=== PATIENT | female | born 1980 | race Two or more races ===

== ENCOUNTER 2021-03-29 00:53 | Inpatient (IN) | payer OTHER, SELFPAY ==
[2021-03-29 01:07] VITALS: BP 130/80; PULSE 80; RESP 18; TEMP 36.8; O2SAT 96
--- NOTE | 2021-03-29 01:08 | ED.PSYCH ---
HPI - Psych General Stated Complaint: crisis Time Seen by Provider: 03/29/21 01:06 Source: patient, EMS and police Mode of arrival: EMS Limitations: no limitations History of Present Illness HPI Narrative: 40-year-old female came in by police in [place] [address] for evaluation of depression and suicidal ideation. Patient was talking to her BPH and therapy and expressed suicidal gesturing, patient had a plan to jump in front of her running truck on the highway, but patient at this point declined any overdosing or using any drugs. When patient was asked to reason of her depression patient answered everything is not working will my life. Related Data Allergies Allergy/AdvReac Type Severity Reaction Status Date / Time bupropion [From WELLBUTRIN] Allergy Unknown PAINFUL Unverified 07/17/20 18:04 ERECTION risperidone [Risperdal] AdvReac Unknown diarrhea, Verified 10/21/16 00:00 feels ramped up sertraline [From ZOLOFT] AdvReac Unknown NAUSEA/DIZZ Unverified 07/17/20 18:04 INESS BANANAS Allergy Unknown ITCHING Uncoded 07/17/20 18:04 INSIDE MOUTH BLUEBERRIES Allergy Unknown ITCHING Uncoded 07/17/20 18:04 INSIDE MOUTH STRAWBERRIES Allergy Unknown ITCHING Uncoded 07/17/20 18:04 INSIDE MOUTH Review of Systems Review of Systems: All other systems are reviewed and are negative Constitutional: Reports as per HPI and Reports no additional constitutional complaints Eyes: Reports as per HPI and Reports no additional eye complaints Reports system reviewed and no additional complaints, except as documented Cardiovascular: Reports as per HPI and Reports no additional cardiovascular complaints Respiratory: Reports as per HPI and Reports no additional respiratory complaints Gastrointestinal: Reports as per HPI and Reports no additional gastrointestinal complaints Genitourinary: Reports no additional female genitourinary complaints Musculoskeletal: Reports no additional musculoskeletal complaints Skin/Breast: Reports system reviewed and no additional complaints, except as docu Psychiatric: Reports no additional psychiatric complaints Endocrine: Reports no additional endocrine complaints Hematologic/Lymphatic: Reports no additional hematologic/lymphatic complaints Allergic/Immunologic: Reports no additional allergic/immunologic complaints Reports system reviewed and no additional complaints, except as documented and Reports Abnormal speech present Physical Exam Vital Signs: Vital Signs: Vital signs have been reviewed as appeared to be correct. Blood pressure normal. Heart rate normal. Respiration rate normal. Temperature normal. Oxygen saturation normal. Appearance: Alert. Oriented X3. No acute distress. Head: Normal external exam. Normocephalic. Atraumatic. No Leahy signs noted. No raccoon eyes noted Eyes: PERRLA. EOMI. Conjunctiva and sclera normal. Eyelids normal. ENT: TM's Normal. Pharynx normal. Uvula midline. Moist mucous membranes. No trismus noted. No drooling noted. No muffled voice noted. Neck: Normal inspection. Neck supple. FROM. No adenopathy. Thyroid Normal. No meningeal signs. No neck mass noted. CVS: Normal heart rate and rhythm. Heart sound normal. No murmurs noted. Pulses normal throughout. Respiratory: No respiratory distress. Painless inspiration. Breath sounds normal. No wheezes/rales/rhonchi noted. Chest nontender. No accessory muscle usage noted or decreased air movement noted. Abdomen: Soft and nontender. Bowel sounds normal in all 4 quadrants. No distention noted. No organomegaly noted. No visible injury noted. Back: No CVA tenderness. Full range of motion noted. Skin: Skin warm and dry. Normal skin color. Normal skin turgor. No rashes/lesions/lacerations noted. Extremities: No lower extremity edema. Extremities exhibit normal range of motion. Extremities nontender. Neuro: Oriented X 3. No motor deficit. No sensory deficit. Reflexes normal. Patient Appearance: Appropriate Patient Orientation: Person, Place, Time and Situation Level of Consciousness: Awake, Appropriate and Alert Patient Behavior: Talkative, Cooperative. Mood Description: Depressed. Affect Description: Flat. Patient Cognition Impaired: No Ability to Follow Directions: Good Speech Pattern: Spontaneous Speech Memory Description: Intact Hallucinations: Not present. Delusions: Not Present Thought Process: Logical. Thought Content: Unremarkable Depressive Symptoms: Increased anxiety, suicidal Judgement: Poor Course Course Course Narrative: 40-year-old female came in with depression and suicidal ideation, patient is [place] police, patient is awaiting for BPH and evaluation. Reevaluation(s) Reevaluation #1: Physician observation started at 1:15 . Patient placed in physician observation because the patient needed more time for medication to work and to see PT/case management for evaluation and the need for placement patient's vital sign were stable, patient is alert and oriented , neuro exam unchanged, unremarkable rest of physical exam. Time: 01:13 Discharge Plan Discharge Clinical Impression: Depression
[2021-03-29 01:11] VITALS: BP 130/80; BP 150/110; PULSE 80; PULSE 90; RESP 18; TEMP 36.8; O2SAT 97; O2SAT 99; BMI 31.0
[2021-03-29] MEDS: LORazepam 0.5 MG TABLET PO (02:04)
[2021-03-29 03:40] LABS: COVID-19 Test Negative (Negative); IDNOW Serial# 9DD0AD1C
--- NOTE | 2021-03-29 04:14 | PC.NURSE ---
[address] SI with plan to jump in front of moving traffic. Sent her friend a goodFixyae message prior to coming to ED. Pt called [facility] from the community, who then called [place] Police to bring the patient to the ED. Pt is calm/cooperative. Denies drug/alcohol use. Plan to be evaluated by [facility] in the morning.
--- NOTE | 2021-03-29 05:08 | PC.NURSE ---
Faxed/called to [facility]. Josh (at [facility]) confirmed receipt of fax. Plan for evaluation in the morning.
--- NOTE | 2021-03-29 07:34 | PC.NURSE ---
patient appears to be resting currently appears to sleep with even unlabored breaths. received report from prior RN
[2021-03-29] MEDS: estradioL 0.5 MG TABLET 4 MG PO (10:00)
--- NOTE | 2021-03-29 10:41 | MHC.CARE ---
CARE Team assessed patient in BH 4, determined to need inpatient psychiatric hospitalization and will remain in the ED until a placement is secured, she is voluntary for this treatment. Evaluation to follow. Providers notified and in agreement with plan.
[2021-03-29 10:55] VITALS: BP 97/60; PULSE 57; RESP 16; O2SAT 97
[2021-03-29 11:04] LABS: Glucose Urine UA NEG (NEG); Leukocyte Esterase Urine NEG (NEG); Nitrite Urine NEG (NEG); Specific Gravity - Urine >= 1.030 (1.005-1.025); Urine Blood NEG (NEG); Urine Ketones NEG (NEG); Urine Protein NEG (NEG-TRACE)
[2021-03-29 11:05] LABS: Appearance Urine CLEAR; Color Urine AMBER
[2021-03-29 11:06] LABS: UPreg QC Valid YES; Urine Pregnancy NEGATIVE (NEGATIVE)
[2021-03-29 11:54] LABS: Amphetamine Screen Urine Not Detected (Not Detect); Barbiturates, Urine Not Detected (Not Detect); Benzodiazepines Screen Urine POSITIVE (Not Detect); Cannabinoid Screen Urine Not Detected (Not Detect); Cocaine Screen Urine Not Detected (Not Detect); Opiate Screen Urine Not Detected (Not Detect); Phencyclidine Screen Urine Not Detected (Not Detect)
[2021-03-29 13:50] VITALS: BP 112/68
[2021-03-29] MEDS: clonazePAM 1 MG TABLET 2 MG PO (13:53)
--- NOTE | 2021-03-29 14:35 | ECG_ITS ---
Test Reason : MEDICAL CLEARANCE Blood Pressure : / mmHG Vent. Rate : 049 BPM Atrial Rate : 049 BPM P-R Int : 150 ms QRS Dur : 094 ms QT Int : 448 ms P-R-T Axes : 022 076 054 degrees QTc Int : 404 ms Sinus bradycardia Otherwise normal ECG No significant changes when compared with the previous EKG of 26 oct 2016 Referred By: Justin Prasad Electronically Signed By:FARHEEN SOLO
[2021-03-29] MEDS: hydrOXYzine HCL 25 MG TABLET PO (16:15)
--- NOTE | 2021-03-29 19:08 | MHC.CARE ---
Bedsearch Note: Reviewed [facility] for statewide bed availability. Pt will require a single room, due to being transgendered, and there are no facilities able to accommodate pt at this time. Pt will remain in ED pending either change in mental status or admission to a psychiatric treatment facility.
--- NOTE | 2021-03-29 19:28 | PC.NURSE ---
Patient in bed appears sleeping, no distress reported at this time, ate her dinner per report, will continue to monitor.
[2021-03-29 23:45] VITALS: BP 105/63; PULSE 50; RESP 16; TEMP 36.5; O2SAT 96
[2021-03-30 00:38] VITALS: BP 136/78; PULSE 117; RESP 20; O2SAT 97
--- NOTE | 2021-03-30 10:44 | MHC.CARE ---
CARE Team conducted a state wide bed search - no current beds available. [facility] accepted referral. CARE Team to completed [facility].
[2021-03-30] MEDS: estradioL 0.5 MG TABLET 4 MG PO (11:28)
[2021-03-30] MEDS: Escitalopram Oxalate 20 MG TABLET PO (11:29)
[2021-03-30 13:47] VITALS: BP 116/65; PULSE 47; RESP 16; O2SAT 98
[2021-03-30 15:00] VITALS: RESP 16
--- NOTE | 2021-03-30 15:05 | MHC.CARE ---
CARE Team completed chart review. Pt has [facility] not medicare/[employer]. CARE Team spoke with [facility] Supervisor [employer] who follow up with [facility]. CARE Team to contact [facility] for authorization.
--- NOTE | 2021-03-30 15:10 | PC.NURSE ---
Report taken from Joe Rn, per Joe: pt is male to female transgender, with preferred pronouns she/her. Pt has flat affect answers questions with despondent/flat affect. Per care team: pt is to be on [place]. confirmed with rob. Matthew RETAIL PHARMACIST to sign.
--- NOTE | 2021-03-30 20:05 | PC.NURSE ---
Patient in bed appears sleeping, no distress observed/reported, respiration +/=/non-labored bilaterally, per report patient had quiet and uneventful day, no update on bed search, will continue to monitor.
[2021-03-30 21:50] VITALS: RESP 16
[2021-03-30] MEDS: traZODone HCL 50 MG TABLET PO (22:07)
[2021-03-30] MEDS: clonazePAM 1 MG TABLET 2 MG PO (22:07)
--- NOTE | 2021-03-30 22:22 | PC.NURSE ---
Patient requested medication for anxiety and sleep, prn Trazodone and Klonopin administered as ordered, denied distress, will continue to monitor
[2021-03-30 23:10] VITALS: BP 103/54; PULSE 94; RESP 16; TEMP 36.5; O2SAT 95
--- NOTE | 2021-03-31 06:58 | PC.NURSE ---
patients appears asleep at present, breathing evenly and easily with regular respirations. patient appears in no distress.
[2021-03-31] MEDS: Escitalopram Oxalate 20 MG TABLET PO (09:54)
[2021-03-31] MEDS: estradioL 0.5 MG TABLET 4 MG PO (09:54)
[2021-03-31] MEDS: traZODone HCL 50 MG TABLET PO (22:14)
[2021-03-31] MEDS: clonazePAM 1 MG TABLET 2 MG PO (22:14)
[2021-03-31 22:19] VITALS: BP 121/68; PULSE 53; RESP 16; TEMP 36.7; O2SAT 97
--- NOTE | 2021-03-31 22:53 | PC.NURSE ---
pt. is a 40 year old transgender Arabic speaking woman who came to at approx. 19:15 from the [facility] ED on a cv status. pt. is covid neg, utox neg. pt. was assessed by crisis after she reported suicidal ideation with a plan to step into the path of an oncoming traffic. She is dx with PTSD which was triggered by a conflict with her room mate that lead to her becoming homeless. pt. was soft spoken, poor eye contact, flat affect. she reported she will seek staff if si arise. pt. signed consent forms, safety tool, orders for PRN medications received by Chelsie Grossman DOC.. pt. was oriented to the unit, she was cooperative and appropriate.
[2021-04-01] MEDS: Escitalopram Oxalate 20 MG TABLET PO (08:44)
[2021-04-01] MEDS: estradioL 0.5 MG TABLET 4 MG PO (08:44)
[2021-04-01 08:50] LABS: MANUAL DIFF FLAG NO
[2021-04-01 09:02] LABS: Estimated Average Glucose 94 mg/dL; Hemoglobin A1c % 4.9 %
[2021-04-01 09:05] LABS: Basophils Percent Auto 0.4 % (0-2); Eosinophils Absolute Auto 0.2 X10*3/uL (0.0-0.4); Eosinophils Percent Auto 2.5 % (0-4); Hematocrit 45.4 % (37-47); Hemoglobin 15.5 g/dl (12.0-16.0); Imm Gran Abs Auto 0.05 X10*3/uL (0.00-0.03); Imm Gran Pct Auto 0.5 % (0.0-0.4); Lymphocytes Absolute Auto 2.7 X10*3/uL (1.2-4.9); Lymphocytes Percent Auto 28.3 % (20-40); Mean Corpuscular HGB Conc 34.1 g/dl (31.0-35.0); Mean Corpuscular Hemoglobin 30.4 pg (27.0-33.0); Mean Platelet Volume 9.5 fL (9.4-12.3); Monocytes Absolute Auto 0.8 X10*3/uL (0.1-1.2); Monocytes Percent Auto 7.9 % (2-11); Neutrophils Absolute Auto 5.8 X10*3/uL (2.0-8.3); Neutrophils Percent Auto 60.4 % (45-73); Platelet Count 250 X10*3/uL (160-400); Red Cell Distribution Width 12.1 % (11.0-16.0); White Blood Count 9.5 X10*3/uL (4.8-10.8)
[2021-04-01 09:35] LABS: Alanine Aminotransferase 21 U/L (0-31); Albumin Level 4.2 g/dL (3.5-5.0); Alkaline Phosphatase 59 U/L (39-117); Anion Gap 14 (12-20); Aspartate Amino Transferase 16 U/L (5-31); Bilirubin Direct 0.2 mg/dL (0.0-0.5); Bilirubin Total 0.7 mg/dL (0.0-1.0); Blood Urea Nitrogen 16 mg/dL (9-16); Carbon Dioxide 29 mmol/L (22-29); Chloride 104 mmol/L (96-108); Cholesterol 211 mg/dL; Estimated Glomerular Filt Rate 47; Glucose Fasting 89 mg/dL (60-99); HDL Cholesterol 31 mg/dL; LDL Cholesterol Calculated 121 mg/dl; Magnesium 2.3 mg/dL (1.6-2.6); Potassium 3.7 mmol/L (3.3-5.1); Sodium 143 mmol/L (135-145); Total Protein 6.7 g/dL (6.5-8.0); Triglycerides 299 mg/dL
[2021-04-01 09:56] LABS: Free T4 (Free Thyroxine) 0.99 ng/dL (0.71-1.85); Thyroid Stimulating Hormone 1.28 uIU/mL (0.32-4.0)
[2021-04-01 10:08] LABS: Vitamin B12 257 pg/mL (200-900)
--- NOTE | 2021-04-01 15:02 | HO.PSYADMNOT ---
HPI Chief Complaint: crisis Sources of Information: patient interviewed, chart reviewed and crisis/core team assessment reviewed HPI Subjective Notes: Jordan Warning (Jordan warning given including mention that patients participation is voluntary and the possibility of court ordered involuntary commitment and treatment with antipsychotics. ) and 3 Day Narrative: Patient is a 40-year-old trans gender patient from male to female who presents for worsening depression in the face of newly becoming homeless and change in medications. Patient reports that that she has been depressed for the past year however was living in a house where she got to take care of an [id number] baby which was encouraging. Patient has remained on her medications. In this house, there were multiple friction filled relationships with other housemates however she focused on caring for the child. About a month ago, the the child's grandmother called [employer] on her daughter (the mother of the [id number]). However the mother thought it was the patient who called [employer] and patient was kicked out of the house. She has been homeless since he left there. Last month she was found walking in traffic wanting to , and admitted to [facility] out. She stayed there 1 week and her medication of citalopram, clonazepam and trazodone were all discontinued and she was put on perphenazine. She felt that this was not helpful at all and when she left she stop taking perphenazine. She has been trying to find a place to live but it has been very difficult and so patient got suicidal again, was again walking in traffic and reports she wanted to . She denies substance abuse. She endorses intermittent muffled voices or high-pitched sounds, which are only present when she is very stressed or anxious. Patient endorses long history of trauma starting in childhood and foster care; she has ongoing PTSD symptoms of nightmares hypervigilance, flashbacks and dissociative moments. She can also become panicked and feel like there is a ?hot plate on her chest ?, nauseous. Patient says that she is not currently suicidal and she is trying to summon up some renewed hope and trying to see if there is a way. She is open to medication changes though she reports she has had many trials. Med trials: ECT: Last year, said no help [place]: Said it caused nausea and dizziness and was discontinued Wellbutrin Zoloft Paxil Prazosin: Became overly dizzy Past Psychiatric History: Outpatient psychiatrist Dr. mauricio from [facility] Medical Evaluation Reviewed: Yes [facility] Medical History (Updated 04/02/21 @ 14:21 by Jefferson Lai) Agoraphobia Anxiety Chronic post-traumatic stress disorder (PTSD) Depression [id number] transgender person MDD (major depressive disorder), recurrent severe, without psychosis PTSD (post-traumatic stress disorder) Suicidal ideation Social History: DSS/foster care Substance History: Denies Trauma History: Patient reports trauma, does not go into detail Diagnostics Vital Signs (24Hr): Vital Signs - 24 hr 03/31/21 22:19 Temperature 98.1 F Pulse Rate 53 Respiratory Rate 16 Blood Pressure 121/68 Pulse Oximetry 97 Body Mass Index 31.0 Labs Results: 04/01/21 08:26 04/01/21 08:26 Labs: Laboratory Results - last 48 hr 04/01/21 04/01/21 04/01/21 08:26 08:26 08:26 WBC 9.5 RBC 5.10 Hgb 15.5 Hct 45.4 MCV 89.0 MCH 30.4 MCHC 34.1 RDW 12.1 Plt Count 250 MPV 9.5 Immature Gran % (Auto) 0.5 H Neut % (Auto) 60.4 Lymph % (Auto) 28.3 [place] % (Auto) 7.9 Eos % (Auto) 2.5 Baso % (Auto) 0.4 Lymph # (Auto) 2.7 [place] # (Auto) 0.8 Eos # (Auto) 0.2 Baso # (Auto) 0.0 Abs Immat Gran (auto) 0.05 H Absolute Neuts (auto) 5.8 Absolute Nucleated RBC 0.000 Nucleated RBC % (auto) 0.0 Sodium 143 Potassium 3.7 Chloride 104 Carbon Dioxide 29 Anion Gap 14 BUN 16 Creatinine 1.27 Estim Creat Clear Calc 73.0 Estimated GFR 47 Fasting Glucose 89 Estimat Average Glucose 94 Hemoglobin A1c % 4.9 Calcium 9.0 Magnesium 2.3 Total Bilirubin 0.7 Direct Bilirubin 0.2 AST 16 ALT 21 Alkaline Phosphatase 59 Total Protein 6.7 Albumin 4.2 Triglycerides 299 Cholesterol 211 LDL Cholesterol, Calc 121 HDL Cholesterol 31 Vitamin B12 Folate TSH 1.28 Free T4 0.99 04/01/21 08:26 WBC RBC Hgb Hct MCV MCH MCHC RDW Plt Count MPV Immature Gran % (Auto) Neut % (Auto) Lymph % (Auto) Florence % (Auto) Eos % (Auto) Baso % (Auto) Lymph # (Auto) [place] # (Auto) Eos # (Auto) Baso # (Auto) Abs Immat Gran (auto) Absolute Neuts (auto) Absolute Nucleated RBC Nucleated RBC % (auto) Sodium Potassium Chloride Carbon Dioxide Anion Gap BUN Creatinine Estim Creat Clear Calc Estimated GFR Fasting Glucose Estimat Average Glucose Hemoglobin A1c % Calcium Magnesium Total Bilirubin Direct Bilirubin AST ALT Alkaline Phosphatase Total Protein Albumin Triglycerides Cholesterol LDL Cholesterol, Calc HDL Cholesterol Vitamin B12 257 Folate 15.0 TSH Free T4 Meds/Allergies Meds Home Medications Acetaminophen (Acetaminophen 325 Mg Tablet) 650 mg PO Q6H PRN PRN Reason: Headache/Pain Mild Scale (1-3) Al Hydroxide/Mg Hydroxide (Magnesium Hydrox/Alum Hydrox 30 Ml Oral.Susp) 30 ml PO Q6H PRN PRN Reason: Heartburn/Nausea Last Admin: 04/01/21 20:38 Dose: 30 ml Documented by: Clonazepam (Clonazepam 1 Mg Tablet) 2 mg PO TID PRN PRN Reason: anxiety Last Admin: 04/02/21 13:05 Dose: 2 mg Documented by: Escitalopram Oxalate (Escitalopram Oxalate 20 Mg Tablet) 20 mg PO DAILY [facility] Last Admin: 04/02/21 09:54 Dose: 20 mg Documented by: Estradiol (Estradiol 0.5 Mg Tablet) 4 mg PO DAILY [facility] Last Admin: 04/02/21 09:54 Dose: 4 mg Documented by: Hydroxyzine HCl (Hydroxyzine Hcl 25 Mg Tablet) 25 mg PO DAILY PRN PRN Reason: anxiety attack Last Admin: 03/29/21 16:15 Dose: 25 mg Documented by: Hydroxyzine HCl (Hydroxyzine Hcl 25 Mg Tablet) 50 mg PO BEDTIME [facility] Last Admin: 04/01/21 20:32 Dose: 50 mg Documented by: Magnesium Hydroxide (Milk Of Magnesia 30 Ml Oral.Susp) 30 ml PO DAILY PRN PRN Reason: Constipation Trazodone HCl (Trazodone Hcl 100 Mg Tablet) 100 mg PO BEDTIME [facility] Last Admin: 04/01/21 20:33 Dose: 100 mg Documented by: Trazodone HCl (Trazodone Hcl 50 Mg Tablet) 50 mg PO BEDTIME PRN PRN Reason: continued Insomnia Allergies Allergies Allergy/AdvReac Type Severity Reaction Status Date / Time [facility]ion [[facility] Allergy Unknown PAINFUL Verified 03/29/21 01:18 ERECTION perphenazine Allergy Unknown Shakiness Verified 03/29/21 01:23 risperidone [Risperdal] AdvReac Unknown diarrhea, Verified 03/29/21 01:18 feels ramped up sertraline [From ZOLOFT] AdvReac Unknown NAUSEA/DIZZ Verified 03/29/21 01:18 INESS BANANAS Allergy Unknown ITCHING Uncoded 03/29/21 01:18 INSIDE MOUTH BLUEBERRIES Allergy Unknown ITCHING Uncoded 03/29/21 01:18 INSIDE MOUTH STRAWBERRIES Allergy Unknown ITCHING Uncoded 03/29/21 01:18 INSIDE MOUTH Mental Status Exam Mental Status Exam Narrative: Pt is alert and oriented; behavior is cooperative; patient is not in distress; dressed in casual attire with hat on head and adequate hygiene; mood is described as depressed and affect congruent; eyes downcast; Speech is a little soft and a little slowed; some psychomotor retardation present; thought process is organized, linear, logical and goal directed. Thought content is on getting treatment and is pertinent to relevant topics and without any delusional content, paranoid ideations or grandiosity; denies any current SI/HI but endorses chronic intermittent passive SI. There is no evidence of perceptual disturbance. Patients insight and judgment appear intact. Assessment & Plan Assessment & Plan (1) MDD (major depressive disorder), recurrent severe, without psychosis: Status: Acute Code(s): F33.2 - Major depressive disorder, recurrent severe without psychotic features (2) Chronic post-traumatic stress disorder (PTSD): Status: Acute Code(s): F43.12 - Post-traumatic stress disorder, chronic Assessment and Plan: Impression: Patient is a 40-year-old trans gender patient from male to female who presents for worsening depression in the face of newly becoming homeless and change in medications. Patient reports she has been on citalopram 40 mg for years; also on clonazepam 2 mg t.i.d., trazodone 50 mg hydroxyzine 50 mg at bedtime Patient reports that despite staying on medications and having a history of several medication trials she has continued depression and PTSD symptoms. She presents for treatment. Patient reports that suicidal ideations have now resolved and she is mustering up hope to find a way. Wildlife Conservation Professor discussed the risks and side effects of stain on benzodiazepines including its relative contraindications in patient is struggling with PTSD. However agree to leave as is for now since she has been on it for some time Plan Patient on CV Q 15 minutes checks for safety Continue all medications Patient on escitalopram since pharmacy does not carry citalopram Will reach out to Dr. mauricio (patient consents) to discuss medication management history TMS is an option (though ECT did not work) Discuss options with team Recommend DbT therapy Patient educated on: diagnosis, medication risk/benefits and therapeutic strategies Informed Consent: understands Reason for continued inpatient stay Substantial Risk for: harm to self and med/psych decompensation
[2021-04-01] MEDS: clonazePAM 1 MG TABLET 2 MG PO (16:06)
[2021-04-01 17:20] VITALS: BP 105/55; PULSE 57; TEMP 36.7
[2021-04-01] MEDS: hydrOXYzine HCL 25 MG TABLET 50 MG PO (20:32)
[2021-04-01] MEDS: traZODone HCL 100 MG TABLET PO (20:33)
[2021-04-01] MEDS: Magnesium Hydrox/Alum Hydrox 30 ML ORAL.SUSP PO (20:38)
[2021-04-02 06:25] VITALS: BP 95/50; PULSE 52; RESP 16; TEMP 36.5; O2SAT 97
[2021-04-02] MEDS: Escitalopram Oxalate 20 MG TABLET PO (09:54)
[2021-04-02] MEDS: estradioL 0.5 MG TABLET 4 MG PO (09:54)
--- NOTE | 2021-04-02 10:07 | P.PNPSI_ITS ---
Subjective Subjective Date of Service: 04/02/21 Reason For Visit: crisis Interim History: Patient remains depressed, said did not sleep that well. Die Press Operator discussed conversation with patient's outpatient provider, Dr. jacobs who reviewed patient's history and noticed that she seemed to do best on Celexa 60 mg and that was only lowered when FDA came out with new recommendations. Die Press Operator discussed risks vs benefits and patient agrees that the potential benefit of increased Celexa likely outweighs the potential risk, given that her current depression has been prompting her to walk in traffic with suicidal ideations. She will consider it further and decide whether not to increase dose. Medication Compliance: Yes Side effects from medications: No Attending Groups: No Mental Status Exam Mental Status Exam Narrative: Pt is alert and oriented; behavior is cooperative; patient is not in distress; dressed in casual attire with hat on head and adequate hygiene; mood is described as depressed and affect congruent; eyes downcast; Speech is a little soft and a little slowed; some psychomotor retardation present; thought process is organized, linear, logical and goal directed. Thought content is on getting treatment and is pertinent to relevant topics and without any delusional content, paranoid ideations or grandiosity; denies any current SI/HI but endorses chronic intermittent passive SI. There is no evidence of perceptual disturbance. Patients insight and judgment appear intact. Diagnostics Vital Signs (24Hr): Vital Signs - 24 hr 04/01/21 17:20 04/02/21 06:25 Temperature 98.1 F 97.7 F Pulse Rate 57 52 Respiratory Rate 16 Blood Pressure 105/55 L 95/50 L Pulse Oximetry 97 Body Mass Index 31.0 Labs Results: 04/01/21 08:26 04/01/21 08:26 Labs: Laboratory Results - last 48 hr 04/01/21 04/01/21 04/01/21 08:26 08:26 08:26 WBC 9.5 RBC 5.10 Hgb 15.5 Hct 45.4 MCV 89.0 MCH 30.4 MCHC 34.1 RDW 12.1 Plt Count 250 MPV 9.5 Immature Gran % (Auto) 0.5 H Neut % (Auto) 60.4 Lymph % (Auto) 28.3 [place] % (Auto) 7.9 Eos % (Auto) 2.5 Baso % (Auto) 0.4 Lymph # (Auto) 2.7 [place] # (Auto) 0.8 Eos # (Auto) 0.2 Baso # (Auto) 0.0 Abs Immat Gran (auto) 0.05 H Absolute Neuts (auto) 5.8 Absolute Nucleated RBC 0.000 Nucleated RBC % (auto) 0.0 Sodium 143 Potassium 3.7 Chloride 104 Carbon Dioxide 29 Anion Gap 14 BUN 16 Creatinine 1.27 Estim Creat Clear Calc 73.0 Estimated GFR 47 Fasting Glucose 89 Estimat Average Glucose 94 Hemoglobin A1c % 4.9 Calcium 9.0 Magnesium 2.3 Total Bilirubin 0.7 Direct Bilirubin 0.2 AST 16 ALT 21 Alkaline Phosphatase 59 Total Protein 6.7 Albumin 4.2 Triglycerides 299 Cholesterol 211 LDL Cholesterol, Calc 121 HDL Cholesterol 31 Vitamin B12 Folate TSH 1.28 Free T4 0.99 04/01/21 08:26 WBC RBC Hgb Hct MCV MCH MCHC RDW Plt Count MPV Immature Gran % (Auto) Neut % (Auto) Lymph % (Auto) [place] % (Auto) Eos % (Auto) Baso % (Auto) Lymph # (Auto) [place] # (Auto) Eos # (Auto) Baso # (Auto) Abs Immat Gran (auto) Absolute Neuts (auto) Absolute Nucleated RBC Nucleated RBC % (auto) Sodium Potassium Chloride Carbon Dioxide Anion Gap BUN Creatinine Estim Creat Clear Calc Estimated GFR Fasting Glucose Estimat Average Glucose Hemoglobin A1c % Calcium Magnesium Total Bilirubin Direct Bilirubin AST ALT Alkaline Phosphatase Total Protein Albumin Triglycerides Cholesterol LDL Cholesterol, Calc HDL Cholesterol Vitamin B12 257 Folate 15.0 TSH Free T4 Medications Medications Current Medications Generic Name Dose Route Start Last Admin Trade Name Freq PRN Reason Stop Dose Admin Acetaminophen 650 mg 03/31/21 18:50 Acetaminophen 325 Mg Tablet PO Q6H PRN Headache/Pain Mild Scale (1-3) Al Hydroxide/Mg Hydroxide 30 ml 03/31/21 18:50 04/01/21 20:38 Magnesium Hydrox/Alum Hydrox 30 Ml Oral.Susp PO 30 ml Q6H PRN Administration Heartburn/Nausea Clonazepam 2 mg 03/29/21 09:34 04/01/21 16:06 Clonazepam 1 Mg Tablet PO 2 mg TID PRN Administration anxiety Escitalopram Oxalate 20 mg 03/30/21 09:00 04/01/21 08:44 Escitalopram Oxalate 20 Mg Tablet PO 20 mg DAILY JAMES Administration Estradiol 4 mg 03/29/21 09:30 04/01/21 08:44 Estradiol 0.5 Mg Tablet PO 4 mg DAILY JAMES Administration Hydroxyzine HCl 25 mg 03/29/21 09:35 03/29/21 16:15 Hydroxyzine Hcl 25 Mg Tablet PO 25 mg DAILY PRN Administration anxiety attack Hydroxyzine HCl 50 mg 04/01/21 21:00 04/01/21 20:32 Hydroxyzine Hcl 25 Mg Tablet PO 50 mg BEDTIME JAMES Administration Magnesium Hydroxide 30 ml 03/31/21 18:50 Milk Of Magnesia 30 Ml Oral.Susp PO DAILY PRN Constipation Trazodone HCl 100 mg 04/01/21 21:00 04/01/21 20:33 Trazodone Hcl 100 Mg Tablet PO 100 mg BEDTIME JAMES Administration Trazodone HCl 50 mg 04/01/21 15:01 Trazodone Hcl 50 Mg Tablet PO BEDTIME PRN continued Insomnia Allergies Allergies Allergy/AdvReac Type Severity Reaction Status Date / Time bupropion [From WELLBUTRIN] Allergy Unknown PAINFUL Verified 03/29/21 01:18 ERECTION perphenazine Allergy Unknown Shakiness Verified 03/29/21 01:23 risperidone [Risperdal] AdvReac Unknown diarrhea, Verified 03/29/21 01:18 feels ramped up sertraline [From ZOLOFT] AdvReac Unknown NAUSEA/DIZZ Verified 03/29/21 01:18 INESS BANANAS Allergy Unknown ITCHING Uncoded 03/29/21 01:18 INSIDE MOUTH BLUEBERRIES Allergy Unknown ITCHING Uncoded 03/29/21 01:18 INSIDE MOUTH STRAWBERRIES Allergy Unknown ITCHING Uncoded 03/29/21 01:18 INSIDE MOUTH Assessment & Plan Assessment & Plan (1) MDD (major depressive disorder), recurrent severe, without psychosis: Status: Acute Code(s): F33.2 - Major depressive disorder, recurrent severe without psychotic features (2) Chronic post-traumatic stress disorder (PTSD): Status: Acute Code(s): F43.12 - Post-traumatic stress disorder, chronic Patient is a 40-year-old trans gender patient from male to female who presents for worsening depression in the face of newly becoming homeless and change in medications. Patient has long history of depression and anxiety with characterological traits and high expressed emotion; her depression has remained despite multiple medication trials and ECT. She has done relatively well for the past year living in this household, being able to help care for a young child and becoming recently homelessness and kicked out of this household has significantly exacerbated her depression. Patient reports she has been on citalopram 40 mg for years; also on clonazepam 2 mg t.i.d., trazodone 50 mg hydroxyzine 50 mg at bedtime. She presents for treatment. Patient reports that active suicidal ideations have now resolved and she is mustering up hope to find a way. Die Press Operator discussed the risks and side effects of staying on benzodiazepines including its relative contraindications in patient is struggling with PTSD. However agree to leave as is for now since she has been on it for some time. Patient is considering going back to citalopram 60 mg on which she reportedly has done her best; she is weighing the risk versus benefit given that increased dose increases risk of prolonged QTC balanced by current lower dose is leaving patient vulnerable to suicidal ideation Plan Patient on CV Q 15 minutes checks for safety Continue all medications Patient on escitalopram since pharmacy does not carry citalopram Dr. mauricio (patient consents) discuss medication management history TMS is an option (though ECT did not work) Discuss options with team Recommend DbT therapy Greater than 50% of the session was spent on counseling and/or coordination of care Reason for contiued inpatient stay Substantial Risk for: rapid decompensation and med/psych decompensation
[2021-04-02] MEDS: clonazePAM 1 MG TABLET 2 MG PO (13:05)
[2021-04-02 16:35] VITALS: BP 105/62; PULSE 56; TEMP 36.7
[2021-04-02] MEDS: Acetaminophen 325 MG TABLET 650 MG PO (21:43)
[2021-04-02] MEDS: traZODone HCL 100 MG TABLET PO (22:58)
[2021-04-02] MEDS: hydrOXYzine HCL 25 MG TABLET 50 MG PO (22:59)
--- NOTE | 2021-04-03 | ECG_ITS ---
Test Reason : MED MONITORING Blood Pressure : / mmHG Vent. Rate : 057 BPM Atrial Rate : 057 BPM P-R Int : 148 ms QRS Dur : 108 ms QT Int : 452 ms P-R-T Axes : 016 059 049 degrees QTc Int : 439 ms Sinus bradycardia Otherwise normal ECG When compared with ECG of 29-MAR-2021 15:05, No significant change was found Referred By: Jefferson Lai Electronically Signed By:Dusty Chen
[2021-04-03 06:35] VITALS: BP 93/46; PULSE 48; RESP 16; TEMP 36.3; O2SAT 96
[2021-04-03] MEDS: Escitalopram Oxalate 20 MG TABLET PO (09:12)
[2021-04-03] MEDS: estradioL 0.5 MG TABLET 4 MG PO (09:12)
[2021-04-03] MEDS: Acetaminophen 325 MG TABLET 650 MG PO ×2 (09:23→16:04)
[2021-04-03] MEDS: clonazePAM 1 MG TABLET 2 MG PO ×2 (09:23→16:37)
--- NOTE | 2021-04-03 15:00 | HO.PSYCHPN ---
Subjective Subjective Date of Service: 04/03/21 Reason For Visit: crisis Interim History: pt reports she continues to be depressed; she endorses passive SI. Porcelain Enamel Installer further discussed medication options and pt decided she would like to see if increasing Lexapro, rather than going back to Citalopram, could be effective; telegraphic typewriter installer agrees to increase. Pt shared some things she's been writing about her current experience and showed telegraphic typewriter installer a piece of paper with lists of symptoms; also was a diagram of a person with a penis to which telegraphic typewriter installer inquired and pt explained that she's had a chronic experience of testicular pain and painful urination. She denies any sexual interactions and explains that she's been to a Urologist for this with little change. Porcelain Enamel Installer discussed flomax but pt does not want any other med changes. Medication Compliance: Yes Side effects from medications: No Attending Groups: No Mental Status Exam Mental Status Exam Narrative: Pt is alert and oriented; behavior is cooperative, friendly and calm; patient is not in distress; dressed in casual attire with adequate hygiene; mood is described as depressed and affect congruent; eye contact appropriate; Speech is normal rate, volume and prosody and not pressured; no psychomotor agitation/retardation present; thought process is organized, linear, logical and goal directed. Thought content is primarily on aspects of her depression on getting tx and is pertinent to relevant topics and without any delusional content, paranoid ideations or grandiosity; denies any SI/HI. There is no evidence of perceptual disturbance. Patients insight and judgment appear intact. Diagnostics Vital Signs (24Hr): Vital Signs - 24 hr 04/02/21 16:35 04/03/21 06:35 Temperature 98.0 F 97.4 F Pulse Rate 56 48 L Respiratory Rate 16 Blood Pressure 105/62 93/46 L Pulse Oximetry 96 Body Mass Index 31.0 Labs Results: 04/01/21 08:26 04/01/21 08:26 Medications Medications Current Medications Generic Name Dose Route Start Last Admin Trade Name Freq PRN Reason Stop Dose Admin Acetaminophen 650 mg 03/31/21 18:50 04/03/21 09:23 Acetaminophen 325 Mg Tablet PO 650 mg Q6H PRN Administration Headache/Pain Mild Scale (1-3) Al Hydroxide/Mg Hydroxide 30 ml 03/31/21 18:50 04/01/21 20:38 Magnesium Hydrox/Alum Hydrox 30 Ml Oral.Susp PO 30 ml Q6H PRN Administration Heartburn/Nausea Escitalopram Oxalate 20 mg 03/30/21 09:00 04/03/21 09:12 Escitalopram Oxalate 20 Mg Tablet PO 20 mg DAILY JAMES Administration Estradiol 4 mg 03/29/21 09:30 04/03/21 09:12 Estradiol 0.5 Mg Tablet PO 4 mg DAILY JAMES Administration Hydroxyzine HCl 25 mg 03/29/21 09:35 03/29/21 16:15 Hydroxyzine Hcl 25 Mg Tablet PO 25 mg DAILY PRN Administration anxiety attack Hydroxyzine HCl 50 mg 04/01/21 21:00 04/02/21 22:59 Hydroxyzine Hcl 25 Mg Tablet PO 50 mg BEDTIME JAMES Administration Magnesium Hydroxide 30 ml 03/31/21 18:50 Milk Of Magnesia 30 Ml Oral.Susp PO DAILY PRN Constipation Trazodone HCl 100 mg 04/01/21 21:00 04/02/21 22:58 Trazodone Hcl 100 Mg Tablet PO 100 mg BEDTIME JAMES Administration Trazodone HCl 50 mg 04/01/21 15:01 Trazodone Hcl 50 Mg Tablet PO BEDTIME PRN continued Insomnia Allergies Allergies Allergy/AdvReac Type Severity Reaction Status Date / Time bupropion [From WELLBUTRIN] Allergy Unknown PAINFUL Verified 03/29/21 01:18 ERECTION perphenazine Allergy Unknown Shakiness Verified 03/29/21 01:23 risperidone [Risperdal] AdvReac Unknown diarrhea, Verified 03/29/21 01:18 feels ramped up sertraline [From ZOLOFT] AdvReac Unknown NAUSEA/DIZZ Verified 03/29/21 01:18 INESS BANANAS Allergy Unknown ITCHING Uncoded 03/29/21 01:18 INSIDE MOUTH BLUEBERRIES Allergy Unknown ITCHING Uncoded 03/29/21 01:18 INSIDE MOUTH STRAWBERRIES Allergy Unknown ITCHING Uncoded 03/29/21 01:18 INSIDE MOUTH Assessment & Plan Assessment & Plan (1) MDD (major depressive disorder), recurrent severe, without psychosis: Status: Acute Code(s): F33.2 - Major depressive disorder, recurrent severe without psychotic features (2) Chronic post-traumatic stress disorder (PTSD): Status: Acute Code(s): F43.12 - Post-traumatic stress disorder, chronic Assessment and Plan: Patient is a 40-year-old trans gender patient from male to female who presents for worsening depression in the face of newly becoming homeless and change in medications. Patient has long history of depression and anxiety with characterological traits and high expressed emotion; her depression has remained despite multiple medication trials and ECT. She has done relatively well for the past year living in this household, being able to help care for a young child and becoming recently homelessness and kicked out of this household has significantly exacerbated her depression. Patient reports she has been on citalopram 40 mg for years; also on clonazepam 2 mg t.i.d., trazodone 50 mg hydroxyzine 50 mg at bedtime. She presents for treatment. Patient reports that active suicidal ideations have now resolved and she is mustering up hope to find a way. Porcelain Enamel Installer discussed the risks and side effects of staying on benzodiazepines including its relative contraindications in patient is struggling with PTSD. However agree to leave as is for now since she has been on it for some time. Patient is considering going back to citalopram 60 mg on which she reportedly has done her best; she is weighing the risk versus benefit given that increased dose increases risk of prolonged QTC balanced by current lower dose is leaving patient vulnerable to suicidal ideation Pt elected to stay onlexapro for now and increase this further Plan Patient on CV Q 15 minutes checks for safety Continue all medications Incease escitalopram to 20mg (was started on this on admission since pharmacy does not carry citalopram) Dr. mauricio (patient consents) consulted TMS is an option (though ECT did not work) Discuss options with team Recommend DbT therapy Greater than 50% of the session was spent on counseling and/or coordination of care Reason for contiued inpatient stay Substantial Risk for: rapid decompensation
[2021-04-03 18:00] VITALS: BP 114/64; PULSE 57; TEMP 36.2
[2021-04-03] MEDS: Magnesium Hydrox/Alum Hydrox 30 ML ORAL.SUSP PO (20:23)
[2021-04-03] MEDS: hydrOXYzine HCL 25 MG TABLET 50 MG PO (22:11)
[2021-04-03] MEDS: traZODone HCL 100 MG TABLET PO (22:11)
[2021-04-04 06:00] VITALS: BP 98/56; PULSE 58; RESP 16; TEMP 36.6; O2SAT 96
[2021-04-04] MEDS: estradioL 0.5 MG TABLET 4 MG PO (08:57)
[2021-04-04] MEDS: Escitalopram Oxalate 10 MG TABLET 30 MG PO (08:57)
[2021-04-04] MEDS: Acetaminophen 325 MG TABLET 650 MG PO (16:25)
[2021-04-04] MEDS: clonazePAM 1 MG TABLET 2 MG PO (16:26)
[2021-04-04 18:00] VITALS: BP 109/62; PULSE 55; TEMP 36.6
--- NOTE | 2021-04-04 21:04 | P.PNPSI_ITS ---
Subjective Subjective Date of Service: 04/04/21 Reason For Visit: crisis Interim History: Jazlyn is withdrawn and isolative. She did not engage with this scientific technical writer. She had no immediate concerns Medication Compliance: Yes Side effects from medications: No Review of Systems Acute medical concerns: No Medical Review of Systems: unchanged Mental Status Exam Mental Status Exam Narrative: Pt is alert and oriented; behavior is cooperative; patient is not in distress; dressed in casual attire with hat on head and adequate hygiene; mood is described as depressed and affect congruent; eyes downcast; Speech is a little soft and a little slowed; some psychomotor retardation present; thought process is organized, linear, logical and goal directed. Thought content is on getting treatment and is pertinent to relevant topics and without any delusional content, paranoid ideations or grandiosity; denies any current SI/HI but endorses chronic intermittent passive SI. There is no evidence of perceptual disturbance. Patients insight and judgment appear intact. Diagnostics Vital Signs (24Hr): Vital Signs - 24 hr 04/04/21 06:00 Temperature 97.8 F Pulse Rate 58 Respiratory Rate 16 Blood Pressure 98/56 L Pulse Oximetry 96 Body Mass Index 31.0 Labs Results: 04/01/21 08:26 04/01/21 08:26 Medications Medications Current Medications Generic Name Dose Route Start Last Admin Trade Name Freq PRN Reason Stop Dose Admin Acetaminophen 650 mg 03/31/21 18:50 04/04/21 16:25 Acetaminophen 325 Mg Tablet PO 650 mg Q6H PRN Administration Headache/Pain Mild Scale (1-3) Al Hydroxide/Mg Hydroxide 30 ml 03/31/21 18:50 04/03/21 20:23 Magnesium Hydrox/Alum Hydrox 30 Ml Oral.Susp PO 30 ml Q6H PRN Administration Heartburn/Nausea Clonazepam 2 mg 04/03/21 16:26 04/04/21 16:26 Clonazepam 1 Mg Tablet PO 2 mg TID PRN Administration Anxiety Escitalopram Oxalate 30 mg 04/03/21 16:25 04/04/21 08:57 Escitalopram Oxalate 10 Mg Tablet PO 30 mg DAILY JAMES Administration Estradiol 4 mg 03/29/21 09:30 04/04/21 08:57 Estradiol 0.5 Mg Tablet PO 4 mg DAILY JAMES Administration Hydroxyzine HCl 25 mg 03/29/21 09:35 03/29/21 16:15 Hydroxyzine Hcl 25 Mg Tablet PO 25 mg DAILY PRN Administration anxiety attack Hydroxyzine HCl 50 mg 04/01/21 21:00 04/03/21 22:11 Hydroxyzine Hcl 25 Mg Tablet PO 50 mg BEDTIME JAMES Administration Magnesium Hydroxide 30 ml 03/31/21 18:50 Milk Of Magnesia 30 Ml Oral.Susp PO DAILY PRN Constipation Trazodone HCl 100 mg 04/01/21 21:00 04/03/21 22:11 Trazodone Hcl 100 Mg Tablet PO 100 mg BEDTIME JAMES Administration Trazodone HCl 50 mg 04/01/21 15:01 Trazodone Hcl 50 Mg Tablet PO BEDTIME PRN continued Insomnia Allergies Allergies Allergy/AdvReac Type Severity Reaction Status Date / Time bupropion [From WELLBUTRIN] Allergy Unknown PAINFUL Verified 03/29/21 01:18 ERECTION perphenazine Allergy Unknown Shakiness Verified 03/29/21 01:23 risperidone [Risperdal] AdvReac Unknown diarrhea, Verified 03/29/21 01:18 feels ramped up sertraline [From ZOLOFT] AdvReac Unknown NAUSEA/DIZZ Verified 03/29/21 01:18 INESS BANANAS Allergy Unknown ITCHING Uncoded 03/29/21 01:18 INSIDE MOUTH BLUEBERRIES Allergy Unknown ITCHING Uncoded 03/29/21 01:18 INSIDE MOUTH STRAWBERRIES Allergy Unknown ITCHING Uncoded 03/29/21 01:18 INSIDE MOUTH Assessment & Plan Assessment & Plan (1) MDD (major depressive disorder), recurrent severe, without psychosis: Status: Acute Code(s): F33.2 - Major depressive disorder, recurrent severe without psychotic features (2) Chronic post-traumatic stress disorder (PTSD): Status: Acute Code(s): F43.12 - Post-traumatic stress disorder, chronic Assessment and Plan: Impression: Patient is a 40-year-old trans gender patient from male to female who presents for worsening depression in the face of newly becoming homeless and change in medications. Patient reports she has been on citalopram 40 mg for years; also on clonazepam 2 mg t.i.d., trazodone 50 mg hydroxyzine 50 mg at bedtime Patient reports that despite staying on medications and having a history of several medication trials she has continued depression and PTSD symptoms. She presents for treatment. Patient reports that suicidal ideations have now resolved and she is mustering up hope to find a way. Retirement Officer discussed the risks and side effects of stain on benzodiazepines including its relative contraindications in patient is struggling with PTSD. However agree to leave as is for now since she has been on it for some time Plan Patient on CV Q 15 minutes checks for safety Continue all medications Patient on escitalopram since pharmacy does not carry citalopram Will reach out to Dr. mauricio (patient consents) to discuss medication management history TMS is an option (though ECT did not work) Discuss options with team Recommend DBT therapy No changes to the above plan Greater than 50% of the session was spent on counseling and/or coordination of care Patient educated on: diagnosis and medication risk/benefits Informed Consent: understands Reason for contiued inpatient stay Substantial Risk for: inability to function
[2021-04-04] MEDS: traZODone HCL 100 MG TABLET PO (22:03)
[2021-04-04] MEDS: hydrOXYzine HCL 25 MG TABLET 50 MG PO (22:03)
[2021-04-05 06:00] VITALS: BP 92/60; PULSE 58; RESP 18; TEMP 36.6; O2SAT 98
[2021-04-05] MEDS: Escitalopram Oxalate 10 MG TABLET 30 MG PO (08:35)
[2021-04-05] MEDS: estradioL 0.5 MG TABLET 4 MG PO (08:35)
[2021-04-05] MEDS: clonazePAM 1 MG TABLET 2 MG PO ×2 (12:08→21:39)
[2021-04-05] MEDS: Acetaminophen 325 MG TABLET 650 MG PO (12:08)
[2021-04-05 18:00] VITALS: BP 116/63; PULSE 58; TEMP 36.6
--- NOTE | 2021-04-05 18:53 | P.PNPSI_ITS ---
Subjective Subjective Date of Service: 04/05/21 Reason For Visit: crisis Interim History: Jazlyn appeared quite depressed and hopeless about her future. She had no immediate concerns and has been spending most of her time journaling. Medication Compliance: Yes Side effects from medications: No Review of Systems Acute medical concerns: No Medical Review of Systems: unchanged Mental Status Exam Mental Status Exam Narrative: Pt is alert and oriented; behavior is cooperative; patient is not in distress; dressed in casual attire with hat on head and adequate hygiene; mood is described as depressed and affect congruent; eyes downcast; Speech is a little soft and a little slowed; some psychomotor retardation present; thought process is organized, linear, logical and goal directed. Thought content is on getting treatment and is pertinent to relevant topics and without any delusional content, paranoid ideations or grandiosity; denies any current SI/HI but endorses chronic intermittent passive SI. There is no evidence of perceptual disturbance. Patients insight and judgment appear intact. Diagnostics Vital Signs (24Hr): Vital Signs - 24 hr 04/05/21 06:00 Temperature 97.9 F Pulse Rate 58 Respiratory Rate 18 Blood Pressure 92/60 Pulse Oximetry 98 Body Mass Index 31.0 Labs Results: 04/01/21 08:26 04/01/21 08:26 Medications Medications Current Medications Generic Name Dose Route Start Last Admin Trade Name Beulah PRN Reason Stop Dose Admin Acetaminophen 650 mg 03/31/21 18:50 04/05/21 12:08 Acetaminophen 325 Mg Tablet PO 650 mg Q6H PRN Administration Headache/Pain Mild Scale (1-3) Al Hydroxide/Mg Hydroxide 30 ml 03/31/21 18:50 04/03/21 20:23 Magnesium Hydrox/Alum Hydrox 30 Ml Oral.Susp PO 30 ml Q6H PRN Administration Heartburn/Nausea Clonazepam 2 mg 04/03/21 16:26 04/05/21 12:08 Clonazepam 1 Mg Tablet PO 2 mg TID PRN Administration Anxiety Escitalopram Oxalate 30 mg 04/03/21 16:25 04/05/21 08:35 Escitalopram Oxalate 10 Mg Tablet PO 30 mg DAILY JAMES Administration Estradiol 4 mg 03/29/21 09:30 04/05/21 08:35 Estradiol 0.5 Mg Tablet PO 4 mg DAILY JAMES Administration Hydroxyzine HCl 25 mg 03/29/21 09:35 03/29/21 16:15 Hydroxyzine Hcl 25 Mg Tablet PO 25 mg DAILY PRN Administration anxiety attack Hydroxyzine HCl 50 mg 04/01/21 21:00 04/04/21 22:03 Hydroxyzine Hcl 25 Mg Tablet PO 50 mg BEDTIME JAMES Administration Magnesium Hydroxide 30 ml 03/31/21 18:50 Milk Of Magnesia 30 Ml Oral.Susp PO DAILY PRN Constipation Trazodone HCl 100 mg 04/01/21 21:00 04/04/21 22:03 Trazodone Hcl 100 Mg Tablet PO 100 mg BEDTIME JAMES Administration Trazodone HCl 50 mg 04/01/21 15:01 Trazodone Hcl 50 Mg Tablet PO BEDTIME PRN continued Insomnia Allergies Allergies Allergy/AdvReac Type Severity Reaction Status Date / Time bupropion [From WELLBUTRIN] Allergy Unknown PAINFUL Verified 03/29/21 01:18 ERECTION perphenazine Allergy Unknown Shakiness Verified 03/29/21 01:23 risperidone [Risperdal] AdvReac Unknown diarrhea, Verified 03/29/21 01:18 feels ramped up sertraline [From ZOLOFT] AdvReac Unknown NAUSEA/DIZZ Verified 03/29/21 01:18 INESS BANANAS Allergy Unknown ITCHING Uncoded 03/29/21 01:18 INSIDE MOUTH BLUEBERRIES Allergy Unknown ITCHING Uncoded 03/29/21 01:18 INSIDE MOUTH STRAWBERRIES Allergy Unknown ITCHING Uncoded 03/29/21 01:18 INSIDE MOUTH Assessment & Plan Assessment & Plan (1) MDD (major depressive disorder), recurrent severe, without psychosis: Status: Acute Code(s): F33.2 - Major depressive disorder, recurrent severe without psychotic features (2) Chronic post-traumatic stress disorder (PTSD): Status: Acute Code(s): F43.12 - Post-traumatic stress disorder, chronic Assessment and Plan: Patient is a 40-year-old trans gender patient from male to female who presents for worsening depression in the face of newly becoming homeless and change in medications. Patient has long history of depression and anxiety with characterological traits and high expressed emotion; her depression has remained despite multiple medication trials and ECT. She has done relatively well for the past year living in this household, being able to help care for a young child and becoming recently homelessness and kicked out of this household has significantly exacerbated her depression. Patient reports she has been on citalopram 40 mg for years; also on clonazepam 2 mg t.i.d., trazodone 50 mg hydroxyzine 50 mg at bedtime. She presents for treatment. Patient reports that active suicidal ideations have now resolved and she is mustering up hope to find a way. Green Building Energy Engineer discussed the risks and side effects of staying on benzodiazepines including its relative contraindications in patient is struggling with PTSD. However agree to leave as is for now since she has been on it for some time. Patient is considering going back to citalopram 60 mg on which she reportedly has done her best; she is weighing the risk versus benefit given that increased dose increases risk of prolonged QTC balanced by current lower dose is leaving patient vulnerable to suicidal ideation Pt elected to stay onlexapro for now and increase this further Plan Patient on CV Q 15 minutes checks for safety Continue all medications Incease escitalopram to 20mg (was started on this on admission since pharmacy does not carry citalopram) Dr. mauricio (patient consents) consulted TMS is an option (though ECT did not work) - likely a good candidate Discuss options with team Recommend DBT therapy No change to the above plan Greater than 50% of the session was spent on counseling and/or coordination of care Patient educated on: diagnosis and medication risk/benefits Informed Consent: further education needed Reason for contiued inpatient stay Substantial Risk for: inability to function and rapid decompensation
[2021-04-05] MEDS: hydrOXYzine HCL 25 MG TABLET 50 MG PO (21:39)
[2021-04-05] MEDS: traZODone HCL 100 MG TABLET PO (21:39)
[2021-04-06 06:00] VITALS: BP 90/53; PULSE 62; RESP 16; TEMP 36.4; O2SAT 98
[2021-04-06] MEDS: estradioL 0.5 MG TABLET 4 MG PO (08:40)
[2021-04-06] MEDS: Escitalopram Oxalate 10 MG TABLET 30 MG PO (08:41)
--- NOTE | 2021-04-06 10:49 | HO.PSYCHPN ---
Subjective Subjective Date of Service: 04/06/21 Reason For Visit: crisis Interim History: pt report she continues to feel depressed; she denies SI but says she's feeling hopeless. Pt says says that the coping skills she learns will be of little service if she's homeless. Pt shares that the unit has been especially triggering for her lately and she's been spending time in her room. Pt says she's mostly been journaling to cope. sleeping 3-4 hour per night Medication Compliance: Yes Side effects from medications: No Mental Status Exam Mental Status Exam Narrative: Pt is alert and oriented; behavior is cooperative; patient is not in distress; dressed in casual attire with hat on head and adequate hygiene; mood is described as depressed and affect congruent; eyes downcast; Speech is normal rate, volume and prosody. No psychomotor retardation; thought process is organized, linear, logical and goal directed. Thought content is on getting treatment and is pertinent to relevant topics and without any delusional content, paranoid ideations or grandiosity; denies any current SI/HI but endorses chronic intermittent passive SI. There is no evidence of perceptual disturbance. Patients insight and judgment appear intact. Diagnostics Vital Signs (24Hr): Vital Signs - 24 hr 04/05/21 18:00 04/06/21 06:00 Temperature 97.9 F 97.6 F Pulse Rate 58 62 Respiratory Rate 16 Blood Pressure 116/63 90/53 L Pulse Oximetry 98 Body Mass Index 31.0 Labs Results: 04/01/21 08:26 04/01/21 08:26 Medications Medications Current Medications Generic Name Dose Route Start Last Admin Trade Name Beulah PRN Reason Stop Dose Admin Acetaminophen 650 mg 03/31/21 18:50 04/05/21 12:08 Acetaminophen 325 Mg Tablet PO 650 mg Q6H PRN Administration Headache/Pain Mild Scale (1-3) Al Hydroxide/Mg Hydroxide 30 ml 03/31/21 18:50 04/03/21 20:23 Magnesium Hydrox/Alum Hydrox 30 Ml Oral.Susp PO 30 ml Q6H PRN Administration Heartburn/Nausea Clonazepam 2 mg 04/03/21 16:26 04/05/21 21:39 Clonazepam 1 Mg Tablet PO 2 mg TID PRN Administration Anxiety Escitalopram Oxalate 30 mg 04/03/21 16:25 04/06/21 08:41 Escitalopram Oxalate 10 Mg Tablet PO 30 mg DAILY JAMES Administration Estradiol 4 mg 03/29/21 09:30 04/06/21 08:40 Estradiol 0.5 Mg Tablet PO 4 mg DAILY JAMES Administration Hydroxyzine HCl 25 mg 03/29/21 09:35 03/29/21 16:15 Hydroxyzine Hcl 25 Mg Tablet PO 25 mg DAILY PRN Administration anxiety attack Hydroxyzine HCl 50 mg 04/01/21 21:00 04/05/21 21:39 Hydroxyzine Hcl 25 Mg Tablet PO 50 mg BEDTIME JAMES Administration Magnesium Hydroxide 30 ml 03/31/21 18:50 Milk Of Magnesia 30 Ml Oral.Susp PO DAILY PRN Constipation Trazodone HCl 100 mg 04/01/21 21:00 04/05/21 21:39 Trazodone Hcl 100 Mg Tablet PO 100 mg BEDTIME JAMES Administration Trazodone HCl 50 mg 04/01/21 15:01 Trazodone Hcl 50 Mg Tablet PO BEDTIME PRN continued Insomnia Allergies Allergies Allergy/AdvReac Type Severity Reaction Status Date / Time bupropion [From WELLBUTRIN] Allergy Unknown PAINFUL Verified 03/29/21 01:18 ERECTION perphenazine Allergy Unknown Shakiness Verified 03/29/21 01:23 risperidone [Risperdal] AdvReac Unknown diarrhea, Verified 03/29/21 01:18 feels ramped up sertraline [From ZOLOFT] AdvReac Unknown NAUSEA/DIZZ Verified 03/29/21 01:18 INESS BANANAS Allergy Unknown ITCHING Uncoded 03/29/21 01:18 INSIDE MOUTH BLUEBERRIES Allergy Unknown ITCHING Uncoded 03/29/21 01:18 INSIDE MOUTH STRAWBERRIES Allergy Unknown ITCHING Uncoded 03/29/21 01:18 INSIDE MOUTH Assessment & Plan Assessment & Plan (1) MDD (major depressive disorder), recurrent severe, without psychosis: Status: Acute Code(s): F33.2 - Major depressive disorder, recurrent severe without psychotic features (2) Chronic post-traumatic stress disorder (PTSD): Status: Acute Code(s): F43.12 - Post-traumatic stress disorder, chronic Assessment and Plan: Patient is a 40-year-old trans gender patient from male to female who presents for worsening depression in the face of newly becoming homeless and change in medications. Patient has long history of depression and anxiety with characterological traits and high expressed emotion; her depression has remained despite multiple medication trials and ECT. She has done relatively well for the past year living in this household, being able to help care for a young child and becoming recently homelessness and kicked out of this household has significantly exacerbated her depression. Patient reports she has been on citalopram 40 mg for years; also on clonazepam 2 mg t.i.d., trazodone 50 mg hydroxyzine 50 mg at bedtime. She presents for treatment. Patient reports that active suicidal ideations have now resolved and she is mustering up hope to find a way. Infrastructure Technician discussed the risks and side effects of staying on benzodiazepines including its relative contraindications in patient is struggling with PTSD. However agree to leave as is for now since she has been on it for some time. -Patient was considering going back to citalopram 60 mg on which she reportedly has done her best; she weighed risk versus benefit; increased dose increases risk of prolonged QTC balanced by current lower dose is leaving patient vulnerable to suicidal ideation -Pt elected to stay on lexapro for now and increase this further Plan Patient on CV Q 15 minutes checks for safety Continue all medications Titrated to escitalopram to 30mg (was started on this on admission since pharmacy does not carry citalopram) Dr. mauricio (patient consents) consulted TMS is an option (though ECT did not work) Discuss options with team Recommend DBT therapy No change to the above plan Greater than 50% of the session was spent on counseling and/or coordination of care Reason for contiued inpatient stay Substantial Risk for: rapid decompensation
[2021-04-06] MEDS: hydrOXYzine HCL 25 MG TABLET 50 MG PO (23:09)
[2021-04-06] MEDS: traZODone HCL 50 MG TABLET 150 MG PO (23:09)
[2021-04-07 06:25] VITALS: BP 106/59; PULSE 60; RESP 16; TEMP 36.4; O2SAT 97
[2021-04-07] MEDS: Escitalopram Oxalate 10 MG TABLET 30 MG PO (08:50)
[2021-04-07] MEDS: estradioL 0.5 MG TABLET 4 MG PO (08:51)
[2021-04-07] MEDS: Acetaminophen 325 MG TABLET 650 MG PO (12:55)
[2021-04-07] MEDS: clonazePAM 1 MG TABLET 2 MG PO (12:55)
--- NOTE | 2021-04-07 16:02 | PC.NURSE ---
Pt requested to see T/W and when T/W went in the room pt was in the bathroom urinating blood. Pt reports that he has had this problem over the past year. pt stopped bleeding when he stopped urinating. notified and new orders for hospitalist consult and urine. Urine obtained, bright red urine with what appeared to be clots. notified and and sent to lab.
[2021-04-07 16:49] LABS: Glucose Urine UA NEG (NEG); Leukocyte Esterase Urine NEG (NEG); Nitrite Urine NEG (NEG); Specific Gravity - Urine 1.025 (1.005-1.025); Urine Blood 3+ (NEG); Urine Ketones NEG (NEG); Urine Protein 2+ MG/DL (NEG-TRACE)
[2021-04-07 16:52] LABS: Appearance Urine CLEAR
[2021-04-07 16:53] LABS: Color Urine RED
[2021-04-07 17:00] LABS: RBC Urine TNTC /HPF (0); Squamous Epithelial Cell Urine TRACE /LPF; WBC Urine 0-2 /HPF (0-4)
--- NOTE | 2021-04-07 17:16 | PM.EVENT ---
Event Note Date of Service: 04/07/21 Event Note: Patient seen examined full note dictated Will obtain old records from [facility], await Urology consultation Will place patient on Ultram for pain control
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
[2021-04-07 18:00] VITALS: BP 126/74; PULSE 72; TEMP 36.3
[2021-04-07] MEDS: traMADoL HCL 50 MG TABLET 25 MG PO (18:05)
[2021-04-07] MEDS: hydrOXYzine HCL 25 MG TABLET 50 MG PO (21:30)
[2021-04-08] VITALS: BP 109/57; PULSE 70; TEMP 36.3
[2021-04-08] MEDS: diphenhydrAMINE HCL 25 MG TABLET 50 MG PO ×2 (01:20→21:14)
[2021-04-08] MEDS: hydrOXYzine HCL 25 MG TABLET PO (02:45)
[2021-04-08] MEDS: clonazePAM 1 MG TABLET 2 MG PO (02:45)
[2021-04-08] MEDS: Escitalopram Oxalate 10 MG TABLET 30 MG PO (09:06)
[2021-04-08] MEDS: estradioL 0.5 MG TABLET 4 MG PO (09:07)
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
[2021-04-08] MEDS: levoFLOXacin 500 MG TABLET PO (11:14)
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
[2021-04-08 15:18] LABS: Appearance Urine CLOUDY; Color Urine PINK; Glucose Urine UA NEG (NEG); Leukocyte Esterase Urine NEG (NEG); Nitrite Urine NEG (NEG); Urine Blood 3+ (NEG); Urine Ketones NEG (NEG); Urine Protein 1+ MG/DL (NEG-TRACE)
[2021-04-08 15:26] LABS: RBC Urine TNTC /HPF (0); WBC Urine 0-2 /HPF (0-4)
[2021-04-08 18:00] VITALS: BP 121/69; PULSE 78; TEMP 36.6
[2021-04-08] MEDS: traZODone HCL 50 MG TABLET 150 MG PO (22:15)
[2021-04-08] MEDS: hydrOXYzine HCL 25 MG TABLET 50 MG PO (22:15)
[2021-04-09] MEDS: Escitalopram Oxalate 10 MG TABLET 30 MG PO (08:42)
[2021-04-09] MEDS: levoFLOXacin 500 MG TABLET PO (08:42)
[2021-04-09] MEDS: estradioL 0.5 MG TABLET 4 MG PO (08:42)
--- NOTE | 2021-04-09 09:52 | P.PNPSI_ITS ---
Subjective Subjective Date of Service: 04/09/21 Reason For Visit: crisis Interim History: pt sitting at desk, wearing glasses, no hat, writing in journal on approach pt reports still depressed but continues to agree mood has been improved since admission; still struggles with hopelessness but fights it; intermittent passive SI which is chronic, but no plan or intention and able to ignore. Says testicular pain has lessened; still some blood in urine, but less so and no pain. Pt discussed housing advocate and efforts to find housing. Medication Compliance: Yes Side effects from medications: No Mental Status Exam Mental Status Exam Narrative: No changes from yesterday Pt is alert and oriented; behavior is cooperative; patient is not in distress; dressed in casual attire, not wearing hat and with adequate hygiene; mood is described as depressed and affect congruent but brighter; good eyes contact; Speech is normal rate, volume and prosody. No psychomotor retardation; thought process is organized, linear, logical and goal directed. Thought content is on getting treatment and is pertinent to relevant topics and without any delusional content, paranoid ideations or grandiosity; denies any current active SI/HI but endorses chronic intermittent passive SI. There is no evidence of perceptual disturbance. Patients insight and judgment appear intact. Diagnostics Vital Signs (24Hr): Vital Signs - 24 hr 04/08/21 18:00 Temperature 98 F Pulse Rate 78 Blood Pressure 121/69 Body Mass Index 31.0 Labs Results: 04/01/21 08:26 04/01/21 08:26 Labs: Laboratory Results - last 48 hr 04/07/21 04/08/21 15:48 15:07 Urine Color RED PINK Urine Appearance CLEAR CLOUDY Urine pH 6.0 6.0 Ur Specific [place] 1.025 1.020 Urine Protein 2+ H 1+ H Urine Glucose (UA) NEG NEG Urine Ketones NEG NEG Urine Blood 3+ H 3+ H Urine Nitrite NEG NEG Ur Leukocyte Esterase NEG NEG Urine RBC TNTC H TNTC H Urine WBC 0-2 0-2 Ur Squamous Epith Cells TRACE NONE Urine Bacteria NONE NONE Medications Medications Current Medications Generic Name Dose Route Start Last Admin Trade Name Freq PRN Reason Stop Dose Admin Acetaminophen 650 mg 03/31/21 18:50 04/07/21 12:55 Acetaminophen 325 Mg Tablet PO 650 mg Q6H PRN Administration Headache/Pain Mild Scale (1-3) Al Hydroxide/Mg Hydroxide 30 ml 03/31/21 18:50 04/03/21 20:23 Magnesium Hydrox/Alum Hydrox 30 Ml Oral.Susp PO 30 ml Q6H PRN Administration Heartburn/Nausea Clonazepam 2 mg 04/08/21 16:36 Clonazepam 1 Mg Tablet PO TID PRN severe anxiety Diphenhydramine HCl 50 mg 04/07/21 23:58 04/08/21 21:14 Diphenhydramine Hcl 25 Mg Tablet PO 50 mg Q6H PRN Administration hives/itching Escitalopram Oxalate 30 mg 04/03/21 16:25 04/09/21 08:42 Escitalopram Oxalate 10 Mg Tablet PO 30 mg DAILY JAMES Administration Estradiol 4 mg 03/29/21 09:30 04/09/21 08:42 Estradiol 0.5 Mg Tablet PO 4 mg DAILY JAMES Administration Hydroxyzine HCl 50 mg 04/01/21 21:00 04/08/21 22:15 Hydroxyzine Hcl 25 Mg Tablet PO 50 mg BEDTIME JAMES Administration Hydroxyzine HCl 25 mg 04/08/21 16:35 Hydroxyzine Hcl 25 Mg Tablet PO DAILY PRN anxiety Levofloxacin 500 mg 04/08/21 09:45 04/09/21 08:42 Levofloxacin 500 Mg Tablet PO 04/10/21 09:46 500 mg Q24H JAMES Administration Magnesium Hydroxide 30 ml 03/31/21 18:50 Milk Of Magnesia 30 Ml Oral.Susp PO DAILY PRN Constipation Naproxen 250 mg 04/08/21 16:33 Naproxen 250 Mg Tablet PO BID PRN Pain, Moderate (Pain Scale 4-6 Trazodone HCl 50 mg 04/01/21 15:01 Trazodone Hcl 50 Mg Tablet PO BEDTIME PRN continued Insomnia Trazodone HCl 150 mg 04/06/21 21:00 04/08/21 22:15 Trazodone Hcl 50 Mg Tablet PO 150 mg BEDTIME JAMES Administration Allergies Allergies Allergy/AdvReac Type Severity Reaction Status Date / Time tramadol Allergy Intermediate hives Verified 04/08/21 09:22 bupropion [From WELLBUTRIN] Allergy Unknown PAINFUL Verified 03/29/21 01:18 ERECTION perphenazine Allergy Unknown Shakiness Verified 03/29/21 01:23 risperidone [Risperdal] AdvReac Unknown diarrhea, Verified 03/29/21 01:18 feels ramped up sertraline [From ZOLOFT] AdvReac Unknown NAUSEA/DIZZ Verified 03/29/21 01:18 INESS BANANAS Allergy Unknown ITCHING Uncoded 03/29/21 01:18 INSIDE MOUTH BLUEBERRIES Allergy Unknown ITCHING Uncoded 03/29/21 01:18 INSIDE MOUTH STRAWBERRIES Allergy Unknown ITCHING Uncoded 03/29/21 01:18 INSIDE MOUTH Assessment & Plan Assessment & Plan (1) MDD (major depressive disorder), recurrent severe, without psychosis: Status: Acute Code(s): F33.2 - Major depressive disorder, recurrent severe without psychotic features (2) Chronic post-traumatic stress disorder (PTSD): Status: Acute Code(s): F43.12 - Post-traumatic stress disorder, chronic Assessment and Plan: Patient is a 40-year-old trans gender patient from male to female who presents for worsening depression in the face of newly becoming homeless and change in medications. Patient has long history of depression and anxiety with characterological traits and high expressed emotion; her depression has remained despite multiple medication trials and ECT. She has done relatively well for the past year living in this household, being able to help care for a young child and becoming recently homelessness and kicked out of this household has significantly exacerbated her depression. Patient reports she has been on citalopram 40 mg for years; also on clonazepam 2 mg t.i.d., trazodone 50 mg hydroxyzine 50 mg at bedtime. She presents for treatment. Patient reports that active suicidal ideations have now resolved and she is mustering up hope to find a way. Motor Bus Driver discussed the risks and side effects of staying on benzodiazepines including its relative contraindications in patient is struggling with PTSD. However agree to leave as is for now since she has been on it for some time. Hospital course: -Patient was considering going back to citalopram 60 mg on which she reportedly has done her best; she weighed risk versus benefit; increased dose increases risk of prolonged QTC balanced by current lower dose is leaving patient vulnerable to suicidal ideation, however, pt was started on Lexapro on admission (since no citalopram on formulary) -Pt elected to stay on lexapro for now and increase this further; it's been well tolerated and seems effective 04/07/21 Patient reported blood coming from her penis which she says is chronic but got worse today. She has showed the nurse and there is indeed blood in the toilet. Urology consult placed who came to see patient. Urology ordered Abx; UA and culture obtained; 04/08/21 tramadol caused hives and now listed as allergy try naproxen; benadryl working for hives 04/09 testicular pain resolved; affect brighter Although patients depression is improving, she remains depressed and it is still early on in her treatment; also she has 2 recent suicide attempts in the past month. It's writers opinion that patient should remain on unit to demonstrate stability; will also consider further titrating lexapro and see if can taper down on Clonazepam. Housing remains issue Plan Patient on CV Q 15 minutes checks for safety Continue all medications Titrated to escitalopram to 30mg (was started on this on admission since pharmacy does not carry citalopram) Dr. mauricio (patient consents) consulted and med hx discussed (pt did best with stable housing; was already on Clonazepam when dr. Wiley took over pt's care an d kept her on this med); pt does not have substance abuse hx. TMS is an option (though ECT did not work) Discuss housing options with team Recommend DBT therapy No change to the above plan Greater than 50% of the session was spent on counseling and/or coordination of care Reason for contiued inpatient stay Substantial Risk for: rapid decompensation
[2021-04-09] MEDS: clonazePAM 1 MG TABLET 2 MG PO (11:15)
[2021-04-09 13:25] VITALS: BP 108/57; PULSE 65; RESP 14; O2SAT 98
[2021-04-09 13:46] VITALS: BMI 36.3
[2021-04-09 18:00] VITALS: BP 103/63; PULSE 66; TEMP 36.2
[2021-04-09] MEDS: hydrOXYzine HCL 25 MG TABLET 50 MG PO (21:48)
[2021-04-09] MEDS: traZODone HCL 50 MG TABLET 150 MG PO (21:48)
[2021-04-10 06:00] VITALS: BP 90/50; PULSE 50; RESP 14; TEMP 36.2; O2SAT 95
[2021-04-10] MEDS: estradioL 0.5 MG TABLET 4 MG PO (08:58)
[2021-04-10] MEDS: levoFLOXacin 500 MG TABLET PO (08:59)
[2021-04-10] MEDS: Escitalopram Oxalate 10 MG TABLET 30 MG PO (08:59)
--- NOTE | 2021-04-10 09:10 | P.PNPSI_ITS ---
Subjective Subjective Date of Service: 04/10/21 Reason For Visit: crisis Interim History: Met with patient and dialysis social worker, Lisa Dwyer Patient reported feeling more depressed today; she explained she asked a nurse for a heated blanket who directed her to an [facility] which left the patient feeling overwhelmed and isolated since she felt no one understands how hard it is for her to ask for help in the 1st place. Senior Pensions Administrator and dialysis social worker talked about helping patient figure out aftercare/housing options, however patient reacted saying she felt ?gang up on and bullied' since both of us approached read the same time. This was talked through and discussed and patient was able to except that events will trigger her PTSD, and that there is no avoiding that but she will need to continue utilizing coping skills the best she can handle her feelings. Patient has shared she was struggling with memories of unfair things that have happened to her. Jazlyn explained that her adoptive parents got her siblings therapy but not her. Patient has a sister and several brothers all of whom want nothing to do with her since she is transgender. Patient struggled with catastrophizing and generalizing but was able to challenge those thoughts during the conversation. Patient also shared about anxiety symptoms. She feels a strong need to complete certain rituals otherwise she will feel anxious. One example is that the cord on the lamp needs to be in a certain way, and once patient leaves the room she will be plagued with thoughts about whether or not she had fixed to the cord; she'll then go back and check, and although she finds the cord is in the correct direction, once she leaves again, the worries immiediately arise that she might have been mistaken and she'll need to go back and check. Another example is that once patient washes her hands, if she walks by the toilet bowl and her hands pass in front of it in a certain way, though not touching it, she will have to again wash her hands. Patient knows that there is no reason for this but she feels compelled to do so otherwise the anxiety romel. Senior Pensions Administrator discussed OCD symptoms and often the need to be on higher doses of an SSRI that typically used for anxiety and depression. Patient agrees with this and agrees to i ncrease Lexapro dose. Also discussed was patient has history of ADHD symptoms; she is interested in trying a stimulant but agrees to hold off wall Lexapro is being titrated. Medication Compliance: Yes Side effects from medications: No Mental Status Exam Mental Status Exam Narrative: No changes from yesterday Pt is alert and oriented; behavior is cooperative; patient is not in distress; dressed in casual attire, not wearing hat and with adequate hygiene; mood is described as depressed and affect congruent but brighter; good eye contact; Speech is normal rate, volume and prosody. No psychomotor retardation; thought process is organized, linear, logical and goal directed. Thought content various unfair things that have happened to her, but otherwise on getting treatment and pertinent to relevant topics and without any delusional content, paranoid ideations or grandiosity; denies any current active SI/HI but endorses chronic intermittent passive SI. There is no evidence of perceptual disturbance. Patients insight and judgment appear intact. Diagnostics Vital Signs (24Hr): Vital Signs - 24 hr 04/09/21 13:25 04/09/21 18:00 04/10/21 06:00 Temperature 97.1 F 97.2 F Pulse Rate 65 66 50 Respiratory Rate 14 14 Blood Pressure 108/57 L 103/63 90/50 L Pulse Oximetry 98 95 Body Mass Index 36.3 Labs Results: 04/01/21 08:26 04/01/21 08:26 Labs: Laboratory Results - last 48 hr 04/08/21 15:07 Urine Color PINK Urine Appearance CLOUDY Urine pH 6.0 Ur Specific Watson 1.020 Urine Protein 1+ H Urine Glucose (UA) NEG Urine Ketones NEG Urine Blood 3+ H Urine Nitrite NEG Ur Leukocyte Esterase NEG Urine RBC TNTC H Urine WBC 0-2 Ur Squamous Epith Cells NONE Urine Bacteria NONE Medications Medications Current Medications Generic Name Dose Route Start Last Admin Trade Name Freq PRN Reason Stop Dose Admin Acetaminophen 650 mg 03/31/21 18:50 04/07/21 12:55 Acetaminophen 325 Mg Tablet PO 650 mg Q6H PRN Administration Headache/Pain Mild Scale (1-3) Al Hydroxide/Mg Hydroxide 30 ml 03/31/21 18:50 04/03/21 20:23 Magnesium Hydrox/Alum Hydrox 30 Ml Oral.Susp PO 30 ml Q6H PRN Administration Heartburn/Nausea Clonazepam 2 mg 04/08/21 16:36 04/09/21 11:15 Clonazepam 1 Mg Tablet PO 2 mg TID PRN Administration severe anxiety Diphenhydramine HCl 50 mg 04/07/21 23:58 04/08/21 21:14 Diphenhydramine Hcl 25 Mg Tablet PO 50 mg Q6H PRN Administration hives/itching Escitalopram Oxalate 30 mg 04/03/21 16:25 04/10/21 08:59 Escitalopram Oxalate 10 Mg Tablet PO 30 mg DAILY JAMES Administration Estradiol 4 mg 03/29/21 09:30 04/10/21 08:58 Estradiol 0.5 Mg Tablet PO 4 mg DAILY JAMES Administration Hydroxyzine HCl 50 mg 04/01/21 21:00 04/09/21 21:48 Hydroxyzine Hcl 25 Mg Tablet PO 50 mg BEDTIME JAMES Administration Hydroxyzine HCl 25 mg 04/08/21 16:35 Hydroxyzine Hcl 25 Mg Tablet PO DAILY PRN anxiety Levofloxacin 500 mg 04/08/21 09:45 04/10/21 08:59 Levofloxacin 500 Mg Tablet PO 04/10/21 09:46 500 mg Q24H JAMES Administration Magnesium Hydroxide 30 ml 03/31/21 18:50 Milk Of Magnesia 30 Ml Oral.Susp PO DAILY PRN Constipation Naproxen 250 mg 04/08/21 16:33 Naproxen 250 Mg Tablet PO BID PRN Pain, Moderate (Pain Scale 4-6 Trazodone HCl 50 mg 04/01/21 15:01 Trazodone Hcl 50 Mg Tablet PO BEDTIME PRN continued Insomnia Trazodone HCl 150 mg 04/06/21 21:00 04/09/21 21:48 Trazodone Hcl 50 Mg Tablet PO 150 mg BEDTIME JAMES Administration Allergies Allergies Allergy/AdvReac Type Severity Reaction Status Date / Time tramadol Allergy Intermediate hives Verified 04/08/21 09:22 bupropion [From WELLBUTRIN] Allergy Unknown PAINFUL Verified 03/29/21 01:18 ERECTION perphenazine Allergy Unknown Shakiness Verified 03/29/21 01:23 risperidone [Risperdal] AdvReac Unknown diarrhea, Verified 03/29/21 01:18 feels ramped up sertraline [From ZOLOFT] AdvReac Unknown NAUSEA/DIZZ Verified 03/29/21 01:18 INESS BANANAS Allergy Unknown ITCHING Uncoded 03/29/21 01:18 INSIDE MOUTH BLUEBERRIES Allergy Unknown ITCHING Uncoded 03/29/21 01:18 INSIDE MOUTH STRAWBERRIES Allergy Unknown ITCHING Uncoded 03/29/21 01:18 INSIDE MOUTH Assessment & Plan Assessment & Plan (1) MDD (major depressive disorder), recurrent severe, without psychosis: Status: Acute Code(s): F33.2 - Major depressive disorder, recurrent severe without psychotic features (2) Chronic post-traumatic stress disorder (PTSD): Status: Acute Code(s): F43.12 - Post-traumatic stress disorder, chronic (3) OCD (obsessive compulsive disorder): Status: Chronic Code(s): F42.9 - Obsessive-compulsive disorder, unspecified Assessment and Plan: Patient is a 40-year-old trans gender patient from male to female who presents for worsening depression in the face of newly becoming homeless and change in medications. Patient has long history of depression and anxiety with characterological traits and high expressed emotion; her depression has remained despite multiple medication trials and ECT. She has done relatively well for the past year living in this household, being able to help care for a young child and becoming recently homelessness and kicked out of this household has significantly exacerbated her depression. Patient reports she has been on citalopram 40 mg for years; also on clonazepam 2 mg t.i.d., trazodone 50 mg hydroxyzine 50 mg at bedtime. She presents for treatment. Patient reports that active suicidal ideations have now resolved and she is mustering up hope to find a way. Senior Pensions Administrator discussed the risks and side effects of staying on benzodiazepines including its relative contraindications in patient is struggling with PTSD. However agree to leave as is for now since she has been on it for some time. Hospital course: -Patient was considering going back to citalopram 60 mg on which she reportedly has done her best; she weighed risk versus benefit; increased dose increases risk of prolonged QTC balanced by current lower dose is leaving patient vul nerable to suicidal ideation, however, pt was started on Lexapro on admission (since no citalopram on formulary) -Pt elected to stay on lexapro for now and increase this further; it's been well tolerated and seems effective -patient meets criteria for OCD symptoms as she has recurring and persistent urges, unsuccessful attempts to ignore them and subsequent repetitive behaviors such as washing hands, checking on things. These both are time consuming and distressing to patient. Patient does have good insight however. 04/07/21 Patient reported blood coming from her penis which she says is chronic but got worse today. She has showed the nurse and there is indeed blood in the toilet. Urology consult placed who came to see patient. Urology ordered Abx; UA and culture obtained; 04/08/21 tramadol caused hives and now listed as allergy; try naproxen; benadryl working for hives 04/09 testicular pain resolved; affect brighter 04/10 pt shard about OCD symtpoms and meets criteria; will increase Lexapo to which pat agrees. Although patients depression is improving, she remains depressed and it is still early on in her treatment; also she has 2 recent suicide attempts in the past month. It's writers opinion that patient should remain on unit to demonstrate stability; will also consider further titrating lexapro -discussed tapering down Clonazepam however pt says she's been on this dose for nearly 6 years and that it's been helpful and does not want to change it. Given longevity of being on this med, song writer decided that this will be best addressed by outpatient provider -Housing remains issue Plan Patient on CV Q 15 minutes checks for safety Continue all medications Increase escitalopram to 49mg (was started on this on admission since pharmacy does not carry citalopram); patient has OCD symptoms which typically requires higher doses, often over max dose, of SSRI/SNRI Dr. mauricio (patient consents) consulted and med hx discussed (pt did best with stable housing; was already on Clonazepam when dr. Wiley took over pt's care and kept her on this med); pt does not have substance abuse hx. TMS is an option (though ECT did not work); asked Dr. Chin to assess if TMS is recommended Discuss housing options with team Recommend DBT therapy No change to the above plan Greater than 50% of the session was spent on counseling and/or coordination of care Reason for contiued inpatient stay Substantial Risk for: rapid decompensation
[2021-04-10] MEDS: Escitalopram Oxalate 10 MG TABLET PO (13:42)
[2021-04-10] MEDS: Magnesium Hydrox/Alum Hydrox 30 ML ORAL.SUSP PO (14:29)
[2021-04-10 18:00] VITALS: BP 104/61; PULSE 72; TEMP 36.4; O2SAT 98
[2021-04-10] MEDS: Acetaminophen 325 MG TABLET 650 MG PO (18:43)
[2021-04-10] MEDS: clonazePAM 1 MG TABLET 2 MG PO (19:58)
[2021-04-10] MEDS: hydrOXYzine HCL 25 MG TABLET 50 MG PO (23:09)
[2021-04-10] MEDS: traZODone HCL 50 MG TABLET 150 MG PO (23:09)
[2021-04-11 06:00] VITALS: BP 100/56; PULSE 58; RESP 16; TEMP 36.3; O2SAT 94
[2021-04-11] MEDS: estradioL 0.5 MG TABLET 4 MG PO (09:20)
[2021-04-11] MEDS: Escitalopram Oxalate 10 MG TABLET 40 MG PO (09:20)
[2021-04-11 16:50] VITALS: BP 106/67; PULSE 56; TEMP 36.3
[2021-04-11] MEDS: clonazePAM 1 MG TABLET 2 MG PO (16:54)
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
[2021-04-11] MEDS: hydrOXYzine HCL 25 MG TABLET 50 MG PO (22:18)
[2021-04-11] MEDS: traZODone HCL 50 MG TABLET 150 MG PO (22:18)
[2021-04-12 06:25] VITALS: BP 82/46; PULSE 57; RESP 16; TEMP 36.9; O2SAT 95
[2021-04-12] MEDS: Escitalopram Oxalate 10 MG TABLET 40 MG PO (08:17)
[2021-04-12] MEDS: estradioL 0.5 MG TABLET 4 MG PO (08:17)
[2021-04-12] MEDS: clonazePAM 1 MG TABLET 2 MG PO (14:17)
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
[2021-04-12 18:00] VITALS: BP 111/64; PULSE 72; TEMP 36.2
[2021-04-12] MEDS: diphenhydrAMINE HCL 25 MG TABLET 50 MG PO (18:11)
[2021-04-12] MEDS: traZODone HCL 50 MG TABLET 150 MG PO (22:32)
[2021-04-12] MEDS: hydrOXYzine HCL 25 MG TABLET 50 MG PO (22:32)
[2021-04-13 06:00] VITALS: BP 97/55; PULSE 97; RESP 18; TEMP 36.4; O2SAT 94
[2021-04-13] MEDS: estradioL 0.5 MG TABLET 4 MG PO (08:46)
[2021-04-13] MEDS: Escitalopram Oxalate 10 MG TABLET 40 MG PO (08:46)
[2021-04-13] MEDS: clonazePAM 1 MG TABLET 2 MG PO (11:57)
[2021-04-13 18:00] VITALS: BP 124/65; PULSE 56; TEMP 36.6
[2021-04-13] MEDS: Acetaminophen 325 MG TABLET 650 MG PO (18:06)
[2021-04-13] MEDS: traZODone HCL 50 MG TABLET 150 MG PO (22:15)
[2021-04-13] MEDS: hydrOXYzine HCL 25 MG TABLET 50 MG PO (22:15)
[2021-04-14 06:00] VITALS: BP 98/55; PULSE 52; RESP 18; TEMP 36.3; O2SAT 93
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
[2021-04-14] MEDS: estradioL 0.5 MG TABLET 4 MG PO (08:49)
[2021-04-14] MEDS: Escitalopram Oxalate 10 MG TABLET 40 MG PO (08:50)
--- NOTE | 2021-04-14 15:31 | P.PNPSI_ITS ---
Subjective Subjective Date of Service: 04/14/21 Reason For Visit: crisis Subjective Notes: Conditional Voluntary Interim History: patient depressed anxious ruminating catastrophic thinking regarding life situation has insomnia Medication Compliance: Yes Review of Systems Review of Systems All other systems are reviewed and are negative Constitutional: Reports as per HPI and Reports no additional constitutional complaints Eyes: Reports as per HPI and Reports no additional eye complaints Reports system reviewed and no additional complaints, except as documented Cardiovascular: Reports as per HPI and Reports no additional cardiovascular complaints Respiratory: Reports as per HPI and Reports no additional respiratory complaints Gastrointestinal: Reports as per HPI and Reports no additional gastrointestinal complaints Genitourinary: Reports no additional female genitourinary complaints Musculoskeletal: Reports no additional musculoskeletal complaints Skin/Breast: Reports system reviewed and no additional complaints, except as docu Psychiatric: Reports no additional psychiatric complaints Endocrine: Reports no additional endocrine complaints Hematologic/Lymphatic: Reports no additional hematologic/lymphatic complaints Allergic/Immunologic: Reports no additional allergic/immunologic complaints Reports system reviewed and no additional complaints, except as documented and Reports Abnormal speech present Mental Status Exam Mental Status Exam Narrative: Patient Appearance: Well Grooomed Patient Orientation: Person, Place, Time and Situation Level of Consciousness: Awake Patient Behavior: Appropriate Mood Description: Constricted, Sad and Apprehensive Affect Description: Depressed and Anxious Ability to Follow Directions: Good Speech Pattern: Clear Thought Content: positive for Obsessional Thoughts, positive for Preoccupation, positive for Suicidal Ideation (passive si ) and negative for Homicidal Ideation Depressive Symptoms: Increased Anxiety, Insomnia, Loss of Int. in Activity and Thoughts of /Suicide Diagnostics Vital Signs (24Hr): Vital Signs - 24 hr 04/13/21 18:00 04/14/21 06:00 Temperature 97.8 F 97.4 F Pulse Rate 56 52 Respiratory Rate 18 Blood Pressure 124/65 98/55 L Pulse Oximetry 93 Body Mass Index 36.3 Labs Results: 04/01/21 08:26 04/01/21 08:26 Medications Medications Current Medications Generic Name Dose Route Start Last Admin Trade Name Freq PRN Reason Stop Dose Admin Acetaminophen 650 mg 03/31/21 18:50 04/13/21 18:06 Acetaminophen 325 Mg Tablet PO 650 mg Q6H PRN Administration Headache/Pain Mild Scale (1-3) Al Hydroxide/Mg Hydroxide 30 ml 03/31/21 18:50 04/10/21 14:29 Magnesium Hydrox/Alum Hydrox 30 Ml Oral.Susp PO 30 ml Q6H PRN Administration Heartburn/Nausea Diphenhydramine HCl 50 mg 04/07/21 23:58 04/12/21 18:11 Diphenhydramine Hcl 25 Mg Tablet PO 50 mg Q6H PRN Administration hives/itching Escitalopram Oxalate 40 mg 04/11/21 09:00 04/14/21 08:50 Escitalopram Oxalate 10 Mg Tablet PO 40 mg DAILY JAMES Administration Estradiol 4 mg 03/29/21 09:30 04/14/21 08:49 Estradiol 0.5 Mg Tablet PO 4 mg DAILY JAMES Administration Hydroxyzine HCl 50 mg 04/01/21 21:00 04/13/21 22:15 Hydroxyzine Hcl 25 Mg Tablet PO 50 mg BEDTIME JAMES Administration Hydroxyzine HCl 25 mg 04/08/21 16:35 Hydroxyzine Hcl 25 Mg Tablet PO DAILY PRN anxiety Magnesium Hydroxide 30 ml 03/31/21 18:50 Milk Of Magnesia 30 Ml Oral.Susp PO DAILY PRN Constipation Naproxen 250 mg 04/08/21 16:33 Naproxen 250 Mg Tablet PO BID PRN Pain, Moderate (Pain Scale 4-6 Trazodone HCl 50 mg 04/01/21 15:01 Trazodone Hcl 50 Mg Tablet PO BEDTIME PRN continued Insomnia Trazodone HCl 200 mg 04/14/21 21:00 Trazodone Hcl 100 Mg Tablet PO BEDTIME JAMES Allergies Allergies Allergy/AdvReac Type Severity Reaction Status Date / Time tramadol Allergy Intermediate hives Verified 04/08/21 09:22 bupropion [From WELLBUTRIN] Allergy Unknown PAINFUL Verified 03/29/21 01:18 ERECTION perphenazine Allergy Unknown Shakiness Verified 03/29/21 01:23 risperidone [Risperdal] AdvReac Unknown diarrhea, Verified 03/29/21 01:18 feels ramped up sertraline [From ZOLOFT] AdvReac Unknown NAUSEA/DIZZ Verified 03/29/21 01:18 INESS BANANAS Allergy Unknown ITCHING Uncoded 03/29/21 01:18 INSIDE MOUTH BLUEBERRIES Allergy Unknown ITCHING Uncoded 03/29/21 01:18 INSIDE MOUTH STRAWBERRIES Allergy Unknown ITCHING Uncoded 03/29/21 01:18 INSIDE MOUTH Assessment & Plan Assessment & Plan (1) MDD (major depressive disorder), recurrent severe, without psychosis: Status: Acute Code(s): F33.2 - Major depressive disorder, recurrent severe without psychotic features (2) Chronic post-traumatic stress disorder (PTSD): Status: Acute Code(s): F43.12 - Post-traumatic stress disorder, chronic (3) OCD (obsessive compulsive disorder): Status: Chronic Code(s): F42.9 - Obsessive-compulsive disorder, unspecified Assessment and Plan: Patient is a 40-year-old trans gender patient from male to female who presents for worsening depression in the face of newly becoming homeless and change in medications. Patient has long history of depression and anxiety with characterological traits and high expressed emotion; her depression has remained despite multiple medicat ion trials and ECT. She has done relatively well for the past year living in this household, being able to help care for a young child and becoming recently homelessness and kicked out of this household has significantly exacerbated her depression. Patient reports she has been on citalopram 40 mg for years; also on clonazepam 2 mg t.i.d., trazodone 50 mg hydroxyzine 50 mg at bedtime. She presents for treatment. Patient reports that active suicidal ideations have now resolved and she is mustering up hope to find a way. Furniture Assembler And Installer discussed the risks and side effects of staying on benzodiazepines including its relative contraindications in patient is struggling with PTSD. However agree to leave as is for now since she has been on it for some time. Plan Patient on CV Q 15 minutes checks for safety Continue all medications Increase was escitalopram to 40mg (was started on this on admission since pharmacy does not carry citalopram); patient has OCD symptoms which typically requires higher doses, often over max dose, of SSRI/SNRI Dr. mauricio (patient consents) consulted and med hx discussed (pt did best with stable housing; was already on Clonazepam when dr. Wiley took over pt's care and kept her on this med); pt does not have substance abuse hx. TMS is an option (though ECT did not work); asked Dr. Chin to assess if TMS is recommended Discuss housing options with team Recommend DBT therapy continue as above trazodone increased to 200 mg consider mirtazapine as augmentation strategy. I do not believe TMS would be effective in current circumstance would re-evaluate when patient in more stable setting is more chronic treatment also if true OCD may do better with achieve technology which has OCD protocol\ question augmentation with Abilify No change to the above plan Greater than 50% of the session was spent on counseling and/or coordination of care Reason for contiued inpatient stay Substantial Risk for: harm to self, inability to function and rapid decompensation
[2021-04-14] MEDS: clonazePAM 1 MG TABLET 2 MG PO (19:52)
[2021-04-14 20:40] VITALS: BP 118/74; PULSE 82; TEMP 36.7
[2021-04-14] MEDS: traZODone HCL 100 MG TABLET 200 MG PO (22:32)
[2021-04-14] MEDS: hydrOXYzine HCL 25 MG TABLET 50 MG PO (22:33)
[2021-04-14] MEDS: Acetaminophen 325 MG TABLET 650 MG PO (23:40)
[2021-04-15 06:00] VITALS: BP 83/57; PULSE 58; RESP 16; TEMP 36.6; O2SAT 95
--- NOTE | 2021-04-15 08:00 | ECG_ITS ---
Test Reason : R/O INCR QTC Blood Pressure : / mmHG Vent. Rate : 061 BPM Atrial Rate : 061 BPM P-R Int : 168 ms QRS Dur : 108 ms QT Int : 418 ms P-R-T Axes : 038 070 044 degrees QTc Int : 420 ms Normal sinus rhythm Normal ECG When compared with ECG of 03-APR-2021 15:14, No significant change was found Referred By: Quinton Chin Electronically Signed By:FARHEEN SOLO
[2021-04-15] MEDS: Escitalopram Oxalate 10 MG TABLET 40 MG PO (08:30)
[2021-04-15] MEDS: estradioL 0.5 MG TABLET 4 MG PO (08:30)
[2021-04-15] MEDS: Acetaminophen 325 MG TABLET 650 MG PO ×2 (08:46→23:19)
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
[2021-04-15 18:00] VITALS: BP 114/68; PULSE 71; TEMP 36.4
[2021-04-15] MEDS: traZODone HCL 100 MG TABLET 200 MG PO (22:03)
[2021-04-15] MEDS: hydrOXYzine HCL 25 MG TABLET 50 MG PO (22:04)
[2021-04-16 06:30] VITALS: BP 86/47; PULSE 52; RESP 16; TEMP 36.2; O2SAT 95
[2021-04-16 07:00] VITALS: BMI 36.8
[2021-04-16] MEDS: estradioL 0.5 MG TABLET 4 MG PO (09:08)
[2021-04-16] MEDS: Escitalopram Oxalate 10 MG TABLET 40 MG PO (09:09)
[2021-04-16 09:16] VITALS: BP 112/59; PULSE 71; TEMP 36.9
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
[2021-04-16] MEDS: Acetaminophen 325 MG TABLET 650 MG PO (13:34)
[2021-04-16 18:00] VITALS: BP 119/60; PULSE 65; TEMP 36.2
[2021-04-16] MEDS: Gabapentin 100 MG CAPSULE PO ×2 (18:23→22:06)
[2021-04-16] MEDS: hydrOXYzine HCL 25 MG TABLET 50 MG PO (22:06)
[2021-04-16] MEDS: traZODone HCL 100 MG TABLET 200 MG PO (22:06)
[2021-04-17 06:00] VITALS: BP 91/52; PULSE 61; RESP 16; TEMP 36.3; O2SAT 96
[2021-04-17] MEDS: estradioL 0.5 MG TABLET 4 MG PO (08:19)
[2021-04-17] MEDS: Gabapentin 100 MG CAPSULE PO ×3 (08:19→22:15)
[2021-04-17] MEDS: Escitalopram Oxalate 10 MG TABLET 40 MG PO (08:19)
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
[2021-04-17] MEDS: clonazePAM 1 MG TABLET 2 MG PO ×2 (14:59→22:18)
[2021-04-17] MEDS: Acetaminophen 325 MG TABLET 650 MG PO (14:59)
[2021-04-17 18:00] VITALS: BP 119/76; PULSE 66; TEMP 36.9
[2021-04-17] MEDS: hydrOXYzine HCL 25 MG TABLET 50 MG PO (22:15)
[2021-04-17] MEDS: traZODone HCL 100 MG TABLET 200 MG PO (22:15)
[2021-04-18 06:00] VITALS: BP 108/54; PULSE 57; RESP 16; TEMP 36.4; O2SAT 95
[2021-04-18] MEDS: Gabapentin 100 MG CAPSULE PO ×3 (08:01→22:09)
[2021-04-18] MEDS: Escitalopram Oxalate 10 MG TABLET 40 MG PO (08:01)
[2021-04-18] MEDS: estradioL 0.5 MG TABLET 4 MG PO (08:02)
[2021-04-18] MEDS: Acetaminophen 325 MG TABLET 650 MG PO (09:29)
--- NOTE | 2021-04-18 10:07 | HO.PSYCHPN ---
Subjective Subjective Date of Service: 04/18/21 Reason For Visit: crisis Subjective Notes: Conditional Voluntary Healthcare Proxy: No Guardianship: No Medical Problems Affecting Mental Status: Yes (groin pain and leg edema) Interim History: 40 yo Female identified patient reports ongoing concerns about self care given homelessness and current leg edema Medication Compliance: Yes Side effects from medications: Yes (foggy from gabapentin started a few days ago for groin pain) Attending Groups: Yes Review of Systems notices little change with groin pain, kajal stockings have not improved edema in legs Mental Status Exam Mental Status Exam Narrative: dressed in green sweats Patient Appearance: Unkempt Patient Orientation: Person Level of Consciousness: Awake Patient Behavior: Appropriate Mood Description: Depressed Affect Description: Calm Patient Cognition Impaired: No Ability to Follow Directions: Good Speech Pattern: Clear Memory Description: Normal for Patient Hallucinations: None Delusions: Not Present Thought Process: Intact and Goal Oriented Thought Content: positive for Intact and positive for Obsessional Thoughts Depressive Symptoms: Unhappiness (gender dysphoria) Judgement: Fair Diagnostics Vital Signs (24Hr): Vital Signs - 24 hr 04/17/21 18:00 04/18/21 06:00 Temperature 98.5 F 97.6 F Pulse Rate 66 57 Respiratory Rate 16 Blood Pressure 119/76 108/54 L Pulse Oximetry 95 Body Mass Index 36.8 Labs Results: 04/01/21 08:26 04/01/21 08:26 Medications Medications Current Medications Generic Name Dose Route Start Last Admin Trade Name Freq PRN Reason Stop Dose Admin Acetaminophen 650 mg 03/31/21 18:50 04/18/21 09:29 Acetaminophen 325 Mg Tablet PO 650 mg Q6H PRN Administration Headache/Pain Mild Scale (1-3) Al Hydroxide/Mg Hydroxide 30 ml 03/31/21 18:50 04/10/21 14:29 Magnesium Hydrox/Alum Hydrox 30 Ml Oral.Susp PO 30 ml Q6H PRN Administration Heartburn/Nausea Clonazepam 2 mg 04/14/21 19:31 04/17/21 22:18 Clonazepam 1 Mg Tablet PO 2 mg TID PRN Administration Anxiety Diphenhydramine HCl 50 mg 04/07/21 23:58 04/12/21 18:11 Diphenhydramine Hcl 25 Mg Tablet PO 50 mg Q6H PRN Administration hives/itching Escitalopram Oxalate 40 mg 04/11/21 09:00 04/18/21 08:01 Escitalopram Oxalate 10 Mg Tablet PO 40 mg DAILY JAMES Administration Estradiol 4 mg 03/29/21 09:30 04/18/21 08:02 Estradiol 0.5 Mg Tablet PO 4 mg DAILY JAMES Administration Gabapentin 100 mg 04/16/21 17:15 04/18/21 08:01 Gabapentin 100 Mg Capsule PO 100 mg TID JAMES Administration Hydroxyzine HCl 50 mg 04/01/21 21:00 04/17/21 22:15 Hydroxyzine Hcl 25 Mg Tablet PO 50 mg BEDTIME JAMES Administration Hydroxyzine HCl 25 mg 04/08/21 16:35 Hydroxyzine Hcl 25 Mg Tablet PO DAILY PRN anxiety Magnesium Hydroxide 30 ml 03/31/21 18:50 Milk Of Magnesia 30 Ml Oral.Susp PO DAILY PRN Constipation Naproxen 250 mg 04/08/21 16:33 Naproxen 250 Mg Tablet PO BID PRN Pain, Moderate (Pain Scale 4-6 Trazodone HCl 50 mg 04/01/21 15:01 Trazodone Hcl 50 Mg Tablet PO BEDTIME PRN continued Insomnia Trazodone HCl 200 mg 04/14/21 21:00 04/17/21 22:15 Trazodone Hcl 100 Mg Tablet PO 200 mg BEDTIME JAMES Administration Allergies Allergies Allergy/AdvReac Type Severity Reaction Status Date / Time tramadol Allergy Intermediate hives Verified 04/08/21 09:22 bupropion [From WELLBUTRIN] Allergy Unknown PAINFUL Verified 03/29/21 01:18 ERECTION perphenazine Allergy Unknown Shakiness Verified 03/29/21 01:23 risperidone [Risperdal] AdvReac Unknown diarrhea, Verified 03/29/21 01:18 feels ramped up sertraline [From ZOLOFT] AdvReac Unknown NAUSEA/DIZZ Verified 03/29/21 01:18 INESS BANANAS Allergy Unknown ITCHING Uncoded 03/29/21 01:18 INSIDE MOUTH BLUEBERRIES Allergy Unknown ITCHING Uncoded 03/29/21 01:18 INSIDE MOUTH STRAWBERRIES Allergy Unknown ITCHING Uncoded 03/29/21 01:18 INSIDE MOUTH Assessment & Plan Assessment & Plan (1) MDD (major depressive disorder), recurrent severe, without psychosis: Status: Acute Code(s): F33.2 - Major depressive disorder, recurrent severe without psychotic features (2) Chronic post-traumatic stress disorder (PTSD): Status: Acute Code(s): F43.12 - Post-traumatic stress disorder, chronic (3) OCD (obsessive compulsive disorder): Status: Chronic Code(s): F42.9 - Obsessive-compulsive disorder, unspecified Assessment and Plan: mostly somatic focus currently still depressed ? work up of leg edema and groin pain bilateral edema can occur in some cases of gabapentin though also know to happen with escitalopram- -Recommend DBT therapy No change to the above plan Greater than 50% of the session was spent on counseling and/or coordination of care Reason for contiued inpatient stay Substantial Risk for: inability to function and rapid decompensation
[2021-04-18 18:00] VITALS: BP 105/58; PULSE 66; TEMP 36.4
[2021-04-18] MEDS: hydrOXYzine HCL 25 MG TABLET 50 MG PO (22:09)
[2021-04-18] MEDS: traZODone HCL 100 MG TABLET 200 MG PO (22:09)
[2021-04-19 06:00] VITALS: BP 86/48; PULSE 57; RESP 16; TEMP 36.6; O2SAT 95
[2021-04-19] MEDS: Escitalopram Oxalate 10 MG TABLET 40 MG PO (08:11)
[2021-04-19] MEDS: estradioL 0.5 MG TABLET 4 MG PO (08:12)
[2021-04-19] MEDS: Gabapentin 100 MG CAPSULE PO ×3 (08:12→22:25)
[2021-04-19] MEDS: clonazePAM 1 MG TABLET 2 MG PO (11:31)
[2021-04-19] MEDS: Acetaminophen 325 MG TABLET 650 MG PO (11:31)
--- NOTE | 2021-04-19 12:27 | HO.PSYCHPN ---
Subjective Subjective Date of Service: 04/19/21 Reason For Visit: crisis Subjective Notes: Conditional Voluntary Healthcare Proxy: No Guardianship: No Medical Problems Affecting Mental Status: No Interim History: ongoing leg pain and groin pain unclear that gabapentin has done anything but she and nurse are clear that swelling in legs started before gabapentin and has been on lexapro 40mg long before leg edema.... wonder if ? association with groin pain - will reconsult hospitalist Medication Compliance: Yes Side effects from medications: No Attending Groups: Intermittent Review of Systems ongoing leg edema/pain wearing kajal stockings no change as yet unclear if gabapentin has helped groin pain - Review of Systems Review of Systems see above Diagnostics Vital Signs (24Hr): Vital Signs - 24 hr 04/18/21 18:00 04/19/21 06:00 Temperature 97.5 F 97.8 F Pulse Rate 66 57 Respiratory Rate 16 Blood Pressure 105/58 L 86/48 L Pulse Oximetry 95 Body Mass Index 36.8 Labs Results: 04/01/21 08:26 04/01/21 08:26 Medications Medications Current Medications Generic Name Dose Route Start Last Admin Trade Name Freq PRN Reason Stop Dose Admin Acetaminophen 650 mg 03/31/21 18:50 04/19/21 11:31 Acetaminophen 325 Mg Tablet PO 650 mg Q6H PRN Administration Headache/Pain Mild Scale (1-3) Al Hydroxide/Mg Hydroxide 30 ml 03/31/21 18:50 04/10/21 14:29 Magnesium Hydrox/Alum Hydrox 30 Ml Oral.Susp PO 30 ml Q6H PRN Administration Heartburn/Nausea Clonazepam 2 mg 04/14/21 19:31 04/19/21 11:31 Clonazepam 1 Mg Tablet PO 2 mg TID PRN Administration Anxiety Diphenhydramine HCl 50 mg 04/07/21 23:58 04/12/21 18:11 Diphenhydramine Hcl 25 Mg Tablet PO 50 mg Q6H PRN Administration hives/itching Escitalopram Oxalate 40 mg 04/11/21 09:00 04/19/21 08:11 Escitalopram Oxalate 10 Mg Tablet PO 40 mg DAILY JAMES Administration Estradiol 4 mg 03/29/21 09:30 04/19/21 08:12 Estradiol 0.5 Mg Tablet PO 4 mg DAILY JAMES Administration Gabapentin 100 mg 04/16/21 17:15 04/19/21 08:12 Gabapentin 100 Mg Capsule PO 100 mg TID JAMES Administration Hydroxyzine HCl 50 mg 04/01/21 21:00 04/18/21 22:09 Hydroxyzine Hcl 25 Mg Tablet PO 50 mg BEDTIME JAMES Administration Hydroxyzine HCl 25 mg 04/08/21 16:35 Hydroxyzine Hcl 25 Mg Tablet PO DAILY PRN anxiety Magnesium Hydroxide 30 ml 03/31/21 18:50 Milk Of Magnesia 30 Ml Oral.Susp PO DAILY PRN Constipation Naproxen 250 mg 04/08/21 16:33 Naproxen 250 Mg Tablet PO BID PRN Pain, Moderate (Pain Scale 4-6 Trazodone HCl 50 mg 04/01/21 15:01 Trazodone Hcl 50 Mg Tablet PO BEDTIME PRN continued Insomnia Trazodone HCl 200 mg 04/14/21 21:00 04/18/21 22:09 Trazodone Hcl 100 Mg Tablet PO 200 mg BEDTIME JAMES Administration Allergies Allergies Allergy/AdvReac Type Severity Reaction Status Date / Time tramadol Allergy Intermediate hives Verified 04/08/21 09:22 bupropion [From WELLBUTRIN] Allergy Unknown PAINFUL Verified 03/29/21 01:18 ERECTION perphenazine Allergy Unknown Shakiness Verified 03/29/21 01:23 risperidone [Risperdal] AdvReac Unknown diarrhea, Verified 03/29/21 01:18 feels ramped up sertraline [From ZOLOFT] AdvReac Unknown NAUSEA/DIZZ Verified 03/29/21 01:18 INESS BANANAS Allergy Unknown ITCHING Uncoded 03/29/21 01:18 INSIDE MOUTH BLUEBERRIES Allergy Unknown ITCHING Uncoded 03/29/21 01:18 INSIDE MOUTH STRAWBERRIES Allergy Unknown ITCHING Uncoded 03/29/21 01:18 INSIDE MOUTH Assessment & Plan Assessment & Plan (1) MDD (major depressive disorder), recurrent severe, without psychosis: Status: Acute Code(s): F33.2 - Major depressive disorder, recurrent severe without psychotic features (2) Chronic post-traumatic stress disorder (PTSD): Status: Acute Code(s): F43.12 - Post-traumatic stress disorder, chronic (3) OCD (obsessive compulsive disorder): Status: Chronic Code(s): F42.9 - Obsessive-compulsive disorder, unspecified Assessment and Plan: mostly somatic focus currently still depressed ? work up of leg edema and groin pain association re consult hospitalist -Recommend DBT therapy Greater than 50% of the session was spent on counseling and/or coordination of care Reason for contiued inpatient stay Substantial Risk for: med/psych decompensation
[2021-04-19 14:19] VITALS: BP 107/60; PULSE 72
[2021-04-19 18:00] VITALS: BP 115/60; PULSE 68; TEMP 36.6
[2021-04-19] MEDS: traZODone HCL 100 MG TABLET 200 MG PO (22:25)
[2021-04-19] MEDS: hydrOXYzine HCL 25 MG TABLET 50 MG PO (22:25)
[2021-04-20 06:00] VITALS: BP 116/68; PULSE 87; TEMP 36.5; O2SAT 96
[2021-04-20] MEDS: estradioL 0.5 MG TABLET 4 MG PO (08:48)
[2021-04-20] MEDS: Gabapentin 100 MG CAPSULE PO (08:48)
[2021-04-20] MEDS: Escitalopram Oxalate 10 MG TABLET 40 MG PO (08:48)
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
[2021-04-20] MEDS: Acetaminophen 325 MG TABLET 650 MG PO (16:23)
[2021-04-20] MEDS: clonazePAM 1 MG TABLET 2 MG PO (16:24)
[2021-04-20 18:00] VITALS: BP 112/62; PULSE 78; TEMP 36.1; O2SAT 97
[2021-04-20] MEDS: traZODone HCL 100 MG TABLET 200 MG PO (22:15)
[2021-04-20] MEDS: hydrOXYzine HCL 25 MG TABLET 50 MG PO (22:15)
[2021-04-21 06:00] VITALS: BP 114/58; PULSE 52; TEMP 36.6; O2SAT 95
[2021-04-21] MEDS: estradioL 0.5 MG TABLET 4 MG PO (08:44)
[2021-04-21] MEDS: Escitalopram Oxalate 10 MG TABLET 40 MG PO (08:44)
[2021-04-21] MEDS: Acetaminophen 325 MG TABLET 650 MG PO ×2 (10:42→17:44)
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
[2021-04-21 16:35] VITALS: BP 119/67; PULSE 63; TEMP 36.2
[2021-04-21] MEDS: clonazePAM 1 MG TABLET 2 MG PO (17:45)
[2021-04-21] MEDS: hydrOXYzine HCL 25 MG TABLET 50 MG PO (22:42)
[2021-04-21] MEDS: traZODone HCL 100 MG TABLET 200 MG PO (22:42)
[2021-04-22 06:00] VITALS: BP 80/46; PULSE 74; RESP 16; TEMP 35.9; O2SAT 94
[2021-04-22] MEDS: estradioL 0.5 MG TABLET 4 MG PO (08:25)
[2021-04-22] MEDS: Escitalopram Oxalate 10 MG TABLET 40 MG PO (08:25)
[2021-04-22 10:14] VITALS: BP 115/65; PULSE 73
[2021-04-22] MEDS: Acetaminophen 325 MG TABLET 650 MG PO (12:12)
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
--- NOTE | 2021-04-22 12:24 | HO.PM.IMPN ---
Subjective Subjective Date of Service: 04/22/21 Interval History: seen in follow up for leg. Patient was previously seen on April [address] Ang. Patient now complaint of swelling in the feet without any stigmata of heart failure. Patient has compression stockings on. Review of Systems no son, no chest pain, leg swelling Physical Exam Vital Signs: Vital Signs: Last Vital Signs Temp 96.7 F L 04/22/21 06:00 Pulse 73 04/22/21 10:14 Resp 16 04/22/21 06:00 BP 115/65 04/22/21 10:14 Pulse Ox 94 04/22/21 06:00 Body Mass Index 36.8 Alert,oriented,no distress HEEN normal Resp lungs clear CV RRR,1+ BILleg edema GI S,ND,NT,BS present Neuro Non focal psych Objective Data Current Medications Generic Name Dose Route Start Last Admin Trade Name Freq PRN Reason Stop Dose Admin Acetaminophen 650 mg 03/31/21 18:50 04/22/21 12:12 Acetaminophen 325 Mg Tablet PO 650 mg Q6H PRN Administration Headache/Pain Mild Scale (1-3) Al Hydroxide/Mg Hydroxide 30 ml 03/31/21 18:50 04/10/21 14:29 Magnesium Hydrox/Alum Hydrox 30 Ml Oral.Susp PO 30 ml Q6H PRN Administration Heartburn/Nausea Clonazepam 2 mg 04/14/21 19:31 04/21/21 17:45 Clonazepam 1 Mg Tablet PO 2 mg TID PRN Administration Anxiety Diphenhydramine HCl 50 mg 04/07/21 23:58 04/12/21 18:11 Diphenhydramine Hcl 25 Mg Tablet PO 50 mg Q6H PRN Administration hives/itching Escitalopram Oxalate 40 mg 04/11/21 09:00 04/22/21 08:25 Escitalopram Oxalate 10 Mg Tablet PO 40 mg DAILY JAMES Administration Estradiol 4 mg 03/29/21 09:30 04/22/21 08:25 Estradiol 0.5 Mg Tablet PO 4 mg DAILY JAMES Administration Hydroxyzine HCl 50 mg 04/01/21 21:00 04/21/21 22:42 Hydroxyzine Hcl 25 Mg Tablet PO 50 mg BEDTIME JAMES Administration Hydroxyzine HCl 25 mg 04/08/21 16:35 Hydroxyzine Hcl 25 Mg Tablet PO DAILY PRN anxiety Magnesium Hydroxide 30 ml 03/31/21 18:50 Milk Of Magnesia 30 Ml Oral.Susp PO DAILY PRN Constipation Naproxen 250 mg 04/08/21 16:33 Naproxen 250 Mg Tablet PO BID PRN Pain, Moderate (Pain Scale 4-6 Trazodone HCl 50 mg 04/01/21 15:01 Trazodone Hcl 50 Mg Tablet PO BEDTIME PRN continued Insomnia Trazodone HCl 200 mg 04/14/21 21:00 04/21/21 22:42 Trazodone Hcl 100 Mg Tablet PO 200 mg BEDTIME JAMES Administration Labs CBC & Chem 7: 04/01/21 08:26 04/01/21 08:26 Quality Stroke Does the patient have a stroke diagnosis?: No VTE Prior VTE?: No VTE Risk Level:: Medical - moderate - high VTE Device Contraindication: N/A - Device Ordered VTE Drug Contraindication: Treatment Not Indicated Assessment and Plan (1) Leg edema: Status: Acute Assessment and Plan: Leg edema-I think this is a bening process could be Psych med related, posible hormonal therapy related, i doubt heart failure. Recommend checking Albumin, consider US of legs, ec if BNP level is abnormal, check BMP again last checked on 04/01. Continue Psych care
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
[2021-04-22 14:23] LABS: Alanine Aminotransferase 38 U/L (0-31); Albumin Level 4.2 g/dL (3.5-5.0); Alkaline Phosphatase 55 U/L (39-117); Anion Gap 13 (12-20); Aspartate Amino Transferase 27 U/L (5-31); Bilirubin Total 0.7 mg/dL (0.0-1.0); Blood Urea Nitrogen 19 mg/dL (9-16); Calcium 9.2 mg/dL (8.4-10.2); Carbon Dioxide 30 mmol/L (22-29); Chloride 101 mmol/L (96-108); Creatinine Clr Calc Pharmacy 80.4; Estimated Glomerular Filt Rate 51; Glucose Random 100 mg/dL (60-115); Sodium 140 mmol/L (135-145)
[2021-04-22 14:26] LABS: B Type Natriuretic Peptide 97 pg/mL (<100)
[2021-04-22 18:00] VITALS: BP 105/67; PULSE 57; TEMP 36.9
[2021-04-22] MEDS: traZODone HCL 100 MG TABLET 200 MG PO (22:15)
[2021-04-22] MEDS: hydrOXYzine HCL 25 MG TABLET 50 MG PO (22:16)
[2021-04-23 06:00] VITALS: BP 96/52; PULSE 53; RESP 16; TEMP 36.6; O2SAT 96
[2021-04-23 07:00] VITALS: BMI 37.0
[2021-04-23] MEDS: Escitalopram Oxalate 10 MG TABLET 40 MG PO (08:30)
[2021-04-23] MEDS: estradioL 0.5 MG TABLET 4 MG PO (08:30)
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
[2021-04-23] MEDS: Acetaminophen 325 MG TABLET 650 MG PO (11:17)
[2021-04-23 18:00] VITALS: BP 105/58; PULSE 60; TEMP 37
[2021-04-23] MEDS: clonazePAM 1 MG TABLET 2 MG PO (18:24)
[2021-04-23] MEDS: traZODone HCL 100 MG TABLET 200 MG PO (21:56)
[2021-04-23] MEDS: hydrOXYzine HCL 25 MG TABLET 50 MG PO (21:56)
[2021-04-24 06:00] VITALS: BP 92/58; PULSE 58; RESP 16; TEMP 36.1; O2SAT 92
[2021-04-24] MEDS: Escitalopram Oxalate 10 MG TABLET 40 MG PO (08:16)
[2021-04-24] MEDS: estradioL 0.5 MG TABLET 4 MG PO (08:16)
[2021-04-24] MEDS: Acetaminophen 325 MG TABLET 650 MG PO ×2 (09:44→20:21)
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
[2021-04-24 18:00] VITALS: BP 115/69; PULSE 71; TEMP 36.6
[2021-04-24] MEDS: clonazePAM 1 MG TABLET 2 MG PO (21:14)
[2021-04-24] MEDS: hydrOXYzine HCL 25 MG TABLET 50 MG PO (22:09)
[2021-04-24] MEDS: traZODone HCL 100 MG TABLET 200 MG PO (22:10)
[2021-04-25 06:00] VITALS: BP 107/55; PULSE 56; RESP 12; TEMP 36.2; O2SAT 94
[2021-04-25] MEDS: Escitalopram Oxalate 10 MG TABLET 40 MG PO (08:26)
[2021-04-25] MEDS: estradioL 0.5 MG TABLET 4 MG PO (08:26)
[2021-04-25] MEDS: Acetaminophen 325 MG TABLET 650 MG PO ×2 (09:27→16:06)
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
[2021-04-25] MEDS: clonazePAM 1 MG TABLET 2 MG PO (14:21)
[2021-04-25 18:55] VITALS: BP 120/69; PULSE 67; TEMP 36.6
[2021-04-25] MEDS: hydrOXYzine HCL 25 MG TABLET 50 MG PO (22:13)
[2021-04-25] MEDS: traZODone HCL 100 MG TABLET 200 MG PO (22:13)
[2021-04-26] MEDS: Escitalopram Oxalate 10 MG TABLET 40 MG PO (08:08)
[2021-04-26] MEDS: estradioL 0.5 MG TABLET 4 MG PO (08:08)
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
[2021-04-26 10:06] VITALS: BP 115/66; PULSE 61; RESP 16; TEMP 36.3; O2SAT 98
[2021-04-26] MEDS: Acetaminophen 325 MG TABLET 650 MG PO (11:39)
[2021-04-26 18:14] VITALS: BP 130/74; PULSE 66; RESP 16; O2SAT 99
[2021-04-26] MEDS: clonazePAM 1 MG TABLET 2 MG PO (22:05)
[2021-04-26] MEDS: traZODone HCL 100 MG TABLET 200 MG PO (22:06)
[2021-04-26] MEDS: hydrOXYzine HCL 25 MG TABLET 50 MG PO (22:06)
[2021-04-27 06:30] VITALS: BP 91/49; PULSE 68; RESP 18; TEMP 36.9; O2SAT 95
[2021-04-27] MEDS: estradioL 0.5 MG TABLET 4 MG PO (08:14)
[2021-04-27] MEDS: Escitalopram Oxalate 10 MG TABLET 40 MG PO (08:14)
[2021-04-27] MEDS: Acetaminophen 325 MG TABLET 650 MG PO (08:51)
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
[2021-04-27 18:00] VITALS: BP 110/66; PULSE 60
[2021-04-27] MEDS: hydrOXYzine HCL 25 MG TABLET 50 MG PO (22:24)
[2021-04-27] MEDS: traZODone HCL 100 MG TABLET 200 MG PO (22:24)
[2021-04-28 06:00] VITALS: BP 94/54; PULSE 59; RESP 18; TEMP 36.3; O2SAT 93
[2021-04-28] MEDS: Escitalopram Oxalate 10 MG TABLET 40 MG PO (08:33)
[2021-04-28] MEDS: estradioL 0.5 MG TABLET 4 MG PO (08:33)
--- NOTE | 2021-04-28 11:10 | PM.PSYDC ---
DS: Providers Provider Date of Service: 04/28/21 Date of admission: 03/31/21 18:49 Date of discharge: 04/28/21 Primary care physician: Unknown Physician Attending physician on admission: Jefferson Lai Consults: 04/07/21 12:54 Consult to Hospitalist Routine Consulting Provider: Hospitalist Reason For Exam: blood in urine 04/07/21 14:08 Consult to Urology Routine Consulting Provider: Milo Goldstein Reason for consultation: bloody urine 04/19/21 19:58 Consult to Hospitalist Routine Consulting Provider: Hospitalist Reason For Exam: fu to groin pain now with bipedal edema 04/21/21 09:54 Consult to Hospitalist Routine Consulting Provider: Hospitalist Reason For Exam: b/l lower limb edema Attending physician on discharge: Jefferson Lai DS: Diagnosis Discharge Diagnosis (1) Leg edema: Status: Acute Problem details: improving (2) MDD (major depressive disorder), recurrent severe, without psychosis: Status: Chronic (3) Chronic post-traumatic stress disorder (PTSD): Status: Chronic (4) OCD (obsessive compulsive disorder): Status: Chronic Problem details: with good insight DS: Medications Discharge Medications Home Medications: Previous Rx's Medication Instructions Recorded cane #1 ea 04/28/21 clonazepam 2 mg PO TID PRN 15 Days #45 tab 04/28/21 escitalopram oxalate 40 mg PO DAILY 30 Days #120 tab 04/28/21 estradiol 4 mg PO DAILY 30 Days #60 tab 04/28/21 trazodone 200 mg PO BEDTIME PRN 30 Days #60 04/28/21 tab Discharge Plan Discharge Patient Disposition: Xfer to Respite Facility Discharge Diagnosis: MDD, recurrent, severe in full remission Referrals: Dr. Mendy Wiley (psychiatry) [Other] - 04/30/21 3:30 pm (This appointment is via Telehealth) Cadence Solomon ([facility] Marketing Account Executive) [Other] - 1 Week (Please follow up with Cadence upon discharge regarding your [facility] eligibility case) ROSALIE RODARTE [Other] - 05/06/21 10:40 am (IN OFFICE) Discharge Medications: New trazodone 100 mg Tablet 200 mg PO BEDTIME PRN (Reason: insomnia) 30 Days Qty: 60 RF: 0 escitalopram oxalate 10 mg Tablet 40 mg PO DAILY 30 Days Qty: 120 RF: 0 (DME) cane Device See Rx Instructions .ROUTE .MEDSUPPLY Qty: 1 RF: 0 Changed clonazepam 2 mg tablet 2 mg PO TID PRN (Reason: anxiety) 15 Days Qty: 45 RF: 1 estradiol 2 mg tablet 4 mg PO DAILY 30 Days Qty: 60 RF: 0 Discontinued citalopram 40 mg tablet 1 tab PO DAILY RF: 0 Discharge Orders: Discharge Order (Routine); Ordered 04/28/21 Ordered By: Jefferson Lai Diet: regular diet Activity on Discharge: As tolerated Stand Alone Forms: Patient Portal Discharge page Care Plan Goals: Maintain mood and safe behaviors Take medications as prescribed Practice coping skills Continue with outpatient providers and reach out to them as needed Pursue therapy (DBT/CBT) once housing stabilized Health Concerns: Mood instability and behaviors chronic genitourinary discomfort bilateral foot swelling Plan of Treatment: Follow up with your PCP and psychiatric provider regarding above concerns Take medications as prescribed Assessment: Risk assessment at time of discharge: Patient has been observed closely by nursing and unit staff throughout admission; patient has not engaged in any behaviors that suggest dangerousness to self or others and has demonstrated appropriate behaviors and impulse control. Patient was interviewed prior to discharge and found to be fully oriented and without any SI or HI. Patient has insight and demonstrates good judgment in terms of wanting to pursue treatment. Patient is not in imminent risk of harm to self or others and has a safety plan that includes presenting to the closest ER or calling 911 if feeling unsafe. Discharge Date/Time: 04/28/21 12:10 Mental Status Exam Mental Status Exam Narrative: Pt is alert and oriented; behavior is cooperative, friendly and calm; patient is not in distress; dressed in casual attire hospital gown with adequate hygiene; mood is described as good and affect congruent; eye contact appropriate; Speech is normal rate, volume and prosody and not pressured; no psychomotor agitation/retardation present; thought process is organized, linear, logical and goal directed. Thought content is on ____ ; otherwise pertinent to relevant topics and without any delusional content, paranoid ideations or grandiosity; denies any SI/HI. There is no evidence of perceptual disturbance. Patients insight and judgment appear intact. Data Data Completed and Pending Completed studies during hospitalization [Text1]: 04/22/21 04/22/21 13:47 13:47 Sodium 140 Potassium 4.0 Chloride 101 Carbon Dioxide 30 H Anion Gap 13 BUN 19 H Creatinine 1.18 Estim Creat Clear Calc 80.4 Estimated GFR 51 Random Glucose 100 Calcium 9.2 Total Bilirubin 0.7 AST 27 D ALT 38 H Alkaline Phosphatase 55 B-Natriuretic Peptide 97 Total Protein 7.0 Albumin 4.2 DS: Summary Hospital Course Hospital Course: Patient is a 40-year-old trans gender patient from male to female who presents for worsening depression in the face of newly becoming homeless and change in medications (uses she/her pronouns) Patient has long history of depression and anxiety with characterological traits and high expressed emotion; her depression has remained despite multiple medication trials and ECT. She has done relatively well for the past year living in a household until becoming recently homelessness. on admission, patient was depressed. She had intermittent SI but reported it remained passive and was without any intent or plan. On admission pharmacy converted citalopram to Lexapro since that was what was on formulary however it became known that patient had done much better on a higher dose of citalopram until it was lowered due to FDA warnings. Cell Attendant discussed this in detail with patient, reviewing the risks and side effects of increasing Lexapro to which patient agreed to formally switched to Lexapro and titrate. And in addition to patient's depression and PTSD she also had OCD symptoms and make criteria for OCD, which typically requires a higher than normal dose of an SSRI and thus Lexapro was titrated to 40 mg ( EKG within normal limits). patient had continued intermittent bouts of hopeless feelings and anxiety with trouble sleeping however she was able to cope through these and little by little her mood improved, depression abated and SI fully resolved. Initially patient mostly kept to her room but towards the end of admission she was out about in the milieu, playing games with other people in the kitchen and making jokes. She worked very hard to help secure housing which was a difficult process and in the end only resulted in an admission to respite however depression remained resolved and she was hopeful that she would get through this time and end up with permanent housing. Cell Attendant discussed the risks and side effects of staying on benzodiazepines including its relative contraindications in patient is struggling with PTSD. Discussed tapering down Clonazepam however pt says she's been on this dose for nearly 6 years and that it's been helpful and does not want to change it. Given longevity of being on this med, fiction and nonfiction prose writer decided that this will be best addressed by outpatient provider( fiction and nonfiction prose writer discussed with Dr. mauricio her outpatient psychiatrist who agreed with this plan). That said, patient made efforts to take her allotted p.r.n. doses less often and there were times when she only took it once a day. By the end of patient's admission, she was in a good mood denying any depression or SI. She remained anxious about moving onto the next step but felt stable and able to handle the transition. Patient has strong were poor with outpatient psychiatrist and PCP and felt confident she would be able to follow-up with them as needed. patient was excepted into a respite from where she will continue to look for more permanent housing. She was not in imminent risk of harm to self or others and her request for discharge was honored. Throughout admission patient had Several somatic complaints, including testicular pain and urethral pain which she says is chronic, it is being followed by her PCP for and has had a urology consult and is pending surgery for orchidectomy. At 1 point patient complained of blood coming from her urethra which was witnessed by staff and Urology consulted. She was started on an antibiotic but Urology concluded patient was stable enough and this could be followed with cystoscopy as an outpatient. Patient said that this however has been chronic for the past year As was her intermittent testicular pain. For the pain patient was started on tramadol however this resulted in hives and bilateral pedal edema which began to resolve with Gilmer stockings and foot elevation; hospitalist consulted. Patient has a strong rapport with outpatient provider and felt comfortable following up with her for these medical issues. Cell Attendant discussed risks/side effects of medication regimen, including higher than usual dose of Escitalopram; patient communicated understanding of benefits, risks and side-effects of medications and wants to continue with regimen. Patient agrees that current doses seem appropriate and denies medication side-effects. Patient agrees to reach out to outpatient provider with any medications concerns. Time Spent with Patient Time attestation: Total time spent providing and/or coordinating discharge services:
--- NOTE | 2021-04-28 11:40 | PC.NURSE ---
PT HAS BEEN VISIBLE ON THE UNIT AND SOCIAL WITH PEERS. SHE IS EATING AND SLEEPING ADEQUATELY. PT IS MEDICATION COMPLIANT. SHE IS OPEN TO EDUCATION REGARDING MEDICATIONS AND COPING SKILLS. PT REPORTS NO DEPRESSION. SHE REPORTS MID ANXIETY REGARDING HER LIVING SITUATION BUT IS FUTURE ORIENTED AROUND HER DISCHARGE. PT DENIES AUDITORY OR VISUAL HALLUCINATIONS. SHE DENIES ANY URGES TO HARM HERSELF OR OTHERS. PT HAS BEEN ATTNDING GROUPS. SHE IS TAKING CARE OF ADLS INDEPENDENTLY.
== END 2021-04-28 12:10 | DRG 885 ==
LOC: HO.ED 03-30 14:43 → HO.PM5 03-31 18:56
PROVIDERS: Internal Medicine; Admitting Provider Clinical Nurse Specialist Psychiatric/Mental Health, Adult; Emergency Provider Emergency Medicine; Visit Provider Psychiatry & Neurology Psychiatry
DX: F33.2 Major depressive disorder, recurrent severe without psychotic features (principal); R45.851 Suicidal ideations; F64.0 Transsexualism; R60.0 Localized edema; R31.9 Hematuria, unspecified; F42.9 Obsessive-compulsive disorder, unspecified; F43.10 Post-traumatic stress disorder, unspecified; N50.812 Left testicular pain; N50.811 Right testicular pain; Z20.822 Contact with and (suspected) exposure to COVID-19; Z88.5 Allergy status to narcotic agent; Z79.899 Other long term (current) drug therapy
CPT/HCPCS: 36415; 80053; 80061; 80076; 80307; 81001; 81003; 81025; 82607; 82746; 83036; 83735; 83880; 84439; 84443; 85025; 87635; 93005; 99285; Q0163

== ENCOUNTER 2021-12-10 12:26 | Emergency (ER) | payer OTHER, SELFPAY ==
[2021-12-10 12:35] VITALS: BP 132/87; PULSE 87; RESP 18; TEMP 36.7; O2SAT 99; BMI 34.9
--- NOTE | 2021-12-10 13:03 | ED_ITS ---
HPI - Skin/Abscess/Foreign Bdy General Chief complaint: Skin/Abscess/Foreign Body Stated complaint: chemical reaction on hands Time Seen by Provider: 12/10/21 12:50 Source: patient Mode of arrival: ambulatory Limitations: no limitations History of Present Illness HPI narrative: Patient is a 41-year-old female who reports that at 10:00 this morning she was cleaning out a dresser to be be re-purposed, when she noted one of the doors to have aluminum foil stuck to the bottom of the drawer. She tried applying an a ntibacterial spray to see whether this would help lift the foil, states that this caused a foaming reaction. She used her bare hands to try and remove the aluminum foil in then states that hands began to burn, turned red, and have cracking of her skin. She contacted poison Control and reports that she provided photos of her hands and the drawer at which point she was advised that this was likely a burn due to meth, they advised her to cleanse her hands with saline or water. States that she cleansed her hands with water followed by salt water which cause worsening burning pain and cracking of her skin. For the past 2 hours she has had no additional changes but they are very uncomfortable. There are areas of redness with dry cracked skin to the palms MD complaint: other (Burn) Onset (ago): hour(s) Location: L hand and R hand Severity: moderate Severity scale (1-10): 5 Quality: burning Relieving factors: none Exacerbating factors: none Treatments prior to arrival: none Related Data Previous Rx's Medication Instructions Recorded cane #1 ea 04/28/21 clonazepam 2 mg tablet 2 mg PO TID PRN 15 Days #45 tab 04/28/21 escitalopram oxalate 10 mg tablet 40 mg PO DAILY 30 Days #120 tab 04/28/21 estradiol 2 mg tablet 4 mg PO DAILY 30 Days #60 tab 04/28/21 trazodone 100 mg tablet 200 mg PO BEDTIME PRN 30 Days #60 04/28/21 tab Allergies Allergy/AdvReac Type Severity Reaction Status Date / Time tramadol Allergy Intermediate hives Verified 04/08/21 09:22 bupropion [From WELLBUTRIN] Allergy Unknown PAINFUL Verified 03/29/21 01:18 ERECTION perphenazine Allergy Unknown Shakiness Verified 03/29/21 01:23 risperidone [Risperdal] AdvReac Unknown diarrhea, Verified 03/29/21 01:18 feels ramped up sertraline [From ZOLOFT] AdvReac Unknown NAUSEA/DIZZ Verified 03/29/21 01:18 INESS BANANAS Allergy Unknown ITCHING Uncoded 03/29/21 01:18 INSIDE MOUTH BLUEBERRIES Allergy Unknown ITCHING Uncoded 03/29/21 01:18 INSIDE MOUTH STRAWBERRIES Allergy Unknown ITCHING Uncoded 03/29/21 01:18 INSIDE MOUTH Review of Systems Review of Systems: Constitutional : No Fever, No Chills ENT/Mouth : no oral swelling, No Hoarseness, No Swallowing Difficulty Eyes: No Eye Pain, No Swelling, No Redness Cardiovascular : No Chest Pain, No SOB Respiratory : No Cough, No Sputum, No Wheezing, No Smoke Exposure, No Dyspnea Gastrointestinal : No Nausea, No Vomiting, No Diarrhea, No abdominal Pain Genitourinary : No Dysuria, No Urinary Frequency, No Hematuria Musculoskeletal : No joint pain, No Myalgias, No Joint Swelling Skin : No Skin Lesions, positive rash bilateral hands Neuro : No Weakness, No Numbness, No Headache Psych : No Anxiety/Panic, No Depression Heme/Lymph: No Bruising, No Lymphadenopathy Endocrine : No Polyuria, No Polydipsia All other systems reviewed and are negative PMFSH Past Medical History Attestation statement: The following information was validated with the patient. Source: old records reviewed Medical History (Updated 12/10/21 @ 13:20 by Eva Bolanos CNP) Agoraphobia Anxiety Chronic post-traumatic stress disorder (PTSD) Depression Hip pain, chronic Tztj-yv-dbeccx transgender person MDD (major depressive disorder), recurrent severe, without psychosis PTSD (post-traumatic stress disorder) Somatic complaints, multiple Suicidal ideation Social History Social History Household Members: None Housing: Homeless Do you presently have visiting nurse or other home services: No Patient Tobacco Use Status: Never used Tobacco Patient : No service: No Sexual orientation: Did not discuss Physical Exam Vital Signs: Vital Signs: Last Vital Signs Temp 98.0 F 12/10/21 12:35 Pulse 87 12/10/21 12:35 Resp 18 12/10/21 12:35 BP 132/87 12/10/21 12:35 Pulse Ox 99 12/10/21 12:35 BMI result Body Mass Index 34.9 Vital signs have been reviewed as normal and appeared to be correct. Blood pressure normal.? Heart rate normal.? Respiration rate normal. Temperature normal.? Oxygen saturation normal. Appearance: Alert.?Oriented to person, place and time. No acute distress.?Normal affect. Eyes: Pupils equal, round and reactive to light.? ENT: Pharynx normal.?? Neck: Normal inspection.? Neck supple.?? CVS: Heart sounds normal. Normal heart rate and rhythm.? Pulses normal.?? Respiratory: No respiratory distress.? Lung sounds clear to auscultation bilaterally?? Abdomen: Soft and non-tender. ?? Skin: Bilateral palms with areas of erythema, dried scabbed linear lacerations with surrounding area dry excoriated skin. No active bleeding Skin warm and dry.? Normal skin color.? ?? Extremities: No lower extremity edema.? Neuro: Moves all extremities spontaneously. Sensation intact bilaterally. No focal neuro deficits. Ambulates with normal steady gait. Course Course Course Narrative: Patient presents emergency department for evaluation of a chemical burn. She is well appearing, afebrile non tachycardic and nontoxic appearing. She sustained quezada to the Palms of bilateral hands after coming in contact with chemical substances. Treatment here included hands cleansed with normal saline and patted dry, apply double amount of bacitracin and covered with nonstick dressing and wrapped hands bilaterally. Advised patient that at this time there is no concern for superimposed infection. Discussed signs of infection to look for and reasons to return to the emergency department. Patient is stable to be discharged home and she is agreeable with plan, advised follow-up with PCP next week. Reevaluation(s) Reevaluation #1: Patient left without her discharge instruction papers prior to being registered, instructions reviewed with patient prior to her leaving Time: 13:41 Discharge Plan Discharge Clinical Impression: Chemical burn Patient Disposition: Home, Self-Care Instructions: Chemical Skin Burn (ED) Additional Instructions: Please cleanse the hands antibacterial soap and water twice daily, pat dry, apply bacitracin throughout to the hands to areas of the burn apply a non stick pad and wrap twice daily. He should follow-up with a primary care provider in 3 days. If you develop any new or worsening symptoms or concerns please return to the emergency department, look for signs of infection including increasing redness, swelling, drainage, pain, fevers, chills. Prescriptions: No Action trazodone 100 mg Tablet 200 mg PO BEDTIME PRN (Reason: insomnia) 30 Days Qty: 60 0RF escitalopram oxalate 10 mg Tablet 40 mg PO DAILY 30 Days Qty: 120 0RF (DME) cane Device See Rx Instructions .ROUTE .MEDSUPPLY Qty: 1 0RF Rx Instructions: As directed clonazepam 2 mg tablet 2 mg PO TID PRN (Reason: anxiety) 15 Days Qty: 45 1RF estradiol 2 mg tablet 4 mg PO DAILY 30 Days Qty: 60 0RF
== END 2021-12-10 15:17 | disposition home or self-care (01) ==
LOC: HO.ED 13:45
PROVIDERS: Emergency Provider Emergency Medicine Emergency Medical Services
DX: R21 Rash and other nonspecific skin eruption (principal)
CPT/HCPCS: 99283

== ENCOUNTER 2022-03-01 18:31 | Emergency (ER) | payer OTHER, SELFPAY ==
--- NOTE | ~2022-03-01 | US_ITS ---
EXAMINATION: US SCROTUM CLINICAL INFORMATION: Testicular pain.. COMPARISON: CT scan abdomen pelvis 2015 TECHNIQUE: A sonogram of the scrotum was performed assessing porras-scale appearance and color Doppler flow. Spectral Doppler analysis of the arterial and venous flow were performed in the testes bilaterally. FINDINGS: RIGHT: Right testicle measures 3.5 x 1.8 x 2.1 cm, volume 6.9 mL. No focal testicular parenchymal lesions are visualized. Spectral Doppler analysis of the arterial and venous flow is normal in the right testis. Right epididymal head is normal in size. No right hydrocele or varicocele is seen. Right epididymal Doppler flow is normal. LEFT: Left testicle measures 3.6 x 1.9 x 2.6 cm, volume 9.2 mL. No focal testicular parenchymal lesions are visualized. Spectral Doppler analysis of the arterial and venous flow is normal in the left testis. Left epididymal head is normal in size. 2 mm cyst at the head of left epididymis. No left hydrocele or varicocele is seen. Left epididymal Doppler flow is normal. US/US scrotum IMPRESSION: Normal scrotal ultrasound.
[2022-03-01 18:39] VITALS: BP 116/74; BP 148/78; PULSE 64; PULSE 70; RESP 16; TEMP 36.7; O2SAT 95; O2SAT 96; BMI 39.7
--- NOTE | 2022-03-01 19:08 | ED_ITS ---
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 Patient has had prior testicular pain and problems for a few years. He states he was seen at [facility] in [facility] for this problem previously and they supposedly wanted to do surgery and gave him ?2 bags of morphine?. The patient said he had associated bleeding at that time, and when asked to elaborate he said he had blood in his urine at that time. The patient has had intermittent blood in his urine. He denies any testicular swelling. He was on estrogen therapy. He denies any fever, nausea vomiting. He denies any trauma to his testicles or scrotum. He has noted that the testicles actually seem to be smaller than they used to be. Patient also notes he has chronic pain from prior tailbone fracture and disc herniation, has been using a cane Related Data Previous Rx's Medication Instructions Recorded cane #1 ea 04/28/21 clonazepam 2 mg tablet 2 mg PO TID PRN 15 Days #45 tab 04/28/21 escitalopram oxalate 10 mg tablet 40 mg PO DAILY 30 Days #120 tab 04/28/21 estradiol 2 mg tablet 4 mg PO DAILY 30 Days #60 tab 04/28/21 trazodone 100 mg tablet 200 mg PO BEDTIME PRN 30 Days #60 04/28/21 tab Allergies Allergy/AdvReac Type Severity Reaction Status Date / Time tramadol Allergy Intermediate hives Verified 04/08/21 09:22 bupropion [From WELLBUTRIN] Allergy Unknown PAINFUL Verified 03/29/21 01:18 ERECTION perphenazine Allergy Unknown Shakiness Verified 03/29/21 01:23 risperidone [Risperdal] AdvReac Unknown diarrhea, Verified 03/29/21 01:18 feels ramped up sertraline [From ZOLOFT] AdvReac Unknown NAUSEA/DIZZ Verified 03/29/21 01:18 INESS BANANAS Allergy Unknown ITCHING Uncoded 03/29/21 01:18 INSIDE MOUTH BLUEBERRIES Allergy Unknown ITCHING Uncoded 03/29/21 01:18 INSIDE MOUTH STRAWBERRIES Allergy Unknown ITCHING Uncoded 03/29/21 01:18 INSIDE MOUTH Review of Systems Review of Systems: Yes all other systems are reviewed and are negative Constitutional: Constitutional: Reports as per HPI and Denies fever(s) Eyes: Eyes: Reports as per HPI and Reports no additional eye complaints ENT: Reports system reviewed and no additional complaints, except as documented, Reports as per HPI, Denies nasal congestion, Denies nasal discharge and Denies sore throat Cardiovascular: Cardiovascular: Reports as per HPI, Denies chest pain and Denies dyspnea Respiratory: Respiratory: Reports as per HPI, Denies cough and Denies dyspnea Gastrointestinal: Gastrointestinal: Reports as per HPI, Denies abdominal pain, Denies diarrhea and Denies vomiting Genitourinary: Genitourinary: Reports as per HPI, Reports hematuria, Reports urinary frequency and Denies dysuria Comments: Dysuria present. Patient is also noted that he sometimes has a ?putrid? odor coming from his genital area but he has not noted any discharge or skin breakdown. He states this odor is present despite cleaning thoroughly in the shower. Musculoskeletal: Musculoskeletal: Reports no additional musculoskeletal complaints and Denies numbness Integumentary/Breasts: Skin/Breast: Reports as per HPI and Denies rash Neurologic: Reports as per HPI, Denies focal weakness and Denies numbness Psychiatric: Psychiatric: Reports no additional psychiatric complaints and Reports as per HPI Endocrine: Endocrine: Reports no additional endocrine complaints and Reports as per HPI Hematologic/Lymphatic: Hematologic/Lymphatic: Reports no additional hemat ologic/lymphatic complaints, Reports as per HPI and Reports other (No peripheral edema) [facility] Past Medical History Medical History (Updated 03/02/22 @ 01:06 by Laureano Foster MD) Agoraphobia Anxiety Chronic post-traumatic stress disorder (PTSD) Depression Hip pain, chronic Onlu-gx-yhikqk transgender person MDD (major depressive disorder), recurrent severe, without psychosis PTSD (post-traumatic stress disorder) Somatic complaints, multiple Suicidal ideation Social History Social History Household Members: None Housing: Homeless Do you presently have visiting nurse or other home services: No Patient Tobacco Use Status: Never used Tobacco Advance Directives: No service: No Sexual orientation: Did not discuss Physical Exam ED Vital Signs: Vital Signs - 24 hr 03/01/22 18:39 03/01/22 22:58 Temperature 98.1 F Pulse Rate 64 55 Respiratory Rate 16 16 Blood Pressure 116/74 129/80 Pulse Oximetry 95 95 BMI result Body Mass Index 39.7 Const General: no acute distress Orientation/consciousness: patient oriented x3 HENMT Head: Yes normal to inspection General nose exam: Normal external nose present Mouth: moist mucous membranes Throat: Yes posterior oropharynx normal, Yes tonsils normal and Yes uvula midline Eyes Eyelids: Yes eyelids normal Conjunctivae: conjunctivae normal Pupils: Equal, round and reactive pupils present Neck Neck: Yes supple Resp Effort & Inspection: normal respiratory effort Auscultation: clear to auscultation bilaterally Cardio Rate: regular rate Rhythm: regular rhythm Heart sounds: S1 normal heart sound present, S2 normal heart sound present, no gallops, no murmurs and no rubs GI Inspection: No distended Palpation (GI): Soft to palpation and nontender Auscultation: normal bowel sounds Other: Penis is involuted into surrounding tissue. No inguinal hernia. No hernia palpable in the scrotum. Testicles mildly tender, slightly worse on the right. Testes seem somewhat small, no mass palpable. No scrotal erythema or skin changes. Skin General skin exam: other (Warm and dry) Neuro General: patient oriented x3 and CN's II-XI intact bilaterally Cranial nerves: Yes Equal, round and reactive pupils present Extrem General: Yes no pedal edema Psych Affect: normal affect Attitude: cooperative Medical Decision Making [facility] Narrative Medical decision making narrative: Patient with somewhat vague complaints, complained of testicular pain and ?bleeding? which he said he had had worked up previously, had a recent recurrence of testicular pain. Patient had no concerning findings on physical exam. Patient also complained of a bad odor coming from his genital area but no odor was noted on exam and the patient had no skin lesions or open sores. His testes did appear to be somewhat atrophic likely due to his estrogen use. His penis was a involuted due to his body habitus. Ultrasound was negative for any concerning pathology of the testicle. Urinalysis showed some rbc's, which has been there on to prior urinalysis. Do not clinically suspect ureteral or renal stone. Patient involved with Urology. Patient has a history of multiple somatic complaints, I suspect there is a psychiatric etiology to his presentation today Lab Data Lab results reviewed: Yes I reviewed the patient's lab results. Labs: Lab Results 03/02/22 Range/Units 00:22 Urine Color YELLOW Urine Appearance CLEAR Urine pH 5.5 (5.0-8.0) Ur Specific [place] >= 1.030 H (1.005-1.025) Urine Protein NEG (NEG-TRACE) MG/DL Urine Glucose (UA) NEG (NEG) MG/DL Urine Ketones 5 (NEG) MG/DL Urine Blood 2+ H (NEG) Urine Nitrite NEG (NEG) Ur Leukocyte Esterase NEG (NEG) Urine RBC 30-49 H (0) /HPF Urine WBC 0-2 (0-4) /HPF Ur Squamous Epith Cells 1+ /LPF Urine Bacteria NONE /LPF Urine Mucus TRACE /LPF Imaging Data Scrotal ultrasound: Radiologist's impression: MPRESSION: Normal scrotal ultrasound. Discharge Plan Discharge Clinical Impression: Hematuria, microscopic Patient Disposition: Home, Self-Care Additional Instructions: Use ibuprofen for pain. Follow-up with urology. Return for any new or worsened symptoms Prescriptions: No Action trazodone 100 mg Tablet 200 mg PO BEDTIME PRN (Reason: insomnia) 30 Days Qty: 60 0RF escitalopram oxalate 10 mg Tablet 40 mg PO DAILY 30 Days Qty: 120 0RF (DME) cane Device See Rx Instructions .ROUTE .MEDSUPPLY Qty: 1 0RF Rx Instructions: As directed clonazepam 2 mg tablet 2 mg PO TID PRN (Reason: anxiety) 15 Days Qty: 45 1RF estradiol 2 mg tablet 4 mg PO DAILY 30 Days Qty: 60 0RF Referrals: Milo Goldstein MD [Physician] - Interventions: ED Discharge Assessment Last Done: 03/02/22 01:18 Discharge Date/Time: 03/02/22 01:18
[2022-03-01] MEDS: Ketorolac Tromethamine 30 MG/ML VIAL IM (19:16)
[2022-03-01 22:58] VITALS: BP 129/80; PULSE 55; RESP 16; O2SAT 95
[2022-03-02 00:33] LABS: Appearance Urine CLEAR; Color Urine YELLOW; Glucose Urine UA NEG (NEG); Leukocyte Esterase Urine NEG (NEG); Nitrite Urine NEG (NEG); PH 5.5 (5.0-8.0); Specific Gravity - Urine >= 1.030 (1.005-1.025); UACC Culture Trigger NO; Urine Blood 2+ (NEG); Urine Ketones 5 MG/DL (NEG); Urine Protein NEG (NEG-TRACE)
[2022-03-02 00:43] LABS: RBC Urine 30-49 /HPF (0); Squamous Epithelial Cell Urine 1+ /LPF; WBC Urine 0-2 /HPF (0-4)
[2022-03-02 00:44] LABS: Mucus Urine TRACE /LPF
== END 2022-03-02 01:18 | disposition home or self-care (01) ==
PROVIDERS: Emergency Provider Emergency Medicine; PCP Nurse Practitioner Family
DX: R31.29 Other microscopic hematuria (principal); N50.812 Left testicular pain; N50.811 Right testicular pain; F64.0 Transsexualism; Z79.899 Other long term (current) drug therapy
CPT/HCPCS: 76870; 81001; 96372; 99284; J1885

== ENCOUNTER 2022-10-05 16:48 | Emergency (ER) | payer OTHER, SELFPAY ==
--- NOTE | ~2022-10-05 | US_ITS ---
EXAMINATION: US SCROTUM CLINICAL INFORMATION: Status post orchiectomy. COMPARISON: None TECHNIQUE: A sonogram of the scrotum was performed assessing porras-scale appearance and color Doppler flow. Spectral Doppler analysis of the arterial and venous flow were performed in the testes bilaterally. FINDINGS: Neither testicle is seen. The orchiectomy site was scanned and no abscess or fluid collection is seen. US/US scrotum IMPRESSION: No abnormality is seen status post orchiectomy.
[2022-10-05 17:26] VITALS: BP 121/65; BP 136/82; PULSE 66; PULSE 80; RESP 18; TEMP 37.1; O2SAT 96; BMI 39.2
--- NOTE | 2022-10-05 17:44 | ED_ITS ---
HPI - General Adult General Chief complaint: Wound/Laceration Stated complaint: infected surgical site Time Seen by Provider: 10/05/22 17:29 Source: patient and EMS Mode of arrival: EMS Limitations: no limitations History of Present Illness HPI narrative: This is a 41-year-old female presenting to the emergency department with complaints of discharge from surgical site x4 days worsening. Patient had a scrotumectomy and an orchiectomy me at [facility] 09/03/[address] Sanchez (urology) and Dr Blanc. Patient tells me that there is a thick smelly yellow/green discharge coming from incision sites she also notes that the area is red, swollen. Reports subjective fevers and chills over the past few days. Tells me just not feeling right. Denies chest pain, shortness of breath, headache, vision changes, dizziness, abdominal pain, difficulties urinating. Related Data Previous Rx's Medication Instructions Recorded cane #1 ea 04/28/21 clonazepam 2 mg tablet 2 mg PO TID PRN anxiety 15 days 04/28/21 #45 tabs escitalopram oxalate 10 mg tablet 40 mg PO DAILY 30 days #120 tabs 04/28/21 estradiol 2 mg tablet 4 mg PO DAILY 30 days #60 tabs 04/28/21 trazodone 100 mg tablet 200 mg PO BEDTIME PRN insomnia 30 04/28/21 days #60 tabs Allergies Allergy/AdvReac Type Severity Reaction Status Date / Time tramadol Allergy Intermediate hives Verified 10/05/22 17:26 bupropion [From WELLBUTRIN] Allergy Unknown PAINFUL Verified 10/05/22 17:26 ERECTION perphenazine Allergy Unknown Shakiness Verified 10/05/22 17:26 risperidone [Risperdal] AdvReac Unknown diarrhea, Verified 10/05/22 17:26 feels ramped up sertraline [From ZOLOFT] AdvReac Unknown NAUSEA/DIZZ Verified 10/05/22 17:26 INESS BANANAS Allergy Unknown ITCHING Uncoded 03/29/21 01:18 INSIDE MOUTH BLUEBERRIES Allergy Unknown ITCHING Uncoded 03/29/21 01:18 INSIDE MOUTH STRAWBERRIES Allergy Unknown ITCHING Uncoded 03/29/21 01:18 INSIDE MOUTH Review of Systems Review of Systems: Constitutional : No Weight loss, + Fever, + Chills, No Fatigue, No Malaise ENT/Mouth : No sore throat, No Rhinorrhea Eyes: No Eye Pain, No Swelling, No Redness Cardiovascular : No Chest Pain, No SOB, No Dyspnea on Exertion, No Orthopnea, No Edema, No Palpitations Respiratory : No Cough, No Sputum, No Wheezing Gastrointestinal : No Nausea, No Vomiting, No Diarrhea, No Constipation, No abdominal Pain, No Hematochezia, No Melena Genitourinary : No Dysuria, No Urinary Frequency, No Hematuria, Musculoskeletal : No joint pain, No Myalgias, No Joint Swelling Skin : No Skin Lesions, No rash, + wound Neuro : No Weakness, No Numbness, No Dizziness, No Headache Psych : No Anxiety/Panic, No Depression All other systems reviewed and are negative Yes all other systems are reviewed and are negative [facility] Past Medical History Attestation statement: The following information was validated with the patient. Source: old records reviewed and nursing notes reviewed Medical History Agoraphobia Anxiety Chronic post-traumatic stress disorder (PTSD) Depression Hip pain, chronic Utmh-ji-hynash transgender person MDD (major depressive disorder), recurrent severe, without psychosis PTSD (post-traumatic stress disorder) Somatic complaints, multiple Suicidal ideation Social History Social History Household Members: None Housing: Homeless Do you presently have visiting nurse or other home services: No Patient Tobacco Use Status: Never used Tobacco Advance Directives: No Advance Directives Information Provided: No service: No Sexual orientation: Did not discuss Physical Exam ED Vital Signs: Vital Signs - 24 hr 10/05/22 17:26 10/05/22 19:13 Temperature 98.7 F 98.2 F Pulse Rate 66 55 Respiratory Rate 18 18 Blood Pressure 121/65 131/86 Pulse Oximetry 96 95 Oxygen Delivery Method Room Air Room Air BMI result Body Mass Index 39.2 Vital signs stable Appearance: Alert.? Oriented X3.? No acute distress.? Head: Normocephalic, atraumatic, no step-offs or deformities Eyes: Pupils equal, round and reactive to light.? CVS: Normal heart rate and rhythm.? Pulses normal.? Respiratory: No respiratory distress.? Breath sounds normal.? Abdomen: Soft and nontender.? Skin: Skin warm and dry.? Normal skin color.? Normal skin turgor.? Extremities: No lower extremity edema.? No calf ttp. 5/5 strength to bilateral upper and lower extremities Sensitive: Tenderness just below the penis, where the scrotum would be, incision site with slight erythema and slight purulence. Tender to palpation. Imaging below Neuro: Oriented X 3.? No motor deficit.? No sensory deficit. CN 2-12 intact Course Reevaluation(s) Reevaluation #1: CBC appears to be within normal limits. Chemistry with no acute electrolyte abnormalities requiring intervention, patient's creatinine is slightly higher than her baseline today 1.50, previous 1.18. Patient noted to have lactic acidosis. Patient receiving hydration as well as antibiotics at this time. Time: 19:05 Reevaluation #2: Call out to [facility]. Time: 19:15 Reevaluation #3: [facility] will accept transfer, patient to be transferred ED to ED to Dr. Ragsdale, patient had a complex surgical procedure which requires follow- up by same surgeon, concerns for possible seroma or abscess versus cellulitis. Time: 20:04 Medications Administered Generic Name Dose Route Start Last Admin Trade Name Freq PRN Reason Stop Dose Admin Sodium Chloride 1,000 mls @ 999 mls/hr 10/05/22 19:15 10/05/22 19:30 Ns IV 10/05/22 20:15 999 mls/hr .Q1H1M JAMES Administration Discontinued Medications Generic Name Dose Route Start Last Admin Trade Name Freq PRN Reason Stop Dose Admin Piperacillin Sod/Tazobactam 50 mls @ 100 mls/hr 10/05/22 17:44 10/05/22 19:28 Sod 3.375 gm/ Sodium Chloride IV 10/05/22 18:13 Infused ONCE ONE Infusion Medical Decision Making Medical Decision Making [facility] Narrative: [id number] 41-year-old female presents status post surgical procedures on 09/03/2022 reporting postsurgical complications to wound. Reports oozing at site of surgical incision. On exam tenderness to palpation where scrotum eyes, with warmth and erythema. Concerns for cellulitis versus seroma versus abscess formation or wound dehiscence Plan at this time is to obtain basic labs, blood culture, lactic acid. Will give Zosyn for coverage. Critical Care Time Critical Care Time Critical Care Time: No Discharge Plan Discharge Clinical Impression: Post-operative complication Patient Disposition: Xfer [facility] Transfer Details: Dr. Ragsdale [facility] ED --> ED Prescriptions: No Action trazodone 100 mg Tablet 200 mg PO BEDTIME PRN (Reason: insomnia) 30 Days Qty: 60 0RF escitalopram oxalate 10 mg Tablet 40 mg PO DAILY 30 Days Qty: 120 0RF (DME) cane Device See Rx Instructions .ROUTE .MEDSUPPLY Qty: 1 0RF Rx Instructions: As directed clonazepam 2 mg tablet 2 mg PO TID PRN (Reason: anxiety) 15 Days Qty: 45 1RF estradiol 2 mg tablet 4 mg PO DAILY 30 Days Qty: 60 0RF
[2022-10-05 18:20] LABS: MANUAL DIFF FLAG NO
[2022-10-05] MEDS: Piperacillin Sodium/Tazobactam 3.375 GM in 0.9 % Sodium Chloride 50 ML IV (18:22)
[2022-10-05 18:31] LABS: Basophils Percent Auto 0.5 % (0-2); Eosinophils Absolute Auto 0.2 X10*3/uL (0.0-0.4); Eosinophils Percent Auto 2.1 % (0-4); Hematocrit 41.3 % (37.0-47.0); Hemoglobin 14.4 g/dl (12.0-16.0); Imm Gran Pct Auto 1.3 % (0.0-0.4); Lymphocytes Absolute Auto 2.1 X10*3/uL (1.2-4.9); Lymphocytes Percent Auto 26.7 % (20-40); Mean Corpuscular HGB Conc 34.9 g/dl (31.0-35.0); Mean Corpuscular Hemoglobin 30.4 pg (27.0-33.0); Mean Corpuscular Volume 87.1 fL (80.0-98.0); Mean Platelet Volume 9.6 fL (9.4-12.3); Monocytes Absolute Auto 0.6 X10*3/uL (0.1-1.2); Monocytes Percent Auto 6.9 % (2-11); Neutrophils Percent Auto 62.5 % (45-73); Platelet Count 249 X10*3/uL (160-400); Red Blood Count 4.74 X10*6/uL (4.20-5.50); Red Cell Distribution Width 12.3 % (11.0-16.0); White Blood Count 7.9 X10*3/uL (4.8-10.8)
[2022-10-05 18:44] LABS: Alanine Aminotransferase 62 U/L (0-31); Albumin Level 4.5 g/dL (3.5-5.0); Alkaline Phosphatase 59 U/L (39-117); Anion Gap 12 (12-20); Aspartate Amino Transferase 33 U/L (5-31); Bilirubin Total 0.9 mg/dL (0.0-1.0); Blood Urea Nitrogen 15 mg/dL (9-16); Calcium 9.6 mg/dL (8.4-10.2); Carbon Dioxide 28 mmol/L (22-29); Chloride 106 mmol/L (96-108); Estimated Glomerular Filt Rate 38; Glucose Random 110 mg/dL (60-115); Potassium 4.2 mmol/L (3.3-5.1); Sodium 142 mmol/L (135-145); Total Protein 7.2 g/dL (6.5-8.0)
[2022-10-05 19:03] LABS: Lactic Acid 2.4 mmol/L (0.5-2.0)
[2022-10-05 19:13] VITALS: BP 131/86; PULSE 55; RESP 18; TEMP 36.8; O2SAT 95
[2022-10-05] MEDS: 0.9 % Sodium Chloride 1,000 ML 999 ML IV (19:30)
--- NOTE | 2022-10-05 19:36 | PC.NURSE ---
Call out to [facility] @[phone] regarding transfer of patient.
[2022-10-05 20:18] LABS: Reflex Lactate? Lactic Acid Added
--- NOTE | 2022-10-05 20:27 | PC.NURSE ---
Patient accepted to [facility] Accepting is
[2022-10-05 21:03] LABS: ~Lactic Acid-LAB USE ONLY 1.4 mmol/L (0.5-2.0)
[2022-10-05 21:29] VITALS: BP 130/80; PULSE 57; RESP 16; TEMP 36.7; O2SAT 98
== END 2022-10-05 22:45 | disposition short-term general hospital (02) ==
PROVIDERS: Physician Assistant; Emergency Provider Internal Medicine
DX: L08.9 Local infection of the skin and subcutaneous tissue, unspecified (principal); N99.842 Postprocedural seroma of a genitourinary system organ or structure following a genitourinary system procedure; Z79.899 Other long term (current) drug therapy
CPT/HCPCS: 36415; 76870; 80053; 83605; 85025; 87040; 87205; 96361; 96365; 99285; J2543

== ENCOUNTER 2022-12-24 15:12 | Emergency (ER) | payer OTHER, SELFPAY ==
--- NOTE | ~2022-12-24 | CT_ITS ---
EXAMINATION: CT ABDOMEN AND PELVIS WITH CONTRAST CLINICAL INFORMATION: scrotal swelling COMPARISON: None TECHNIQUE: Multidetector volumetric images were obtained from the superior aspect of the liver through the pubic symphysis following administration 85 mL of Omnipaque 350 intravenous contrast. Sagittal and coronal reformatted images were obtained on the technologist's workstation. Oral contrast: No This CT examination was performed using dose optimization techniques as appropriate, variously including the following: *Automated exposure control *Adjustment of mA and/or kV according to patient size (this includes techniques or standardized protocols for targeted exams where dose is matched to indication/reason for exam; i.e. extremities or head) *Use of iterative reconstruction technique DLP: 568 mGy-cm FINDINGS: LUNG BASES: The visualized lung bases are unremarkable. LIVER, GALLBLADDER, AND BILIARY TREE: Diffuse low attenuation of liver parenchyma due to fatty change. No focal liver lesion or intrahepatic bile duct dilatation. The gallbladder is unremarkable with no evidence of radiopaque gallstones, gallbladder wall thickening, or obvious pericholecystic inflammatory changes. PANCREAS: Unremarkable. SPLEEN: Unremarkable. ADRENAL GLANDS: Unremarkable. KIDNEYS AND URETERS: The kidneys are normal in size, shape, and attenuation. No hydronephrosis, hydroureter, or calculi seen. No perinephric stranding. BLADDER: Unremarkable. GASTROINTESTINAL TRACT: The small and large bowel are unremarkable. The appendix is unremarkable. ABDOMINAL WALL: No significant hernia is appreciated. LYMPH NODES: Normal. VASCULAR: Unremarkable. PELVIC VISCERA: Unremarkable. OSSEOUS STRUCTURES: Unremarkable. CT/CT abdomen pelvis w IV con IMPRESSION: 1. No acute abnormality CT scan abdomen pelvis. 2. Diffuse fatty change of liver. Fleischner guidelines were followed.
--- NOTE | 2022-12-24 15:18 | ED_ITS ---
HPI - General Adult General Chief complaint: Urogenital-Female <ZULMA Banegas - Last Filed: 12/24/22 15:25> Stated complaint: possible infection, personal <ZULMA Banegas - Last Filed: 12/24/22 15:25> Time Seen by Provider: 12/24/22 18:53 <ZULMA Banegas - Last Filed: 12/24/22 15:25> Source: patient <ZULMA Cordero - Last Filed: 12/24/22 21:36> Mode of arrival: ambulatory <ZULMA Cordero - Last Filed: 12/24/22 21:36> Limitations: no limitations <ZULMA Cordero - Last Filed: 12/24/22 21:36> History of Present Illness HPI narrative: 42 year old female ( transition male --> female) presenting to the ED with concerns of possible infection to left groin X a few months worsening over the past few days and blood from penis X few days. Patient had a scrotumectomy and an orchiectomy at [facility] 09/03/[address] Sanchez (urology) and Dr Blanc. Patient tells me that there is a smelly white/yellow /green discharge coming from L groin area and overlying the area where the scrotum would be and there is white discharge around the penis and to L groin. Tells me just not feeling right.?Denies chest pain, shortness of breath, headache, vision changes, dizziness, abdominal pain, difficulties urinating, fever, chills. <ZULMA Cordero - Last Filed: 12/24/22 21:36> Related Data Home medications: Previous Rx's Medication Instructions Recorded cane #1 ea 04/28/21 clonazepam 2 mg tablet 2 mg PO TID PRN anxiety 15 days 04/28/21 #45 tabs escitalopram oxalate 10 mg tablet 40 mg PO DAILY 30 days #120 tabs 04/28/21 estradiol 2 mg tablet 4 mg PO DAILY 30 days #60 tabs 04/28/21 trazodone 100 mg tablet 200 mg PO BEDTIME PRN insomnia 30 04/28/21 days #60 tabs cephalexin 500 mg tablet 500 mg PO Q6H 10 days #40 tabs 12/24/22 nystatin 100,000 unit/gram topical 1 appl topical BID #15 grams 12/24/22 powder <ZULMA Banegas - Last Filed: 12/24/22 15:25> Allergies/adverse reactions: Allergies Allergy/AdvReac Type Severity Reaction Status Date / Time tramadol Allergy Intermediate hives Verified 12/24/22 15:19 bupropion [From WELLBUTRIN] Allergy Unknown PAINFUL Verified 12/24/22 15:19 ERECTION perphenazine Allergy Unknown Shakiness Verified 12/24/22 15:19 risperidone [Risperdal] AdvReac Unknown diarrhea, Verified 12/24/22 15:19 feels ramped up sertraline [From ZOLOFT] AdvReac Unknown NAUSEA/DIZZ Verified 12/24/22 15:19 INESS BANANAS Allergy Unknown ITCHING Uncoded 03/29/21 01:18 INSIDE MOUTH BLUEBERRIES Allergy Unknown ITCHING Uncoded 03/29/21 01:18 INSIDE MOUTH STRAWBERRIES Allergy Unknown ITCHING Uncoded 03/29/21 01:18 INSIDE MOUTH <ZULMA Banegas - Last Filed: 12/24/22 15:25> Review of Systems Review of Systems: Yes all other systems are reviewed and are negative <ZULMA Cordero - Last Filed: 12/24/22 21:36> PMFSH Past Medical History Medical History: Medical History Agoraphobia Anxiety Chronic post-traumatic stress disorder (PTSD) Depression Hip pain, chronic [id number] transgender person MDD (major depressive disorder), recurrent severe, without psychosis PTSD (post-traumatic stress disorder) Somatic complaints, multiple Suicidal ideation <ZULMA Banegas - Last Filed: 12/24/22 15:25> Social History Social History: Social History Household Members: None Housing: Homeless Do you presently have visiting nurse or other home services: No Patient Tobacco Use Status: Never used Tobacco Substance Use Type: Marijuana Advance Directives: No Advance Directives Information Provided: No service: No Sexual orientation: Did not discuss <ZULMA Banegas - Last Filed: 12/24/22 15:25> Physical Exam ED Vital Signs: Vital Signs - 24 hr 12/24/22 15:20 12/24/22 21:20 Temperature 97.8 F 98.3 F Pulse Rate 75 52 Respiratory Rate 16 20 Blood Pressure 146/71 H 122/71 Pulse Oximetry 98 96 Oxygen Delivery Method Room Air Room Air BMI result Body Mass Index 24.3 <ZULMA Banegas Last Filed: 12/24/22 15:25> Vital Signs - 24 hr 12/24/22 15:20 12/24/22 21:20 Temperature 97.8 F 98.3 F Pulse Rate 75 52 Respiratory Rate 16 20 Blood Pressure 146/71 H 122/71 Pulse Oximetry 98 96 Oxygen Delivery Method Room Air Room Air BMI result Body Mass Index 24.3 vss <ZULMA Cordero Last Filed: 12/24/22 21:36> Appearance: Alert.? Oriented X3.? No acute distress.? Head:? Normocephalic, atraumatic, no step-offs or deformities Eyes: Pupils equal, round and reactive to light.? CVS: Normal heart rate and rhythm.? Pulses normal.? Respiratory: No respiratory distress.? Breath sounds normal.? Abdomen: Soft and nontender.? Skin: Skin warm and dry.? Normal skin color.? Normal skin turgor.? Extremities: No lower extremity edema.? No calf ttp.? 5/5 strength to bilateral upper and lower extremities Sensitive:? Tenderness just below the penis, where the scrotum would be, incision site with slight erythema and slight purulence. Smegma in the penis and there is white discharge in L groin area. Tender to palpation.? Imaging below Neuro: Oriented X 3.? No motor deficit.? No sensory deficit. CN 2-12 intact <ZULMA Cordero Last Filed: 12/24/22 21:36> Course Course Course Narrative: RME performed by Tammy Perla PA-C. Patient is a 42 year old female presenting to the emergency department with a possible groin infection. Patient had a transitional surgery 3 months ago and has been having issues on and off ever since. Yesterday, she noticed a new odor from the area and believes there is still a stitch in place that should have dissolved. Patient states that she had surgery in [place]. Labs and urine ordered. Patient placed back in the waiting room pending room availability and results. <ZULMA Banegas - Last Filed: 12/24/22 15:25> RME performed by Tammy Perla PA-C. Patient is a 42 year old female presenting to the emergency department with a possible groin infection. Patient had a transitional surgery 3 months ago and has been having issues on and off ever since. Yesterday, she noticed a new odor from the area and believes there is still a stitch in place that should have dissolved. Patient states that she had surgery in [place]. Labs and urine ordered. Patient placed back in the lizy ting room pending room availability and results. <ZULMA Cordero Last Filed: 12/24/22 21:36> Reevaluation(s) Reevaluation #1: Spoke to Dr. Esteban urology at [facility]. Recommends abd and pelvis CT, if something grossly abnormal call back for guidance. If not patient can be DC home with PO atbx and follow up on tuesday. <ZULMA Cordero Last Filed: 12/24/22 21:36> Time: 19:50 <ZULMA Cordero Last Filed: 12/24/22 21:36> Reevaluation #2: CBC appears to be around patient's baseline. No leukocytosis to suggest infection. Chemistry with no acute electrolyte abnormalities requiring inter vention. Normal lactic acid. CT of the abdomen and pelvis with no acute abnormality on CT scan. No seroma or abscess identified. Diffuse fatty change of liver. Will discharge patient home on antibiotics and nystatin. Educated patient on diagnosis and treatment plan, answered all question, patient verbalizes understanding. At this time patient will be discharged home, advised to return with new or worsening symptoms. Educated on worrisome signs and symptoms and when to return. At this time I feel comfortable discharge home. <ZULMA Cordero - Last Filed: 12/24/22 21:36> Time: 21:31 <ZULMA Cordero Last Filed: 12/24/22 21:36> Medications Administered Discontinued Medications Generic Name Dose Route Start Last Admin Trade Name Freq PRN Reason Stop Dose Admin Iohexol 100 ml 12/24/22 20:49 12/24/22 20:50 Iohexol 350 Mg/Ml 100 Ml Infus..Btl IV 12/24/22 20:50 85 ml ONCE ONE Administration <ZULMA Banegas - Last Filed: 12/24/22 15:25> Medications Administered Discontinued Medications Generic Name Dose Route Start Last Admin Trade Name Beulah PRN Reason Stop Dose Admin Iohexol 100 ml 12/24/22 20:49 12/24/22 20:50 Iohexol 350 Mg/Ml 100 Ml Infus..Btl IV 12/24/22 20:50 85 ml ONCE ONE Administration <ZULMA Cordero Last Filed: 12/24/22 21:36> Medical Decision Making Medical Decision Making [facility] Narrative: 1913 42-year-old female presents status post surgical procedures on 09/03/2022 reporting postsurgical complications to wound and pain around L groin region, and blood coming from penis X few days. Reports oozing at site of surgical incision. On exam tenderness to palpation where scrotum would be, with warmth and erythema. Smegma in the penis and there is white discharge in L groin area. Concerns for cellulitis versus seroma versus abscess formation or wound dehiscence Plan at this time is to obtain basic labs, blood culture, lactic acid. <ZULMA Cordero Last Filed: 12/24/22 21:36> Differential Diagnosis Differential Diagnoses: The differential diagnosis associated with the presentation includes <ZULMA Cordero Last Filed: 12/24/22 21:36> Concerns for cellulitis versus seroma versus abscess formation or wound dehiscence <ZULMA Cordero Last Filed: 12/24/22 21:36> Admission/Observation Consideration of admission/observation: Escalation of care including admission/observation considered <ZULMA Cordero Last Filed: 12/24/22 21:36> Consult Healthcare Provider Management of the patient was discussed with: Paper Box Maker <ZULMA Cordero Last Filed: 12/24/22 21:36> Lab Data [facility] Lab Attestation statement: I reviewed the patient's lab results. <ZULMA Cordero Last Filed: 12/24/22 21:36> Result Diagrams: 12/24/22 16:27 12/24/22 16:27 <ZULMA Banegas - Last Filed: 12/24/22 15:25> Labs: Lab Results 12/24/22 12/24/22 12/24/22 Range/Units 16:27 16:27 20:25 WBC 8.0 (4.8-10.8) X10*3/uL RBC 4.79 (4.20-5.50) X10*6/uL Hgb 14.6 (12.0-16.0) g/dl Hct 41.3 (37.0-47.0) % MCV 86.2 (80.0-98.0) fL MCH 30.5 (27.0-33.0) pg MCHC 35.4 H (31.0-35.0) g/dl RDW 12.3 (11.0-16.0) % Plt Count 258 (160-400) X10*3/uL MPV 9.2 L (9.4-12.3) fL Immature Gran % (Auto) 0.4 (0.0-0.4) % Neut % (Auto) 64.6 (45-73) % Lymph % (Auto) 24.7 (20-40) % [place] % (Auto) 7.5 (2-11) % Eos % (Auto) 2.4 (0-4) % Baso % (Auto) 0.4 (0-2) % Lymph # (Auto) 2.0 (1.2-4.9) X10*3/uL [place] # (Auto) 0.6 (0.1-1.2) X10*3/uL Eos # (Auto) 0.2 (0.0-0.4) X10*3/uL Baso # (Auto) 0.0 (0.0-0.2) X10*3/uL Abs Immat Gran (auto) 0.03 (0.00-0.03) X10*3/uL Absolute Neuts (auto) 5.2 (2.0-8.3) x10*3/uL Absolute Nucleated RBC 0.000 (0.0-0.012) X10*3/uL Nucleated RBC % (auto) 0.0 (0.0-0.2) /100WBC Sodium 145 (135-145) mmol/L Potassium 4.8 (3.3-5.1) mmol/L Chloride 110 H (96-108) mmol/L Carbon Dioxide 29 (22-29) mmol/L Anion Gap 11 L (12-20) BUN 16 (9-16) mg/dL Creatinine 1.38 (0.5-1.4) mg/dL Estim Creat Clear Calc 54.1 Estimated GFR 42 Random Glucose 101 (60-115) mg/dL Lactic Acid 1.5 (0.5-2.0) mmol/L Calcium 9.3 (8.4-10.2) mg/dL Magnesium 2.3 (1.6-2.6) mg/dL Total Bilirubin 0.7 (0.0-1.0) mg/dL AST 30 (5-31) U/L ALT 46 H (0-31) U/L Alkaline Phosphatase 62 (39-117) U/L Total Protein 6.9 (6.5-8.0) g/dL Albumin 4.3 (3.5-5.0) g/dL <ZULMA Banegas - Last Filed: 12/24/22 15:25> Lab Results 12/24/22 12/24/22 12/24/22 Range/Units 16:27 16:27 20:25 WBC 8.0 (4.8-10.8) X10*3/uL RBC 4.79 (4.20-5.50) X10*6/uL Hgb 14.6 (12.0-16.0) g/dl Hct 41.3 (37.0-47.0) % MCV 86.2 (80.0-98.0) fL MCH 30.5 (27.0-33.0) pg MCHC 35.4 H (31.0-35.0) g/dl RDW 12.3 (11.0-16.0) % Plt Count 258 (160-400) X10*3/uL MPV 9.2 L (9.4-12.3) fL Immature Gran % (Auto) 0.4 (0.0-0.4) % Neut % (Auto) 64.6 (45-73) % Lymph % (Auto) 24.7 (20-40) % [place] % (Auto) 7.5 (2-11) % Eos % (Auto) 2.4 (0-4) % Baso % (Auto) 0.4 (0-2) % Lymph # (Auto) 2.0 (1.2-4.9) X10*3/uL [place] # (Auto) 0.6 (0.1-1.2) X10*3/uL Eos # (Auto) 0.2 (0.0-0.4) X10*3/uL Baso # (Auto) 0.0 (0.0-0.2) X10*3/uL Abs Immat Gran (auto) 0.03 (0.00-0.03) X10*3/uL Absolute Neuts (auto) 5.2 (2.0-8.3) x10*3/uL Absolute Nucleated RBC 0.000 (0.0-0.012) X10*3/uL Nucleated RBC % (auto) 0.0 (0.0-0.2) /100WBC Sodium 145 (135-145) mmol/L Potassium 4.8 (3.3-5.1) mmol/L Chloride 110 H (96-108) mmol/L Carbon Dioxide 29 (22-29) mmol/L Anion Gap 11 L (12-20) BUN 16 (9-16) mg/dL Creatinine 1.38 (0.5-1.4) mg/dL Estim Creat Clear Calc 54.1 Estimated GFR 42 Random Glucose 101 (60-115) mg/dL Lactic Acid 1.5 (0.5-2.0) mmol/L Calcium 9.3 (8.4-10.2) mg/dL Magnesium 2.3 (1.6-2.6) mg/dL Total Bilirubin 0.7 (0.0-1.0) mg/dL AST 30 (5-31) U/L ALT 46 H (0-31) U/L Alkaline Phosphatase 62 (39-117) U/L Total Protein 6.9 (6.5-8.0) g/dL Albumin 4.3 (3.5-5.0) g/dL <ZULMA Cordero - Last Filed: 12/24/22 21:36> Radiology Impression Discussion of test interpretation with radiology: I have reviewed the radiologist's reading. <ZULMA Cordero - Last Filed: 12/24/22 21:36> Core Measures AMI core measures followed: Yes <ZULMA Cordero - Last Filed: 12/24/22 21:36> Measure exclusions: not indicated <ZULMA Cordero - Last Filed: 12/24/22 21:36> Critical Care Time Critical Care Time Critical Care Time: No <ZULMA Cordero - Last Filed: 12/24/22 21:36> Discharge Plan Discharge Clinical Impression: Hematuria, Post-operative complication <ZULMA Banegas Last Filed: 12/24/22 15:25> Patient Disposition: Home, Self-Care <ZULMA Banegas - Last Filed: 12/24/22 15:25> Instructions: Wound Infection (ED), Surgical Site Infections (ED), Hematuria (ED) <ZULMA Banegas - Last Filed: 12/24/22 15:25> Additional Instructions: Take your medications as prescribed. If you were prescribed antibiotics today, it is important that you take your medication to their entirety, do not skip any doses, do not finish them early. Follow-up with your primary care provider this week. Return to the emergency department with new or worsening symptoms. Such as fevers, chills, chest pain, shortness of breath, nausea, vomiting, dizziness, headache, vision changes, lethargy In case of emergency call 911 Please call [facility] on Tuesday to make an appointment. If you have worsening bleeding from penis please return immediatly. <ZULMA Banegas - Last Filed: 12/24/22 15:25> Prescriptions: New cephalexin 500 mg tablet 500 mg PO Q6H 10 Days Qty: 40 0RF nystatin 100,000 unit/gram powder 1 appl topical BID Qty: 15 0RF No Action trazodone 100 mg Tablet 200 mg PO BEDTIME PRN (Reason: insomnia) 30 Days Qty: 60 0RF escitalopram oxalate 10 mg Tablet 40 mg PO DAILY 30 Days Qty: 120 0RF (DME) cane Device See Rx Instructions .ROUTE .MEDSUPPLY Qty: 1 0RF Rx Instructions: As directed clonazepam 2 mg tablet 2 mg PO TID PRN (Reason: anxiety) 15 Days Qty: 45 1RF estradiol 2 mg tablet 4 mg PO DAILY 30 Days Qty: 60 0RF <ZULMA Banegas - Last Filed: 12/24/22 15:25> Referrals: Physician,Unknown J [Primary Care Provider] - 2 days <ZULMA Banegas - Last Filed: 12/24/22 15:25> Stand Alone Forms: Work/School Release <ZULMA Banegas - Last Filed: 12/24/22 15:25>
[2022-12-24 15:20] VITALS: BP 146/71; PULSE 75; RESP 16; TEMP 36.6; O2SAT 98; BMI 24.3
[2022-12-24 16:31] LABS: MANUAL DIFF FLAG NO
[2022-12-24 16:35] LABS: Basophils Percent Auto 0.4 % (0-2); Eosinophils Absolute Auto 0.2 X10*3/uL (0.0-0.4); Eosinophils Percent Auto 2.4 % (0-4); Hematocrit 41.3 % (37.0-47.0); Hemoglobin 14.6 g/dl (12.0-16.0); Imm Gran Abs Auto 0.03 X10*3/uL (0.00-0.03); Imm Gran Pct Auto 0.4 % (0.0-0.4); Lymphocytes Percent Auto 24.7 % (20-40); Mean Corpuscular HGB Conc 35.4 g/dl (31.0-35.0); Mean Corpuscular Hemoglobin 30.5 pg (27.0-33.0); Mean Corpuscular Volume 86.2 fL (80.0-98.0); Mean Platelet Volume 9.2 fL (9.4-12.3); Monocytes Absolute Auto 0.6 X10*3/uL (0.1-1.2); Monocytes Percent Auto 7.5 % (2-11); Neutrophils Absolute Auto 5.2 x10*3/uL (2.0-8.3); Neutrophils Percent Auto 64.6 % (45-73); Platelet Count 258 X10*3/uL (160-400); Red Blood Count 4.79 X10*6/uL (4.20-5.50); Red Cell Distribution Width 12.3 % (11.0-16.0)
[2022-12-24 16:51] LABS: Alanine Aminotransferase 46 U/L (0-31); Albumin Level 4.3 g/dL (3.5-5.0); Alkaline Phosphatase 62 U/L (39-117); Anion Gap 11 (12-20); Aspartate Amino Transferase 30 U/L (5-31); Bilirubin Total 0.7 mg/dL (0.0-1.0); Blood Urea Nitrogen 16 mg/dL (9-16); Calcium 9.3 mg/dL (8.4-10.2); Carbon Dioxide 29 mmol/L (22-29); Chloride 110 mmol/L (96-108); Creatinine Clr Calc Pharmacy 54.1; Estimated Glomerular Filt Rate 42; Glucose Random 101 mg/dL (60-115); Magnesium 2.3 mg/dL (1.6-2.6); Potassium 4.8 mmol/L (3.3-5.1); Sodium 145 mmol/L (135-145); Total Protein 6.9 g/dL (6.5-8.0)
--- NOTE | 2022-12-24 19:33 | MHC.EDTECH ---
Call out to [facility] personal lines account manager service @[phone] Call out to [facility] @[phone]
--- NOTE | 2022-12-24 20:36 | PC.NURSE ---
this rn placed iv in R AC. blood work obtained and sent down to lab. pt a+o x4 calm and cooperative
[2022-12-24 20:43] LABS: Lactic Acid 1.5 mmol/L (0.5-2.0)
[2022-12-24] MEDS: iohexoL 350 MG/ML 100 ML INFUS..BTL IV (20:50)
[2022-12-24 21:20] VITALS: BP 122/71; PULSE 52; RESP 20; TEMP 36.8; O2SAT 96
== END 2022-12-24 22:09 | disposition home or self-care (01) ==
PROVIDERS: Physician Assistant; Physician Assistant Medical; Emergency Provider Emergency Medicine Emergency Medical Services
DX: R31.9 Hematuria, unspecified (principal); R35.89 Other polyuria; R10.30 Lower abdominal pain, unspecified; Z79.899 Other long term (current) drug therapy
CPT/HCPCS: 36415; 74177; 80053; 83605; 83735; 85025; 87040; 99284; Q9967

== ENCOUNTER 2023-05-31 16:04 | Emergency (ER) | payer OTHER, SELFPAY ==
--- NOTE | ~2023-05-31 | XR_ITS ---
EXAMINATION: XR CHEST CLINICAL INFORMATION: Shortness of breath COMPARISON: None available. TECHNIQUE: 2 views of the chest were obtained. FINDINGS: No significant abnormality is noted involving the heart, lungs, mediastinum, bony thorax or soft tissues. XR/XR chest 2V IMPRESSION: Unremarkable examination.
--- NOTE | 2023-05-31 16:40 | ED.GENADULT ---
HPI - General Adult General Chief complaint: General Medical Stated complaint: Stops breathing while sleeping Time Seen by Provider: 05/31/23 19:43 Source: patient Mode of arrival: ambulatory Limitations: no limitations History of Present Illness HPI narrative: 42 y/o transgender male to female with history of OCD, PTSD, depression who presents to the ER for evaluation of episodes of gasping for breath/air for the last 5 nights. Due for a sleep study. No associated chest pain. Had some LE edema recently, improved with compression stockings. Patient reports SOB with laying flat. None with exertion. no chest pain. No cough or URI symptoms. MD complaint: PND Onset (ago): day(s) (5) Pain Consistency: intermittent Relieving factors: none Exacerbating factors: other (sleeping) Associated symptoms: other (anxiety) Treatments prior to arrival: none Related Data Previous Rx's Medication Instructions Recorded cane #1 ea 04/28/21 clonazepam 2 mg tablet 2 mg PO TID PRN anxiety 15 days 04/28/21 #45 tabs escitalopram oxalate 10 mg tablet 40 mg PO DAILY 30 days #120 tabs 04/28/21 estradiol 2 mg tablet 4 mg PO DAILY 30 days #60 tabs 04/28/21 trazodone 100 mg tablet 200 mg PO BEDTIME PRN insomnia 30 04/28/21 days #60 tabs cephalexin 500 mg tablet 500 mg PO Q6H 10 days #40 tabs 12/24/22 nystatin 100,000 unit/gram topical 1 appl topical BID #15 grams 12/24/22 powder Allergies Allergy/AdvReac Type Severity Reaction Status Date / Time tramadol Allergy Intermediate hives Verified 12/24/22 15:19 bupropion [From WELLBUTRIN] Allergy Unknown PAINFUL Verified 12/24/22 15:19 ERECTION perphenazine Allergy Unknown Shakiness Verified 12/24/22 15:19 risperidone [Risperdal] AdvReac Unknown diarrhea, Verified 12/24/22 15:19 feels ramped up sertraline [From ZOLOFT] AdvReac Unknown NAUSEA/DIZZ Verified 12/24/22 15:19 INESS BANANAS Allergy Unknown ITCHING Uncoded 03/29/21 01:18 INSIDE MOUTH BLUEBERRIES Allergy Unknown ITCHING Uncoded 03/29/21 01:18 INSIDE MOUTH STRAWBERRIES Allergy Unknown ITCHING Uncoded 03/29/21 01:18 INSIDE MOUTH Review of Systems Review of Systems: Yes all other systems are reviewed and are negative [facility] Past Medical History Medical History Agoraphobia Anxiety Chronic post-traumatic stress disorder (PTSD) Depression Hip pain, chronic Taaa-bv-okbobl transgender person MDD (major depressive disorder), recurrent severe, without psychosis PTSD (post-traumatic stress disorder) Somatic complaints, multiple Suicidal ideation Social History Social History Household Members: None Housing: Homeless Do you presently have visiting nurse or other home services: No Patient Tobacco Use Status: Never used Tobacco Substance Use Type: Marijuana Advance Directives: No Advance Directives Information Provided: No service: No Sexual orientation: Did not discuss Physical Exam ED Vital Signs: Vital Signs - 24 hr 05/31/23 16:41 Temperature 97.0 F Pulse Rate 66 Respiratory Rate 18 Blood Pressure 126/71 Pulse Oximetry 99 BMI result Body Mass Index 37.5 Appearance: Alert. Oriented X3. No acute distress. Head: normocephalic, atraumatic. Eyes: Pupils equal, round and reactive to light. ENT: Pharynx normal. No tonsillar swelling or exudate. Neck: Normal inspection. Neck supple. CVS: Normal heart rate and rhythm. Pulses normal. Respiratory: No respiratory distress. Breath sounds normal. Abdomen: Soft and nontender. +BS x4 Skin: Skin warm and dry. Normal skin color. Normal skin turgor. No rashes. Extremities: No lower extremity edema. No joint swelling. No calf tenderness Neuro/psych: Oriented X 3. grossly normal, nonfocal. Normal speech and cognition. Medical Decision Making Medical Decision Making MDM Narrative: 42 yo male to female transgender patient presents to the ER for episodes of transient PND x5 nights. Symptoms quickly resolve when waking but patient remains anxious afterward. No chest pain. VSS. Lungs are clear. CXR is normal. BNP is normal. No peripheral edema or CHF history. Patient most likely experiencing episodes of apnea and/or hypopnea and has undiagnosed EDWIGE. Recommend follow up with PCP or Pulm to arrange sleep study. Stable for d/c home. Differential Diagnosis Differential Diagnoses: The differential diagnosis associated with the presentation includes EDWIGE, OHS, CHF, anxiety, night terrors, PNA Lab Data MDM Lab Attestation statement: I reviewed the patient's lab results. no anemia 05/31/23 16:59 05/31/23 16:59 Labs: Lab Results 05/31/23 05/31/23 05/31/23 Range/Units 16:59 16:59 16:59 WBC 9.8 (4.8-10.8) X10*3/uL RBC 4.71 (4.20-5.50) X10*6/uL Hgb 14.3 (12.0-16.0) g/dl Hct 40.8 (37.0-47.0) % MCV 86.6 (80.0-98.0) fL MCH 30.4 (27.0-33.0) pg MCHC 35.0 (31.0-35.0) g/dl RDW 12.1 (11.0-16.0) % Plt Count 249 (160-400) X10*3/uL MPV 8.9 L (9.4-12.3) fL Immature Gran % (Auto) 0.5 H (0.0-0.4) % Neut % (Auto) 66.7 (45-73) % Lymph % (Auto) 24.2 (20-40) % Mingo % (Auto) 6.6 (2-11) % Eos % (Auto) 1.5 (0-4) % Baso % (Auto) 0.5 (0-2) % Lymph # (Auto) 2.4 (1.2-4.9) X10*3/uL Mingo # (Auto) 0.6 (0.1-1.2) X10*3/uL Eos # (Auto) 0.2 (0.0-0.4) X10*3/uL Baso # (Auto) 0.1 (0.0-0.2) X10*3/uL Abs Immat Gran (auto) 0.05 H (0.00-0.03) X10*3/uL Absolute Neuts (auto) 6.5 (2.0-8.3) x10*3/uL Absolute Nucleated RBC 0.000 (0.0-0.012) X10*3/uL Nucleated RBC % (auto) 0.0 (0.0-0.2) /100WBC Sodium 141 (135-145) mmol/L Potassium 4.2 (3.3-5.1) mmol/L Chloride 106 (96-108) mmol/L Carbon Dioxide 21 L (22-29) mmol/L Anion Gap 18 (12-20) BUN 24 H (9-16) mg/dL Creatinine 1.21 (0.5-1.4) mg/dL Estim Creat Clear Calc 82.9 Estimated GFR 49 Random Glucose 97 (60-115) mg/dL Calcium 9.2 (8.4-10.2) mg/dL Magnesium 2.3 (1.6-2.6) mg/dL Total Bilirubin 0.4 (0.0-1.0) mg/dL Direct Bilirubin 0.1 (0.0-0.5) mg/dL AST 21 (5-31) U/L ALT 29 (0-31) U/L Alkaline Phosphatase 52 (39-117) U/L B-Natriuretic Peptide 15 (<100) pg/mL Total Protein 7.4 (6.5-8.0) g/dL Albumin 4.2 (3.5-5.0) g/dL Independent Interpretation I performed an independent interpretation of an: Plain X-Ray Interpretation: clear lungs, agree w/ radiology read Radiology Impression Discussion of test interpretation with radiology: I have reviewed the radiologist's reading. Radiologist Impression: XR/XR chest 2V IMPRESSION: Unremarkable examination. External Record Review External record reviewed: Outpatient record, Prior outpatient labs and Prior outpatient radiology Tests considered The following testing was considered but not selected: EKG considered but not c/w cardiac etiology Chronic Conditions Patient?s care impacted by: Other (obesity) Critical Care Time Critical Care Time Critical Care Time: No Discharge Plan Discharge Clinical Impression: Paroxysmal nocturnal dyspnea Patient Disposition: Home, Self-Care Instructions: Sleep Apnea (DC), Shortness of Breath (ED) Additional Instructions: your lab workup and chest x-ray were normal your symptoms are most likely due to obstructive sleep apnea recommend following up with your doctor as soon as possible to arrange a sleep study you can also follow up with Pulmonary here for further evaluation and referral if you develop new or worsening symptoms call 911 or come back to the ER for further evaluation. Prescriptions: No Action trazodone 100 mg Tablet 200 mg PO BEDTIME PRN (Reason: insomnia) 30 Days Qty: 60 0RF escitalopram oxalate 10 mg Tablet 40 mg PO DAILY 30 Days Qty: 120 0RF (DME) cane Device See Rx Instructions .ROUTE .MEDSUPPLY Qty: 1 0RF Rx Instructions: As directed clonazepam 2 mg tablet 2 mg PO TID PRN (Reason: anxiety) 15 Days Qty: 45 1RF estradiol 2 mg tablet 4 mg PO DAILY 30 Days Qty: 60 0RF cephalexin 500 mg tablet 500 mg PO Q6H 10 Days Qty: 40 0RF nystatin 100,000 unit/gram powder 1 appl topical BID Qty: 15 0RF Referrals: [facility] [Provider Group] (likely ED[facility]IGE)
[2023-05-31 16:41] VITALS: BP 126/71; PULSE 66; RESP 18; TEMP 36.1; O2SAT 99; BMI 37.5
[2023-05-31 17:06] LABS: MANUAL DIFF FLAG NO
[2023-05-31 17:09] LABS: Basophils Absolute Auto 0.1 X10*3/uL (0.0-0.2); Basophils Percent Auto 0.5 % (0-2); Eosinophils Absolute Auto 0.2 X10*3/uL (0.0-0.4); Eosinophils Percent Auto 1.5 % (0-4); Hematocrit 40.8 % (37.0-47.0); Hemoglobin 14.3 g/dl (12.0-16.0); Imm Gran Abs Auto 0.05 X10*3/uL (0.00-0.03); Imm Gran Pct Auto 0.5 % (0.0-0.4); Lymphocytes Absolute Auto 2.4 X10*3/uL (1.2-4.9); Lymphocytes Percent Auto 24.2 % (20-40); Mean Corpuscular Hemoglobin 30.4 pg (27.0-33.0); Mean Corpuscular Volume 86.6 fL (80.0-98.0); Mean Platelet Volume 8.9 fL (9.4-12.3); Monocytes Absolute Auto 0.6 X10*3/uL (0.1-1.2); Monocytes Percent Auto 6.6 % (2-11); Neutrophils Absolute Auto 6.5 x10*3/uL (2.0-8.3); Neutrophils Percent Auto 66.7 % (45-73); Platelet Count 249 X10*3/uL (160-400); Red Blood Count 4.71 X10*6/uL (4.20-5.50); Red Cell Distribution Width 12.1 % (11.0-16.0); White Blood Count 9.8 X10*3/uL (4.8-10.8)
[2023-05-31 17:29] LABS: Alanine Aminotransferase 29 U/L (0-31); Albumin Level 4.2 g/dL (3.5-5.0); Alkaline Phosphatase 52 U/L (39-117); Anion Gap 18 (12-20); Aspartate Amino Transferase 21 U/L (5-31); Bilirubin Direct 0.1 mg/dL (0.0-0.5); Blood Urea Nitrogen 24 mg/dL (9-16); Calcium 9.2 mg/dL (8.4-10.2); Carbon Dioxide 21 mmol/L (22-29); Chloride 106 mmol/L (96-108); Creatinine Clr Calc Pharmacy 82.9; Estimated Glomerular Filt Rate 49; Glucose Random 97 mg/dL (60-115); Magnesium 2.3 mg/dL (1.6-2.6); Potassium 4.2 mmol/L (3.3-5.1); Sodium 141 mmol/L (135-145); Total Protein 7.4 g/dL (6.5-8.0)
[2023-05-31 17:38] LABS: B Type Natriuretic Peptide 15 pg/mL (<100)
[2023-05-31 17:41] LABS: Bilirubin Total 0.4 mg/dL (0.0-1.0)
--- OUTSIDE RECORDS SUMMARY | 2023-05-31 19:38 | XMS_ITS | Continuity of Care Document ---
Author Name Unknown Organization [facility] Address [address] [place] [address]- Care Team Providers Care Centrifugal Machine Tender Name Role Phone Blanka Porter MD Primary Care Physician Encounter [facility] Date(s): 12/14/22 - 04/13/23 [facility] [address] [place] [address]- Attending Physician: Blanka Porter MD Allergies, Adverse Reactions, Alerts Substance Reaction Severity Status RisperDAL Active Immunizations Given and Recorded Vaccine Date Status Refusal Reason influenza virus vaccine, inactivated 07/02/21 Ashkan rded influenza virus vaccine, inactivated 07/15/20 Ashkan rded influenza virus vaccine, inactivated 09/09/18 Ashkan rded influenza virus vaccine, inactivated 1 07/22/17 Re corded influenza virus vaccine, inactivated 08/10/16 Give n SARS-CoV-2 (COVID-19) mRNA-1273 vaccine 06/13/21 R ecorded SARS-CoV-2 (COVID-19) mRNA-1273 vaccine 05/13/21 R ecorded Influenza Virus Vaccine (oldterm) 07/23/20 Recorde d tetanus/diphtheria/pertussis, acel(Tdap) 2 07/31/14 Recorded 1Result Comment: [09/01/2017] timoteo 2Result Comment: [08/10/2016] urgent care Medications betamethasone topical valerate 0.1% cream 1 application, Topically, 2 times a day, # 45 Gm, 0 Refills, Maintenance, 06/03/22 10:50:00 EDT, Cream, [facility], Partial fill upon patient request if the prescription is for a schedule II opioid drug., 1 application Topically 2 times a da... Start Date: 06/03/22 Stop Date: 06/17/22 Status: Ordered clonazePAM 2 mg oral tablet See Instructions, TAKE 1 TABLET BY MOUTH THREE TIMES DAILY NEEDED FOR ANXIETY, # 90 tablet, 1 Refills, Maintenance, 03/04/22 8:44:00 EDT, [facility], 172, cm, 12/15/21 14:14:00 EST, Height, 95, kg, 03/03/21 23:10:00 EDT, Dry Weight Start Date: 03/04/22 Status: Ordered escitalopram 20 mg oral tablet 2 tablet = 40 mg, By Mouth, Daily, # 180 tablet, 1 Refills, Maintenance, 12/31/22 20:03:00 EST, [facility], Partial fill upon patient request if the prescription is for a schedule II opioiddrug., 172, cm, 09/13/22 10:14:00 EST, Height, 123.... Start Date: 12/31/22 Status: Ordered estradiol 2 mg oral tablet 2 tablet, By Mouth, Daily, # 60 tablet, 1 Refills, Maintenance, 03/07/23 16:36:00 EDT, [facility], 172, cm, 09/13/22 10:14:00 EST, Height, 123.3, kg, 06/03/22 10:06:00 EDT, Dry Weight Start Date: 03/07/23 Status: Ordered estradiol 2 mg oral tablet 2 tablet, By Mouth, Daily, # 60 tablet, 3 Refills, 07/22/22 8:26:00 EDT, [facility], 172,cm, 06/03/22 10:06:00 EDT, Height, 123.3, kg, 06/03/22 10:06:00 EDT, Dry Weight Start Date: 07/22/22 Status: Ordered gabapentin 300 mg oral capsule 300 mg, 1, capsule, By Mouth, 3 times a day, # 90 capsule, Refills 1, Tot. Refills 1, Maintenance, 07/27/22 13:12:00 EDT, Route to Pharmacy Electronically, [facility], Partial fill upon patient request if the prescription is for a schedule I... Start Date: 07/27/22 Status: Ordered gabapentin 300 mg oral capsule 1, capsule, By Mouth, 3 times a day, # 90 capsule, Refills 0, Maintenance, 07/27/22 13:13:00 EDT, Route to Pharmacy Electronically, [facility], 172, cm, 06/03/22 10:06:00 EDT, Height, 123.3, kg, 06/03/22 10:06:00 EDT, Dry Weight Start Date: 07/27/22 Status: Ordered hydrOXYzine hydrochloride 50 mg oral tablet 1 tablet, By Mouth, Daily at bedtime, # 30 tablet, 2 Refills, Maintenance, 05/27/22 9:46:00 EDT, [facility], 172, cm, 03/09/22 9:54:00 EDT, Height, 95, kg, 03/03/21 23:10:00 EDT, Dry Weight Start Date: 05/27/22 Status: Ordered lithium 450 mg oral tablet, extended release 1 tablet, By Mouth, Daily at bedtime, # 30 tablet, 0 Refills, [facility] , 172, cm, 08/05/21 15:13:00 EDT, Height, 95, kg, 03/03/21 23:10:00 EDT, Dry Weight Start Date: 11/10/21 Status: Ordered Melatonin 10MG TABS Melatonin 10MG TABS, 1, tablet, By Mouth, Daily at bedtime, PRN, # 30 tablet, 0 Refills, 172, cm, 08/05/21 15:13:00 EDT, Height, 95, kg, 03/03/21 23:10:00 EDT, Dry Weight Start Date: 11/09/21 Status: Ordered Melatonin 5 mg oral tablet 2 tablet, By Mouth, Daily at bedtime, PRN NEEDED FOR SLEEP, # 60 tablet, 0 Refills, [facility], 172, cm, 12/15/21 14:14:00 EST, Height, 95, kg, 03/03/21 23:10:00 EDT, Dry Weight Start Date: 01/28/22 Status: Ordered prazosin 5 mg oral capsule 5 mg, 1, capsule, By Mouth, Daily at bedtime, # 30 capsule, Refills 2, Tot. Refills 2, Maintenance,05/27/22 9:46:00 EDT, Route to Pharmacy Electronically, [facility], Partial fill upon patient request if the prescription is for a schedule I... Start Date: 05/27/22 Stop Date: 08/25/22 Status: Ordered Problem List Condition Confirmation Course Effective Dates Status Health St atus Informant Stage 3a chronic kidney disease (CKD) Confirmed Active Gender dysphoria Confirmed 08/17/22 Active Tffg-wq-cdkpic transgender person Confirmed Active Gender Dysphoria Confirmed Active H/O left inguinal hernia repair Confirmed Active Homelessness Confirmed Active Depression Confirmed Active Mood disorder Confirmed 08/17/22 Active Severe obesity Confirmed Active Social History Social History Type Response Smoking Status Former smoker; Other : quit many years ago; entered on: 08/10/16 Sex Patient Care team information Care Team Personnel Name: Blanka Porter MD Position: [facility] Physician - Primary Care Member Role: PCP Address: Address: [address] [place] [id number]- Care Team Related Persons Name: XAVIER BERKOWITZ Address: home [address] [place] [address] Name: EDMOND SHIPMAN Address: home [address] [place] [address]
--- OUTSIDE RECORDS SUMMARY | 2023-05-31 19:38 | XMS_ITS | Continuity of Care Document ---
Author Name Unknown Organization [facility] Address [address] [place] [id number]- Care Team Providers Care Lay Midwife Name Role Phone Charlotte MARIA, Blanka Angeles Primary Care Physician Encounter [facility] Date(s): 07/14/22 - 09/16/[address] [address] Attending Physician: Brendon LUJAN, Juan Fuentes Admitting Physician: Brendon LUJAN, Juan Fuentes Referring Physician: Brendon LUJAN, Juan Fuentes Allergies, Adverse Reactions, Alerts Substance Reaction Severity [...] 0 Refills, Maintenance, 06/03/22 10:50:00 EDT, Cream, [facility], Partial fill upon patient request if the prescription is for a schedule II opioid drug., 1 application Topically 2 times a da... Start Date: 06/03/22 Stop Date: 06/17/22 Status: Ordered clonazePAM 2 mg oral tablet See Instructions, TAKE 1 TABLET BY MOUTH THREE TIMES DAILY NEEDED FOR ANXIETY, # 90 tablet, 1 Refills, Maintenance, 03/04/22 8:44:00 EDT, [facility], 172, cm, 12/15/21 14:14:00 EST, Height, 95, kg, 03/03/21 23:10:00 EDT, Dry Weight Start Date: 03/04/22 Status: Ordered escitalopram 20 mg oral tablet 2 tablet = 40 mg, By Mouth, Daily, # 180 tablet, 1 Refills, Maintenance, 03/04/22 8:44:00 EDT, [facility], Partial fill upon patient request if the prescription is for a schedule II opioid drug., 172, cm, 12/15/21 14:14:00 EST, Height, 95, k... Start Date: 03/04/22 Status: Ordered estradiol 2 mg oral tablet 2 tablet, By Mouth, Daily, # 60 tablet, 3 Refills, 07/22/22 8:26:00 EDT, [facility], 172,cm, 06/03/22 10:06:00 EDT, Height, 123.3, kg, 06/03/22 10:06:00 EDT, Dry Weight Start Date: 07/22/22 Status: Ordered estradiol 2 mg oral tablet 2 tablet, By Mouth, Daily, # 60 tablet, 0 Refills, Maintenance, 07/22/22 8:26:00 EDT, [facility], 172, cm, 06/03/22 10:06:00 EDT, Height, 123.3, kg, 06/03/22 10:06:00 EDT, Dry Weight Start Date: 07/22/22 Status: Ordered gabapentin 300 mg oral capsule 300 mg, 1, capsule, By Mouth, 3 times a day, # 90 capsule, Refills 1, Tot. Refills 1, Maintenance, 07/27/22 13:12:00 EDT, Route to Pharmacy Electronically, [facility], Partial fill upon patient request if the prescription is for a schedule I... Start Date: 07/27/22 Status: Ordered gabapentin 300 mg oral capsule 1, capsule, By Mouth, 3 times a day, # 90 capsule, Refills 0, Maintenance, 07/27/22 13:13:00 EDT, Route to Pharmacy Electronically, [facility], 172, cm, 06/03/22 10:06:00 EDT, Height, 123.3, kg, 06/03/22 10:06:00 EDT, Dry Weight Start Date: 07/27/22 Status: Ordered hydrOXYzine hydrochloride 50 mg oral tablet 1 tablet, By Mouth, Daily at bedtime, # 30 tablet, 2 Refills, Maintenance, 05/27/22 9:46:00 EDT, [facility], 172, cm, 03/09/22 9:54:00 EDT, Height, 95, kg, 03/03/21 23:10:00 EDT, Dry Weight Start Date: 05/27/22 Status: Ordered lithium 450 mg oral tablet, extended release 1 tablet, By Mouth, Daily at bedtime, # 30 tablet, 0 Refills, [facility] , 172, cm, 08/05/21 15:13:00 EDT, Height, [...] FOR SLEEP, # 60 tablet, 0 Refills, [facility], 172, cm, 12/15/21 14:14:00 EST, Height, 95, kg, 03/03/21 23:10:00 EDT, Dry Weight Start Date: 01/28/22 Status: Ordered prazosin 5 mg oral capsule 5 mg, 1, capsule, By Mouth, Daily at bedtime, # 30 capsule, Refills 2, Tot. Refills 2, Maintenance,05/27/22 9:46:00 EDT, Route to Pharmacy Electronically, [facility], Partial fill upon patient request if the prescription is for a schedule I... Start Date: 05/27/22 Stop Date: 08/25/22 Status: Ordered Problem List Condition Confirmation Course Effective Dates Status Health St atus Informant Stage 3a chronic kidney disease (CKD) Confirmed Active Gender dysphoria Confirmed 08/17/22 Active Ctwg-lh-gretqb transgender person Confirmed Active Gender Dysphoria Confirmed Active H/O left inguinal hernia repair Confirmed Active Homelessness Confirmed Active Depression Confirmed Active Mood disorder Confirmed 08/17/22 Active Severe obesity Confirmed Active Social History Social History Type Response Smoking Status Former smoker; Other : quit many years ago; entered on: 08/10/16 Sex Patient Care team information Care Team Personnel Name: Charlotte MARIA, Blanka Angeles Position: [facility] Primary Care Physician Member Role: PCP Address: Address: [address] [place] [address]- Care Team Related Persons Name: XAVIER BERKOWITZ Address: home [address] [place] [address] Name: EDMOND SHIPMAN Address: [address] [place] [address]
--- OUTSIDE RECORDS SUMMARY | 2023-05-31 19:38 | XMS_ITS | Continuity of Care Document ---
Author Name Unknown Organization [facility] Address [address] [place] [address]- Care Team Providers Care Mill House Supervisor Name Role Phone Talha LUJAN, Jessa Birch Primary Care Physician [phone] Encounter [facility] Date(s): 03/09/22 - 03/16/22 [facility] [address] [place] [address]- Attending Physician: Brendon LUJAN, Juan Fuentes Allergies, Adverse [...] timoteo 2Result Comment: [08/10/2016] urgent care Medications clonazePAM 2 mg oral tablet See Instructions, TAKE 1 TABLET BY MOUTH THREE TIMES DAILY NEEDED FOR ANXIETY, # 90 tablet, 1 Refills, Maintenance, 03/04/22 8:44:00 EDT, [facility], 172, cm, 12/15/21 14:14:00 EST, Height, 95, kg, 05/04/21 23:10:00 EDT, Dry Weight Start Date: 03/04/22 Status: Ordered escitalopram 20 mg oral tablet 2 tablet = 40 mg, By Mouth, Daily, # 180 tablet, 1 Refills, Maintenance, 03/04/22 8:44:00 EDT, [facility], Partial fill upon patient request if the prescription is for a schedule II opioid drug., 172, cm, 12/15/21 14:14:00 EST, Height, 95, k... Start Date: 03/04/22 Status: Ordered estradiol 2 mg oral tablet 2 tablet, By Mouth, Daily, # 60 tablet, 0 Refills, Maintenance, 02/11/22 9:20:00 EDT, [facility], 172, cm, 12/15/21 14:14:00 EST, Height, 95, kg, 03/03/21 23:10:00 EDT, Dry Weight Start Date: 02/11/22 Status: Ordered estradiol 2 mg oral tablet 2 tablet, By Mouth, Daily, # 60 tablet, 3 Refills, [facility], 172, cm, 12/15/21 14:14:00EST, Height, 95, kg, 03/03/21 23:10:00 EDT, Dry Weight Start Date: 02/11/22 Status: Ordered gabapentin 300 mg oral capsule 300 mg, 1, capsule, By Mouth, 3 times a day, # 90 capsule, Refills 0, Tot. Refills 0, Maintenance, 02/26/22 11:51:00 EDT, Route to Pharmacy Electronically, [facility], Partial fill upon patient request if the prescription is for a schedule I... Start Date: 02/26/22 Status: Ordered hydrOXYzine hydrochloride 50 mg oral tablet 1 tablet, By Mouth, Daily at bedtime, # 30 tablet, 0 Refills, Maintenance, 03/04/22 8:44:00 EDT, [facility], 172, cm, 12/15/21 14:14:00 EST, Height, 95, kg, 03/03/21 23:10:00 EDT, Dry Weight Start Date: 03/04/22 Status: Ordered lithium 450 mg oral tablet, extended release 1 tablet, By Mouth, Daily at bedtime, # 30 tablet, 0 Refills, [facility] , 172, cm, 08/05/21 15:13:00 EDT, Height, [...] FOR SLEEP, # 60 tablet, 0 Refills, [facility], 172, cm, 12/15/21 14:14:00 EST, Height, 95, kg, 03/03/21 23:10:00 EDT, Dry Weight Start Date: 01/28/22 Status: Ordered prazosin 5 mg oral capsule 5 mg, 1, capsule, By Mouth, Daily at bedtime, # 30 capsule, Refills 1, Tot. Refills 1, Maintenance,03/04/22 8:44:00 EDT, Route to Pharmacy Electronically, [facility], Partial fill upon patient request if the prescription is for a schedule I... Start Date: 03/04/22 Stop Date: 05/03/22 Status: Ordered Problem List Condition Effective Dates Status Health Status Inform ant Lkpp-hb-ntdbfi transgender person(Confirmed) Active Gender Dysphoria(Confirmed) Active H/O left inguinal hernia repair(Confirmed) Active Homelessness(Confirmed) Active Depression(Confirmed) Active Severe obesity(Confirmed) Active Vital Signs Most recent to oldest [Reference Range]: 1 Height 172 cm (03/09/22 9:54 AM) Weight 119.5 kg (03/09/22 9:54 AM) Oxygen Saturation [94-100 %] 96 % (03/09/22 9:54 AM) Pulse Rate [55-90 bpm] 76 bpm (03/09/22 9:54 AM) Body Mass Index [18.5-24.99] 40.39 *>HHI* (03/09/22 9:54 AM) Blood Pressure [90-138/55-84 mm Hg] 118/ 60mm Hg (03/09/22 9:54 AM) Blood pressure sites Arm, right (03/09/22 9:54 AM) Weight Obtained Via Standing scale (03/09/22 9:54 AM) Social History Social History Type Response Smoking Status Former smoker; Other : quit many years ago; entered on: 08/10/16 Sex
--- OUTSIDE RECORDS SUMMARY | 2023-05-31 19:38 | XMS_ITS | Continuity of Care Document ---
Author Name Unknown Organization [facility] Address [address] [place] [address]- Care Team Providers Care Rail Director Name Role Phone Brendon LUJAN, Juan Fuentes Primary Care Physician Encounter [facility] Date(s): 06/30/21 - 07/07/21 [facility] [address] [place], [place] [address] Encounter Diagnosis Depression(Discharge Diagnosis) - 07/05/21 Gender Dysphoria(Discharge Diagnosis) - 07/05/21 Attending Physician: Juan Olivas NP Allergies, Adverse Reactions, Alerts Substance Reaction Severity Status RisperDAL Active Immunizations Given and Recorded Vaccine Date Status Refusal Reason Influenza Virus Vaccine (oldterm) 07/23/20 Recorde d influenza virus vaccine, inactivated 1 07/22/17 Re corded influenza virus vaccine, inactivated 08/10/16 Give n tetanus/diphtheria/pertussis, acel(Tdap) 2 07/31/14 Recorded 1Result Comment: [09/01/2017] timoteo 2Result Comment: [08/10/2016] urgent care Medications clonazePAM 2 mg oral tablet See Instructions, TAKE 1 TABLET BY MOUTH THREE TIMES DAILY NEEDED FOR ANXIETY, # 90 tablet, 2 Refills, Maintenance, 04/30/21 16:13:00 EDT, [facility]/pharmacy #[id number], 177, cm, 10/15/20 13:53:00 EST, Height, 95, kg, 03/03/21 23:10:00 EDT, Dry Weight Start Date: 04/30/21 Status: Ordered escitalopram 20 mg oral tablet 2 tablet = 40 mg, By Mouth, Daily, # 180 tablet, 1 Refills, Maintenance, 06/30/21 17:00:00 EDT, [facility], Partial fill upon patient request if the prescription is for a schedule II opioid drug., 172, niki, 06/30/21 15:09:00 ED... Start Date: 06/30/21 Status: Ordered estradiol 2 mg oral tablet 2 tablet, By Mouth, Daily, # 60 tablet, 0 Refills, Maintenance, 06/30/21 17:02:00 EDT, [facility], 172, cm, 06/30/21 15:09:00 EDT, Height, 95, kg, 03/03/21 23:10:00 EDT, Dry Weight Start Date: 06/30/21 Status: Ordered gabapentin 300 mg oral capsule 300 mg, 1, capsule, By Mouth, 3 times a day, # 90 capsule, Refills 1, Tot. Refills 1, Maintenance, 06/30/21 17:03:00 EDT, Route to Pharmacy Electronically, [facility], Partial fill upon patient request if the prescription is f... Start Date: 06/30/21 Status: Ordered hydrOXYzine hydrochloride 50 mg oral tablet 1 tablet = 50 mg, By Mouth, Daily at bedtime, # 30 tablet, 2 Refills, Soft Stop, 06/30/21 17:06:00 EDT, [facility], Partial fill upon patient request if the prescription is for a schedule II opioid drug., 172niki, 06/30/21 15:... Start Date: 06/30/21 Stop Date: 09/28/21 Status: Ordered lithium 150 mg oral capsule 3 capsule = 450 mg, By Mouth, 2 times a day, # 180 capsule, 1 Refills, Maintenance, 06/30/21 17:04:00 EDT, Capsule, [facility], Partial fill upon patient request if the prescription is for a schedule II opioid drug., 172, cm,... Start Date: 06/30/21 Status: Ordered melatonin 10 mg oral tablet 1 tablet = 10 mg, By Mouth, Daily at bedtime, PRN as needed for insomnia, for 30 days, # 30 tablet,0 Refills, Acute 07/30/21 17:05:00 EDT, 06/30/21 17:05:00 EDT, Tablet, [facility]-, Partial fill upon patient request if the pr... Start Date: 06/30/21 Stop Date: 07/30/21 Status: Ordered prazosin 5 mg oral capsule 5 mg, 1, capsule, By Mouth, Daily at bedtime, # 30 capsule, Refills 1, Tot. Refills 1, Maintenance,06/30/21 17:07:00 EDT, Route to Pharmacy Electronically, [facility]-, Partial fill upon patient request if the prescription is... Start Date: 06/30/21 Stop Date: 08/29/21 Status: Ordered spironolactone 50 mg oral tablet 1 tablet, By Mouth, 2 times a day, # 60 tablet, 0 Refills, Maintenance, 01/09/21 16:06:00 EST, [facility] #[id number], 177, cm, 10/15/20 13:53:00 EST, Height, 95, kg, 07/16/20 0:55:00 EDT, Dry Weight Start Date: 01/09/21 Status: Ordered Problem List Condition Effective Dates Status Health Status Inform ant Amyj-se-ggwhev transgender person(Confirmed) Active Gender Dysphoria(Confirmed) Active H/O left inguinal hernia repair(Confirmed) Active Homelessness(Confirmed) Active Depression(Confirmed) Active Diagnosis Diagnosis Type Effective Dates Health Status Clinical Service Informant Depression Discharge Diagnosis 07/05/21 Gender Dysphoria Discharge Diagnosis 07/05/21 Vital Signs Most recent to oldest [Reference Range]: 1 Height 172 cm (06/30/21 3:09 PM) Weight 111.8 kg (06/30/21 3:09 PM) Pulse Rate [55-90 bpm] 64 bpm (06/30/21 3:09 PM) Body Mass Index [18.5-24.99] 37.79 *>HHI* (06/30/21 3:09 PM) Blood Pressure [90-138/55-84 mm Hg] 117/ 75mm Hg (06/30/21 3:09 PM) Blood pressure sites Arm, left (06/30/21 3:09 PM) Weight Obtained Via Standing scale (06/30/21 3:09 PM) Social History Social History Type Response Smoking Status Former smoker; Other : quit many years ago; entered on: 08/10/16 Sex
--- OUTSIDE RECORDS SUMMARY | 2023-05-31 19:38 | XMS_ITS | Continuity of Care Document ---
Author Name Unknown Organization [facility] Address [address] [place] [address]- Care Team Providers Care Manufacturing Weaver Name Role Phone Brendon LUJAN, Juan Fuentes Primary Care Physician [phone] Encounter [facility] Date(s): 06/17/21 - 07/17/21 [facility] [address] [place] [address]- Allergies, Adverse Reactions, Alerts Substance Reaction Severity [...] tablet, 2 Refills, Maintenance, 04/30/21 16:13:00 EDT, [facility]/pharmacy #[id number], 177, cm, 10/15/20 13:53:00 EST, Height, 95, kg, 03/03/21 23:10:00 EDT, Dry Weight Start Date: 04/30/21 Status: Ordered escitalopram 20 mg oral tablet 2 tablet = 40 mg, By Mouth, Daily, # 180 tablet, 1 Refills, Maintenance, 06/30/21 17:00:00 EDT, [facility], Partial fill upon patient request if the prescription is for a schedule II opioid drug., 172, cm, 06/30/21 15:09:00 ED... Start Date: 06/30/21 Status: Ordered estradiol 2 mg oral tablet 2 tablet, By Mouth, Daily, # 60 tablet, 0 Refills, Maintenance, 06/30/21 17:02:00 EDT, [facility] [place], 172, cm, 06/30/21 15:09:00 EDT, Height, 95, kg, 03/03/21 23:10:00 EDT, Dry Weight Start Date: 06/30/21 Status: Ordered gabapentin 300 mg oral capsule 300 mg, 1, capsule, By Mouth, 3 times a day, # 90 capsule, Refills 1, Tot. Refills 1, Maintenance, 06/30/21 17:03:00 EDT, Route to Pharmacy Electronically, [facility] [place], Partial fill upon patient request if the prescription is f... Start Date: 06/30/21 Status: Ordered hydrOXYzine hydrochloride 50 mg oral tablet 1 tablet = 50 mg, By Mouth, Daily at bedtime, # 30 tablet, 2 Refills, Soft Stop, 06/30/21 17:06:00 EDT, [facility] [place], Partial fill upon patient request if the prescription is for a schedule II opioid drug., 172, cm, 06/30/21 15:... Start Date: 06/30/21 Stop Date: 09/28/21 Status: Ordered lithium 150 mg oral capsule 3 capsule = 450 mg, By Mouth, 2 times a day, # 180 capsule, 1 Refills, Maintenance, 06/30/21 17:04:00 EDT, Capsule, [facility] [place], Partial fill upon patient request if the prescription is for a schedule II opioid drug., 172, cm,... Start Date: 06/30/21 Status: Ordered melatonin 10 mg oral tablet 1 tablet = 10 mg, By Mouth, Daily at bedtime, PRN as needed for insomnia, for 30 days, # 30 tablet,0 Refills, Acute 07/30/21 17:05:00 EDT, 06/30/21 17:05:00 EDT, Tablet, [facility] [place], Partial fill upon patient request if the pr... Start Date: 06/30/21 Stop Date: 07/30/21 Status: Ordered prazosin 5 mg oral capsule 5 mg, 1, capsule, By Mouth, Daily at bedtime, # 30 capsule, Refills 1, Tot. Refills 1, Maintenance,06/30/21 17:07:00 EDT, Route to Pharmacy Electronically, [facility], Partial fill upon patient request if the prescription is... Start Date: 06/30/21 Stop Date: 08/29/21 Status: Ordered Problem List Condition Effective Dates Status Health Status Inform ant Adld-sa-tsogaf transgender person(Confirmed) Active Gender Dysphoria(Confirmed) Active H/O left inguinal hernia repair(Confirmed) Active Homelessness(Confirmed) Active Depression(Confirmed) Active Social History Social History Type Response Smoking Status Former smoker; Other : quit many years ago; entered on: 08/10/16 Sex
--- OUTSIDE RECORDS SUMMARY | 2023-05-31 19:38 | XMS_ITS | Continuity of Care Document ---
Author Name Unknown Organization [facility] Address [address] [place] [address]- Care Team Providers Care College Coach Name Role Phone Brendon LUJAN, Juan Fuentes Primary Care Physician En[place] [facility] [place] Date(s): 07/17/20 - 08/16/20 [facility] [address] [place] [address]- [facility] Allergies, Adverse Reactions, Alerts Substance Reaction Severity Status RisperDAL Active Immunizations Given and Recorded Vaccine Date Status Refusal Reason influenza virus vaccine, inactivated 1 07/22/17 Re corded influenza virus vaccine, inactivated 08/10/16 Give n tetanus/diphtheria/pertussis, acel(Tdap) 2 07/31/14 Recorded 1Result Comment: [09/01/2017] timoteo 2Result Comment: [08/10/2016] urgent care Medications citalopram 40 mg oral tablet 1 tablet, By Mouth, Daily, # 90 tablet, 1 Refills, Maintenance, 01/15/20 17:11:00 EDT, [facility] #[id number], 178, cm, 12/11/19 14:34:00 EST, Height Start Date: 01/15/20 Status: Ordered clonazePAM 2 mg oral tablet 1 tablet = 2 mg, By Mouth, 3 times a day, PRN Anxiety, # 90 tablet, 0 Refills, Maintenance, 08/15/20 17:38:00 EDT, Tablet, [facility] #[id number], 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, 177, cm, 08/05/20 10:50:00 EDT, Height, 95, kg, 07/16/20 0:55:00 EDT, Dry Weight Start Date: 08/15/20 Stop Date: 09/14/20 Status: Ordered estradiol 2 mg oral tablet See Instructions, 2 tablets By Mouth Daily, # 60 tablet, 2 Refills, Maintenance, 07/22/20 17:07:00 EDT, [facility] #[id number], Patient has office visit scheduled, 177, cm, 07/16/20 0:55:00 EDT,Height, 95, kg, 07/16/20 0:55:00 EDT, Dry Weight Start Date: 07/22/20 Status: Ordered hydrOXYzine hydrochloride 25 mg oral tablet See Instructions, take 1-2 tabs qd prn for severe anxiety or insomnia, # 180 tablet, 1 Refills, Maintenance, 05/14/20 18:08:00 EDT, [facility] #[id number], 178, cm, 12/11/19 14:34:00 EST, Height Start Date: 05/14/20 Status: Ordered naproxen 500 mg oral tablet 1 tablet = 500 mg, By Mouth, 2 times a day, for 14 days, with food, # 28 tablet, 0 Refills, Acute 08/26/20 15:24:00 EDT, 08/12/20 15:24:00 EDT, Tablet, [facility] #[id number], 177, cm, 08/05/20 10:50:00 EDT, Height, 95, kg, 07/16/20 0:55:00 EDT,... Start Date: 08/12/20 Stop Date: 08/26/20 Status: Ordered perphenazine 2 mg oral tablet 2 mg, 1, tablet, By Mouth, 2 times a day, # 90 tablet, Refills 5, Tot. Refills 5, Maintenance, 01/15/20 17:16:00 EDT, Route to Pharmacy Electronically, [facility] #[id number], dec'd to bid on 06/19, 178, cm, 12/11/19 14:34:00 EST, Height Start Date: 01/15/20 Status: Ordered spironolactone 50 mg oral tablet 1 tablet = 50 mg, By Mouth, 2 times a day, # 60 tablet, 4 Refills, Maintenance, 08/05/20 12:21:00 EDT, Tablet, [facility] #[id number], 177, cm, 08/05/20 10:50:00 EDT, Height, 95, kg, 07/16/20 0:55:00 EDT, Dry Weight Start Date: 08/05/20 Status: Ordered traZODone 50 mg oral tablet See Instructions, TAKE 1 TABLET BY MOUTH AT BEDTIME NEEDED FOR INSOMNIA, # 90 tablet, Refills 1,Tot. Refills 1, 05/14/20 18:08:00 EDT, Instructions Replace Required Details, [id number], 178, cm, 0... Start Date: 05/14/20 Status: Ordered Problem List Condition Effective Dates Status Health Status Inform ant Gpwb-xq-kaehun transgender person(Confirmed) Active Gender Dysphoria(Confirmed) Active H/O left inguinal hernia repair(Confirmed) Active Homelessness(Confirmed) Active Depression(Confirmed) Active Social History Social History Type Response Smoking Status Former smoker; Other : quit many years ago; entered on: 08/10/16 Sex
--- OUTSIDE RECORDS SUMMARY | 2023-05-31 19:38 | XMS_ITS | Continuity of Care Document ---
Author Name Unknown Organization [facility] Address [address] [place] [address]- Care Team Providers Care International Logistics Analyst Name Role Phone Christine LUJAN, Joaquina Schmitt Primary Care Physician ( [phone] Encounter [facility] Date(s): 12/11/19 - 04/09/20 [facility] [address] [place] [address]- [facility] Attending Physician: Joaquina King NP Allergies, Adverse Reactions, Alerts Substance Reaction [...] tablet, 1 Refills, Maintenance, 01/15/20 17:11:00 EDT, [facility] #[id number], 178, cm, 12/11/19 14:34:00 EST, Height Start Date: 01/15/20 Status: Ordered clonazePAM 2 mg oral tablet 1 tablet = 2 mg, By Mouth, 3 times a day, PRN Anxiety, # 90 tablet, 2 Refills, Maintenance, 01/15/20 17:15:00 EDT, Tablet, [facility] #[id number], 178, cm, 12/11/19 14:34:00 EST, Height Start Date: 01/15/20 Stop Date: 04/14/20 Status: Ordered estradiol 2 mg oral tablet See Instructions, 3 tablets By Mouth Daily, # 90 tablet, 2 Refills, Maintenance, 11/22/19 16:41:00 EST, [facility] #[id number], Patient has office visit scheduled, 178, cm, 01/10/19 14:52:00 EDT, Height Start Date: 11/22/19 Status: Ordered hydrOXYzine hydrochloride 25 mg oral tablet See Instructions, take 1-2 tabs qd prn for severe anxiety or insomnia, # 60 tablet, 2 Refills, Maintenance, 01/15/20 17:16:00 EDT, [facility] #[id number], 178, cm, 12/11/19 14:34:00 EST, Height Start Date: 01/15/20 Status: Ordered perphenazine 2 mg oral tablet 2 mg, 1, tablet, By Mouth, 3 times a day, # 90 tablet, Refills 5, Tot. Refills 5, Maintenance, 01/15/20 17:16:00 EDT, Route to Pharmacy Electronically, [facility] #[id number], 178, cm, 12/11/19 14:34:00 EST, Height Start Date: 01/15/20 Status: Ordered traZODone 50 mg oral tablet See Instructions, TAKE 1 TABLET BY MOUTH AT BEDTIME NEEDED FOR INSOMNIA, # 90 tablet, Refills 0,Tot. Refills 0, 01/15/20 17:16:00 EDT, Instructions Replace Required Details, Route to Pharmacy Electronically, [facility] #[id number], 178, cm, 0... Start Date: 01/15/20 Status: Ordered Problem List Condition Effective Dates Status Health Status Inform ant Jjdx-la-iddium transgender person(Confirmed) Active Gender Dysphoria(Confirmed) Active H/O left inguinal hernia repair(Confirmed) Active Homelessness(Confirmed) Active Depression(Confirmed) Active Social History Social History Type Response Smoking Status Former smoker; Other : quit many years ago; entered on: 08/10/16 Sex
--- OUTSIDE RECORDS SUMMARY | 2023-05-31 19:38 | XMS_ITS | Continuity of Care Document ---
Author Name Unknown Organization [facility] Address [address] [place] [address]- Care Team Providers Care Film Spooler Name Role Phone Not on Staff, PCP Primary Care Physician Unavail able Encounter [facility] Date(s): 03/25/20 - 07/23/20 [facility] [address] [place] [address]- [facility] Attending Physician: Christine UNINDENTURED APPRENTICE, Joaquina Schmitt Allergies, Adverse Reactions, Alerts Substance Reaction Severity [...] tablet, 1 Refills, Maintenance, 01/15/20 17:11:00 EDT, [facility] #[id number], 178, cm, 12/11/19 14:34:00 EST, Height Start Date: 01/15/20 Status: Ordered clonazePAM 2 mg oral tablet 1 tablet = 2 mg, By Mouth, 3 times a day, PRN Anxiety, # 90 tablet, 2 Refills, Maintenance, 05/14/20 18:03:00 EDT, Tablet, [facility] #[id number], 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, 178, cm, 12/11/19 14:34:00 EST, Height Start Date: 05/14/20 Stop Date: 08/12/20 Status: Ordered estradiol 2 mg oral tablet See Instructions, 2 tablets By Mouth Daily, # 60 tablet, 2 Refills, Maintenance, 07/22/20 17:07:00 EDT, [facility] #[id number], Patient has office visit scheduled, 177, cm, 07/16/20 0:55:00 EDT,Height, 95, kg, 07/16/20 0:55:00 EDT, Dry Weight Start Date: 07/22/20 Status: Ordered hydrOXYzine hydrochloride 25 mg oral tablet See Instructions, take 1-2 tabs qd prn for severe anxiety or insomnia, # 180 tablet, 1 Refills, Maintenance, 05/14/20 18:08:00 EDT, [facility] #[id number], 178, cm, 12/11/19 14:34:00 EST, Height Start Date: 05/14/20 Status: Ordered perphenazine 2 mg oral tablet 2 mg, 1, tablet, By Mouth, 2 times a day, # 90 tablet, Refills 5, Tot. Refills 5, Maintenance, 01/15/20 17:16:00 EDT, Route to Pharmacy Electronically, [facility] #[id number], dec'd to bid on 06/19, 178, cm, 12/11/19 14:34:00 EST, Height Start Date: 01/15/20 Status: Ordered traZODone 50 mg oral tablet See Instructions, TAKE 1 TABLET BY MOUTH AT BEDTIME NEEDED FOR INSOMNIA, # 90 tablet, Refills 1,Tot. Refills 1, 05/14/20 18:08:00 EDT, Instructions Replace Required Details, Route to Pharmacy Electronically, [facility] #[id number], 178, cm, 0... Start Date: 05/14/20 Status: Ordered Problem List Condition Effective Dates Status Health Status Inform ant Rzwh-lr-qacxvv transgender person(Confirmed) Active Gender Dysphoria(Confirmed) Active H/O left inguinal hernia repair(Confirmed) Active Homelessness(Confirmed) Active Depression(Confirmed) Active Social History Social History Type Response Smoking Status Former smoker; Other : quit many years ago; entered on: 08/10/16 Sex
--- OUTSIDE RECORDS SUMMARY | 2023-05-31 19:38 | XMS_ITS | Continuity of Care Document ---
Author Name Unknown Organization [facility] Address [address] [place] [address]- Care Team Providers Care Operator Weapon Locating Radar Name Role Phone Brendon LUJAN, Juan Fuentes Primary Care Physician Encounter [facility] Date(s): 12/15/20 - 01/14/21 [facility] [address] [place] [address]- Allergies, Adverse Reactions, Alerts Substance Reaction Severity [...] Daily, # 90 tablet, 1 Refills, Maintenance, 08/28/20 14:18:00 EDT, [email or web address] #[id number], 177, cm, 08/05/20 10:50:00 EDT, Height, 95, kg, 07/16/20 0:55:00 EDT, Dry Weight Start Date: 08/28/20 Status: Ordered clonazePAM 2 mg oral tablet See Instructions, TAKE 1 TABLET BY MOUTH THREE TIMES DAILY NEEDED FOR ANXIETY, # 90 tablet, 2 Refills, Maintenance, 10/13/20 17:14:00 EST, [email or web address] #[id number], 177, cm, 09/05/20 8:05:00 EST, Height, 95, kg, 07/16/20 0:55:00 EDT, Dry Weight Start Date: 10/13/20 Status: Ordered clonazePAM 2 mg oral tablet 1 tablet = 2 mg, By Mouth, 3 times a day, PRN Anxiety, # 90 tablet, 0 Refills, Maintenance, 08/15/20 17:38:00 EDT, Tablet, [email or web address] #[id number], 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, 177, cm, 08/05/20 10:50:00 EDT, Height, 95, kg, 07/16/20 0:55:00 EDT, Dry Weight Start Date: 08/15/20 Stop Date: 09/14/20 Status: Ordered estradiol 2 mg oral tablet 2 tablet, By Mouth, Daily, # 60 tablet, 0 Refills, Maintenance, 01/09/21 16:05:00 EST, [email or web address] #[id number], 177, cm, 10/15/20 13:53:00 EST, Height, 95, kg, 07/16/20 0:55:00 EDT, Dry Weight Start Date: 01/09/21 Status: Ordered Gabapentin By Mouth, 0 Refills, Maintenance, 09/02/20 11:12:00 EST Start Date: 09/02/20 Status: Ordered hydrOXYzine hydrochloride 25 mg oral tablet See Instructions, take 1-2 tabs qd prn for severe anxiety or insomnia, # 180 tablet, 1 Refills, Maintenance, 05/14/20 18:08:00 EDT, [email or web address] #[id number], 178, cm, 12/11/19 14:34:00 EST, Height Start Date: 05/14/20 Status: Ordered spironolactone 50 mg oral tablet 1 tablet, By Mouth, 2 times a day, # 60 tablet, 0 Refills, Maintenance, 01/09/21 16:06:00 EST, [email or web address] #[id number], 177, cm, 10/15/20 13:53:00 EST, Height, 95, kg, 07/16/20 0:55:00 EDT, Dry Weight Start Date: 01/09/21 Status: Ordered traZODone 50 mg oral tablet See Instructions, TAKE 1 TABLET BY MOUTH AT BEDTIME NEEDED FOR INSOMNIA, # 90 tablet, Refills 1,Tot. Refills 1, 05/14/20 18:08:00 EDT, Instructions Replace Required Details, Route to Pharmacy Electronically, [facility] #[id number], 959, cm, 0... Start Date: 05/14/20 Status: Ordered Problem List Condition Effective Dates Status Health Status Inform ant Vyoi-pg-wqbrmd transgender person(Confirmed) Active Gender Dysphoria(Confirmed) Active H/O left inguinal hernia repair(Confirmed) Active Homelessness(Confirmed) Active Depression(Confirmed) Active Social History Social History Type Response Smoking Status Former smoker; Other : quit many years ago; entered on: 08/10/16 Sex
--- OUTSIDE RECORDS SUMMARY | 2023-05-31 19:38 | XMS_ITS | Continuity of Care Document ---
Author Name Unknown Organization [facility] Address [address] [place] [address]- Care Team Providers Care Ross Furnace Operator Name Role Phone Brendon LUJAN, Juan Fuentes Primary Care Physician [place] [facility] [place] 02/06[place]21 - 03/08/21 [facility] [address] [place] [address]- Allergies, Adverse Reactions, Alerts Substance Reaction Severity [...] Daily, # 90 tablet, 1 Refills, Maintenance, 02/12/21 15:10:00 EDT, [facility] #[id number], 177, cm, 10/15/20 13:53:00 EST, Height, 95, kg, 07/16/20 0:55:00 EDT, Dry Weight Start Date: 02/12/21 Status: Ordered clonazePAM 2 mg oral tablet See Instructions, TAKE 1 TABLET BY MOUTH THREE TIMES DAILY NEEDED FOR ANXIETY, # 90 tablet, 2 Refills, Maintenance, 02/12/21 15:10:00 EDT, [facility] #[id number], 177, cm, 10/15/20 13:53:00 EST, Height, 95, kg, 07/16/20 0:55:00 EDT, Dry Weight Start Date: 02/12/21 Status: Ordered clonazePAM 2 mg oral tablet 1 tablet = 2 mg, By Mouth, 3 times a day, PRN Anxiety, # 90 tablet, 0 Refills, Maintenance, 08/15/20 17:38:00 EDT, Tablet, [facility] #[id number], 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, 177, cm, 08/05/20 10:50:00 EDT, Height, 95, kg, 07/16/20 0:55:00 EDT, Dry Weight Start Date: 08/15/20 Stop Date: 09/14/20 Status: Ordered estradiol 2 mg oral tablet 2 tablet, By Mouth, Daily, # 60 tablet, 0 Refills, Maintenance, 01/09/21 16:05:00 EST, [facility] #[id number], 177, cm, 10/15/20 13:53:00 EST, Height, 95, kg, 07/16/20 0:55:00 EDT, Dry Weight Start Date: 01/09/21 Status: Ordered Gabapentin By Mouth, 0 Refills, Maintenance, 09/02/20 11:12:00 EST Start Date: 09/02/20 Status: Ordered hydrOXYzine hydrochloride 25 mg oral tablet See Instructions, take 1-2 tabs qd prn for severe anxiety or insomnia, # 180 tablet, 1 Refills, Maintenance, 05/14/20 18:08:00 EDT, [facility] #[id number], 178, cm, 12/11/19 14:34:00 EST, Height Start Date: 05/14/20 Status: Ordered spironolactone 50 mg oral tablet 1 tablet, By Mouth, 2 times a day, # 60 tablet, 0 Refills, Maintenance, 01/09/21 16:06:00 EST, [facility] #[id number], 177, cm, 10/15/20 13:53:00 EST, Height, 95, kg, 07/16/20 0:55:00 EDT, Dry Weight Start Date: 01/09/21 Status: Ordered traZODone 50 mg oral tablet See Instructions, TAKE 1 TABLET BY MOUTH AT BEDTIME NEEDED FOR INSOMNIA, # 90 tablet, Refills 1,Tot. Refills 1, 05/14/20 18:08:00 EDT, Instructions Replace Required Details, Route to Pharmacy Electronically, [facility] #[id number], 058, cm, 0... Start Date: 05/14/20 Status: Ordered Problem List Condition Effective Dates Status Health Status Inform ant Okoz-gc-oiozsx transgender person(Confirmed) Active Gender Dysphoria(Confirmed) Active H/O left inguinal hernia repair(Confirmed) Active Homelessness(Confirmed) Active Depression(Confirmed) Active Social History Social History Type Response Smoking Status Former smoker; Other : quit many years ago; entered on: 08/10/16 Sex
--- OUTSIDE RECORDS SUMMARY | 2023-05-31 19:38 | XMS_ITS | Continuity of Care Document ---
Author Name Unknown Organization [facility] Address [address] [place] [address]- Care Team Providers Care Special Procedure Technologist Name Role Phone Christine LUJAN, Joaquina Schmitt Primary Care Physician [place] [facility] [place] 12/11/19 - 12/18/19 [facility] Adult [address] [place] [address]- [facility] Encounter Diagnosis Depression(Discharge Diagnosis) - 12/11/19 Attending Physician: Joaquina King NP Allergies, Adverse Reactions, Alerts Substance Reaction Severity Status RisperDAL Active Immunizations Given and Recorded Vaccine Date Status Refusal Reason influenza virus vaccine, inactivated 1 07/22/17 Re corded influenza virus vaccine, inactivated 08/10/16 Give n tetanus/diphtheria/pertussis, acel(Tdap) 2 07/31/14 Recorded 1Result Comment: [09/01/2017] jacobiXpertshobha 2Result Comment: [08/10/2016] urgent care Medications citalopram 40 mg oral tablet 1 tablet, By Mouth, Daily, # 90 tablet, 0 Refills, Maintenance, 11/20/19 11:07:00 [facility], [facility] #[id number], 178, cm, 01/10/19 14:52:00 EDT, Height Start Date: 11/20/19 Status: Ordered clonazePAM 2 mg oral tablet 1 tablet = 2 mg, By Mouth, 3 times a day, PRN Anxiety, 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 please call Dr. Wiley to schedule f/u for further refills. [phone], # 90 tablet, 0 Refills, Maintenance, 11/20/19 13:35:00 EST, Tablet, [facility] #[id number], 178, cm, 03... Start Date: 11/20/19 Stop Date: 12/20/19 Status: Ordered estradiol 2 mg oral tablet See Instructions, 3 tablets By Mouth Daily, # 90 tablet, 2 Refills, Maintenance, 11/22/19 16:41:00 EST, [facility] #[id number], Patient has office visit scheduled, 178, cm, 01/10/19 14:52:00 EDT, Height Start Date: 11/22/19 Status: Ordered hydrOXYzine hydrochloride 25 mg oral tablet See Instructions, take 1-2 tabs qd prn for severe anxiety or insomnia, # 60 tablet, 2 Refills, Maintenance, 06/19/19 19:19:59 EDT Start Date: 06/19/19 Status: Ordered perphenazine 2 mg oral tablet 2 mg, 1, tablet, By Mouth, 3 times a day, # 90 tablet, Refills 5, Tot. Refills 5, Maintenance, 05/10/19 13:52:10 EDT, Route to Pharmacy Electronically, [id number], [id number] Start Date: 05/10/19 Status: Ordered traZODone 50 mg oral tablet 50 mg, 1, tablet, By Mouth, Daily at bedtime, PRN, # 30 tablet, Refills 5, Tot. Refills 5, Maintenance, Insomnia, 05/10/19 13:52:11 EDT, Route to Pharmacy Electronically, [id number], [id number] Start Date: 05/10/19 Status: Ordered Problem List Condition Effective Dates Status Health Status Inform ant Iqpk-[id number]-[id number] transgender person(Confirmed) Active Gender Dysphoria(Confirmed) Active H/O left inguinal hernia repair(Confirmed) Active Homelessness(Confirmed) Active Depression(Confirmed) Active Diagnosis Diagnosis Type Effective Dates Health Status [facility] Service Informant Depression Discharge Diagnosis 12/11/19 Vital Signs Most recent to oldest [Reference Range]: 1 Height 178 cm (12/11/19 2:34 PM) Weight 78.0 kg (12/11/19 2:34 PM) Oxygen Saturation [94-100 %] 99 % (12/11/19 2:34 PM) Pulse Rate [55-90 bpm] 60 bpm (12/11/19 2:34 PM) Body Mass Index [18.5-24.99] 24.62 (12/11/19 2:34 PM) Blood Pressure [90-138/55-84 mm Hg] 120/ 80mm Hg (12/11/19 2:34 PM) Respiratory Rate [16-30 br/min] 14 br/mi n *L* (12/11/19 2:34 PM) Temperature [96.8-100.4 DegF] 99.6 DegF (12/11/19 2:34 PM) Mode of Delivery (Oxygen) Room air (12/11/19 2:34 PM) Blood pressure sites Arm, right (12/11/19 2:34 PM) Temperature Route Oral (12/11/19 2:34 PM) Weight Obtained Via Standing scale (12/11/19 2:34 PM) Social History Social History Type Response Smoking Status Former smoker; Other : quit many years ago; entered on: 08/10/16 Sex
--- OUTSIDE RECORDS SUMMARY | 2023-05-31 19:38 | XMS_ITS | Continuity of Care Document ---
Author Name Unknown Organization [facility] Address [address] [place] [address]- Care Team Providers Care Support Engineer Name Role Phone Talha LUJAN, Jessa Birch Primary Care Physician [phone] [place] [facility] [place]22 [facility] [address] [place] [address]- Allergies, Adverse Reactions, Alerts Substance Reaction Severity [...] tablet, 1 Refills, Maintenance, 03/04/22 8:44:00 EDT, [facility], 172, cm, 12/15/21 14:14:00 EST, Height, 95, kg, 03/03/21 23:10:00 EDT, Dry Weight Start Date: 03/04/22 Status: Ordered escitalopram 20 mg oral tablet 2 tablet = 40 mg, By Mouth, Daily, # 180 tablet, 1 Refills, Maintenance, 03/04/22 8:44:00 EDT, [facility], Partial fill upon patient request if the prescription is for a schedule II opioid drug., 172, cm, 12/15/21 14:14:00 EST, Height, 95, k... Start Date: 03/04/22 Status: Ordered estradiol 2 mg oral tablet 2 tablet, By Mouth, Daily, # 60 tablet, 0 Refills, Maintenance, 02/11/22 9:20:00 EDT, [facility], 172, cm, 12/15/21 14:14:00 EST, Height, 95, kg, 03/03/21 23:10:00 EDT, Dry Weight Start Date: 02/11/22 Status: Ordered estradiol 2 mg oral tablet 2 tablet, By Mouth, Daily, # 60 tablet, 3 Refills, [facility], 172, cm, 12/15/21 14:14:00EST, Height, 95, kg, 03/03/21 23:10:00 EDT, Dry Weight Start Date: 02/11/22 Status: Ordered gabapentin 300 mg oral capsule 300 mg, 1, capsule, By Mouth, 3 times a day, # 90 capsule, Refills 1, Tot. Refills 1, Maintenance, 03/30/22 9:52:00 EDT, Route to Pharmacy Electronically, [facility], Partial fill upon patient request if the prescription is for a schedule II... Start Date: 03/30/22 Status: Ordered hydrOXYzine hydrochloride 50 mg oral tablet 1 tablet, By Mouth, Daily at bedtime, # 30 tablet, 0 Refills, Maintenance, 03/04/22 8:44:00 EDT, [facility], 172, cm, 12/15/21 14:14:00 EST, Height, 95, kg, 03/03/21 23:10:00 EDT, Dry Weight Start Date: 03/04/22 Status: Ordered lithium 450 mg oral tablet, extended release 1 tablet, By Mouth, Daily at bedtime, # 30 tablet, 0 Refills, [facility] , 172, cm, 08/05/21 [...] FOR SLEEP, # 60 tablet, 0 Refills, [facility], 172, cm, 12/15/21 14:14:00 EST, Height, 95, kg, 03/03/21 23:10:00 EDT, Dry Weight Start Date: 01/28/22 Status: Ordered prazosin 5 mg oral capsule 5 mg, 1, capsule, By Mouth, Daily at bedtime, # 30 capsule, Refills 1, Tot. Refills 1, Maintenance,03/04/22 8:44:00 EDT, Route to Pharmacy Electronically, [facility], Partial fill upon patient request if the prescription is for a schedule I... Start Date: 03/04/22 Stop Date: 05/03/22 Status: Ordered Problem List Condition Effective Dates Status Health Status Inform ant Nyzb-kh-nlnhjl transgender person(Confirmed) Active Gender Dysphoria(Confirmed) Active H/O left inguinal hernia repair(Confirmed) Active Homelessness(Confirmed) Active Depression(Confirmed) Active Severe obesity(Confirmed) Active Social History Social History Type Response Smoking Status Former smoker; Other : quit many years ago; entered on: 08/10/16 Sex
--- OUTSIDE RECORDS SUMMARY | 2023-05-31 19:38 | XMS_ITS | Continuity of Care Document ---
Author Name Unknown Organization [facility] Address [address] [place] [address]- Care Team Providers Care Naval Marine Engineer Name Role Phone Brendon LUJAN, Juan Fuentes Primary Care Physician [phone] [place] [facility] [place]20 [facility] Adult [address] [place] [address]- [facility] Allergies, Adverse Reactions, Alerts Substance Reaction Severity [...] tablet, 1 Refills, Maintenance, 01/15/20 17:11:00 EDT, [facility] #[id number], 178, cm, 12/11/19 14:34:00 EST, Height Start Date: 01/15/20 Status: Ordered clonazePAM 2 mg oral tablet 1 tablet = 2 mg, By Mouth, 3 times a day, PRN Anxiety, # 90 tablet, 0 Refills, Maintenance, 08/15/20 17:38:00 EDT, Tablet, [facility] #[id number], 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, 177, cm, 08/05/20 10:50:00 EDT, Height, 95, kg, 07/16/20 0:55:00 EDT, Dry Weight Start Date: 08/15/20 Stop Date: 09/14/20 Status: Ordered estradiol 2 mg oral tablet See Instructions, 2 tablets By Mouth Daily, # 60 tablet, 2 Refills, Maintenance, 07/22/20 17:07:00 EDT, [facility] #[id number], Patient has office visit scheduled, 177, cm, 07/16/20 0:55:00 EDT,Height, 95, kg, 07/16/20 0:55:00 EDT, Dry Weight Start Date: 07/22/20 Status: Ordered hydrOXYzine hydrochloride 25 mg oral tablet See Instructions, take 1-2 tabs qd prn for severe anxiety or insomnia, # 180 tablet, 1 Refills, Maintenance, 05/14/20 18:08:00 EDT, [facility] #[id number], 178, cm, 12/11/19 14:34:00 EST, Height Start Date: 05/14/20 Status: Ordered naproxen 500 mg oral tablet 1 tablet = 500 mg, By Mouth, 2 times a day, for 14 days, with food, # 28 tablet, 0 Refills, Acute 08/26/20 15:24:00 EDT, 08/12/20 15:24:00 EDT, Tablet, [facility] #[id number], 177, cm, 08/05/20 10:50:00 EDT, Height, 95, kg, 07/16/20 0:55:00 EDT,... Start Date: 08/12/20 Stop Date: 08/26/20 Status: Ordered perphenazine 2 mg oral tablet 2 mg, 1, tablet, By Mouth, 2 times a day, # 90 tablet, Refills 5, Tot. Refills 5, Maintenance, 01/15/20 17:16:00 EDT, Route to Pharmacy Electronically, [facility] #[id number], dec'd to bid on 06/19, 178, cm, 12/11/19 14:34:00 EST, Height Start Date: 01/15/20 Status: Ordered spironolactone 50 mg oral tablet 1 tablet = 50 mg, By Mouth, 2 times a day, # 60 tablet, 4 Refills, Maintenance, 08/05/20 12:21:00 EDT, Tablet, [facility] #[id number], 177, cm, 08/05/20 10:50:00 EDT, Height, 95, kg, 07/16/20 0:55:00 EDT, Dry Weight Start Date: 08/05/20 Status: Ordered traZODone 50 mg oral tablet See Instructions, TAKE 1 TABLET BY MOUTH AT BEDTIME NEEDED FOR INSOMNIA, # 90 tablet, Refills 1,Tot. Refills 1, 05/14/20 18:08:00 EDT, Instructions Replace Required Details, Route to Pharmacy Electronically, [facility][id number], 178, cm, 0... Start Date: 05/14/20 Status: Ordered Problem List Condition Effective Dates Status Health Status Inform ant Bvyo-gl-rzhzym transgender person(Confirmed) Active Gender Dysphoria(Confirmed) Active H/O left inguinal hernia repair(Confirmed) Active Homelessness(Confirmed) Active Depression(Confirmed) Active Social History Social History Type Response Smoking Status Former smoker; Other : quit many years ago; entered on: 08/10/16 Sex
--- OUTSIDE RECORDS SUMMARY | 2023-05-31 19:38 | XMS_ITS | Continuity of Care Document ---
Author Name Unknown Organization [facility] Address [address] [place] [address]- Care Team Providers Care C.O.D. Audit Clerk Name Role Phone Brendon LUJAN, Juan Fuentes Primary Care Physician Encounter [facility] Date(s): 07/17/20 - 08/16/20 [facility] [address] [place] [address]- Allergies, Adverse Reactions, Alerts Substance Reaction Severity [...] tablet, 1 Refills, Maintenance, 01/15/20 17:11:00 EDT, [facility] #[id number], 178, cm, 12/11/19 14:34:00 EST, Height Start Date: 01/15/20 Status: Ordered clonazePAM 2 mg oral tablet 1 tablet = 2 mg, By Mouth, 3 times a day, PRN Anxiety, # 90 tablet, 0 Refills, Maintenance, 08/15/20 17:38:00 EDT, Tablet, [facility] #[id number], 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, 177, cm, 08/05/20 10:50:00 EDT, Height, 95, kg, 07/16/20 0:55:00 EDT, Dry Weight Start Date: 08/15/20 Stop Date: 09/14/20 Status: Ordered estradiol 2 mg oral tablet See Instructions, 2 tablets By Mouth Daily, # 60 tablet, 2 Refills, Maintenance, 07/22/20 17:07:00 EDT, [facility] #[id number], Patient has office visit scheduled, 177, cm, 07/16/20 0:55:00 EDT,Height, 95, kg, 07/16/20 0:55:00 EDT, Dry Weight Start Date: 07/22/20 Status: Ordered hydrOXYzine hydrochloride 25 mg oral tablet See Instructions, take 1-2 tabs qd prn for severe anxiety or insomnia, # 180 tablet, 1 Refills, Maintenance, 05/14/20 18:08:00 EDT, [facility] #[id number], 178, cm, 12/11/19 14:34:00 EST, Height Start Date: 05/14/20 Status: Ordered naproxen 500 mg oral tablet 1 tablet = 500 mg, By Mouth, 2 times a day, for 14 days, with food, # 28 tablet, 0 Refills, Acute 08/26/20 15:24:00 EDT, 08/12/20 15:24:00 EDT, Tablet, [facility] #[id number], 177, cm, 08/05/20 10:50:00 EDT, Height, 95, kg, 07/16/20 0:55:00 EDT,... Start Date: 08/12/20 Stop Date: 08/26/20 Status: Ordered perphenazine 2 mg oral tablet 2 mg, 1, tablet, By Mouth, 2 times a day, # 90 tablet, Refills 5, Tot. Refills 5, Maintenance, 01/15/20 17:16:00 EDT, Route to Pharmacy Electronically, [facility] #[id number], dec'd to bid on 06/19, 178, cm, 12/11/19 14:34:00 EST, Height Start Date: 01/15/20 Status: Ordered spironolactone 50 mg oral tablet 1 tablet = 50 mg, By Mouth, 2 times a day, # 60 tablet, 4 Refills, Maintenance, 08/05/20 12:21:00 EDT, Tablet, [facility] #[id number], 177, cm, 08/05/20 10:50:00 EDT, Height, 95, kg, 07/16/20 0:55:00 EDT, Dry Weight Start Date: 08/05/20 Status: Ordered traZODone 50 mg oral tablet See Instructions, TAKE 1 TABLET BY MOUTH AT BEDTIME NEEDED FOR INSOMNIA, # 90 tablet, Refills 1,Tot. Refills 1, 05/14/20 18:08:00 EDT, Instructions Replace Required Details, Route to Pharmacy Electronically, [facility] #[id number], 178, cm, 0... Start Date: 05/14/20 Status: Ordered Problem List Condition Effective Dates Status Health Status Inform ant Qeei-ri-gdkekb transgender person(Confirmed) Active Gender Dysphoria(Confirmed) Active H/O left inguinal hernia repair(Confirmed) Active Homelessness(Confirmed) Active Depression(Confirmed) Active Social History Social History Type Response Smoking Status Former smoker; Other : quit many years ago; entered on: 08/10/16 Sex
--- OUTSIDE RECORDS SUMMARY | 2023-05-31 19:38 | XMS_ITS | Continuity of Care Document ---
Author Name Unknown Organization [facility] [place] Address [address] [place] [address]- Care Team Providers Care Field Sales Specialist Name Role Phone Brendon LUJAN, Juan Fuentes Primary Care Physician [phone] [place] [facility] [place]20 [facility] [place] [address] [place] [address]- [facility] Allergies, Adverse Reactions, Alerts Substance Reaction [...] tablet, 1 Refills, Maintenance, 01/15/20 17:11:00 EDT, [facility] #[id number], 178, cm, 12/11/19 14:34:00 EST, Height Start Date: 01/15/20 Status: Ordered clonazePAM 2 mg oral tablet 1 tablet = 2 mg, By Mouth, 3 times a day, PRN Anxiety, # 90 tablet, 0 Refills, Maintenance, 08/15/20 17:38:00 EDT, Tablet, [facility] #[id number], 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, 177, cm, 08/05/20 10:50:00 EDT, Height, 95, kg, 07/16/20 0:55:00 EDT, Dry Weight Start Date: 08/15/20 Stop Date: 09/14/20 Status: Ordered estradiol 2 mg oral tablet See Instructions, 2 tablets By Mouth Daily, # 60 tablet, 2 Refills, Maintenance, 07/22/20 17:07:00 EDT, [facility] #[id number], Patient has office visit scheduled, 177, cm, 07/16/20 0:55:00 EDT,Height, 95, kg, 07/16/20 0:55:00 EDT, Dry Weight Start Date: 07/22/20 Status: Ordered hydrOXYzine hydrochloride 25 mg oral tablet See Instructions, take 1-2 tabs qd prn for severe anxiety or insomnia, # 180 tablet, 1 Refills, Maintenance, 05/14/20 18:08:00 EDT, [facility] #[id number], 178, cm, 12/11/19 14:34:00 EST, Height Start Date: 05/14/20 Status: Ordered naproxen 500 mg oral tablet 1 tablet = 500 mg, By Mouth, 2 times a day, for 14 days, with food, # 28 tablet, 0 Refills, Acute 08/26/20 15:24:00 EDT, 08/12/20 15:24:00 EDT, Tablet, [facility] #[id number], 177, cm, 08/05/20 10:50:00 EDT, Height, 95, kg, 07/16/20 0:55:00 EDT,... Start Date: 08/12/20 Stop Date: 08/26/20 Status: Ordered perphenazine 2 mg oral tablet 2 mg, 1, tablet, By Mouth, 2 times a day, # 90 tablet, Refills 5, Tot. Refills 5, Maintenance, 01/15/20 17:16:00 EDT, Route to Pharmacy Electronically, [facility] #[id number], dec'd to bid on 06/19, 178, cm, 12/11/19 14:34:00 EST, Height Start Date: 01/15/20 Status: Ordered spironolactone 50 mg oral tablet 1 tablet = 50 mg, By Mouth, 2 times a day, # 60 tablet, 4 Refills, Maintenance, 08/05/20 12:21:00 EDT, Tablet, [facility] [place] #[id number], 177, cm, 08/05/20 10:50:00 EDT, Height, 95, kg, 07/16/20 0:55:00 EDT, Dry Weight Start Date: 08/05/20 Status: Ordered traZODone 50 mg oral tablet See Instructions, TAKE 1 TABLET BY MOUTH AT BEDTIME NEEDED FOR INSOMNIA, # 90 tablet, Refills 1,Tot. Refills 1, 05/14/20 18:08:00 EDT, Instructions Replace Required Details, Route to Pharmacy Electronically, [facility] #[id number], 178, cm, 0... Start Date: 05/14/20 Status: Ordered Problem List Condition Effective Dates Status Health Status Inform ant Fgcr-zd-zwnjit transgender person(Confirmed) Active Gender Dysphoria(Confirmed) Active H/O left inguinal hernia repair(Confirmed) Active Homelessness(Confirmed) Active Depression(Confirmed) Active Social History Social History Type Response Smoking Status Former smoker; Other : quit many years ago; entered on: 08/10/16 Sex
--- OUTSIDE RECORDS SUMMARY | 2023-05-31 19:38 | XMS_ITS | Continuity of Care Document ---
Author Name Unknown Organization [facility] Address [address] [place] [address]- Care Team Providers Care Site Technician Name Role Phone Charlotte MARIA, Blanka Angeles Primary Care Physician [place] [facility] [place]): 09/13/22 - 09/20/22 [facility] [address] [place] [address]- Encounter Diagnosis Hospital discharge follow-up(Discharge Diagnosis) - 09/13/22 Gender Dysphoria(Discharge Diagnosis) - 09/13/22 Housing instability(Discharge Diagnosis) - 09/13/22 Mood disorder(Discharge Diagnosis) - 09/13/22 Attending Physician: Blanka Porter MD Allergies, Adverse [...] 0 Refills, Maintenance, 06/03/22 10:50:00 EDT, Cream, [facility], Partial fill upon patient request if the prescription is for a schedule II opioid drug., 1 application Topically 2 times a da... Start Date: 06/03/22 Stop Date: 06/17/22 Status: Ordered clonazePAM 2 mg oral tablet See Instructions, TAKE 1 TABLET BY MOUTH THREE TIMES DAILY NEEDED FOR ANXIETY, # 90 tablet, 1 Refills, Maintenance, 03/04/22 8:44:00 EDT, [facility], 172, cm, 12/15/21 14:14:00 EST, Height, 95, kg, 03/03/21 23:10:00 EDT, Dry Weight Start Date: 03/04/22 Status: Ordered escitalopram 20 mg oral tablet 2 tablet = 40 mg, By Mouth, Daily, # 180 tablet, 1 Refills, Maintenance, 03/04/22 8:44:00 EDT, [facility], Partial fill upon patient request if the prescription is for a schedule II opioid drug., 172, cm, 12/15/21 14:14:00 EST, Height, 95, k... Start Date: 03/04/22 Status: Ordered estradiol 2 mg oral tablet 2 tablet, By Mouth, Daily, # 60 tablet, 3 Refills, 07/22/22 8:26:00 EDT, [facility], 172,cm, 06/03/22 10:06:00 EDT, Height, 123.3, kg, 06/03/22 10:06:00 EDT, Dry Weight Start Date: 07/22/22 Status: Ordered estradiol 2 mg oral tablet 2 tablet, By Mouth, Daily, # 60 tablet, 0 Refills, Maintenance, 07/22/22 8:26:00 EDT, [facility], 172, cm, 06/03/22 10:06:00 EDT, Height, 123.3, kg, 06/03/22 10:06:00 EDT, Dry Weight Start Date: 07/22/22 Status: Ordered gabapentin 300 mg oral capsule 300 mg, 1, capsule, By Mouth, 3 times a day, # 90 capsule, Refills 1, Tot. Refills 1, Maintenance, 07/27/22 13:12:00 EDT, Route to Pharmacy Electronically, [facility], Partial fill upon patient request if the prescription is for a schedule I... Start Date: 07/27/22 Status: Ordered gabapentin 300 mg oral capsule 1, capsule, By Mouth, 3 times a day, # 90 capsule, Refills 0, Maintenance, 07/27/22 13:13:00 EDT, Route to Pharmacy Electronically, [facility], 172, cm, 06/03/22 10:06:00 EDT, Height, 123.3, kg, 06/03/22 10:06:00 EDT, Dry Weight Start Date: 07/27/22 Status: Ordered hydrOXYzine hydrochloride 50 mg oral tablet 1 tablet, By Mouth, Daily at bedtime, # 30 tablet, 2 Refills, Maintenance, 05/27/22 9:46:00 EDT, [facility], 172, cm, 03/09/22 9:54:00 EDT, Height, 95, kg, 03/03/21 23:10:00 EDT, Dry Weight Start Date: 05/27/22 Status: Ordered lithium 450 mg oral tablet, extended release 1 tablet, By Mouth, Daily at bedtime, # 30 tablet, 0 Refills, [facility] , 172, cm, 08/05/21 15:13:00 EDT, Height, [...] FOR SLEEP, # 60 tablet, 0 Refills, [facility], 172, cm, 12/15/21 14:14:00 EST, Height, 95, kg, 03/03/21 23:10:00 EDT, Dry Weight Start Date: 01/28/22 Status: Ordered prazosin 5 mg oral capsule 5 mg, 1, capsule, By Mouth, Daily at bedtime, # 30 capsule, Refills 2, Tot. Refills 2, Maintenance,05/27/22 9:46:00 EDT, Route to Pharmacy Electronically, [facility], Partial fill upon patient request if the prescription is for a schedule I... Start Date: 05/27/22 Stop Date: 08/25/22 Status: Ordered Problem List Condition Confirmation Course Effective Dates Status Health St atus Informant Stage 3a chronic kidney disease (CKD) Confirmed Active Gender dysphoria Confirmed 08/17/22 Active Ohsr-gc-qvzeij transgender person Confirmed Active Gender Dysphoria Confirmed Active H/O left inguinal hernia repair Confirmed Active Homelessness Confirmed Active Depression Confirmed Active Mood disorder Confirmed 08/17/22 Active Severe obesity Confirmed Active Diagnosis Diagnosis Type Effective Dates Health Status Clinical Service Informant Hospital discharge follow-up Discharge Diagnosis 09/13/22 Gender Dysphoria Discharge Diagnosis 09/13/22 Housing instability Discharge Diagnosis 09/13/22 Mood disorder Discharge Diagnosis 09/13/22 Vital Signs Most recent to oldest [Reference Range]: 1 Height 172 cm (09/13/22 10:14 AM) Weight 119.5 kg (09/13/22 10:14 AM) Oxygen Saturation [94-100 %] 95 % (09/13/22 10:14 AM) Pulse Rate [55-90 bpm] 72 bpm (09/13/22 10:14 AM) Body Mass Index [18.5-24.99 kg/m2] 40.39 kg/m2 *>HHI* (09/13/22 10:14 AM) Blood Pressure [90-138/55-84 mm Hg] 128/ 85mm Hg (09/13/22 10:14 AM) Blood pressure sites Arm, left (09/13/22 10:14 AM) Social History Social History Type Response Smoking Status Former smoker; Other : quit many years ago; entered on: 08/10/16 Sex Note * Alfredo Lugo: PERFORM, SIGN, VERIFY Event Display: Patient Education/Instruction Authored Date: [id number] [facility] Clinical Summary Name TEDDY DUNN Age 41 Years 1980 PCP Charlotte MARIA, Blanka Angeles PCP Visit Date 09/13/2022 10:08:00 Additional Instructions: Scheduled Appointments?? Future Appointments ?No Future Appointments Scheduled Follow-Up Instructions ?? With: Address: When: Blanka Porter [address] [place] [id number] Business (1) 03/14/2023 2:00 PM Diagnosis Medications: Please continue your medications until treatment is completed or stopped by your provider. Discuss any questions related to medications with your provider. Medications to Continue with No Changes These medications were not printed or sent to your pharmacy Betamethasone Topical (betamethasone topical valerate 0.1% cream) 1 glenn Topically twice a day for 14 Days. Refills: 0. Next Dose: Clonazepam (clonazePAM 2 mg oral tablet) TAKE 1 TABLET BY MOUTH THREE TIMES DAILY NEEDED FOR ANXIETY. Refills: 1. Next Dose: Escitalopram (escitalopram 20 mg oral tablet) 2 tab(s) Oral Daily. Refills: 1. Next Dose: Estradiol (estradiol 2 mg oral tablet) 2 tab(s) Oral Daily. Refills: 3. Next Dose: Estradiol (estradiol 2 mg oral tablet) 2 tab(s) Oral Daily. Refills: 0. Next Dose: Gabapentin (gabapentin 300 mg oral capsule) 1 capsule Oral 3 times a day. Refills: 0. Next Dose: Gabapentin (gabapentin 300 mg oral capsule) 1 capsule Oral 3 times a day. Refills: 1. Next Dose: HydrOXYzine (hydrOXYzine hydrochloride 50 mg oral tablet) 1 tab(s) Oral Daily at Bedtime. Refills: 2. Next Dose: Dent (lithium 450 mg oral tablet, extended release) 1 tab(s) Oral Daily at Bedtime. Refills: 0. Next Dose: Melatonin (Melatonin 5 mg oral tablet) 2 tab(s) Oral Daily at Bedtime as needed NEEDED FOR SLEEP. Refills: 0. Next Dose: Miscellaneous Rx (Melatonin 10MG TABS) 1 tab(s) Oral Daily at Bedtime as needed NEEDED FOR INSOMNIA. Refills: 0. Next Dose: Prazosin (prazosin 5 mg oral capsule) 1 capsule Oral Daily at Bedtime for 30 Days. Refills: 2. Next Dose: Allergy Info:?? RisperDAL Medications Given This Visit Future Orders ?No future orders Vital Signs Height 172 cm Weight 119.5 kg BMI 40.39 kg/m2 Blood Pressure 128 mm Hg/85 mm Hg Temperature Pulse Rate 72 bpm Respiratory Rate 02 Sat Mode of Delivery 95 %/ You can now view a summary of your hospital visit from the comfort of your home through a free online portal called [facility]. [facility] is a website that allows you to securely view your medical information including discharge summary, medications and follow-up visits. ??You can alsosend a secure electronic message to your doctor???s office to request appointments, renew medications or just ask a question. You can enroll at [email or web address] or register during your next office visit. Disclaimer:?? The information provided is of a general nature and is intended to be used in conjunction with the recommendations and advice of your health care practitioner. ??Every effort has been made to ensure that the information provided is accurate and complete at the time it is provided to you however, as your needs change, or, as new ??information becomes available, different or additional instructions may be required. If you have questions, please consult with your primary care provider or pharmacist, as appropriate. ??This information is not intended to serve as substitution for assessment and evaluation by a qualified health care provider. If you do not have a primary care provider, you may find a [facility] provider by calling [facility] at [phone]. For information about the plan of care including goals and instructions for your diagnosis, please see the patient education orders section of this document. Patient Education Materials?? The content of this educational material or handout may have been modified, supplemented, or adapted from its original content and format to support your individualized medical care. Patient Care team information Care Team Personnel Name: Blanka Porter MD Position: [facility] Primary Care Physician Member Role: PCP Address: Address: [address] [place] [address] [place] [address]- Care Team Related Persons Name: XAVIER BERKOWITZ Address: [address] [place] [address] Name: EDMOND SHIPMAN Address: [address] [place] [address]
--- OUTSIDE RECORDS SUMMARY | 2023-05-31 19:38 | XMS_ITS | Continuity of Care Document ---
Author Name Unknown Organization [facility] Address [address] [place] [address]- Care Team Providers Care Overedge Machine Operator Name Role Phone Brendon LUJAN, Juan Fuentes Primary Care Physician [phone] [place] [facility] 06[place]/21 [facility] [address] [place], [place] [address] Allergies, Adverse Reactions, Alerts Substance Reaction Severity [...] tablet, 2 Refills, Maintenance, 04/30/21 16:13:00 EDT, [id number], 177, cm, 10/15/20 13:53:00 EST, Height, 95, kg, 03/03/21 23:10:00 EDT, Dry Weight Start Date: 04/30/21 Status: Ordered escitalopram 20 mg oral tablet 2 tablet = 40 mg, By Mouth, Daily, # 180 tablet, 1 Refills, Maintenance, 04/30/21 16:14:00 EDT, [id number], Partial fill upon patient request if the prescription is for a schedule II opioid drug., 177, cm, 10/15/20 13:53:00 EST, Height, 95, kg... Start Date: 04/30/21 Status: Ordered estradiol 2 mg oral tablet 2 tablet, By Mouth, Daily, # 60 tablet, 0 Refills, Maintenance, 01/09/21 16:05:00 EST, [id number], 177, cm, 10/15/20 13:53:00 EST, Height, 95, kg, 07/16/20 0:55:00 EDT, Dry Weight Start Date: 01/09/21 Status: Ordered Gabapentin By Mouth, 0 Refills, Maintenance, 09/02/20 11:12:00 EST Start Date: 09/02/20 Status: Ordered hydrOXYzine pamoate 50 mg oral capsule 1 capsule = 50 mg, By Mouth, Daily at bedtime, # 90 capsule, 0 Refills, Maintenance, 04/30/21 16:12:00 EDT, [id number], Partial fill upon patient request if the prescription is for a scheduleII opioid drug., 177, cm, 10/15/20 13:53:00 EST, He... Start Date: 04/30/21 Status: Ordered spironolactone 50 mg oral tablet 1 tablet, By Mouth, 2 times a day, # 60 tablet, 0 Refills, Maintenance, 01/09/21 16:06:00 EST, [facility] #[id number], 177, cm, 10/15/20 13:53:00 EST, Height, 95, kg, 07/16/20 0:55:00 EDT, Dry Weight Start Date: 01/09/21 Status: Ordered traZODone 100 mg oral tablet 200 mg, 2, tablet, By Mouth, Daily at bedtime, # 180 tablet, Refills 0, Tot. Refills 0, Maintenance, 04/30/21 16:11:00 EDT, Route to Pharmacy Electronically, [id number], Partial fill upon patient request if the prescription is for a schedule I... Start Date: 04/30/21 Status: Ordered Problem List Condition Effective Dates Status Health Status Inform ant Bjcc-[id number]-[id number] transgender person(Confirmed) Active Gender Dysphoria(Confirmed) Active H/O left inguinal hernia repair(Confirmed) Active Homelessness(Confirmed) Active Depression(Confirmed) Active Social History Social History Type Response Smoking Status Former smoker; Other : quit many years ago; entered on: 08/10/16 Sex
--- OUTSIDE RECORDS SUMMARY | 2023-05-31 19:38 | XMS_ITS | Continuity of Care Document ---
Author Name Unknown Organization [facility] Address [address] [place] [address]- Care Team Providers Care Graphic Design Intern Name Role Phone Brendon LUJAN, Juan Fuentes Primary Care Physician Encounter [facility] [place] Date(s): 11/18/21 - 12/18/21 [facility] [address] [place], [place] [address] Allergies, Adverse Reactions, Alerts Substance Reaction Severity [...] ANXIETY, # 90 tablet, 1 Refills, Maintenance, 11/19/21 13:44:00 EST, [id number], 172, cm, 08/05/21 15:13:00 EDT, Height, 95, kg, 03/03/21 23:10:00 EDT, DI[facility].. Start Date: 11/19/21 Status: Ordered doxycycline hyclate 100 mg oral tablet 1 capsule, By Mouth, Every 12 hours, for 14 days, # 28 capsule, 0 Refills, Acute 12/29/21 14:51:00 EST, 12/15/21 14:51:00 EST, Capsule, [facility], Partial fill upon patient request if the prescription is for a schedule II opioid drug., 172,... Start Date: 12/15/21 Stop Date: 12/29/21 Status: Ordered escitalopram 20 mg oral tablet 2 tablet = 40 mg, By Mouth, Daily, # 180 tablet, 1 Refills, Maintenance, 06/30/21 17:00:00 EDT, [facility]-, Partial fill upon patient request if the prescription is for a schedule II opioid drug., 172, cm, 06/30/21 15:09:00 ED... Start Date: 06/30/21 Status: Ordered estradiol 2 mg oral tablet 2 tablet, By Mouth, Daily, # 60 tablet, 0 Refills, Maintenance, 08/21/21 11:44:00 EDT, [id number], 172, cm, 08/05/21 15:13:00 EDT, Height, 95, kg, 03/03/21 23:10:00 EDT, Dry Weight Start Date: 08/21/21 Status: Ordered gabapentin 300 mg oral capsule 300 mg, 1, capsule, By Mouth, 3 times a day, # 90 capsule, Refills 0, Tot. Refills 0, Maintenance, 11/19/21 13:44:00 EST, Route to Pharmacy Electronically, [facility]-, Partial fill upon patient request if the prescription is f... Start Date: 11/19/21 Status: Ordered hydrOXYzine hydrochloride 50 mg oral tablet 1 tablet, By Mouth, Daily at bedtime, # 30 tablet, 0 Refills, [facility] , 172, cm, 08/05/21 15:13:00 EDT, Height, 95, kg, 03/03/21 23:10:00 EDT, Dry Weight Start Date: 11/09/21 Status: Ordered lithium 450 mg oral tablet, extended release 1 tablet, By Mouth, Daily at bedtime, # 30 tablet, 0 Refills, [facility] , 172, cm, 08/05/21 15:13:00 EDT, Height, 95, kg, 03/03/21 23:10:00 EDT, Dry Weight Start Date: 11/10/21 Status: Ordered Melatonin 10MG TABS Melatonin 10MG TABS, 1, tablet, By Mouth, Daily at bedtime, PRN, # 30 tablet, 0 Refills, 172, cm, 08/05/21 15:13:00 EDT, Height, 95, kg, 03/03/21 23:10:00 EDT, Dry Weight Start Date: 11/09/21 Status: Ordered prazosin 5 mg oral capsule 5 mg, 1, capsule, By Mouth, Daily at bedtime, # 30 capsule, Refills 1, Tot. Refills 1, Maintenance,06/30/21 17:07:00 EDT, Route to Pharmacy Electronically, [facility]-, Partial fill upon patient request if the prescription is... Start Date: 06/30/21 Stop Date: 08/29/21 Status: Ordered silver sulfADIAZINE 1% topical cream 1 application, Topically, Daily, # 50 Gm, 0 Refills, Acute 01/12/22 12:00:00 EDT, 12/15/21 14:53:00EST, Cream, [facility], Partial fill upon patient request if the prescription is for a schedule II opioid drug., 1 application Topically Jamari... Start Date: 12/15/21 Stop Date: 01/12/22 Status: Ordered Problem List Condition Effective Dates Status Health Status Inform ant Tptz-cp-wjwvbm transgender person(Confirmed) Active Gender Dysphoria(Confirmed) Active H/O left inguinal hernia repair(Confirmed) Active Homelessness(Confirmed) Active Depression(Confirmed) Active Obese class II(Confirmed) Active Social History Social History Type Response Smoking Status Former smoker; Other : quit many years ago; entered on: 08/10/16 Sex
--- OUTSIDE RECORDS SUMMARY | 2023-05-31 19:38 | XMS_ITS | Continuity of Care Document ---
Author Name Unknown Organization [facility] Address [address] [place] [address]- Care Team Providers Care Rebrander Name Role Phone Talha LUJAN, Jessa Birch Primary Care Physician Encounter [facility] Date(s): 06/14/22 - 07/14/22 [facility] [address] [place] [address]- Allergies, Adverse Reactions, Alerts Substance Reaction Severity [...] 0 Refills, Maintenance, 06/03/22 10:50:00 EDT, Cream, [facility], Partial fill upon patient request if the prescription is for a schedule II opioid drug., 1 application Topically 2 times a da... Start Date: 06/03/22 Stop Date: 06/17/22 Status: Ordered clonazePAM 2 mg oral tablet See Instructions, TAKE 1 TABLET BY MOUTH THREE TIMES DAILY NEEDED FOR ANXIETY, # 90 tablet, 1 Refills, Maintenance, 03/04/22 8:44:00 EDT, [facility], 172, cm, 12/15/21 14:14:00 EST, Height, 95, kg, 03/03/21 23:10:00 EDT, Dry Weight Start Date: 03/04/22 Status: Ordered escitalopram 20 mg oral tablet 2 tablet = 40 mg, By Mouth, Daily, # 180 tablet, 1 Refills, Maintenance, 03/04/22 8:44:00 EDT, [facility], Partial fill upon patient request if the prescription is for a schedule II opioid drug., 172, cm, 12/15/21 14:14:00 EST, Height, 95, k... Start Date: 03/04/22 Status: Ordered estradiol 2 mg oral tablet 2 tablet, By Mouth, Daily, # 60 tablet, 0 Refills, Maintenance, 02/11/22 9:20:00 EDT, [facility], 172, cm, 12/15/21 14:14:00 EST, Height, 95, kg, 03/03/21 23:10:00 EDT, Dry Weight Start Date: 02/11/22 Status: Ordered estradiol 2 mg oral tablet 2 tablet, By Mouth, Daily, # 60 tablet, 3 Refills, [facility], 172, cm, 12/15/21 14:14:00EST, Height, 95, kg, 03/03/21 23:10:00 EDT, Dry Weight Start Date: 02/11/22 Status: Ordered gabapentin 300 mg oral capsule 300 mg, 1, capsule, By Mouth, 3 times a day, # 90 capsule, Refills 1, Tot. Refills 1, Maintenance, 06/25/22 16:50:00 EDT, Route to Pharmacy Electronically, [facility], Partial fill upon patient request if the prescription is for a schedule I... Start Date: 06/25/22 Status: Ordered gabapentin 300 mg oral capsule 1, capsule, By Mouth, 3 times a day, # 90 capsule, Refills 0, Maintenance, 06/25/22 16:50:00 EDT, Route to Pharmacy Electronically, [facility], 172, cm, 06/03/22 10:06:00 EDT, Height, 123.3, kg, 06/03/22 10:06:00 EDT, Dry Weight Start Date: 06/25/22 Status: Ordered hydrOXYzine hydrochloride 50 mg oral tablet 1 tablet, By Mouth, Daily at bedtime, # 30 tablet, 2 Refills, Maintenance, 05/27/22 9:46:00 EDT, [facility], 172, cm, 03/09/22 9:54:00 EDT, Height, 95, kg, 03/03/21 23:10:00 EDT, Dry Weight Start Date: 05/27/22 Status: Ordered lithium 450 mg oral tablet, extended release 1 tablet, By Mouth, Daily at bedtime, # 30 tablet, 0 Refills, [facility] [id number], 172, cm, 08/05/21 15:13:00 EDT, Height, 95, [...] FOR SLEEP, # 60 tablet, 0 Refills, [facility], 172, cm, 12/15/21 14:14:00 EST, Height, 95, kg, 03/03/21 23:10:00 EDT, Dry Weight Start Date: 01/28/22 Status: Ordered prazosin 5 mg oral capsule 5 mg, 1, capsule, By Mouth, Daily at bedtime, # 30 capsule, Refills 2, Tot. Refills 2, Maintenance,05/27/22 9:46:00 EDT, Route to Pharmacy Electronically, [facility], Partial fill upon patient request if the prescription is for a schedule I... Start Date: 05/27/22 Stop Date: 08/25/22 Status: Ordered Problem List Condition Effective Dates Status Health Status Inform ant Stage 3a chronic kidney dise ase (CKD)(Confirmed) Active Ufaz-es-kjunab transgender person(Confirmed) Active Gender Dysphoria(Confirmed) Active H/O left inguinal hernia repair(Confirmed) Active Homelessness(Confirmed) Active Depression(Confirmed) Active Severe obesity(Confirmed) Active Social History Social History Type Response Smoking Status Former smoker; Other : quit many years ago; entered on: 08/10/16 Sex Care Team Personnel Name: Jessa Palencia NP Address: [address] [place], [place] [address]
--- OUTSIDE RECORDS SUMMARY | 2023-05-31 19:38 | XMS_ITS | Continuity of Care Document ---
Author Name Unknown Organization [facility] Address [address] [place] [address]- Care Team Providers Care Wind Operations Manager Name Role Phone Talha LUJAN, Jessa Birch Primary Care Physician Encounter [facility] Date(s): 03/14/22 - 04/13/22 [facility] [address] [place] [address]- Allergies, Adverse Reactions, Alerts Substance Reaction Severity [...] tablet, 1 Refills, Maintenance, 03/04/22 8:44:00 EDT, [facility], 172, cm, 12/15/21 14:14:00 EST, Height, 95, kg, 03/03/21 23:10:00 EDT, Dry Weight Start Date: 03/04/22 Status: Ordered escitalopram 20 mg oral tablet 2 tablet = 40 mg, By Mouth, Daily, # 180 tablet, 1 Refills, Maintenance, 03/04/22 8:44:00 EDT, [facility], Partial fill upon patient request if the prescription is for a schedule II opioid drug., 172, cm, 12/15/21 14:14:00 EST, Height, 95, k... Start Date: 03/04/22 Status: Ordered estradiol 2 mg oral tablet 2 tablet, By Mouth, Daily, # 60 tablet, 0 Refills, Maintenance, 02/11/22 9:20:00 EDT, [facility], 172, cm, 12/15/21 14:14:00 EST, Height, 95, kg, 03/03/21 23:10:00 EDT, Dry Weight Start Date: 02/11/22 Status: Ordered estradiol 2 mg oral tablet 2 tablet, By Mouth, Daily, # 60 tablet, 3 Refills, [facility], 172, cm, 12/15/21 14:14:00EST, Height, 95, kg, 03/03/21 23:10:00 EDT, Dry Weight Start Date: 02/11/22 Status: Ordered gabapentin 300 mg oral capsule 300 mg, 1, capsule, By Mouth, 3 times a day, # 90 capsule, Refills 1, Tot. Refills 1, Maintenance, 03/30/22 9:52:00 EDT, Route to Pharmacy Electronically, [facility], Partial fill upon patient request if the prescription is for a schedule II... Start Date: 03/30/22 Status: Ordered hydrOXYzine hydrochloride 50 mg oral tablet 1 tablet, By Mouth, Daily at bedtime, # 30 tablet, 0 Refills, Maintenance, 03/04/22 8:44:00 EDT, [facility], 172, cm, 12/15/21 14:14:00 EST, Height, 95, kg, 03/03/21 23:10:00 EDT, Dry Weight Start Date: 03/04/22 Status: Ordered lithium 450 mg oral tablet, extended release 1 tablet, By Mouth, Daily at bedtime, # 30 tablet, 0 Refills, [facility] , 172, cm, 08/05/21 15:13:00 EDT, [...] FOR SLEEP, # 60 tablet, 0 Refills, [facility], 172, cm, 12/15/21 14:14:00 EST, Height, 95, kg, 03/03/21 23:10:00 EDT, Dry Weight Start Date: 01/28/22 Status: Ordered prazosin 5 mg oral capsule 5 mg, 1, capsule, By Mouth, Daily at bedtime, # 30 capsule, Refills 1, Tot. Refills 1, Maintenance,03/04/22 8:44:00 EDT, Route to Pharmacy Electronically, [facility], Partial fill upon patient request if the prescription is for a schedule I... Start Date: 03/04/22 Stop Date: 05/03/22 Status: Ordered Problem List Condition Effective Dates Status Health Status Inform ant Wqtu-py-csdcgs transgender person(Confirmed) Active Gender Dysphoria(Confirmed) Active H/O left inguinal hernia repair(Confirmed) Active Homelessness(Confirmed) Active Depression(Confirmed) Active Severe obesity(Confirmed) Active Social History Social History Type Response Smoking Status Former smoker; Other : quit many years ago; entered on: 08/10/16 Sex
--- OUTSIDE RECORDS SUMMARY | 2023-05-31 19:38 | XMS_ITS | Continuity of Care Document ---
Author Name Unknown Organization [facility] Address [address] [place] [address]- Care Team Providers Care Malariologist Name Role Phone Brendon LUJAN, Juan Fuentes Primary Care Physician Encounter [facility] Date(s): 10/28/20 - 02/25/21 [facility] [address] [place] [address]- Attending Physician: Lul Obrien DPM Referring Physician: Juan Olivas NP Allergies, Adverse Reactions, [...] tablet, 1 Refills, Maintenance, 02/12/21 15:10:00 EDT, [facility] #[id number], 177, cm, 10/15/20 13:53:00 EST, Height, 95, kg, 07/16/20 0:55:00 EDT, Dry Weight Start Date: 02/12/21 Status: Ordered clonazePAM 2 mg oral tablet See Instructions, TAKE 1 TABLET BY MOUTH THREE TIMES DAILY NEEDED FOR ANXIETY, # 90 tablet, 2 Refills, Maintenance, 02/12/21 15:10:00 EDT, [facility] #[id number], 177, cm, 10/15/20 13:53:00 EST, Height, 95, kg, 07/16/20 0:55:00 EDT, Dry Weight Start Date: 02/12/21 Status: Ordered clonazePAM 2 mg oral tablet 1 tablet = 2 mg, By Mouth, 3 times a day, PRN Anxiety, # 90 tablet, 0 Refills, Maintenance, 08/15/20 17:38:00 EDT, Tablet, [facility] #[id number], 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, 177, cm, 08/05/20 10:50:00 EDT, Height, 95, kg, 07/16/20 0:55:00 EDT, Dry Weight Start Date: 08/15/20 Stop Date: 09/14/20 Status: Ordered estradiol 2 mg oral tablet 2 tablet, By Mouth, Daily, # 60 tablet, 0 Refills, Maintenance, 01/09/21 16:05:00 EST, [facility] #[id number], 177, cm, 10/15/20 13:53:00 EST, Height, 95, kg, 07/16/20 0:55:00 EDT, Dry Weight Start Date: 01/09/21 Status: Ordered Gabapentin By Mouth, 0 Refills, Maintenance, 09/02/20 11:12:00 EST Start Date: 09/02/20 Status: Ordered hydrOXYzine hydrochloride 25 mg oral tablet See Instructions, take 1-2 tabs qd prn for severe anxiety or insomnia, # 180 tablet, 1 Refills, Maintenance, 05/14/20 18:08:00 EDT, [facility] #[id number], 178, cm, 12/11/19 14:34:00 EST, Height Start Date: 05/14/20 Status: Ordered spironolactone 50 mg oral tablet 1 tablet, By Mouth, 2 times a day, # 60 tablet, 0 Refills, Maintenance, 01/09/21 16:06:00 EST, [facility] #[id number], 177, cm, 10/15/20 13:53:00 EST, Height, 95, kg, 07/16/20 0:55:00 EDT, Dry Weight Start Date: 01/09/21 Status: Ordered traZODone 50 mg oral tablet See Instructions, TAKE 1 TABLET BY MOUTH AT BEDTIME NEEDED FOR INSOMNIA, # 90 tablet, Refills 1,Tot. Refills 1, 05/14/20 18:08:00 EDT, Instructions Replace Required Details, Route to Pharmacy Electronically, [facility] #[id number], 292, cm, 0... Start Date: 05/14/20 Status: Ordered Problem List Condition Effective Dates Status Health Status Inform ant Cvku-gy-shzomv transgender person(Confirmed) Active Gender Dysphoria(Confirmed) Active H/O left inguinal hernia repair(Confirmed) Active Homelessness(Confirmed) Active Depression(Confirmed) Active Social History Social History Type Response Smoking Status Former smoker; Other : quit many years ago; entered on: 08/10/16 Sex
--- OUTSIDE RECORDS SUMMARY | 2023-05-31 19:38 | XMS_ITS | Continuity of Care Document ---
Author Name Unknown Organization [facility] Address [address] [place] [address]- Care Team Providers Care Bartender Name Role Phone Charlotte MARIA, Blanka Angeles Primary Care Physician Encounter [facility] Date(s): 04/13/23 - 05/13/23 [facility] [address] [place] [address]- Allergies, Adverse Reactions, Alerts Substance Reaction Severity [...] 0 Refills, Maintenance, 06/03/22 10:50:00 EDT, Cream, [facility], Partial fill upon patient request if the prescription is for a schedule II opioid drug., 1 application Topically 2 times a da... Start Date: 06/03/22 Stop Date: 06/17/22 Status: Ordered clonazePAM 2 mg oral tablet See Instructions, TAKE 1 TABLET BY MOUTH THREE TIMES DAILY NEEDED FOR ANXIETY, # 90 tablet, 1 Refills, Maintenance, 03/04/22 8:44:00 EDT, [facility], 172, cm, 12/15/21 14:14:00 EST, Height, 95, kg, 03/03/21 23:10:00 EDT, Dry Weight Start Date: 03/04/22 Status: Ordered escitalopram 20 mg oral tablet 2 tablet = 40 mg, By Mouth, Daily, # 180 tablet, 1 Refills, Maintenance, 12/31/22 20:03:00 EST, [facility], Partial fill upon patient request if the prescription is for a schedule II opioiddrug., 172, cm, 09/13/22 10:14:00 EST, Height, 123.... Start Date: 12/31/22 Status: Ordered estradiol 2 mg oral tablet 2 tablet, By Mouth, Daily, # 60 tablet, 1 Refills, Maintenance, 03/07/23 16:36:00 EDT, [facility], 172, cm, 09/13/22 10:14:00 EST, Height, 123.3, kg, 06/03/22 10:06:00 EDT, Dry Weight Start Date: 03/07/23 Status: Ordered estradiol 2 mg oral tablet 2 tablet, By Mouth, Daily, # 60 tablet, 3 Refills, 07/22/22 8:26:00 EDT, [facility], 172,cm, 06/03/22 10:06:00 EDT, Height, 123.3, kg, 06/03/22 10:06:00 EDT, Dry Weight Start Date: 07/22/22 Status: Ordered gabapentin 300 mg oral capsule 300 mg, 1, capsule, By Mouth, 3 times a day, # 90 capsule, Refills 1, Tot. Refills 1, Maintenance, 07/27/22 13:12:00 EDT, Route to Pharmacy Electronically, [facility], Partial fill upon patient request if the prescription is for a schedule I... Start Date: 07/27/22 Status: Ordered gabapentin 300 mg oral capsule 1, capsule, By Mouth, 3 times a day, # 90 capsule, Refills 0, Maintenance, 07/27/22 13:13:00 EDT, Route to Pharmacy Electronically, [facility], 172, cm, 06/03/22 10:06:00 EDT, Height, 123.3, kg, 06/03/22 10:06:00 EDT, Dry Weight Start Date: 07/27/22 Status: Ordered hydrOXYzine hydrochloride 50 mg oral tablet 1 tablet, By Mouth, Daily at bedtime, # 30 tablet, 2 Refills, Maintenance, 05/27/22 9:46:00 EDT, [facility], 172, cm, 03/09/22 9:54:00 EDT, Height, 95, kg, 03/03/21 23:10:00 EDT, Dry Weight Start Date: 05/27/22 Status: Ordered lithium 450 mg oral tablet, extended release 1 tablet, By Mouth, Daily at bedtime, # 30 tablet, 0 Refills, [id number], 172, cm, 08/05/21 15:13:00 EDT, Height, 95, [...] FOR SLEEP, # 60 tablet, 0 Refills, [facility], 172, cm, 12/15/21 14:14:00 EST, Height, 95, kg, 03/03/21 23:10:00 EDT, Dry Weight Start Date: 01/28/22 Status: Ordered prazosin 5 mg oral capsule 5 mg, 1, capsule, By Mouth, Daily at bedtime, # 30 capsule, Refills 2, Tot. Refills 2, Maintenance,05/27/22 9:46:00 EDT, Route to Pharmacy Electronically, [facility], Partial fill upon patient request if the prescription is for a schedule I... Start Date: 05/27/22 Stop Date: 08/25/22 Status: Ordered Problem List Condition Confirmation Course Effective Dates Status Health St atus Informant Stage 3a chronic kidney disease (CKD) Confirmed Active Gender dysphoria Confirmed 08/17/22 Active Ctow-kx-vmbdpn transgender person Confirmed Active Gender Dysphoria Confirmed Active H/O left inguinal hernia repair Confirmed Active Homelessness Confirmed Active Depression Confirmed Active Mood disorder Confirmed 08/17/22 Active Social History Social History Type Response Smoking Status Former smoker; Other : quit many years ago; entered on: 08/10/16 Sex Patient Care team information Care Team Personnel Name: Blanak Porter MD Position: [facility] Physician - Primary Care Member Role: PCP Address: Address: [address] [place] [address] - [place] [address]- Care Team Related Persons Name: XAVIER BERKOWITZ Address: [address] [place] [address] Name: EDMOND SHIPMAN Address: [address] [place] [address]
--- OUTSIDE RECORDS SUMMARY | 2023-05-31 19:38 | XMS_ITS | Continuity of Care Document ---
Author Name Unknown Organization [facility] Address [address] [place] [address]- Care Team Providers Care Book Repairer Name Role Phone Talha LUJAN, Jessa Birch Primary Care Physician Encounter [facility] Date(s): 03/02/22 - 04/01/22 [facility] [address] [place] [address]- Allergies, Adverse Reactions, Alerts Substance Reaction Severity Status RisperDAL Active Immunizations Given and Recorded Vaccine Date Status Refusal Reason influenza virus vaccine, inactivated 07/02/21 Ahskan rded influenza virus vaccine, inactivated 07/15/20 Ashkan [...] tablet, 1 Refills, Maintenance, 03/04/22 8:44:00 EDT, [facility], 172, cm, 12/15/21 14:14:00 EST, Height, 95, kg, 03/03/21 23:10:00 EDT, Dry Weight Start Date: 03/04/22 Status: Ordered escitalopram 20 mg oral tablet 2 tablet = 40 mg, By Mouth, Daily, # 180 tablet, 1 Refills, Maintenance, 03/04/22 8:44:00 EDT, [facility], Partial fill upon patient request if the prescription is for a schedule II opioid drug., 172, cm, 12/15/21 14:14:00 EST, Height, 95, k... Start Date: 03/04/22 Status: Ordered estradiol 2 mg oral tablet 2 tablet, By Mouth, Daily, # 60 tablet, 0 Refills, Maintenance, 02/11/22 9:20:00 EDT, [facility], 172, cm, 12/15/21 14:14:00 EST, Height, 95, kg, 03/03/21 23:10:00 EDT, Dry Weight Start Date: 02/11/22 Status: Ordered estradiol 2 mg oral tablet 2 tablet, By Mouth, Daily, # 60 tablet, 3 Refills, [facility], 172, cm, 12/15/21 14:14:00EST, Height, 95, kg, 03/03/21 23:10:00 EDT, Dry Weight Start Date: 02/11/22 Status: Ordered gabapentin 300 mg oral capsule 300 mg, 1, capsule, By Mouth, 3 times a day, # 90 capsule, Refills 1, Tot. Refills 1, Maintenance, 03/30/22 9:52:00 EDT, Route to Pharmacy Electronically, [facility], Partial fill upon patient request if the prescription is for a schedule II... Start Date: 03/30/22 Status: Ordered hydrOXYzine hydrochloride 50 mg oral tablet 1 tablet, By Mouth, Daily at bedtime, # 30 tablet, 0 Refills, Maintenance, 03/04/22 8:44:00 EDT, [facility], 172, cm, 12/15/21 14:14:00 EST, Height, 95, kg, 03/03/21 23:10:00 EDT, Dry Weight Start Date: 03/04/22 Status: Ordered lithium 450 mg oral tablet, extended release 1 tablet, By Mouth, Daily at bedtime, # 30 tablet, 0 Refills, [facility] , 172, cm, 08/05/21 15:13:00 EDT, Height, [...] FOR SLEEP, # 60 tablet, 0 Refills, [facility], 172, cm, 12/15/21 14:14:00 EST, Height, 95, kg, 03/03/21 23:10:00 EDT, Dry Weight Start Date: 01/28/22 Status: Ordered prazosin 5 mg oral capsule 5 mg, 1, capsule, By Mouth, Daily at bedtime, # 30 capsule, Refills 1, Tot. Refills 1, Maintenance,03/04/22 8:44:00 EDT, Route to Pharmacy Electronically, [facility], Partial fill upon patient request if the prescription is for a schedule I... Start Date: 03/04/22 Stop Date: 05/03/22 Status: Ordered Problem List Condition Effective Dates Status Health Status Inform ant Urdw-km-aoqowu transgender person(Confirmed) Active Gender Dysphoria(Confirmed) Active H/O left inguinal hernia repair(Confirmed) Active Homelessness(Confirmed) Active Depression(Confirmed) Active Severe obesity(Confirmed) Active Social History Social History Type Response Smoking Status Former smoker; Other : quit many years ago; entered on: 08/10/16 Sex
--- OUTSIDE RECORDS SUMMARY | 2023-05-31 19:38 | XMS_ITS | Continuity of Care Document ---
Author Name Unknown Organization [facility] Address [address] [place] [address]- Care Team Providers Care Inside Contractor Sales Name Role Phone Talha LUJAN, Jessa Birch Primary Care Physician [phone] Encounter [facility] Date(s): 03/09/22 - 04/08/22 [facility] [address] [place] [address]- Attending Physician: Phoenix Day Admitting Physician: Phoenix Day Referring Physician: AdmtrPhoenix Allergies, Adverse Reactions, Alerts Substance Reaction Severity [...] tablet, 1 Refills, Maintenance, 03/04/22 8:44:00 EDT, [facility], 172, cm, 12/15/21 14:14:00 EST, Height, 95, kg, 03/03/21 23:10:00 EDT, Dry Weight Start Date: 03/04/22 Status: Ordered escitalopram 20 mg oral tablet 2 tablet = 40 mg, By Mouth, Daily, # 180 tablet, 1 Refills, Maintenance, 03/04/22 8:44:00 EDT, [facility], Partial fill upon patient request if the prescription is for a schedule II opioid drug., 172, cm, 12/15/21 14:14:00 EST, Height, 95, k... Start Date: 03/04/22 Status: Ordered estradiol 2 mg oral tablet 2 tablet, By Mouth, Daily, # 60 tablet, 0 Refills, Maintenance, 02/11/22 9:20:00 EDT, [facility], 172, cm, 12/15/21 14:14:00 EST, Height, 95, kg, 03/03/21 23:10:00 EDT, Dry Weight Start Date: 02/11/22 Status: Ordered estradiol 2 mg oral tablet 2 tablet, By Mouth, Daily, # 60 tablet, 3 Refills, [facility], 172, cm, 12/15/21 14:14:00EST, Height, 95, kg, 03/03/21 23:10:00 EDT, Dry Weight Start Date: 02/11/22 Status: Ordered gabapentin 300 mg oral capsule 300 mg, 1, capsule, By Mouth, 3 times a day, # 90 capsule, Refills 1, Tot. Refills 1, Maintenance, 03/30/22 9:52:00 EDT, Route to Pharmacy Electronically, [facility], Partial fill upon patient request if the prescription is for a schedule II... Start Date: 03/30/22 Status: Ordered hydrOXYzine hydrochloride 50 mg oral tablet 1 tablet, By Mouth, Daily at bedtime, # 30 tablet, 0 Refills, Maintenance, 03/04/22 8:44:00 EDT, [facility], 172, cm, 12/15/21 14:14:00 EST, Height, 95, kg, 03/03/21 23:10:00 EDT, Dry Weight Start Date: 03/04/22 Status: Ordered lithium 450 mg oral tablet, extended release 1 tablet, By Mouth, Daily at bedtime, # 30 tablet, 0 Refills, [facility] [id number], 172, cm, 08/05/21 15:13:00 EDT, Height, 95, [...] FOR SLEEP, # 60 tablet, 0 Refills, [facility], 172, cm, 12/15/21 14:14:00 EST, Height, 95, kg, 03/03/21 23:10:00 EDT, Dry Weight Start Date: 01/28/22 Status: Ordered prazosin 5 mg oral capsule 5 mg, 1, capsule, By Mouth, Daily at bedtime, # 30 capsule, Refills 1, Tot. Refills 1, Maintenance,03/04/22 8:44:00 EDT, Route to Pharmacy Electronically, [facility], Partial fill upon patient request if the prescription is for a schedule I... Start Date: 03/04/22 Stop Date: 05/03/22 Status: Ordered Problem List Condition Effective Dates Status Health Status Inform ant Vrsn-cs-wnisqf transgender person(Confirmed) Active Gender Dysphoria(Confirmed) Active H/O left inguinal hernia repair(Confirmed) Active Homelessness(Confirmed) Active Depression(Confirmed) Active Severe obesity(Confirmed) Active Social History Social History Type Response Smoking Status Former smoker; Other : quit many years ago; entered on: 08/10/16 Sex
--- OUTSIDE RECORDS SUMMARY | 2023-05-31 19:38 | XMS_ITS | Continuity of Care Document ---
Author Name Unknown Organization [facility] Address [address] [place] [address]- Care Team Providers Care Exam Proctor Name Role Phone Brendon LUJAN, Juan Fuentes Primary Care Physician Encounter [facility] Date(s): 12/16/20 - 01/15/21 [facility] [address] [place] [address]- Allergies, Adverse Reactions, Alerts Substance Reaction Severity [...] tablet, 1 Refills, Maintenance, 08/28/20 14:18:00 EDT, [facility] #[id number], 177, cm, 08/05/20 10:50:00 EDT, Height, 95, kg, 07/16/20 0:55:00 EDT, Dry Weight Start Date: 08/28/20 Status: Ordered clonazePAM 2 mg oral tablet See Instructions, TAKE 1 TABLET BY MOUTH THREE TIMES DAILY NEEDED FOR ANXIETY, # 90 tablet, 2 Refills, Maintenance, 10/13/20 17:14:00 EST, [facility] #[id number], 177, cm, 09/05/20 8:05:00 EST, Height, 95, kg, 07/16/20 0:55:00 EDT, Dry Weight Start Date: 10/13/20 Status: Ordered clonazePAM 2 mg oral tablet 1 tablet = 2 mg, By Mouth, 3 times a day, PRN Anxiety, # 90 tablet, 0 Refills, Maintenance, 08/15/20 17:38:00 EDT, Tablet, [facility] #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, 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, 177, cm, 08/05/20 10:50:00 EDT, Height, 95, kg, 07/16/20 0:55:00 EDT, Dry Weight Start Date: 08/15/20 Stop Date: 09/14/20 Status: Ordered estradiol 2 mg oral tablet 2 tablet, By Mouth, Daily, # 60 tablet, 0 Refills, Maintenance, 01/09/21 16:05:00 EST, [facility] #[id number], 177, cm, 10/15/20 13:53:00 EST, Height, 95, kg, 07/16/20 0:55:00 EDT, Dry Weight Start Date: 01/09/21 Status: Ordered Gabapentin By Mouth, 0 Refills, Maintenance, 09/02/20 11:12:00 EST Start Date: 09/02/20 Status: Ordered hydrOXYzine hydrochloride 25 mg oral tablet See Instructions, take 1-2 tabs qd prn for severe anxiety or insomnia, # 180 tablet, 1 Refills, Maintenance, 05/14/20 18:08:00 EDT, [facility] #[id number], 178, cm, 12/11/19 14:34:00 EST, Height Start Date: 05/14/20 Status: Ordered spironolactone 50 mg oral tablet 1 tablet, By Mouth, 2 times a day, # 60 tablet, 0 Refills, Maintenance, 01/09/21 16:06:00 EST, [facility] #[id number], 177, cm, 10/15/20 13:53:00 EST, Height, 95, kg, 07/16/20 0:55:00 EDT, Dry Weight Start Date: 01/09/21 Status: Ordered traZODone 50 mg oral tablet See Instructions, TAKE 1 TABLET BY MOUTH AT BEDTIME NEEDED FOR INSOMNIA, # 90 tablet, Refills 1,Tot. Refills 1, 05/14/20 18:08:00 EDT, Instructions Replace Required Details, Route to Pharmacy Electronically, [facility] #[id number], 729, cm, 0... Start Date: 05/14/20 Status: Ordered Problem List Condition Effective Dates Status Health Status Inform ant Kbmq-js-wuowov transgender person(Confirmed) Active Gender Dysphoria(Confirmed) Active H/O left inguinal hernia repair(Confirmed) Active Homelessness(Confirmed) Active Depression(Confirmed) Active Social History Social History Type Response Smoking Status Former smoker; Other : quit many years ago; entered on: 08/10/16 Sex
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
--- OUTSIDE RECORDS SUMMARY | 2023-05-31 19:38 | XMS_ITS | Continuity of Care Document ---
Author Name Unknown Organization [facility] Address [address] [place] [address]- Care Team Providers Care 2Nd Grade Teacher Name Role Phone Brendon LUJAN, Juan Fuentes Primary Care Physician [phone] [facility] Date(s): 08/05/21 - 09/04/21 [facility] [address] [place] [address]- Attending Physician: Phoenix Day Admitting Physician: Phoenix [...] tablet, 2 Refills, Maintenance, 04/30/21 16:13:00 EDT, [facility]/pharmacy #[id number], 177, cm, 10/15/20 13:53:00 EST, Height, 95, kg, 03/03/21 23:10:00 EDT, Dry Weight Start Date: 04/30/21 Status: Ordered escitalopram 20 mg oral tablet 2 tablet = 40 mg, By Mouth, Daily, # 180 tablet, 1 Refills, Maintenance, 06/30/21 17:00:00 EDT, [id number], Partial fill upon patient request if the prescription is for a schedule II opioid drug., 172, cm, 06/30/21 15:09:00 ED... Start Date: 06/30/21 Status: Ordered estradiol 2 mg oral tablet 2 tablet, By Mouth, Daily, # 60 tablet, 0 Refills, Maintenance, 08/21/21 11:44:00 EDT, [facility]/pharmacy#[id number], 172, cm, 08/05/21 15:13:00 EDT, Height, 95, kg, 03/03/21 23:10:00 EDT, Dry Weight Start Date: 08/21/21 Status: Ordered gabapentin 300 mg oral capsule 300 mg, 1, capsule, By Mouth, 3 times a day, # 90 capsule, Refills 1, Tot. Refills 1, Maintenance, 06/30/21 17:03:00 EDT, Route to Pharmacy Electronically, [facility], Partial fill upon patient request if the prescription is f... Start Date: 06/30/21 Status: Ordered hydrOXYzine pamoate 50 mg oral capsule 1 capsule, By Mouth, Daily at bedtime, # 90 capsule, 0 Refills, Maintenance, 07/27/21 17:30:00 EDT,[facility]/pharmacy #[id number], 172, cm, 07/15/21 13:16:00 EDT, Height, 95, kg, 03/03/21 23:10:00 EDT, Dry Weight Start Date: 07/27/21 Status: Ordered lithium 450 mg oral tablet, extended release 1 tablet = 450 mg, By Mouth, Daily at bedtime, DOSE CHANGE 08/17/21, # 30 tablet, 1 Refills, Maintenance, 08/17/21 16:05:00 EDT, ER [facility], Partial fill upon patient request if the prescription is for a schedule II opioid drug., 172, cm, 08/05/21 15:1... Start Date: 08/17/21 Stop Date: 10/16/21 Status: Ordered prazosin 5 mg oral capsule 5 mg, 1, capsule, By Mouth, Daily at bedtime, # 30 capsule, Refills 1, Tot. Refills 1, Maintenance,06/30/21 17:07:00 EDT, Route to Pharmacy Electronically, [facility], Partial fill upon patient request if the prescription is... Start Date: 06/30/21 Stop Date: 08/29/21 Status: Ordered Problem List Condition Effective Dates Status Health Status Inform ant Yjfh-ei-qicuim transgender person(Confirmed) Active Gender Dysphoria(Confirmed) Active H/O left inguinal hernia repair(Confirmed) Active Homelessness(Confirmed) Active Depression(Confirmed) Active Social History Social History Type Response Smoking Status Former smoker; Other : quit many years ago; entered on: 08/10/16 Sex
--- OUTSIDE RECORDS SUMMARY | 2023-05-31 19:38 | XMS_ITS | Continuity of Care Document ---
Author Name Unknown Organization [facility] Address [address] [place] [address]- Care Team Providers Care Health Safety Engineer Name Role Phone Charlotte MARIA, Blanka Angeles Primary Care Physician Encounter [facility] Date(s): 04/28/23 - 05/28/23 [facility] [address] [place], [place] [address] Attending Physician: Phoenix Day Admitting Physician: AdmtrPhoenix Referring Physician: [id number] Allergies, Adverse Reactions, Alerts Substance Reaction Severity [...] 0 Refills, Maintenance, 06/03/22 10:50:00 EDT, Cream, [facility], Partial fill upon patient request if the prescription is for a schedule II opioid drug., 1 application Topically 2 times a da... Start Date: 06/03/22 Stop Date: 06/17/22 Status: Ordered clonazePAM 2 mg oral tablet See Instructions, TAKE 1 TABLET BY MOUTH THREE TIMES DAILY NEEDED FOR ANXIETY, # 90 tablet, 1 Refills, Maintenance, 03/04/22 8:44:00 EDT, [facility], 172, cm, 12/15/21 14:14:00 EST, Height, 95, kg, 03/03/21 23:10:00 EDT, Dry Weight Start Date: 03/04/22 Status: Ordered escitalopram 20 mg oral tablet 2 tablet = 40 mg, By Mouth, Daily, # 180 tablet, 1 Refills, Maintenance, 12/31/22 20:03:00 EST, [facility], Partial fill upon patient request if the prescription is for a schedule II opioiddrug., 172, cm, 09/13/22 10:14:00 EST, Height, 123.... Start Date: 12/31/22 Status: Ordered estradiol 2 mg oral tablet 2 tablet, By Mouth, Daily, # 60 tablet, 1 Refills, Maintenance, 03/07/23 16:36:00 EDT, [facility], 172, cm, 09/13/22 10:14:00 EST, Height, 123.3, kg, 06/03/22 10:06:00 EDT, Dry Weight Start Date: 03/07/23 Status: Ordered estradiol 2 mg oral tablet 2 tablet, By Mouth, Daily, # 60 tablet, 3 Refills, 07/22/22 8:26:00 EDT, [facility], 172,cm, 06/03/22 10:06:00 EDT, Height, 123.3, kg, 06/03/22 10:06:00 EDT, Dry Weight Start Date: 07/22/22 Status: Ordered gabapentin 300 mg oral capsule 300 mg, 1, capsule, By Mouth, 3 times a day, # 90 capsule, Refills 1, Tot. Refills 1, Maintenance, 07/27/22 13:12:00 EDT, Route to Pharmacy Electronically, [facility], Partial fill upon patient request if the prescription is for a schedule I... Start Date: 07/27/22 Status: Ordered gabapentin 300 mg oral capsule 1, capsule, By Mouth, 3 times a day, # 90 capsule, Refills 0, Maintenance, 07/27/22 13:13:00 EDT, Route to Pharmacy Electronically, [facility], 172, cm, 06/03/22 10:06:00 EDT, Height, 123.3, kg, 06/03/22 10:06:00 EDT, Dry Weight Start Date: 07/27/22 Status: Ordered hydrOXYzine hydrochloride 50 mg oral tablet 1 tablet, By Mouth, Daily at bedtime, # 30 tablet, 2 Refills, Maintenance, 05/27/22 9:46:00 EDT, [facility], 172, cm, 03/09/22 9:54:00 EDT, Height, 95, kg, 03/03/21 23:10:00 EDT, Dry Weight Start Date: 05/27/22 Status: Ordered lithium 450 mg oral tablet, extended release 1 tablet, By Mouth, Daily at bedtime, # 30 tablet, 0 Refills, [facility] , 172, cm, 08/05/21 15:13:00 EDT, Height, [...] FOR SLEEP, # 60 tablet, 0 Refills, [facility], 172, cm, 12/15/21 14:14:00 EST, Height, 95, kg, 03/03/21 23:10:00 EDT, Dry Weight Start Date: 01/28/22 Status: Ordered prazosin 5 mg oral capsule 5 mg, 1, capsule, By Mouth, Daily at bedtime, # 30 capsule, Refills 2, Tot. Refills 2, Maintenance,05/27/22 9:46:00 EDT, Route to Pharmacy Electronically, [facility], Partial fill upon patient request if the prescription is for a schedule I... Start Date: 05/27/22 Stop Date: 08/25/22 Status: Ordered Problem List Condition Confirmation Course Effective Dates Status Health St [facility] Informant Stage 3a chronic kidney disease (CKD) Confirmed Active Gender dysphoria Confirmed 08/17/22 Active Bafj-lx-fipbct transgender person Confirmed Active Gender Dysphoria Confirmed Active H/O left inguinal hernia repair Confirmed Active Homelessness Confirmed Active Depression Confirmed Active Mood disorder Confirmed 08/17/22 Active Social History Social History Type Response Smoking Status Former smoker; Other : quit many years ago; entered on: 08/10/16 Sex Laboratory * Event Display: Non BH Lab Results Authored Date: * Event Display: Non BH Lab Results Authored Date: * Event Display: Non BH Lab Results Authored Date: Patient Care team information Care Team Personnel Name: Blanka Porter MD Position: [facility] Physician - Primary Care Member Role: PCP Address: Address: [address] [place] [address]- Care Team Related Persons Name: XAVIER BERKOWITZ Address: home [address] [place] [address] Name: EDMOND SHIPMAN Address: [address] [place] [address]
--- OUTSIDE RECORDS SUMMARY | 2023-05-31 19:38 | XMS_ITS | Continuity of Care Document ---
Author Name Unknown Organization [facility] Address [address] [place] [address]- Care Team Providers Care Die Repairer Stamping Name Role Phone Juan Olivas NP Primary Care Physician Encounter [facility] Date(s): 05/06/21 - 05/13/21 [facility] [address] [place] [address]- Encounter Diagnosis Depression(Discharge Diagnosis) - 05/06/21 Attending Physician: Juan Olivas NP Allergies, Adverse [...] tablet, 0 Refills, Maintenance, 01/09/21 16:05:00 EST, [facility] #[id number], 177, cm, 10/15/20 13:53:00 EST, Height, 95, kg, 07/16/20 0:55:00 EDT, Dry Weight Start Date: 01/09/21 Status: Ordered Gabapentin By Mouth, 0 Refills, Maintenance, 09/02/20 11:12:00 EST Start Date: 09/02/20 Status: Ordered hydrOXYzine pamoate 50 mg oral capsule 1 capsule = 50 mg, By Mouth, Daily at bedtime, # 90 capsule, 0 Refills, Maintenance, 04/30/21 16:12:00 EDT, [facility]/pharmacy #[id number], Partial fill upon patient request if the prescription is for a scheduleII opioid drug., 177, cm, 10/15/20 13:53:00 EST, He... Start Date: 04/30/21 Status: Ordered spironolactone 50 mg oral tablet 1 tablet, By Mouth, 2 times a day, # 60 tablet, 0 Refills, Maintenance, 01/09/21 16:06:00 EST, [facility] #[id number], 177, cm, 10/15/20 13:53:00 EST, Height, 95, kg, 07/16/20 0:55:00 EDT, Dry Weight Start Date: 01/09/21 Status: Ordered traZODone 100 mg oral tablet 200 mg, 2, tablet, By Mouth, Daily at bedtime, # 180 tablet, Refills 0, Tot. Refills 0, Maintenance, 04/30/21 16:11:00 EDT, Route to Pharmacy Electronically, [facility]/pharmacy #[id number], Partial fill upon patient request if the prescription is for a schedule I... Start Date: 04/30/21 Status: Ordered Problem List Condition Effective Dates Status Health Status Inform ant Rvrz-fp-ckwghi transgender person(Confirmed) Active Gender Dysphoria(Confirmed) Active H/O left inguinal hernia repair(Confirmed) Active Homelessness(Confirmed) Active Depression(Confirmed) Active Diagnosis Diagnosis Type Effective Dates Health Status [facility] Service Informant Depression Discharge Diagnosis 05/06/21 Vital Signs Most recent to oldest [Reference Range]: 1 Height 0 cm (05/06/21 10:13 AM) Oxygen Saturation [94-100 %] 98 % (05/06/21 10:13 AM) Pulse Rate [55-90 bpm] 76 bpm (05/06/21 10:13 AM) Blood Pressure [90-138/55-84 mm Hg] 129/ 74mm Hg (05/06/21 10:13 AM) Blood pressure sites Arm, left (05/06/21 10:13 AM) Social History Social History Type Response Smoking Status Former smoker; Other : quit many years ago; entered on: 08/10/16 Sex
--- OUTSIDE RECORDS SUMMARY | 2023-05-31 19:39 | XMS_ITS | Continuity of Care Document ---
Author Name Unknown Organization [facility] Address [address] [place] [address]- Care Team Providers Care Fine Arts Teacher Name Role Phone Talha LUJAN, Jessa Birch Primary Care Physician Encounter [facility] Date(s): 03/02/22 - 04/01/22 [facility] [address] [place] [address]- Allergies, Adverse Reactions, Alerts Substance Reaction Severity [...] tablet, 1 Refills, Maintenance, 03/04/22 8:44:00 EDT, [facility], 172, cm, 12/15/21 14:14:00 EST, Height, 95, kg, 03/03/21 23:10:00 EDT, Dry Weight Start Date: 03/04/22 Status: Ordered escitalopram 20 mg oral tablet 2 tablet = 40 mg, By Mouth, Daily, # 180 tablet, 1 Refills, Maintenance, 03/04/22 8:44:00 EDT, [facility], Partial fill upon patient request if the prescription is for a schedule II opioid drug., 172, cm, 12/15/21 14:14:00 EST, Height, 95, k... Start Date: 03/04/22 Status: Ordered estradiol 2 mg oral tablet 2 tablet, By Mouth, Daily, # 60 tablet, 0 Refills, Maintenance, 02/11/22 9:20:00 EDT, [facility], 172, cm, 12/15/21 14:14:00 EST, Height, 95, kg, 03/03/21 23:10:00 EDT, Dry Weight Start Date: 02/11/22 Status: Ordered estradiol 2 mg oral tablet 2 tablet, By Mouth, Daily, # 60 tablet, 3 Refills, [facility], 172, cm, 12/15/21 14:14:00EST, Height, 95, kg, 03/03/21 23:10:00 EDT, Dry Weight Start Date: 02/11/22 Status: Ordered gabapentin 300 mg oral capsule 300 mg, 1, capsule, By Mouth, 3 times a day, # 90 capsule, Refills 1, Tot. Refills 1, Maintenance, 03/30/22 9:52:00 EDT, Route to Pharmacy Electronically, [facility], Partial fill upon patient request if the prescription is for a schedule II... Start Date: 03/30/22 Status: Ordered hydrOXYzine hydrochloride 50 mg oral tablet 1 tablet, By Mouth, Daily at bedtime, # 30 tablet, 0 Refills, Maintenance, 03/04/22 8:44:00 EDT, [facility], 172, cm, 12/15/21 14:14:00 EST, Height, 95, kg, 03/03/21 23:10:00 EDT, Dry Weight Start Date: 03/04/22 Status: Ordered lithium 450 mg oral tablet, extended release 1 tablet, By Mouth, Daily at bedtime, # 30 tablet, 0 Refills, [facility] , 172, cm, 08/05/21 15:13:00 EDT, Height, [...] FOR SLEEP, # 60 tablet, 0 Refills, [facility], 172, cm, 12/15/21 14:14:00 EST, Height, 95, kg, 03/03/21 23:10:00 EDT, Dry Weight Start Date: 01/28/22 Status: Ordered prazosin 5 mg oral capsule 5 mg, 1, capsule, By Mouth, Daily at bedtime, # 30 capsule, Refills 1, Tot. Refills 1, Maintenance,03/04/22 8:44:00 EDT, Route to Pharmacy Electronically, [facility], Partial fill upon patient request if the prescription is for a schedule I... Start Date: 03/04/22 Stop Date: 05/03/22 Status: Ordered Problem List Condition Effective Dates Status Health Status Inform ant Vdbp-zk-blldgc transgender person(Confirmed) Active Gender Dysphoria(Confirmed) Active H/O left inguinal hernia repair(Confirmed) Active Homelessness(Confirmed) Active Depression(Confirmed) Active Severe obesity(Confirmed) Active Social History Social History Type Response Smoking Status Former smoker; Other : quit many years ago; entered on: 08/10/16 Sex
--- OUTSIDE RECORDS SUMMARY | 2023-05-31 19:39 | XMS_ITS | Continuity of Care Document ---
Author Name Unknown Organization [facility] Address [address] [place] [address]- Care Team Providers Care Rivet Tapping Machine Operator Name Role Phone Talha LUJAN, Jessa Birch Primary Care Physician Encounter [facility] Date(s): 03/10/22 - 04/09/22 [facility] [address] [place] [address]- Allergies, Adverse Reactions, Alerts Substance Reaction Severity [...] tablet, 1 Refills, Maintenance, 03/04/22 8:44:00 EDT, [facility], 172, cm, 12/15/21 14:14:00 EST, Height, 95, kg, 03/03/21 23:10:00 EDT, Dry Weight Start Date: 03/04/22 Status: Ordered escitalopram 20 mg oral tablet 2 tablet = 40 mg, By Mouth, Daily, # 180 tablet, 1 Refills, Maintenance, 03/04/22 8:44:00 EDT, [facility], Partial fill upon patient request if the prescription is for a schedule II opioid drug., 172, cm, 12/15/21 14:14:00 EST, Height, 95, k... Start Date: 03/04/22 Status: Ordered estradiol 2 mg oral tablet 2 tablet, By Mouth, Daily, # 60 tablet, 0 Refills, Maintenance, 02/11/22 9:20:00 EDT, [facility], 172, cm, 12/15/21 14:14:00 EST, Height, 95, kg, 03/03/21 23:10:00 EDT, Dry Weight Start Date: 02/11/22 Status: Ordered estradiol 2 mg oral tablet 2 tablet, By Mouth, Daily, # 60 tablet, 3 Refills, [facility], 172, cm, 12/15/21 14:14:00EST, Height, 95, kg, 03/03/21 23:10:00 EDT, Dry Weight Start Date: 02/11/22 Status: Ordered gabapentin 300 mg oral capsule 300 mg, 1, capsule, By Mouth, 3 times a day, # 90 capsule, Refills 1, Tot. Refills 1, Maintenance, 03/30/22 9:52:00 EDT, Route to Pharmacy Electronically, [facility], Partial fill upon patient request if the prescription is for a schedule II... Start Date: 03/30/22 Status: Ordered hydrOXYzine hydrochloride 50 mg oral tablet 1 tablet, By Mouth, Daily at bedtime, # 30 tablet, 0 Refills, Maintenance, 03/04/22 8:44:00 EDT, [facility], 172, cm, 12/15/21 14:14:00 EST, [...] FOR SLEEP, # 60 tablet, 0 Refills, [facility], 172, cm, 12/15/21 14:14:00 EST, Height, 95, kg, 03/03/21 23:10:00 EDT, Dry Weight Start Date: 01/28/22 Status: Ordered prazosin 5 mg oral capsule 5 mg, 1, capsule, By Mouth, Daily at bedtime, # 30 capsule, Refills 1, Tot. Refills 1, Maintenance,03/04/22 8:44:00 EDT, Route to Pharmacy Electronically, [facility], Partial fill upon patient request if the prescription is for a schedule I... Start Date: 03/04/22 Stop Date: 05/03/22 Status: Ordered Problem List Condition Effective Dates Status Health Status Inform ant Qzuc-oy-bjdmhh transgender person(Confirmed) Active Gender Dysphoria(Confirmed) Active H/O left inguinal hernia repair(Confirmed) Active Homelessness(Confirmed) Active Depression(Confirmed) Active Severe obesity(Confirmed) Active Social History Social History Type Response Smoking Status Former smoker; Other : quit many years ago; entered on: 08/10/16 Sex
--- OUTSIDE RECORDS SUMMARY | 2023-05-31 19:39 | XMS_ITS | Continuity of Care Document ---
Author Name Unknown Organization [facility] Address [address] [place] [address]- Care Team Providers Care Human Relations Teacher Name Role Phone Christine LUJAN, Joaquina Schmitt Primary Care Physician Encounter [facility] Date(s): 12/11/19 - 12/11/[address] [address]- [facility] Attending Physician: Joaquina King NP Allergies, [...] 90 tablet, 0 Refills, Maintenance, 11/20/19 11:07:00 [facility] #[id number], 178, cm, 01/10/19 14:52:00 EDT, Height Start Date: 11/20/19 Status: Ordered clonazePAM 2 mg oral tablet 1 tablet = 2 mg, By Mouth, 3 times a day, PRN Anxiety, [facility] [employer] reviewed. please call Dr. Wiley to schedule f/u for further refills. [phone], # 90 tablet, 0 Refills, Maintenance, 11/20/19 13:35:00 EST, [facility] #[id number], 178, cm, 03... Start Date: 11/20/19 Stop Date: 12/20/19 Status: Ordered estradiol 2 mg oral tablet See Instructions, 3 tablets By Mouth Daily, # 90 tablet, 2 Refills, Maintenance, 11/22/19 16:41:00 EST, [facility] #[id number], Patient has office visit scheduled, 178, cm, [...] 05/10/19 13:52:10 EDT, Route to Pharmacy Electronically, [id number], [facility] [id number] Start Date: 05/10/19 Status: Ordered traZODone 50 mg oral tablet 50 mg, 1, tablet, By Mouth, Daily at bedtime, PRN, # 30 tablet, Refills 5, Tot. Refills 5, Maintenance, Insomnia, 05/10/19 13:52:11 EDT, Route to Pharmacy Electronically, [id number], [facility] [id number] Start Date: 05/10/19 Status: Ordered Problem List Condition Effective Dates Status Health Status Inform ant Wade-wz-bxzedn transgender person(Confirmed) Active Gender Dysphoria(Confirmed) Active H/O left inguinal hernia repair(Confirmed) Active Homelessness(Confirmed) Active Depression(Confirmed) Active Social History Social History Type Response Smoking Status Former smoker; Other : quit many years ago; entered on: 08/10/16 Sex
--- OUTSIDE RECORDS SUMMARY | 2023-05-31 19:39 | XMS_ITS | Continuity of Care Document ---
Author Name Unknown Organization [facility] Address [address] [place] [address]- Care Team Providers Care Stained Glass Joiner Name Role Phone Brendon LUJAN, Juan Fuentes Primary Care Physician Encounter [facility] [id number] Date(s): 07/15/21 - 07/22/21 [facility] [address] [place] [address]- Encounter Diagnosis Elevated serum creatinine(Discharge Diagnosis) - 07/17/21 Mghq-af-qfohpu transgender person(Discharge Diagnosis) - 07/17/21 Attending Physician: Juan Olivas NP Allergies, Adverse [...] tablet, 2 Refills, Maintenance, 04/30/21 16:13:00 EDT, [facility]/pharmacy #[id number], 177, cm, 10/15/20 13:53:00 EST, Height, 95, kg, 03/03/21 23:10:00 EDT, Dry Weight Start Date: 04/30/21 Status: Ordered escitalopram 20 mg oral tablet 2 tablet = 40 mg, By Mouth, Daily, # 180 tablet, 1 Refills, Maintenance, 06/30/21 17:00:00 EDT, [facility], Partial fill upon patient request if the prescription is for a schedule II opioid drug., 172niki, 06/30/21 15:09:00 ED... Start Date: 06/30/21 Status: Ordered estradiol 2 mg oral tablet 2 tablet, By Mouth, Daily, # 60 tablet, 0 Refills, Maintenance, 06/30/21 17:02:00 EDT, [facility], 172, cm, 06/30/21 15:09:00 EDT, Height, 95, kg, 03/03/21 23:10:00 EDT, Dry Weight Start Date: 06/30/21 Status: Ordered gabapentin 300 mg oral capsule 300 mg, 1, capsule, By Mouth, 3 times a day, # 90 capsule, Refills 1, Tot. Refills 1, Maintenance, 06/30/21 17:03:00 EDT, Route to Pharmacy Electronically, [facility], Partial fill upon patient request if the prescription is f... Start Date: 06/30/21 Status: Ordered hydrOXYzine hydrochloride 50 mg oral tablet 1 tablet = 50 mg, By Mouth, Daily at bedtime, # 30 tablet, 2 Refills, Soft Stop, 06/30/21 17:06:00 EDT, [facility], Partial fill upon patient request if the prescription is for a schedule II opioid drug., niki Spears, 06/30/21 15:... Start Date: 06/30/21 Stop Date: 09/28/21 Status: Ordered lithium 150 mg oral capsule 3 capsule = 450 mg, By Mouth, 2 times a day, # 180 capsule, 1 Refills, Maintenance, 06/30/21 17:04:00 EDT, Capsule, [facility], Partial fill upon patient request if the prescription is for a schedule II opioid drug., 172, cm,... Start Date: 06/30/21 Status: Ordered melatonin 10 mg oral tablet 1 tablet = 10 mg, By Mouth, Daily at bedtime, PRN as needed for insomnia, for 30 days, # 30 tablet,0 Refills, Acute 07/30/21 17:05:00 EDT, 06/30/21 17:05:00 EDT, Tablet, [facility]-, Partial fill upon patient request if the pr... Start Date: 06/30/21 Stop Date: 07/30/21 Status: Ordered prazosin 5 mg oral capsule 5 mg, 1, capsule, By Mouth, Daily at bedtime, # 30 capsule, Refills 1, Tot. Refills 1, Maintenance,06/30/21 17:07:00 EDT, Route to Pharmacy Electronically, [facility], Partial fill upon patient request if the prescription is... Start Date: 06/30/21 Stop Date: 08/29/21 Status: Ordered Problem List Condition Effective Dates Status Health Status Inform ant Pbof-cw-gcxoew transgender person(Confirmed) Active Gender Dysphoria(Confirmed) Active H/O left inguinal hernia repair(Confirmed) Active Homelessness(Confirmed) Active Depression(Confirmed) Active Diagnosis Diagnosis Type Effective Dates Health Status Clinical Service Informant Elevated serum creatinine Discharge Diagnosis 07/17/21 Mpmy-sg-pfgkfs transgender person Discharge Diagnosis 07/17/21 Vital Signs Most recent to oldest [Reference Range]: 1 Height 172 cm (07/15/21 1:16 PM) Social History Social History Type Response Smoking Status Former smoker; Other : quit many years ago; entered on: 08/10/16 Sex
--- OUTSIDE RECORDS SUMMARY | 2023-05-31 19:39 | XMS_ITS | Continuity of Care Document ---
Author Name Unknown Organization [facility] Address [address] [place] [address]- Care Team Providers Care Manager Furniture Name Role Phone Brendon LUJAN, Juan Fuentes Primary Care Physician [phone] Encounter [facility] [place] Date(s): 08/13/21 - 09/12/21 [facility] [address] [place] [address]- Allergies, Adverse Reactions, Alerts Substance Reaction Severity [...] tablet, 2 Refills, Maintenance, 04/30/21 16:13:00 EDT, [facility]/pharmacy #[id number], 177, cm, 10/15/20 13:53:00 EST, Height, 95, kg, 03/03/21 23:10:00 EDT, Dry Weight Start Date: 04/30/21 Status: Ordered escitalopram 20 mg oral tablet 2 tablet = 40 mg, By Mouth, Daily, # 180 tablet, 1 Refills, Maintenance, 06/30/21 17:00:00 EDT, [facility], Partial fill upon patient request if the prescription is for a schedule II opioid drug., 172, cm, 06/30/21 15:09:00 ED... Start Date: 06/30/21 Status: Ordered estradiol 2 mg oral tablet 2 tablet, By Mouth, Daily, # 60 tablet, 0 Refills, Maintenance, 08/21/21 11:44:00 EDT, [facility]/pharmacy#[id number], 172, cm, 08/05/21 15:13:00 EDT, Height, 95, kg, 03/03/21 23:10:00 EDT, Dry Weight Start Date: 08/21/21 Status: Ordered gabapentin 300 mg oral capsule 300 mg, 1, capsule, By Mouth, 3 times a day, # 90 capsule, Refills 1, Tot. Refills 1, Maintenance, 09/09/21 11:02:00 EST, [id number] Partial fill upon patient request if the prescription is for a schedule II... Start Date: 09/09/21 Status: Ordered hydrOXYzine pamoate 50 mg oral capsule 1 capsule, By Mouth, Daily at bedtime, # 90 capsule, 0 Refills, Maintenance, 07/27/21 17:30:00 EDT,[facility]/pharmacy #[id number], 172, cm, 07/15/21 13:16:00 EDT, Height, [...] Maintenance,06/30/21 17:07:00 EDT, Route to Pharmacy Electronically, [facility]-, Partial fill upon patient request if the prescription is... Start Date: 06/30/21 Stop Date: 08/29/21 Status: Ordered Problem List Condition Effective Dates Status Health Status Inform ant Hzyb-en-wlixrp transgender person(Confirmed) Active Gender Dysphoria(Confirmed) Active H/O left inguinal hernia repair(Confirmed) Active Homelessness(Confirmed) Active Depression(Confirmed) Active Social History Social History Type Response Smoking Status Former smoker; Other : quit many years ago; entered on: 08/10/16 Sex
--- OUTSIDE RECORDS SUMMARY | 2023-05-31 19:39 | XMS_ITS | Continuity of Care Document ---
Author Name Unknown Organization [facility] Address [address] [place] [address]- Care Team Providers Care Restorer Lace And Textiles Name Role Phone Brendon LUJAN, Juan Fuentes Primary Care Physician [phone] Encounter [facility] [place] [facility] [id number] Date(s): 10/15/20 - 11/14/20 [facility] [address] [place] [address]- Attending Physician: Phoenix Day Admitting Physician: Phoenix [...] tablet, 1 Refills, Maintenance, 08/28/20 14:18:00 EDT, [facility] #[id number], 177, cm, 08/05/20 10:50:00 EDT, Height, 95, kg, 07/16/20 0:55:00 EDT, Dry Weight Start Date: 08/28/20 Status: Ordered clonazePAM 2 mg oral tablet See Instructions, TAKE 1 TABLET BY MOUTH THREE TIMES DAILY NEEDED FOR ANXIETY, # 90 tablet, 2 Refills, Maintenance, 10/13/20 17:14:00 EST, [facility] #[id number], 177, cm, 09/05/20 8:05:00 EST, Height, 95, kg, 07/16/20 0:55:00 EDT, Dry Weight Start Date: 10/13/20 Status: Ordered clonazePAM 2 mg oral tablet 1 tablet = 2 mg, By Mouth, 3 times a day, PRN Anxiety, # 90 tablet, 0 Refills, Maintenance, 08/15/20 17:38:00 EDT, Tablet, [facility] #[id number], outside machinist helper reivewed, 177, cm, 08/05/20 10:50:00 EDT, Height, 95, kg, 07/16/20 0:55:00 EDT, Dry Weight Start Date: 08/15/20 Stop Date: 09/14/20 Status: Ordered estradiol 2 mg oral tablet 2 tablet, By Mouth, Daily, # 60 tablet, 0 Refills, Maintenance, 11/14/20 12:20:00 EST, [facility] #[id number], 177, cm, 10/15/20 13:53:00 EST, Height, 95, kg, 07/16/20 0:55:00 EDT, Dry Weight Start Date: 11/14/20 Status: Ordered Gabapentin By Mouth, 0 Refills, Maintenance, 09/02/20 11:12:00 EST Start Date: 09/02/20 Status: Ordered hydrOXYzine hydrochloride 25 mg oral tablet See Instructions, take 1-2 tabs qd prn for severe anxiety or insomnia, # 180 tablet, 1 Refills, Maintenance, 05/14/20 18:08:00 EDT, [facility] #[id number], 178, cm, 12/11/19 14:34:00 EST, Height Start Date: 05/14/20 Status: Ordered spironolactone 50 mg oral tablet 1 tablet = 50 mg, By Mouth, 2 times a day, # 60 tablet, 4 Refills, Maintenance, 08/05/20 12:21:00 EDT, Tablet, [facility] #[id number], 177, cm, 08/05/20 10:50:00 EDT, Height, 95, kg, 07/16/20 0:55:00 EDT, Dry Weight Start Date: 08/05/20 Status: Ordered traZODone 50 mg oral tablet See Instructions, TAKE 1 TABLET BY MOUTH AT BEDTIME NEEDED FOR INSOMNIA, # 90 tablet, Refills 1,Tot. Refills 1, 05/14/20 18:08:00 EDT, Instructions Replace Required Details, Route to Pharmacy Electronically, [facility] #[id number], 178, cm, 0... Start Date: 05/14/20 Status: Ordered Problem List Condition Effective Dates Status Health Status Inform ant Jwnr-ps-mgkive transgender person(Confirmed) Active Gender Dysphoria(Confirmed) Active H/O left inguinal hernia repair(Confirmed) Active Homelessness(Confirmed) Active Depression(Confirmed) Active Social History Social History Type Response Smoking Status Former smoker; Other : quit many years ago; entered on: 08/10/16 Sex
--- OUTSIDE RECORDS SUMMARY | 2023-05-31 19:39 | XMS_ITS | Continuity of Care Document ---
Author Name Unknown Organization [facility] Address [address] [place] [address]- Care Team Providers Care Disc Pad Grinding Machine Feeder Name Role Phone Brendon LUJAN, Juan Fuentes Primary Care Physician [place] [facility] [place]07[place]20 - 09/06/20 [facility] [address] [place] [address]- Allergies, Adverse Reactions, Alerts Substance Reaction Severity [...] tablet, 1 Refills, Maintenance, 08/28/20 14:18:00 EDT, [facility] #[id number], 177, cm, 08/05/20 10:50:00 EDT, Height, 95, kg, 07/16/20 0:55:00 EDT, Dry Weight Start Date: 08/28/20 Status: Ordered clonazePAM 2 mg oral tablet 1 tablet = 2 mg, By Mouth, 3 times a day, PRN Anxiety, # 90 tablet, 0 Refills, Maintenance, 08/15/20 17:38:00 EDT, Tablet, [facility] #[id number], dye worker reivewed, 177, cm, 08/05/20 10:50:00 EDT, Height, 95, kg, 07/16/20 0:55:00 EDT, Dry Weight Start Date: 08/15/20 Stop Date: 09/14/20 Status: Ordered clonazePAM 2 mg oral tablet See Instructions, TAKE 1 TABLET BY MOUTH THREE TIMES DAILY NEEDED FOR ANXIETY, # 90 tablet, 2 Refills, Maintenance, 08/28/20 14:13:00 EDT, [facility] #[id number], 177, cm, 08/05/20 10:50:00 EDT, Height, 95, kg, 07/16/20 0:55:00 EDT, Dry Weight Start Date: 08/28/20 Status: Ordered estradiol 2 mg oral tablet See Instructions, 2 tablets By Mouth Daily, # 60 tablet, 2 Refills, Maintenance, 07/22/20 17:07:00 EDT, [facility] #[id number], Patient has office visit scheduled, 177, cm, 07/16/20 0:55:00 EDT,Height, 95, kg, 07/16/20 0:55:00 EDT, Dry Weight Start Date: 07/22/20 Status: Ordered Gabapentin By Mouth, 0 Refills, Maintenance, 09/02/20 11:12:00 EST Start Date: 09/02/20 Status: Ordered hydrOXYzine hydrochloride 25 mg oral tablet See Instructions, take 1-2 tabs qd prn for severe anxiety or insomnia, # 180 tablet, 1 Refills, Maintenance, 05/14/20 18:08:00 EDT, [facility] #[id number], 178, cm, 12/11/19 14:34:00 EST, Height Start Date: 05/14/20 Status: Ordered naproxen 500 mg oral tablet 1 tablet = 500 mg, By Mouth, 2 times a day, for 14 days, with food, # 28 tablet, 0 Refills, Acute 09/19/20 8:27:00 EST, 09/05/20 8:27:00 EST, Tablet, [facility] #[id number], 177, cm, 09/05/20 8:05:00 EST, Height, 95, kg, 07/16/20 0:55:00 EDT, Dry... Start Date: 09/05/20 Stop Date: 09/19/20 Status: Ordered spironolactone 50 mg oral tablet 1 tablet = 50 mg, By Mouth, 2 times a day, # 60 tablet, 4 Refills, Maintenance, 08/05/20 12:21:00 EDT, Tablet, [facility] #[id number], 177, cm, 08/05/20 10:50:00 EDT, Height, 95, kg, 07/16/20 0:55:00 EDT, Dry Weight Start Date: 08/05/20 Status: Ordered traZODone 50 mg oral tablet See Instructions, TAKE 1 TABLET BY MOUTH AT BEDTIME NEEDED FOR INSOMNIA, # 90 tablet, Refills 1,Tot. Refills 1, 05/14/20 18:08:00 EDT, Instructions Replace Required Details, Route to Pharmacy Electronically, [facility] #[id number], 178, cm, 0... Start Date: 05/14/20 Status: Ordered Problem List Condition Effective Dates Status Health Status Inform ant Mekx-ah-ozzwrv transgender person(Confirmed) Active Gender Dysphoria(Confirmed) Active H/O left inguinal hernia repair(Confirmed) Active Homelessness(Confirmed) Active Depression(Confirmed) Active Social History Social History Type Response Smoking Status Former smoker; Other : quit many years ago; entered on: 08/10/16 Sex
--- OUTSIDE RECORDS SUMMARY | 2023-05-31 19:39 | XMS_ITS | Continuity of Care Document ---
Author Name Unknown Organization [facility] Address [address] [place] [address]- Care Team Providers Care Lead Oracle Developer Name Role Phone Not on Staff, PCP Primary Care Physician Unavail able Encounter [facility] Date(s): 07/15/20 - 07/16/[address] [address]- [facility] Discharge Disposition: A-D/C Home Attending Physician: Catherine Forte MD Admitting Physician: Catherine Forte MD Referring Physician: Not on Staff, Referring MD Allergies, Adverse Reactions, Alerts Substance Reaction [...] tablet, 1 Refills, Maintenance, 01/15/20 17:11:00 EDT, [facility] #[id number], 178, cm, 12/11/19 14:34:00 EST, Height Start Date: 01/15/20 Status: Ordered clonazePAM 2 mg oral tablet 1 tablet = 2 mg, By Mouth, 3 times a day, PRN Anxiety, # 90 tablet, 2 Refills, Maintenance, 05/14/20 18:03:00 EDT, Tablet, [facility] #[id number], bit sharpener reivewed, 178, cm, 12/11/19 14:34:00 EST, Height Start Date: 05/14/20 Stop Date: 08/12/20 Status: Ordered estradiol 2 mg oral tablet See Instructions, 2 tablets By Mouth Daily, # 60 tablet, 2 Refills, Maintenance, 04/14/20 14:45:00 EDT, [facility] #[id number], Patient has office visit scheduled, 178, cm, 12/11/19 14:34:00 EST, Height Start Date: 04/14/20 Status: Ordered hydrOXYzine hydrochloride 25 mg oral tablet See Instructions, take 1-2 tabs qd prn for severe anxiety or insomnia, # 180 tablet, 1 Refills, Maintenance, 05/14/20 18:08:00 EDT, [facility] #[id number], 178, cm, 12/11/19 14:34:00 EST, Height Start Date: 05/14/20 Status: Ordered perphenazine 2 mg oral tablet 2 mg, 1, tablet, By Mouth, 2 times a day, # 90 tablet, Refills 5, Tot. Refills 5, Maintenance, 01/15/20 17:16:00 EDT, Route to Pharmacy Electronically, [facility] #[id number], dec'd to bid on 06/19, 178, cm, 12/11/19 14:34:00 EST, Height Start Date: 01/15/20 Status: Ordered traZODone 50 mg oral tablet See Instructions, TAKE 1 TABLET BY MOUTH AT BEDTIME NEEDED FOR INSOMNIA, # 90 tablet, Refills 1,Tot. Refills 1, 05/14/20 18:08:00 EDT, Instructions Replace Required Details, Route to Pharmacy Electronically, [facility] #[id number], 178, cm, 0... Start Date: 05/14/20 Status: Ordered Problem List Condition Effective Dates Status Health Status Inform ant Ynet-oq-whykrv transgender person(Confirmed) Active Gender Dysphoria(Confirmed) Active H/O left inguinal hernia repair(Confirmed) Active Homelessness(Confirmed) Active Depression(Confirmed) Active Vital Signs Most recent to oldest [Reference Range]: 1 2 Height 177 cm (07/16/20 12:55 AM) 177 cm (07/15/20 10:38 PM) Weight 95 kg (07/16/20 12:55 AM) 95 kg (07/15/20 10:38 PM) Oxygen Saturation [94-100 %] 98 % (07/16/20 12:55 AM) 99 % (07/15/20 10:38 PM) Pulse Rate [55-90 bpm] 64 bpm (07/16/20 12:55 AM) 70 bpm (07/15/20 10:38 PM) Body Mass Index [18.5-24.99] 30.32 *>HHI* (07/16/20 12:55 AM) Blood Pressure [90-138/55-84 mm Hg] 120/ 65mm Hg (07/16/20 12:55 AM) 153/78mm Hg *H* (07/15/20 10:38 PM) Respiratory Rate [16-30 br/min] 16 br/mi n (07/16/20 12:55 AM) 15 br/min *L* (07/15/20 10:38 PM) Temperature [96.8-100.4 DegF] 98 DegF (07/15/20 10:38 PM) Mode of Delivery (Oxygen) Room air (07/16/20 12:55 AM) Room air (07/15/20 10:38 PM) Blood pressure sites Arm, left (07/16/20 12:55 AM) Arm, left (07/15/20 10:38 PM) Temperature Route Oral (07/15/20 10:38 PM) Dry Weight 95 kg (07/16/20 12:55 AM) 95 kg (07/15/20 10:38 PM) Weight Obtained Via Standing scale (07/15/20 10:38 PM) Dry Weight Obtained Via Standing scale (07/15/20 10:38 PM) Social History Social History Type Response Smoking Status Former smoker; Other : quit many years ago; entered on: 08/10/16 Sex
--- OUTSIDE RECORDS SUMMARY | 2023-05-31 19:39 | XMS_ITS | Continuity of Care Document ---
Author Name Unknown Organization [facility] Address [address] [place] [address]- Care Team Providers Care Hairspring I Inspector Name Role Phone Brendon LUJAN, Juan Fuentes Primary Care Physician Encounter [facility] [place] Date(s): 04/17/21 - 05/17/21 [facility] [address] [place] [address]- Allergies, Adverse Reactions, Alerts Substance Reaction Severity [...] a schedule II opioid drug., 177, cm, 12/16/20 13:53:00 EST, Height, 95, kg... Start Date: 04/30/21 Status: Ordered estradiol 2 mg oral tablet 2 tablet, By Mouth, Daily, # 60 tablet, 0 Refills, Maintenance, 01/09/21 16:05:00 EST, [id number], 177, cm, 10/15/20 13:53:00 EST, Height, 95, kg, 07/16/20 0:55:00 EDT, Dry Weight Start Date: 01/09/21 Status: Ordered Gabapentin By Mouth, 0 Refills, Maintenance, 09/02/20 11:12:00 EST Start Date: 09/02/20 Status: Ordered hydrOXYzine pamoate 50 mg oral capsule 1 capsule = 50 mg, By Mouth, Daily at bedtime, # 90 capsule, 0 Refills, Maintenance, 04/30/21 16:12:00 EDT, [facility]/pharmacy #[id number], Partial fill upon patient request if the prescription is for a scheduleII opioid drug., 177, cm, 10/15/20 13:53:00 EST, He... Start Date: 04/30/21 Status: Ordered spironolactone 50 mg oral tablet 1 tablet, By Mouth, 2 times a day, # 60 tablet, 0 Refills, Maintenance, 01/09/21 16:06:00 EST, [facility][id number], 177, cm, 10/15/20 13:53:00 EST, Height, 95, kg, 07/16/20 0:55:00 EDT, Dry Weight Start Date: 01/09/21 Status: Ordered traZODone 100 mg oral tablet 200 mg, 2, tablet, By Mouth, Daily at bedtime, # 180 tablet, Refills 0, Tot. Refills 0, Maintenance, 04/30/21 16:11:00 EDT, Route to Pharmacy Electronically, [facility]/pharmacy #[id number], Partial fill upon patient request if the prescription is for a schedule I... Start Date: 04/30/21 Status: Ordered Problem List Condition Effective Dates Status Health Status Inform ant Zksq-ex-qkaugu transgender person(Confirmed) Active Gender Dysphoria(Confirmed) Active H/O left inguinal hernia repair(Confirmed) Active Homelessness(Confirmed) Active Depression(Confirmed) Active Social History Social History Type Response Smoking Status Former smoker; Other : quit many years ago; entered on: 08/10/16 Sex
--- OUTSIDE RECORDS SUMMARY | 2023-05-31 19:39 | XMS_ITS | Continuity of Care Document ---
Author Name Unknown Organization [facility] Address [address] [place] [address]- Care Team Providers Care Helpdesk Manager Name Role Phone Brendon LUJAN, Juan Fuentes Primary Care Physician Encounter [facility] Date(s): 01/26/21 - 02/25/21 [facility] [address] [place] [address]- Attending Physician: Phoenix Day Admitting Physician: AdmPhoenix brumfield Referring Physician: Admtr, Phoenix Allergies, Adverse Reactions, Alerts Substance Reaction Severity [...] tablet, 1 Refills, Maintenance, 02/12/21 15:10:00 EDT, [facility] #[id number], 177, cm, 10/15/20 13:53:00 EST, Height, 95, kg, 07/16/20 0:55:00 EDT, Dry Weight Start Date: 02/12/21 Status: Ordered clonazePAM 2 mg oral tablet See Instructions, TAKE 1 TABLET BY MOUTH THREE TIMES DAILY NEEDED FOR ANXIETY, # 90 tablet, 2 Refills, Maintenance, 02/12/21 15:10:00 EDT, [facility] #[id number], 177, cm, 10/15/20 13:53:00 EST, Height, 95, kg, 07/16/20 0:55:00 EDT, Dry Weight Start Date: 02/12/21 Status: Ordered clonazePAM 2 mg oral tablet 1 tablet = 2 mg, By Mouth, 3 times a day, PRN Anxiety, # 90 tablet, 0 Refills, Maintenance, 08/15/20 17:38:00 EDT, Tablet, [facility] #[id number], credit analysis manager reivewed, 177, cm, 08/05/20 10:50:00 EDT, Height, 95, kg, 07/16/20 0:55:00 EDT, Dry Weight Start Date: 08/15/20 Stop Date: 09/14/20 Status: Ordered estradiol 2 mg oral tablet 2 tablet, By Mouth, Daily, # 60 tablet, 0 Refills, Maintenance, 01/09/21 16:05:00 EST, [facility] #[id number], 177, cm, 10/15/20 13:53:00 EST, Height, 95, kg, 07/16/20 0:55:00 EDT, Dry Weight Start Date: 01/09/21 Status: Ordered Gabapentin By Mouth, 0 Refills, Maintenance, 09/02/20 11:12:00 EST Start Date: 09/02/20 Status: Ordered hydrOXYzine hydrochloride 25 mg oral tablet See Instructions, take 1-2 tabs qd prn for severe anxiety or insomnia, # 180 tablet, 1 Refills, Maintenance, 05/14/20 18:08:00 EDT, [facility] #[id number], 178, cm, 12/11/19 14:34:00 EST, Height Start Date: 05/14/20 Status: Ordered spironolactone 50 mg oral tablet 1 tablet, By Mouth, 2 times a day, # 60 tablet, 0 Refills, Maintenance, 01/09/21 16:06:00 EST, [facility] #[id number], 177, cm, 10/15/20 13:53:00 EST, Height, 95, kg, 07/16/20 0:55:00 EDT, Dry Weight Start Date: 01/09/21 Status: Ordered traZODone 50 mg oral tablet See Instructions, TAKE 1 TABLET BY MOUTH AT BEDTIME NEEDED FOR INSOMNIA, # 90 tablet, Refills 1,Tot. Refills 1, 05/14/20 18:08:00 EDT, Instructions Replace Required Details, Route to Pharmacy Electronically, [facility] #[id number], 821, cm, 0... Start Date: 05/14/20 Status: Ordered Problem List Condition Effective Dates Status Health Status Inform ant Ekma-ix-ctbsfp transgender person(Confirmed) Active Gender Dysphoria(Confirmed) Active H/O left inguinal hernia repair(Confirmed) Active Homelessness(Confirmed) Active Depression(Confirmed) Active Social History Social History Type Response Smoking Status Former smoker; Other : quit many years ago; entered on: 08/10/16 Sex
--- OUTSIDE RECORDS SUMMARY | 2023-05-31 19:39 | XMS_ITS | Continuity of Care Document ---
Author Name Unknown Organization [facility] Address [address] [place] [address]- Care Team Providers Care Receptionist Scheduler Name Role Phone Talha LUJAN, Jessa Birch Primary Care Physician [place] [facility] [place] Date(s): 03/14/22 - 04/13/22 [facility] [address] [place] [address]- Allergies, Adverse Reactions, Alerts Substance Reaction Severity [...] tablet, 1 Refills, Maintenance, 03/04/22 8:44:00 EDT, [facility], 172, cm, 12/15/21 14:14:00 EST, Height, [...] tablet, 0 Refills, Maintenance, 02/11/22 9:20:00 EDT, [facility], 172, cm, 12/15/21 14:14:00 EST, Height, [...] at bedtime, # 30 tablet, 0 Refills, [facility] , 172, cm, 08/05/21 [...] FOR SLEEP, # 60 tablet, 0 Refills, [facility], 172, cm, 12/15/21 14:14:00 EST, Height, 95, kg, 03/03/21 23:10:00 EDT, Dry Weight Start Date: 01/28/22 Status: Ordered prazosin 5 mg oral capsule 5 mg, 1, capsule, By Mouth, Daily at bedtime, # 30 capsule, Refills 1, Tot. Refills 1, Maintenance,03/04/22 8:44:00 EDT, Route to Pharmacy Electronically, [facility], Partial fill upon patient request if the prescription is for a schedule I... Start Date: 03/04/22 Stop Date: 05/03/22 Status: Ordered Problem List Condition Effective Dates Status Health Status Inform ant Oycl-os-wensis transgender person(Confirmed) Active Gender Dysphoria(Confirmed) Active H/O left inguinal hernia repair(Confirmed) Active Homelessness(Confirmed) Active Depression(Confirmed) Active Severe obesity(Confirmed) Active Social History Social History Type Response Smoking Status Former smoker; Other : quit many years ago; entered on: 08/10/16 Sex
--- OUTSIDE RECORDS SUMMARY | 2023-05-31 19:39 | XMS_ITS | Continuity of Care Document ---
Author Name Unknown Organization [facility] Address [address] [place] [address]- Care Team Providers Care Assembling Fabricator Name Role Phone Brendon LUJAN, Juan Fuentes Primary Care Physician [place] [facility] [place]/21 [facility] [address] [place], [place] [address] Allergies, Adverse Reactions, Alerts Substance Reaction Severity [...] tablet, 2 Refills, Maintenance, 04/30/21 16:13:00 EDT, [facility]/pharmacy #[id number], 177, cm, 10/15/20 13:53:00 EST, Height, 95, kg, 03/03/21 23:10:00 EDT, Dry Weight Start Date: 04/30/21 Status: Ordered escitalopram 20 mg oral tablet 2 tablet = 40 mg, By Mouth, Daily, # 180 tablet, 1 Refills, Maintenance, 06/30/21 17:00:00 EDT, [id number], Partial fill upon patient request if the prescription is for a schedule II opioid drug., 172, cm, 06/30/21 15:09:00 ED... Start Date: 06/30/21 Status: Ordered estradiol 2 mg oral tablet 2 tablet, By Mouth, Daily, # 60 tablet, 0 Refills, Maintenance, 06/30/21 17:02:00 EDT, [facility]-[id number], 172, cm, 06/30/21 15:09:00 EDT, Height, 95, kg, 03/03/21 23:10:00 EDT, Dry Weight Start Date: 06/30/21 Status: Ordered gabapentin 300 mg oral capsule 300 mg, 1, capsule, By Mouth, 3 times a day, # 90 capsule, Refills 1, Tot. Refills 1, Maintenance, 06/30/21 17:03:00 EDT, Route to Pharmacy Electronically, [facility], Partial fill upon patient request if the prescription is f... Start Date: 06/30/21 Status: Ordered hydrOXYzine pamoate 50 mg oral capsule 1 capsule, By Mouth, Daily at bedtime, # 90 capsule, 0 Refills, Maintenance, 07/27/21 17:30:00 EDT,[facility]/pharmacy #[id number], 172, cm, 07/15/21 13:16:00 EDT, Height, 95, kg, 03/03/21 23:10:00 EDT, Dry Weight Start Date: 07/27/21 Status: Ordered lithium 150 mg oral capsule 3 capsule = 450 mg, By Mouth, 2 times a day, # 180 capsule, 1 Refills, Maintenance, 06/30/21 17:04:00 EDT, Capsule, [facility], Partial fill upon patient request if the prescription is for a schedule II opioid drug., 172, cm,... Start Date: 06/30/21 Status: Ordered prazosin 5 mg oral capsule 5 mg, 1, capsule, By Mouth, Daily at bedtime, # 30 capsule, Refills 1, Tot. Refills 1, Maintenance,06/30/21 17:07:00 EDT, Route to Pharmacy Electronically, [facility], Partial fill upon patient request if the prescription is... Start Date: 06/30/21 Stop Date: 08/29/21 Status: Ordered Problem List Condition Effective Dates Status Health Status Inform ant Salb-qq-wxlptz transgender person(Confirmed) Active Gender Dysphoria(Confirmed) Active H/O left inguinal hernia repair(Confirmed) Active Homelessness(Confirmed) Active Depression(Confirmed) Active Social History Social History Type Response Smoking Status Former smoker; Other : quit many years ago; entered on: 08/10/16 Sex
--- OUTSIDE RECORDS SUMMARY | 2023-05-31 19:39 | XMS_ITS | Continuity of Care Document ---
Author Name Unknown Organization [facility] Address [address] [place] [address]- Care Team Providers Care Jukebox Routeman Name Role Phone Brendon LUJAN, Juan Fuentes Primary Care Physician [phone] [id number] [address] [place] [address]- Encounter Diagnosis Gender Dysphoria(Discharge Diagnosis) - 10/16/20 Nifu-kx-cfwzzo transgender person(Discharge Diagnosis) - 10/16/20 Attending Physician: Juan Olivas NP Allergies, Adverse [...] tablet, 1 Refills, Maintenance, 08/28/20 14:18:00 EDT, [facility] #[id number], 177, cm, 08/05/20 10:50:00 EDT, Height, 95, kg, 07/16/20 0:55:00 EDT, Dry Weight Start Date: 08/28/20 Status: Ordered clonazePAM 2 mg oral tablet See Instructions, TAKE 1 TABLET BY MOUTH THREE TIMES DAILY NEEDED FOR ANXIETY, # 90 tablet, 2 Refills, Maintenance, 10/13/20 17:14:00 EST, [facility] #[id number], 177, cm, 09/05/20 8:05:00 EST, Height, 95, kg, 07/16/20 0:55:00 EDT, Dry Weight Start Date: 10/13/20 Status: Ordered clonazePAM 2 mg oral tablet 1 tablet = 2 mg, By Mouth, 3 times a day, PRN Anxiety, # 90 tablet, 0 Refills, Maintenance, 08/15/20 17:38:00 EDT, Tablet, [facility] #[id number], leg man reivewed, 177, cm, 08/05/20 10:50:00 EDT, Height, 95, kg, 07/16/20 0:55:00 EDT, Dry Weight Start Date: 08/15/20 Stop Date: 09/14/20 Status: Ordered estradiol 2 mg oral tablet See Instructions, 2 tablets By Mouth Daily, # 60 tablet, 2 Refills, Maintenance, 10/16/20 9:15:00 EST, [facility] #[id number], Patient has office visit scheduled, 177, cm, 10/15/20 13:53:00 EST,Height, 95, kg, 07/16/20 0:55:00 EDT, Dry Weight Start Date: 10/16/20 Status: Ordered Gabapentin By Mouth, 0 Refills, Maintenance, 09/02/20 11:12:00 EST Start Date: 09/02/20 Status: Ordered hydrOXYzine hydrochloride 25 mg oral tablet See Instructions, take 1-2 tabs qd prn for severe anxiety or insomnia, # 180 tablet, 1 Refills, Maintenance, 05/14/20 18:08:00 EDT, [facility] #[id number], 178, cm, 12/11/19 14:34:00 EST, Height Start Date: 05/14/20 Status: Ordered spironolactone 50 mg oral tablet 1 tablet = 50 mg, By Mouth, 2 times a day, # 60 tablet, 4 Refills, Maintenance, 08/05/20 12:21:00 EDT, Tablet, [facility] #[id number], 177, cm, 08/05/20 10:50:00 EDT, Height, 95, kg, 07/16/20 0:55:00 EDT, Dry Weight Start Date: 08/05/20 Status: Ordered traZODone 50 mg oral tablet See Instructions, TAKE 1 TABLET BY MOUTH AT BEDTIME NEEDED FOR INSOMNIA, # 90 tablet, Refills 1,Tot. Refills 1, 05/14/20 18:08:00 EDT, Instructions Replace Required Details, Route to Pharmacy Electronically, [facility] #[id number], 178, cm, 0... Start Date: 05/14/20 Status: Ordered Problem List Condition Effective Dates Status Health Status Inform ant Innn-fu-ykgaby transgender person(Confirmed) Active Gender Dysphoria(Confirmed) Active H/O left inguinal hernia repair(Confirmed) Active Homelessness(Confirmed) Active Depression(Confirmed) Active Diagnosis Diagnosis Type Effective Dates Health Status Clinical Service Informant Gender Dysphoria Discharge Diagnosis 10/16/20 Twih-vj-rhxeqn transgender person Discharge Diagnosis 10/16/20 Vital Signs Most recent to oldest [Reference Range]: 1 Height 177 cm (10/15/20 1:53 PM) Social History Social History Type Response Smoking Status Former smoker; Other : quit many years ago; entered on: 08/10/16 Sex
--- OUTSIDE RECORDS SUMMARY | 2023-05-31 19:39 | XMS_ITS | Continuity of Care Document ---
Author Name Unknown Organization [facility] Address [address] [place] [address]- Care Team Providers Care Medical Office Rep Name Role Phone Talha LUJAN, Jessa Birch Primary Care Physician [phone] [facility] [facility] Date(s): 06/03/22 - 07/03/22 [facility] [address] [place] [address]- Attending Physician: Phoenix Day Admitting Physician: Phoenix [...] Gm, 0 Refills, Maintenance, 06/03/22 10:50:00 EDT, [facility], Partial fill upon patient request if the prescription is for a schedule II opioid drug., 1 application Topically 2 times a da... Start Date: 06/03/22 Stop Date: 06/17/22 Status: Ordered clonazePAM 2 mg oral tablet See Instructions, TAKE 1 TABLET BY MOUTH THREE TIMES DAILY NEEDED FOR ANXIETY, # 90 tablet, 1 Refills, Maintenance, 03/04/22 8:44:00 EDT, [facility], 172, cm, 12/15/21 14:14:00 EST, Height, 95, kg, 03/03/21 23:10:00 EDT, Dry Weight Start Date: 03/04/22 Status: Ordered escitalopram 20 mg oral tablet 2 tablet = 40 mg, By Mouth, Daily, # 180 tablet, 1 Refills, Maintenance, 03/04/22 8:44:00 EDT, [facility], Partial fill upon patient request if the prescription is for a schedule II opioid drug., 172, cm, 12/15/21 14:14:00 EST, Height, 95, k... Start Date: 03/04/22 Status: Ordered estradiol 2 mg oral tablet 2 tablet, By Mouth, Daily, # 60 tablet, 0 Refills, Maintenance, 02/11/22 9:20:00 EDT, [facility], 172, cm, 12/15/21 14:14:00 EST, Height, 95, kg, 03/03/21 23:10:00 EDT, Dry Weight Start Date: 02/11/22 Status: Ordered estradiol 2 mg oral tablet 2 tablet, By Mouth, Daily, # 60 tablet, 3 Refills, [facility], 172, cm, 12/15/21 14:14:00EST, Height, 95, kg, 03/03/21 23:10:00 EDT, Dry Weight Start Date: 02/11/22 Status: Ordered gabapentin 300 mg oral capsule 300 mg, 1, capsule, By Mouth, 3 times a day, # 90 capsule, Refills 1, Tot. Refills 1, Maintenance, 06/25/22 16:50:00 EDT, Route to Pharmacy Electronically, [facility], Partial fill upon patient request if the prescription is for a schedule I... Start Date: 06/25/22 Status: Ordered gabapentin 300 mg oral capsule 1, capsule, By Mouth, 3 times a day, # 90 capsule, Refills 0, Maintenance, 06/25/22 16:50:00 EDT, Route to Pharmacy Electronically, [facility], 172, cm, 06/03/22 10:06:00 EDT, Height, 123.3, kg, 06/03/22 10:06:00 EDT, Dry Weight Start Date: 06/25/22 Status: Ordered hydrOXYzine hydrochloride 50 mg oral tablet 1 tablet, By Mouth, Daily at bedtime, # 30 tablet, 2 Refills, Maintenance, 05/27/22 9:46:00 EDT, [facility], 172, cm, 03/09/22 9:54:00 EDT, Height, 95, kg, 03/03/21 23:10:00 EDT, Dry Weight Start Date: 05/27/22 Status: Ordered lithium 450 mg oral tablet, extended release 1 tablet, By Mouth, Daily at bedtime, # 30 tablet, 0 Refills, [facility] , 172, cm, 08/05/21 15:13:00 [...] FOR SLEEP, # 60 tablet, 0 Refills, [facility], 172, cm, 12/15/21 14:14:00 EST, Height, 95, kg, 03/03/21 23:10:00 EDT, Dry Weight Start Date: 01/28/22 Status: Ordered prazosin 5 mg oral capsule 5 mg, 1, capsule, By Mouth, Daily at bedtime, # 30 capsule, Refills 2, Tot. Refills 2, Maintenance,05/27/22 9:46:00 EDT, Route to Pharmacy Electronically, [facility], Partial fill upon patient request if the prescription is for a schedule I... Start Date: 05/27/22 Stop Date: 08/25/22 Status: Ordered Problem List Condition Effective Dates Status Health Status Inform ant Stage 3a chronic kidney dise ase (CKD)(Confirmed) Active Pyjp-aw-hweqxv transgender person(Confirmed) Active Gender Dysphoria(Confirmed) Active H/O left inguinal hernia repair(Confirmed) Active Homelessness(Confirmed) Active Depression(Confirmed) Active Severe obesity(Confirmed) Active Social History Social History Type Response Smoking Status Former smoker; Other : quit many years ago; entered on: 08/10/16 Sex Care Team Personnel Name: Jessa Palencia NP [facility] [place] [address]
--- OUTSIDE RECORDS SUMMARY | 2023-05-31 19:39 | XMS_ITS | Continuity of Care Document ---
Author Name Unknown Organization [facility] Address [address] [place] [address]- Care Team Providers Care Fall Intern Name Role Phone Brendon LUJAN, Juan Fuentes Primary Care Physician Encounter [facility] Date(s): 09/02/20 - 09/09/20 [facility] [address] [place] [address]- Encounter Diagnosis Zjeg-ep-rgykbh transgender person(Discharge Diagnosis) - 09/03/20 Pelvic pain(Discharge Diagnosis) - 09/03/20 Attending Physician: Juan Olivas NP Allergies, Adverse [...] tablet, 1 Refills, Maintenance, 08/28/20 14:18:00 EDT, [facility] #[id number], 177, cm, 08/05/20 10:50:00 EDT, Height, 95, kg, 07/16/20 0:55:00 EDT, Dry Weight Start Date: 08/28/20 Status: Ordered clonazePAM 2 mg oral tablet 1 tablet = 2 mg, By Mouth, 3 times a day, PRN Anxiety, # 90 tablet, 0 Refills, Maintenance, 08/15/20 17:38:00 EDT, Tablet, [facility] #[id number], 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, 177, cm, 08/05/20 10:50:00 EDT, Height, 95, kg, 07/16/20 0:55:00 EDT, Dry Weight Start Date: 08/15/20 Stop Date: 09/14/20 Status: Ordered clonazePAM 2 mg oral tablet See Instructions, TAKE 1 TABLET BY MOUTH THREE TIMES DAILY NEEDED FOR ANXIETY, # 90 tablet, 2 Refills, Maintenance, 08/28/20 14:13:00 EDT, [facility] #[id number], 177, cm, 08/05/20 10:50:00 EDT, Height, 95, kg, 07/16/20 0:55:00 EDT, Dry Weight Start Date: 08/28/20 Status: Ordered estradiol 2 mg oral tablet See Instructions, 2 tablets By Mouth Daily, # 60 tablet, 2 Refills, Maintenance, 07/22/20 17:07:00 EDT, [facility] #[id number], Patient has office visit scheduled, 177, cm, 07/16/20 0:55:00 EDT,Height, 95, kg, 07/16/20 0:55:00 EDT, Dry Weight Start Date: 07/22/20 Status: Ordered Gabapentin By Mouth, 0 Refills, Maintenance, 09/02/20 11:12:00 EST Start Date: 09/02/20 Status: Ordered hydrOXYzine hydrochloride 25 mg oral tablet See Instructions, take 1-2 tabs qd prn for severe anxiety or insomnia, # 180 tablet, 1 Refills, Maintenance, 05/14/20 18:08:00 EDT, [facility] #[id number], 178, cm, 12/11/19 14:34:00 EST, Height Start Date: 05/14/20 Status: Ordered naproxen 500 mg oral tablet 1 tablet = 500 mg, By Mouth, 2 times a day, for 14 days, with food, # 28 tablet, 0 Refills, Acute 09/19/20 8:27:00 EST, 09/05/20 8:27:00 EST, Tablet, [facility] #[id number], 177, cm, 09/05/20 8:05:00 EST, Height, 95, kg, 07/16/20 0:55:00 EDT, Dry... Start Date: 09/05/20 Stop Date: 09/19/20 Status: Ordered spironolactone 50 mg oral tablet 1 tablet = 50 mg, By Mouth, 2 times a day, # 60 tablet, 4 Refills, Maintenance, 08/05/20 12:21:00 EDT, Tablet, [facility] #[id number], 177, cm, 08/05/20 10:50:00 EDT, Height, 95, kg, 07/16/20 0:55:00 EDT, Dry Weight Start Date: 08/05/20 Status: Ordered traZODone 50 mg oral tablet See Instructions, TAKE 1 TABLET BY MOUTH AT BEDTIME NEEDED FOR INSOMNIA, # 90 tablet, Refills 1,Tot. Refills 1, 05/14/20 18:08:00 EDT, Instructions Replace Required Details, Route to Pharmacy Electronically, [facility] #[id number], 178, cm, 0... Start Date: 05/14/20 Status: Ordered Problem List Condition Effective Dates Status Health Status Inform ant Mhcr-oq-bjmpnd transgender person(Confirmed) Active Gender Dysphoria(Confirmed) Active H/O left inguinal hernia repair(Confirmed) Active Homelessness(Confirmed) Active Depression(Confirmed) Active Diagnosis Diagnosis Type Effective Dates Health Status Clinical Service Informant Dqhy-vn-zkmecb transgender person Discharge Diagnosis 09/03/20 Pelvic pain Discharge Diagnosis 09/03/20 Vital Signs Most recent to oldest [Reference Range]: 1 Height 177 cm (09/02/20 2:11 PM) Social History Social History Type Response Smoking Status Former smoker; Other : quit many years ago; entered on: 08/10/16 Sex
--- OUTSIDE RECORDS SUMMARY | 2023-05-31 19:39 | XMS_ITS | Continuity of Care Document ---
Author Name Unknown Organization [facility] Address [address] [place] [address]- Care Team Providers Care Line Palletizer Name Role Phone Blanka Porter MD Primary Care Physician [facility] Date[facility]): 04/28/23 - 05/05/23 [facility] [address] [place] [address]- Encounter Diagnosis Elevated blood sugar level(Discharge Diagnosis) - 04/30/23 Bwhi-kp-adxzii transgender person(Discharge Diagnosis) - 04/30/23 Mood disorder(Discharge Diagnosis) - 04/30/23 Chronic diarrhea(Discharge Diagnosis) - 04/30/23 Attending Physician: Blanka Porter MD Allergies, Adverse [...] 0 Refills, Maintenance, 06/03/22 10:50:00 EDT, Cream, [facility], Partial fill upon patient request if the prescription is for a schedule II opioid drug., 1 application Topically 2 times a da... Start Date: 06/03/22 Stop Date: 06/17/22 Status: Ordered clonazePAM 2 mg oral tablet See Instructions, TAKE 1 TABLET BY MOUTH THREE TIMES DAILY NEEDED FOR ANXIETY, # 90 tablet, 1 Refills, Maintenance, 03/04/22 8:44:00 EDT, [facility], 172, cm, 12/15/21 14:14:00 EST, Height, 95, kg, 03/03/21 23:10:00 EDT, Dry Weight Start Date: 03/04/22 Status: Ordered escitalopram 20 mg oral tablet 2 tablet = 40 mg, By Mouth, Daily, # 180 tablet, 1 Refills, Maintenance, 12/31/22 20:03:00 EST, [facility], Partial fill upon patient request if the prescription is for a schedule II opioiddrug., 172, cm, 09/13/22 10:14:00 EST, Height, 123.... Start Date: 12/31/22 Status: Ordered estradiol 2 mg oral tablet 2 tablet, By Mouth, Daily, # 60 tablet, 1 Refills, Maintenance, 03/07/23 16:36:00 EDT, [facility], 172, cm, 09/13/22 10:14:00 EST, Height, 123.3, kg, 06/03/22 10:06:00 EDT, Dry Weight Start Date: 03/07/23 Status: Ordered estradiol 2 mg oral tablet 2 tablet, By Mouth, Daily, # 60 tablet, 3 Refills, 07/22/22 8:26:00 EDT, [facility], 172,cm, 06/03/22 10:06:00 EDT, Height, 123.3, kg, 06/03/22 10:06:00 EDT, Dry Weight Start Date: 07/22/22 Status: Ordered gabapentin 300 mg oral capsule 300 mg, 1, capsule, By Mouth, 3 times a day, # 90 capsule, Refills 1, Tot. Refills 1, Maintenance, 07/27/22 13:12:00 EDT, Route to Pharmacy Electronically, [facility], Partial fill upon patient request if the prescription is for a schedule I... Start Date: 07/27/22 Status: Ordered gabapentin 300 mg oral capsule 1, capsule, By Mouth, 3 times a day, # 90 capsule, Refills 0, Maintenance, 07/27/22 13:13:00 EDT, Route to Pharmacy Electronically, [facility], 172, cm, 06/03/22 10:06:00 EDT, Height, 123.3, kg, 06/03/22 10:06:00 EDT, Dry Weight Start Date: 07/27/22 Status: Ordered hydrOXYzine hydrochloride 50 mg oral tablet 1 tablet, By Mouth, Daily at bedtime, # 30 tablet, 2 Refills, Maintenance, 05/27/22 9:46:00 EDT, [facility], 172, cm, 03/09/22 9:54:00 EDT, Height, 95, kg, 03/03/21 23:10:00 EDT, Dry Weight Start Date: 05/27/22 Status: Ordered lithium 450 mg oral tablet, extended release 1 tablet, By Mouth, Daily at bedtime, # 30 tablet, 0 Refills, [facility] , 172, cm, 08/05/21 15:13:00 EDT, [...] FOR SLEEP, # 60 tablet, 0 Refills, [facility], 172, cm, 12/15/21 14:14:00 EST, Height, 95, kg, 03/03/21 23:10:00 EDT, Dry Weight Start Date: 01/28/22 Status: Ordered prazosin 5 mg oral capsule 5 mg, 1, capsule, By Mouth, Daily at bedtime, # 30 capsule, Refills 2, Tot. Refills 2, Maintenance,05/27/22 9:46:00 EDT, Route to Pharmacy Electronically, [facility], Partial fill upon patient request if the prescription is for a schedule I... Start Date: 05/27/22 Stop Date: 08/25/22 Status: Ordered Problem List Condition Confirmation Course Effective Dates Status Health St atus Informant Stage 3a chronic kidney disease (CKD) Confirmed Active Gender dysphoria Confirmed 08/17/22 Active Bheo-mj-hohkki transgender person Confirmed Active Gender Dysphoria Confirmed Active H/O left inguinal hernia repair Confirmed Active Homelessness Confirmed Active Depression Confirmed Active Mood disorder Confirmed 08/17/22 Active Diagnosis Diagnosis Type Effective Dates Health Status Clinical Service Informant Elevated blood sugar level Discharge Diagnosis 04/30/23 Miyi-bl-ngbulf transgender person Discharge Diagnosis 04/30/23 Mood disorder Discharge Diagnosis 04/30/23 Chronic diarrhea Discharge Diagnosis 04/30/23 Vital Signs Most recent to oldest [Reference Range]: 1 Height 172 cm (04/28/23 2:50 PM) Weight 116.7 kg (04/28/23 2:50 PM) Oxygen Saturation [94-100 %] 97 % (04/28/23 2:50 PM) Pulse Rate [55-90 bpm] 67 bpm (04/28/23 2:50 PM) Body Mass Index [18.5-24.99 kg/m2] 39.45 kg/m2 *>HHI* (04/28/23 2:50 PM) Blood Pressure [90-138/55-84 mm Hg] 123/ 79mm Hg (04/28/23 2:50 PM) Weight Obtained Via Standing scale (04/28/23 2:50 PM) Social History Social History Type Response Smoking Status Former smoker; Other : quit many years ago; entered on: 08/10/16 Sex Note * Mendy Preston: PERFORM, SIGN, VERIFY Event Display: Patient Education/Instruction Authored Date: [id number] [facility] Clinical Summary Name JOSE CONWAY Age 42 Years 1980 PCP Charlotte MARIA, Blanka Angeles PCP Visit Date 04/28/2023 14:45:00 Patient Instructions You had fingerstick labs today: Your random blood sugar is 124, but your A1c is 4.8 which is in the normal range. We'll keep an eyeon it but no other action needed today. Additional Instructions: Scheduled Appointments?? Future Appointments ?No Future Appointments Scheduled Follow-Up Instructions ?? Diagnosis Medications: Please continue your medications until [...] tab(s) Oral Daily. Refills: 3. Next Dose: Gabapentin (gabapentin 300 mg oral capsule) 1 capsule Oral 3 times a day. Refills: 0. Next Dose: Gabapentin (gabapentin 300 mg oral capsule) 1 capsule Oral 3 times a day. Refills: 1. Next Dose: HydrOXYzine (hydrOXYzine hydrochloride 50 mg oral tablet) 1 tab(s) Oral Daily at Bedtime. Refills: 2. Next Dose: Pillow (lithium 450 mg oral tablet, extended release) [...] orders Vital Signs Height 172 cm Weight 116.7 kg BMI 39.45 kg/m2 Blood Pressure 123 mm Hg/79 mm Hg Temperature Pulse Rate 67 bpm Respiratory Rate 02 Sat Mode of Delivery 97 %/ You can now view a summary of your hospital visit from the comfort of your home through a free online portal called [employer]. [employer] is a website that allows you to securely view your medical information including discharge summary, medications and follow-up visits. ??You can alsosend a secure electronic message to your doctor???s office to request appointments, renew medications or just ask a question. You can enroll at [email or web address] or register during your next office visit. [...] primary care provider, you may find a [facility] provider by calling [facility] [employer] Link at [phone]. For information about the plan of care [...] Team Personnel Name: Blanka Porter MD Position: [facility] Physician - Primary Care Member Role: PCP Address: Address: [address] [place] [address] [place] [address]- [place] Care Team Related Persons Name: XAVIER BERKOWITZ Address: [address] [place] [address] Name: EDMOND SHIPMAN Address: home [address] [place] [address]
--- OUTSIDE RECORDS SUMMARY | 2023-05-31 19:39 | XMS_ITS | Continuity of Care Document ---
Author Name Unknown Organization [facility] Address [address] [place] [address]- Care Team Providers Care Joss House Keeper Name Role Phone Talha LUJAN, Jessa Birch Primary Care Physician [phone] Encounter [facility] Date(s): 02/22/22 - 03/24/22 [facility] [address] [place] [address]- Allergies, Adverse Reactions, Alerts Substance Reaction Severity [...] tablet, 1 Refills, Maintenance, 03/04/22 8:44:00 EDT, [facility], 172, cm, 12/15/21 14:14:00 EST, Height, 95, kg, 03/03/21 23:10:00 EDT, Dry Weight Start Date: 03/04/22 Status: Ordered escitalopram 20 mg oral tablet 2 tablet = 40 mg, By Mouth, Daily, # 180 tablet, 1 Refills, Maintenance, 03/04/22 8:44:00 EDT, [facility], Partial fill upon patient request if the prescription is for a schedule II opioid drug., 172, cm, 12/15/21 14:14:00 EST, Height, 95, k... Start Date: 03/04/22 Status: Ordered estradiol 2 mg oral tablet 2 tablet, By Mouth, Daily, # 60 tablet, 0 Refills, Maintenance, 02/11/22 9:20:00 EDT, [facility], 172, cm, 12/15/21 14:14:00 EST, Height, 95, kg, 03/03/21 23:10:00 EDT, Dry Weight Start Date: 02/11/22 Status: Ordered estradiol 2 mg oral tablet 2 tablet, By Mouth, Daily, # 60 tablet, 3 Refills, [facility], 172, cm, 12/15/21 14:14:00EST, Height, 95, kg, 03/03/21 23:10:00 EDT, Dry Weight Start Date: 02/11/22 Status: Ordered gabapentin 300 mg oral capsule 300 mg, 1, capsule, By Mouth, 3 times a day, # 90 capsule, Refills 0, Tot. Refills 0, Maintenance, 02/26/22 11:51:00 EDT, Route to Pharmacy Electronically, [facility], Partial fill upon patient request if the prescription is for a schedule I... Start Date: 02/26/22 Status: Ordered hydrOXYzine hydrochloride 50 mg oral tablet 1 tablet, By Mouth, Daily at bedtime, # 30 tablet, 0 Refills, Maintenance, 03/04/22 8:44:00 EDT, [facility], 172, cm, 12/15/21 14:14:00 EST, Height, 95, kg, 03/03/21 23:10:00 EDT, Dry Weight Start Date: 03/04/22 Status: Ordered lithium 450 mg oral tablet, extended release 1 tablet, By Mouth, Daily at bedtime, # 30 tablet, 0 Refills, [facility] , 172, cm, 08/05/21 15:13:00 EDT, Height, [...] FOR SLEEP, # 60 tablet, 0 Refills, [facility], 172, cm, 12/15/21 14:14:00 EST, Height, 95, kg, 03/03/21 23:10:00 EDT, Dry Weight Start Date: 01/28/22 Status: Ordered prazosin 5 mg oral capsule 5 mg, 1, capsule, By Mouth, Daily at bedtime, # 30 capsule, Refills 1, Tot. Refills 1, Maintenance,03/04/22 8:44:00 EDT, Route to Pharmacy Electronically, [facility], Partial fill upon patient request if the prescription is for a schedule I... Start Date: 03/04/22 Stop Date: 05/03/22 Status: Ordered Problem List Condition Effective Dates Status Health Status Inform ant Ekct-ov-zybyys transgender person(Confirmed) Active Gender Dysphoria(Confirmed) Active H/O left inguinal hernia repair(Confirmed) Active Homelessness(Confirmed) Active Depression(Confirmed) Active Severe obesity(Confirmed) Active Social History Social History Type Response Smoking Status Former smoker; Other : quit many years ago; entered on: 08/10/16 Sex
--- OUTSIDE RECORDS SUMMARY | 2023-05-31 19:39 | XMS_ITS | Continuity of Care Document ---
Author Name Unknown Organization [facility] Address [address] [place] [address]- Care Team Providers Care National Dedicated Truck Driver Name Role Phone Charlotte MARIA, Blanka Angeles Primary Care Physician Encounter [facility] [facility] Date(s): 03/07/23 - 04/06/23 [facility] [address] [place], [place] [address] [place] Allergies, Adverse Reactions, Alerts Substance Reaction Severity [...] 0 Refills, Maintenance, 06/03/22 10:50:00 EDT, Cream, [facility], Partial fill upon patient request if the prescription is for a schedule II opioid drug., 1 application Topically 2 times a da... Start Date: 06/03/22 Stop Date: 06/17/22 Status: Ordered clonazePAM 2 mg oral tablet See Instructions, TAKE 1 TABLET BY MOUTH THREE TIMES DAILY NEEDED FOR ANXIETY, # 90 tablet, 1 Refills, Maintenance, 03/04/22 8:44:00 EDT, [facility], 172, cm, 12/15/21 14:14:00 EST, Height, 95, kg, 03/03/21 23:10:00 EDT, Dry Weight Start Date: 03/04/22 Status: Ordered escitalopram 20 mg oral tablet 2 tablet = 40 mg, By Mouth, Daily, # 180 tablet, 1 Refills, Maintenance, 12/31/22 20:03:00 EST, [facility], Partial fill upon patient request if the prescription is for a schedule II opioiddrug., 172, cm, 09/13/22 10:14:00 EST, Height, 123.... Start Date: 12/31/22 Status: Ordered estradiol 2 mg oral tablet 2 tablet, By Mouth, Daily, # 60 tablet, 1 Refills, Maintenance, 03/07/23 16:36:00 EDT, [facility], 172, cm, 09/13/22 10:14:00 EST, Height, 123.3, kg, 06/03/22 10:06:00 EDT, Dry Weight Start Date: 03/07/23 Status: Ordered estradiol 2 mg oral tablet 2 tablet, By Mouth, Daily, # 60 tablet, 3 Refills, 07/22/22 8:26:00 EDT, [facility], 172,cm, 06/03/22 10:06:00 EDT, Height, 123.3, kg, 06/03/22 10:06:00 EDT, Dry Weight Start Date: 07/22/22 Status: Ordered gabapentin 300 mg oral capsule 300 mg, 1, capsule, By Mouth, 3 times a day, # 90 capsule, Refills 1, Tot. Refills 1, Maintenance, 07/27/22 13:12:00 EDT, Route to Pharmacy Electronically, [facility], Partial fill upon patient request if the prescription is for a schedule I... Start Date: 07/27/22 Status: Ordered gabapentin 300 mg oral capsule 1, capsule, By Mouth, 3 times a day, # 90 capsule, Refills 0, Maintenance, 07/27/22 13:13:00 EDT, Route to Pharmacy Electronically, [facility], 172, cm, 06/03/22 10:06:00 EDT, Height, 123.3, kg, 06/03/22 10:06:00 EDT, Dry Weight Start Date: 07/27/22 Status: Ordered hydrOXYzine hydrochloride 50 mg oral tablet 1 tablet, By Mouth, Daily at bedtime, # 30 tablet, 2 Refills, Maintenance, 05/27/22 9:46:00 EDT, [facility], 172, cm, 03/09/22 9:54:00 EDT, Height, 95, kg, 03/03/21 23:10:00 EDT, Dry Weight Start Date: 05/27/22 Status: Ordered lithium 450 mg oral tablet, extended release 1 tablet, By Mouth, Daily at bedtime, # 30 tablet, 0 Refills, [facility] , 172, cm, 08/05/21 15:13:00 [...] FOR SLEEP, # 60 tablet, 0 Refills, [facility], 172, cm, 12/15/21 14:14:00 EST, Height, 95, kg, 03/03/21 23:10:00 EDT, Dry Weight Start Date: 01/28/22 Status: Ordered prazosin 5 mg oral capsule 5 mg, 1, capsule, By Mouth, Daily at bedtime, # 30 capsule, Refills 2, Tot. Refills 2, Maintenance,05/27/22 9:46:00 EDT, Route to Pharmacy Electronically, [facility], Partial fill upon patient request if the prescription is for a schedule I... Start Date: 05/27/22 Stop Date: 08/25/22 Status: Ordered Problem List Condition Confirmation Course Effective Dates Status Health St atus Informant Stage 3a chronic kidney disease (CKD) Confirmed Active Gender dysphoria Confirmed 08/17/22 Active Uyma-vf-cuxpsr transgender person Confirmed Active Gender Dysphoria Confirmed Active H/O left inguinal hernia repair Confirmed Active Homelessness Confirmed Active Depression Confirmed Active Mood disorder Confirmed 08/17/22 Active Severe obesity Confirmed Active Social History Social History Type Response Smoking Status Former smoker; Other : quit many years ago; entered on: 08/10/16 Sex Patient Care team information Care Team Personnel Name: Charlotte MARIA, Blanka Angeles Position: [facility] Physician - Primary Care Member Role: PCP Address: Address: [address] [place] [id number]- Care Team Related Persons Name: XAVIER BERKOWITZ Address: home [address] [place] [id number] Name: EDMOND SHIPMAN Address: home [address] [place] [address]
--- OUTSIDE RECORDS SUMMARY | 2023-05-31 19:39 | XMS_ITS | Continuity of Care Document ---
Author Name Unknown Organization [facility] Address [address] [place] [address]- Care Team Providers Care Parts Sales Representative Name Role Phone Talha LUJAN, Jessa Birch Primary Care Physician Encounter [facility] [place] Date(s): 03/14/22 - 04/13/22 [facility] [address] [place] [address]- Allergies, Adverse Reactions, Alerts Substance Reaction Severity [...] tablet, 1 Refills, Maintenance, 03/04/22 8:44:00 EDT, [facility], 172, cm, 12/15/21 14:14:00 EST, Height, 95, kg, 03/03/21 23:10:00 EDT, Dry Weight Start Date: 03/04/22 Status: Ordered escitalopram 20 mg oral tablet 2 tablet = 40 mg, By Mouth, Daily, # 180 tablet, 1 Refills, Maintenance, 03/04/22 8:44:00 EDT, [facility], Partial fill upon patient request if the prescription is for a schedule II opioid drug., 172, cm, 12/15/21 14:14:00 EST, Height, 95, k... Start Date: 03/04/22 Status: Ordered estradiol 2 mg oral tablet 2 tablet, By Mouth, Daily, # 60 tablet, 0 Refills, Maintenance, 02/11/22 9:20:00 EDT, [facility], 172, cm, 12/15/21 14:14:00 EST, Height, 95, kg, 03/03/21 23:10:00 EDT, Dry Weight Start Date: 02/11/22 Status: Ordered estradiol 2 mg oral tablet 2 tablet, By Mouth, Daily, # 60 tablet, 3 Refills, [facility], 172, cm, 12/15/21 14:14:00EST, Height, 95, kg, 03/03/21 23:10:00 EDT, Dry Weight Start Date: 02/11/22 Status: Ordered gabapentin 300 mg oral capsule 300 mg, 1, capsule, By Mouth, 3 times a day, # 90 capsule, Refills 1, Tot. Refills 1, Maintenance, 03/30/22 9:52:00 EDT, Route to Pharmacy Electronically, [facility], Partial fill upon patient request if the prescription is for a schedule II... Start Date: 03/30/22 Status: Ordered hydrOXYzine hydrochloride 50 mg oral tablet 1 tablet, By Mouth, Daily at bedtime, # 30 tablet, 0 Refills, Maintenance, 03/04/22 8:44:00 EDT, [facility], 172, cm, 12/15/21 14:14:00 EST, Height, 95, kg, 03/03/21 23:10:00 EDT, Dry Weight Start Date: 03/04/22 Status: Ordered lithium 450 mg oral tablet, extended release 1 tablet, By Mouth, Daily at bedtime, # 30 tablet, 0 Refills, [facility] , 172, cm, 08/05/21 15:13:00 [...] FOR SLEEP, # 60 tablet, 0 Refills, [facility], 172, cm, 12/15/21 14:14:00 EST, Height, 95, kg, 03/03/21 23:10:00 EDT, Dry Weight Start Date: 01/28/22 Status: Ordered prazosin 5 mg oral capsule 5 mg, 1, capsule, By Mouth, Daily at bedtime, # 30 capsule, Refills 1, Tot. Refills 1, Maintenance,03/04/22 8:44:00 EDT, Route to Pharmacy Electronically, [facility], Partial fill upon patient request if the prescription is for a schedule I... Start Date: 03/04/22 Stop Date: 05/03/22 Status: Ordered Problem List Condition Effective Dates Status Health Status Inform ant Arph-nf-dabhwq transgender person(Confirmed) Active Gender Dysphoria(Confirmed) Active H/O left inguinal hernia repair(Confirmed) Active Homelessness(Confirmed) Active Depression(Confirmed) Active Severe obesity(Confirmed) Active Social History Social History Type Response Smoking Status Former smoker; Other : quit many years ago; entered on: 08/10/16 Sex
--- OUTSIDE RECORDS SUMMARY | 2023-05-31 19:39 | XMS_ITS | Continuity of Care Document ---
Author Name Unknown Organization [facility] Address [address] [place] [address]- Care Team Providers Care Corking Machine Operator Name Role Phone Not on Staff, PCP Primary Care Physician Unavail able Encounter [facility] Date(s): 06/23/20 - 07/23/20 [facility] [address] [place] [address]- [facility] Attending Physician: AdmPhoenix brumfield Admitting Physician: AdmtrPhoenix Referring Physician: Admtr, Ar8 Allergies, Adverse Reactions, Alerts Substance Reaction Severity [...] tablet, 1 Refills, Maintenance, 01/15/20 17:11:00 EDT, [facility] #[id number], 178, cm, 12/11/19 14:34:00 EST, Height Start Date: 01/15/20 Status: Ordered clonazePAM 2 mg oral tablet 1 tablet = 2 mg, By Mouth, 3 times a day, PRN Anxiety, # 90 tablet, 2 Refills, Maintenance, 05/14/20 18:03:00 EDT, Tablet, [facility] #[id number], 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, 178, cm, 12/11/19 14:34:00 EST, Height Start Date: 05/14/20 Stop Date: 08/12/20 Status: Ordered estradiol 2 mg oral tablet See Instructions, 2 tablets By Mouth Daily, # 60 tablet, 2 Refills, Maintenance, 07/22/20 17:07:00 EDT, [facility] #[id number], Patient has office visit scheduled, 177, cm, 07/16/20 0:55:00 EDT,Height, 95, kg, 07/16/20 0:55:00 EDT, Dry Weight Start Date: 07/22/20 Status: Ordered hydrOXYzine hydrochloride 25 mg oral tablet See Instructions, take 1-2 tabs qd prn for severe anxiety or insomnia, # 180 tablet, 1 Refills, Maintenance, 05/14/20 18:08:00 EDT, [facility] #[id number], 178, cm, 12/11/19 14:34:00 EST, Height Start Date: 05/14/20 Status: Ordered perphenazine 2 mg oral tablet 2 mg, 1, tablet, By Mouth, 2 times a day, # 90 tablet, Refills 5, Tot. Refills 5, Maintenance, 01/15/20 17:16:00 EDT, Route to Pharmacy Electronically, [facility] #[id number], dec'd to bid on 06/19, 178, cm, 12/11/19 14:34:00 EST, Height Start Date: 01/15/20 Status: Ordered traZODone 50 mg oral tablet See Instructions, TAKE 1 TABLET BY MOUTH AT BEDTIME NEEDED FOR INSOMNIA, # 90 tablet, Refills 1,Tot. Refills 1, 05/14/20 18:08:00 EDT, Instructions Replace Required Details, Route to Pharmacy Electronically, [facility] #[id number], 178, cm, 0... Start Date: 05/14/20 Status: Ordered Problem List Condition Effective Dates Status Health Status Inform ant Avxk-jz-alyhdo transgender person(Confirmed) Active Gender Dysphoria(Confirmed) Active H/O left inguinal hernia repair(Confirmed) Active Homelessness(Confirmed) Active Depression(Confirmed) Active Social History Social History Type Response Smoking Status Former smoker; Other : quit many years ago; entered on: 08/10/16 Sex
--- OUTSIDE RECORDS SUMMARY | 2023-05-31 19:39 | XMS_ITS | Continuity of Care Document ---
Author Name Unknown Organization [facility] Address [address] [place] [address]- Care Team Providers Care Director Corporate Security Name Role Phone Brendon LUJAN, Juan Fuentes Primary Care Physician Encounter [facility] Date(s): 08/05/21 - 08/12/21 [facility] [address] [place], [place] [address] Attending Physician: Juan Olivas NP Allergies, Adverse [...] tablet, 2 Refills, Maintenance, 04/30/21 16:13:00 EDT, [facility]/pharmacy #[id number], 177, cm, 10/15/20 13:53:00 EST, Height, 95, kg, 03/03/21 23:10:00 EDT, Dry Weight Start Date: 04/30/21 Status: Ordered escitalopram 20 mg oral tablet 2 tablet = 40 mg, By Mouth, Daily, # 180 tablet, 1 Refills, Maintenance, 06/30/21 17:00:00 EDT, [facility], Partial fill upon patient request if the prescription is for a schedule II opioid drug., 172, cm, 06/30/21 15:09:00 ED... Start Date: 06/30/21 Status: Ordered estradiol 2 mg oral tablet 2 tablet, By Mouth, Daily, # 60 tablet, 0 Refills, Maintenance, 06/30/21 17:02:00 EDT, [facility]-, 172, cm, 06/30/21 15:09:00 EDT, Height, 95, kg, 03/03/21 23:10:00 EDT, Dry Weight Start Date: 06/30/21 Status: Ordered gabapentin 300 mg oral capsule 300 mg, 1, capsule, By Mouth, 3 times a day, # 90 capsule, Refills 1, Tot. Refills 1, Maintenance, 06/30/21 17:03:00 EDT, Route to Pharmacy Electronically, [facility], Partial fill upon patient request if the prescription is f... Start Date: 06/30/21 Status: Ordered hydrOXYzine pamoate 50 mg oral capsule 1 capsule, By Mouth, Daily at bedtime, # 90 capsule, 0 Refills, Maintenance, 07/27/21 17:30:00 EDT,[facility]/pharmacy #[id number], 172, cm, 07/15/21 13:16:00 EDT, Height, 95, kg, 03/03/21 23:10:00 EDT, Dry Weight Start Date: 07/27/21 Status: Ordered lithium 150 mg oral capsule 3 capsule = 450 mg, By Mouth, 2 times a day, # 180 capsule, 1 Refills, Maintenance, 06/30/21 17:04:00 EDT, Capsule, [facility], Partial fill upon patient request if the prescription is for a schedule II opioid drug., 172, cm,... Start Date: 06/30/21 Status: Ordered prazosin 5 mg oral capsule 5 mg, 1, capsule, By Mouth, Daily at bedtime, # 30 capsule, Refills 1, Tot. Refills 1, Maintenance,06/30/21 17:07:00 EDT, Route to Pharmacy Electronically, [facility], Partial fill upon patient request if the prescription is... Start Date: 06/30/21 Stop Date: 08/29/21 Status: Ordered Problem List Condition Effective Dates Status Health Status Inform ant Mqur-fw-ajndsv transgender person(Confirmed) Active Gender Dysphoria(Confirmed) Active H/O left inguinal hernia repair(Confirmed) Active Homelessness(Confirmed) Active Depression(Confirmed) Active Vital Signs Most recent to oldest [Reference Range]: 1 Height 172 cm (08/05/21 3:13 PM) Social History Social History Type Response Smoking Status Former smoker; Other : quit many years ago; entered on: 08/10/16 Sex
--- OUTSIDE RECORDS SUMMARY | 2023-05-31 19:39 | XMS_ITS | Continuity of Care Document ---
Author Name Unknown Organization [facility] Address [address] [place] [address]- Care Team Providers Care Fondant Cooker Name Role Phone Talha LUJAN, Jessa Birch Primary Care Physician [phone] Encounter [facility] Date(s): 05/25/22 - 06/24/22 [facility] [address] [place] [address]- Allergies, Adverse Reactions, Alerts Substance Reaction Severity [...] 0 Refills, Maintenance, 06/03/22 10:50:00 EDT, Cream, [facility], Partial fill upon patient request if the prescription is for a schedule II opioid drug., 1 application Topically 2 times a da... Start Date: 06/03/22 Stop Date: 06/17/22 Status: Ordered clonazePAM 2 mg oral tablet See Instructions, TAKE 1 TABLET BY MOUTH THREE TIMES DAILY NEEDED FOR ANXIETY, # 90 tablet, 1 Refills, Maintenance, 03/04/22 8:44:00 EDT, [facility], 172, cm, 12/15/21 14:14:00 EST, Height, 95, kg, 03/03/21 23:10:00 EDT, Dry Weight Start Date: 03/04/22 Status: Ordered escitalopram 20 mg oral tablet 2 tablet = 40 mg, By Mouth, Daily, # 180 tablet, 1 Refills, Maintenance, 03/04/22 8:44:00 EDT, [facility], Partial fill upon patient request if the prescription is for a schedule II opioid drug., 172, cm, 12/15/21 14:14:00 EST, Height, 95, k... Start Date: 03/04/22 Status: Ordered estradiol 2 mg oral tablet 2 tablet, By Mouth, Daily, # 60 tablet, 0 Refills, Maintenance, 02/11/22 9:20:00 EDT, [facility], 172, cm, 12/15/21 14:14:00 EST, Height, [...] tablet, 2 Refills, Maintenance, 05/27/22 9:46:00 EDT, [facility], 172, cm, 03/09/22 9:54:00 EDT, Height, 95, kg, 03/03/21 23:10:00 EDT, Dry Weight Start Date: 05/27/22 Status: Ordered lithium 450 mg oral tablet, extended release 1 tablet, By Mouth, Daily at bedtime, # 30 tablet, 0 Refills, [facility] [id number], 172, cm, 08/05/21 15:13:00 EDT, Height, 95, [...] FOR SLEEP, # 60 tablet, 0 Refills, [facility], 172, cm, 12/15/21 14:14:00 EST, Height, 95, kg, 03/03/21 23:10:00 EDT, Dry Weight Start Date: 01/28/22 Status: Ordered prazosin 5 mg oral capsule 5 mg, 1, capsule, By Mouth, Daily at bedtime, # 30 capsule, Refills 2, Tot. Refills 2, Maintenance,05/27/22 9:46:00 EDT, Route to Pharmacy Electronically, [facility], Partial fill upon patient request if the prescription is for a schedule I... Start Date: 05/27/22 Stop Date: 08/25/22 Status: Ordered Problem List Condition Effective Dates Status Health Status Inform ant Stage 3a chronic kidney dise ase (CKD)(Confirmed) Active Ukut-iu-qoewab transgender person(Confirmed) Active Gender Dysphoria(Confirmed) Active H/O left inguinal hernia repair(Confirmed) Active Homelessness(Confirmed) Active Depression(Confirmed) Active Severe obesity(Confirmed) Active Social History Social History Type Response Smoking Status Former smoker; Other : quit many years ago; entered on: 08/10/16 Sex Care Team Personnel Name: Talha LUJAN, Jessa Birch Address: [address] [facility] [place] [address]-
--- OUTSIDE RECORDS SUMMARY | 2023-05-31 19:39 | XMS_ITS | Continuity of Care Document ---
Author Name Unknown Organization [facility] Address [address] [place] [address]- Care Team Providers Care Hardwood Floor Refinisher Name Role Phone Brendon LUJAN, Juan Fuentes Primary Care Physician Encounter [facility] Date(s): 01/11/22 - 02/10/22 [facility] [address] [place], [place] [address] Allergies, Adverse Reactions, Alerts Substance Reaction [...] tablet, 1 Refills, Maintenance, 11/19/21 13:44:00 EST, [facility]-, 172, cm, 08/05/21 15:13:00 EDT, Height, 95, kg, 03/03/21 23:10:00 EDTTammi.. Start Date: 11/19/21 Status: Ordered escitalopram 20 mg oral tablet 2 tablet = 40 mg, By Mouth, Daily, # 180 tablet, 1 Refills, Maintenance, 06/30/21 17:00:00 EDT, [facility]-, Partial fill upon patient request if the prescription is for a schedule II opioid drug., 172, cm, 06/30/21 15:09:00 ED... Start Date: 06/30/21 Status: Ordered estradiol 2 mg oral tablet 2 tablet, By Mouth, Daily, # 60 tablet, 0 Refills, Maintenance, 01/12/22 7:30:00 EDT, [facility], 172, cm, 12/15/21 14:14:00 EST, Height, 95, kg, 03/03/21 23:10:00 EDT, Dry Weight Start Date: 01/12/22 Status: Ordered gabapentin 300 mg oral capsule 300 mg, 1, capsule, By Mouth, 3 times a day, # 90 capsule, Refills 0, Tot. Refills 0, Maintenance, 01/12/22 7:30:00 EDT, Route to Pharmacy Electronically, [facility], Partial fill upon patient request if the prescription is for a schedule II... Start Date: 01/12/22 Status: Ordered hydrOXYzine hydrochloride 50 mg oral tablet 1 tablet, By Mouth, Daily at bedtime, # 30 tablet, 0 Refills, [facility] , 172, cm, 08/05/21 15:13:00 EDT, Height, 95, kg, 03/03/21 23:10:00 EDT, Dry Weight Start Date: 11/09/21 Status: Ordered lithium 450 mg oral tablet, extended release 1 tablet, By Mouth, Daily at bedtime, # 30 tablet, 0 Refills, [facility]- , 172, cm, 08/05/21 15:13:00 EDT, Height, 95, kg, 03/03/21 23:10:00 EDT, Dry Weight Start Date: 11/10/21 Status: Ordered melatonin 10 mg oral tablet 1 tablet = 10 mg, By Mouth, Daily at bedtime, PRN as needed for insomnia, for 30 days, # 30 tablet,0 Refills, Acute 02/27/22 10:40:00 EDT, 01/28/22 10:40:00 EDT, Tablet, [facility], Partial fill upon patient request if the prescription is f... Start Date: 01/28/22 Stop Date: 02/27/22 Status: Ordered Melatonin 10MG TABS Melatonin 10MG TABS, 1, tablet, By Mouth, Daily at bedtime, PRN, # 30 tablet, 0 Refills, 172, cm, 08/05/21 15:13:00 EDT, Height, 95, kg, 03/03/21 23:10:00 EDT, Dry Weight Start Date: 11/09/21 Status: Ordered Melatonin 5 mg oral tablet 2 tablet, By Mouth, Daily at bedtime, PRN NEEDED FOR SLEEP, # 60 tablet, 0 Refills, [facility], 172, cm, 12/15/21 14:14:00 EST, Height, 95, kg, 03/03/21 23:10:00 EDT, Dry Weight Start Date: 01/28/22 Status: Ordered prazosin 5 mg oral capsule 5 mg, 1, capsule, By Mouth, Daily at bedtime, # 30 capsule, Refills 1, Tot. Refills 1, Maintenance,06/30/21 17:07:00 EDT, Route to Pharmacy Electronically, [facility]-, Partial fill upon patient request if the prescription is... Start Date: 06/30/21 Stop Date: 08/29/21 Status: Ordered Problem List Condition Effective Dates Status Health Status Inform ant Thpc-el-gnnwfu transgender person(Confirmed) Active Gender Dysphoria(Confirmed) Active H/O left inguinal hernia repair(Confirmed) Active Homelessness(Confirmed) Active Depression(Confirmed) Active Obese class II(Confirmed) Active Social History Social History Type Response Smoking Status Former smoker; Other : quit many years ago; entered on: 08/10/16 Sex
--- OUTSIDE RECORDS SUMMARY | 2023-05-31 19:39 | XMS_ITS | Continuity of Care Document ---
Author Name Unknown Organization [facility] Address [address] [place] [address]- Care Team Providers Care Production Planning Manager Name Role Phone Charlotte MARIA, Blanka Angeles Primary Care Physician [facility]counter [facility] Date(s): 09/03/22 - 10/03/22 [facility] [address] [place], [place] [address] Allergies, Adverse Reactions, Alerts Substance [...] 0 Refills, Maintenance, 06/03/22 10:50:00 EDT, Cream, [facility], Partial fill upon patient request if the prescription is for a schedule II opioid drug., 1 application Topically 2 times a da... Start Date: 06/03/22 Stop Date: 06/17/22 Status: Ordered clonazePAM 2 mg oral tablet See Instructions, TAKE 1 TABLET BY MOUTH THREE TIMES DAILY NEEDED FOR ANXIETY, # 90 tablet, 1 Refills, Maintenance, 03/04/22 8:44:00 EDT, [facility], 172, cm, 12/15/21 14:14:00 EST, Height, 95, kg, 03/03/21 23:10:00 EDT, Dry Weight Start Date: 03/04/22 Status: Ordered escitalopram 20 mg oral tablet 2 tablet = 40 mg, By Mouth, Daily, # 180 tablet, 1 Refills, Maintenance, 03/04/22 8:44:00 EDT, [facility], Partial fill upon patient request if the prescription is for a schedule II opioid drug., 172, cm, 12/15/21 14:14:00 EST, Height, 95, k... Start Date: 03/04/22 Status: Ordered estradiol 2 mg oral tablet 2 tablet, By Mouth, Daily, # 60 tablet, 0 Refills, Maintenance, 09/25/22 9:37:00 EST, [facility], 172, cm, 09/13/22 10:14:00 EST, Height, 123.3, kg, 06/03/22 10:06:00 EDT, Dry Weight Start Date: 09/25/22 Status: Ordered estradiol 2 mg oral tablet 2 tablet, By Mouth, Daily, # 60 tablet, 3 Refills, 07/22/22 8:26:00 EDT, [facility], 172,cm, 06/03/22 10:06:00 EDT, Height, 123.3, kg, 06/03/22 10:06:00 EDT, Dry Weight Start Date: 07/22/22 Status: Ordered gabapentin 300 mg oral capsule 300 mg, 1, capsule, By Mouth, 3 times a day, # 90 capsule, Refills 1, Tot. Refills 1, Maintenance, 07/27/22 13:12:00 EDT, Route to Pharmacy Electronically, [facility], Partial fill upon patient request if the prescription is for a schedule I... Start Date: 07/27/22 Status: Ordered gabapentin 300 mg oral capsule 1, capsule, By Mouth, 3 times a day, # 90 capsule, Refills 0, Maintenance, 07/27/22 13:13:00 EDT, Route to Pharmacy Electronically, [facility], 172, cm, 06/03/22 10:06:00 EDT, Height, 123.3, kg, 06/03/22 10:06:00 EDT, Dry Weight Start Date: 07/27/22 Status: Ordered hydrOXYzine hydrochloride 50 mg oral tablet 1 tablet, By Mouth, Daily at bedtime, # 30 tablet, 2 Refills, Maintenance, 05/27/22 9:46:00 EDT, [facility], 172, cm, 03/09/22 9:54:00 EDT, Height, 95, kg, 03/03/21 23:10:00 EDT, Dry Weight Start Date: 05/27/22 Status: Ordered lithium 450 mg oral tablet, extended release 1 tablet, By Mouth, Daily at bedtime, # 30 tablet, 0 Refills, [facility] , 172, cm, 08/05/21 15:13:00 [...] FOR SLEEP, # 60 tablet, 0 Refills, [facility], 172, cm, 12/15/21 14:14:00 EST, Height, 95, kg, 03/03/21 23:10:00 EDT, Dry Weight Start Date: 01/28/22 Status: Ordered prazosin 5 mg oral capsule 5 mg, 1, capsule, By Mouth, Daily at bedtime, # 30 capsule, Refills 2, Tot. Refills 2, Maintenance,05/27/22 9:46:00 EDT, Route to Pharmacy Electronically, [facility], Partial fill upon patient request if the prescription is for a schedule I... Start Date: 05/27/22 Stop Date: 08/25/22 Status: Ordered Problem List Condition Confirmation Course Effective Dates Status Health St atus Informant Stage 3a chronic kidney disease (CKD) Confirmed Active Gender dysphoria Confirmed 08/17/22 Active Ynqp-fo-thcjze transgender person Confirmed Active Gender Dysphoria Confirmed Active H/O left inguinal hernia repair Confirmed Active Homelessness Confirmed Active Depression Confirmed Active Mood disorder Confirmed 08/17/22 Active Severe obesity Confirmed Active Social History Social History Type Response Smoking Status Former smoker; Other : quit many years ago; entered on: 08/10/16 Sex Patient Care team information Care Team Personnel Name: Charlotte MARIA, Blanka Angeles [facility] Primary Care Physician Member Role: PCP Address: Address: [address] [place] [id number]- Care Team Related Persons Name: XAVIER BERKOWITZ Address: home [address] [place] [id number] Name: EDMOND SHIPMAN Address: home [address] [place] [address]
--- OUTSIDE RECORDS SUMMARY | 2023-05-31 19:39 | XMS_ITS | Continuity of Care Document ---
Author Name Unknown Organization [facility] Address [address] [place] [address]- Care Team Providers Care Lead Miner Name Role Phone Talha LUJAN, Jessa Birch Primary Care Physician [phone] Encounter [facility] Date(s): 06/03/22 - 06/10/22 [facility] [address] [place] [address]- Encounter Diagnosis Low back pain(Discharge Diagnosis) - 06/03/22 Attending Physician: Brendon LUJAN, Juan Fuentes Allergies, [...] 0 Refills, Maintenance, 06/03/22 10:50:00 EDT, [facility], Partial fill upon patient request if the prescription is for a schedule II opioid drug., 1 application Topically 2 times a da... Start Date: 06/03/22 Stop Date: 06/17/22 Status: Ordered clonazePAM 2 mg oral tablet See Instructions, TAKE 1 TABLET BY MOUTH THREE TIMES DAILY NEEDED FOR ANXIETY, # 90 tablet, 1 Refills, Maintenance, 03/04/22 8:44:00 EDT, [facility], 172, cm, 12/15/21 14:14:00 EST, Height, 95, kg, 03/03/21 23:10:00 EDT, Dry Weight Start Date: 03/04/22 Status: Ordered escitalopram 20 mg oral tablet 2 tablet = 40 mg, By Mouth, Daily, # 180 tablet, 1 Refills, Maintenance, 03/04/22 8:44:00 EDT, [facility], Partial fill upon patient request if the prescription is for a schedule II opioid drug., 172, cm, 12/15/21 14:14:00 EST, Height, 95, k... Start Date: 03/04/22 Status: Ordered estradiol 2 mg oral tablet 2 tablet, By Mouth, Daily, # 60 tablet, 0 Refills, Maintenance, 02/11/22 9:20:00 EDT, [facility], 172, cm, 12/15/21 14:14:00 EST, Height, 95, kg, 03/03/21 23:10:00 EDT, Dry Weight Start Date: 02/11/22 Status: Ordered estradiol 2 mg oral tablet 2 tablet, By Mouth, Daily, # 60 tablet, 3 Refills, [facility], 172, cm, 12/15/21 14:14:00EST, Height, 95, kg, 03/03/21 23:10:00 EDT, Dry Weight Start Date: 02/11/22 Status: Ordered gabapentin 300 mg oral capsule 300 mg, 1, capsule, By Mouth, 3 times a day, # 90 capsule, Refills 1, Tot. Refills 1, Maintenance, 03/30/22 9:52:00 EDT, Route to Pharmacy Electronically, [facility], Partial fill upon patient request if the prescription is for a schedule II... Start Date: 03/30/22 Status: Ordered hydrOXYzine hydrochloride 50 mg oral tablet 1 tablet, By Mouth, Daily at bedtime, # 30 tablet, 2 Refills, Maintenance, 05/27/22 9:46:00 EDT, [facility], 172, cm, 03/09/22 9:54:00 EDT, Height, 95, kg, 03/03/21 23:10:00 EDT, Dry Weight Start Date: 05/27/22 Status: Ordered lithium 450 mg oral tablet, extended release 1 tablet, By Mouth, Daily at bedtime, # 30 tablet, 0 Refills, [facility] , 172, cm, 08/05/21 [...] FOR SLEEP, # 60 tablet, 0 Refills, [facility], 172, cm, 12/15/21 14:14:00 EST, Height, 95, kg, 03/03/21 23:10:00 EDT, Dry Weight Start Date: 01/28/22 Status: Ordered prazosin 5 mg oral capsule 5 mg, 1, capsule, By Mouth, Daily at bedtime, # 30 capsule, Refills 2, Tot. Refills 2, Maintenance,05/27/22 9:46:00 EDT, Route to Pharmacy Electronically, [facility], Partial fill upon patient request if the prescription is for a schedule I... Start Date: 05/27/22 Stop Date: 08/25/22 Status: Ordered Problem List Condition Effective Dates Status Health Status Inform ant Stage 3a chronic kidney dise ase (CKD)(Confirmed) Active Cdpl-su-otoywf transgender person(Confirmed) Active Gender Dysphoria(Confirmed) Active H/O left inguinal hernia repair(Confirmed) Active Homelessness(Confirmed) Active Depression(Confirmed) Active Severe obesity(Confirmed) Active Diagnosis Diagnosis Type Effective Dates Health Status Cl inical Service Informant Low back pain Discharge Diagnosis 06/03/22 Vital Signs Most recent to oldest [Reference Range]: 1 Height 172 cm (06/03/22 10:06 AM) Weight 123.3 kg (06/03/22 10:06 AM) Oxygen Saturation [94-100 %] 96 % (06/03/22 10:06 AM) Pulse Rate [55-90 bpm] 83 bpm (06/03/22 10:06 AM) Body Mass Index [18.5-24.99] 41.68 *>HHI* (06/03/22 10:06 AM) Blood Pressure [90-138/55-84 mm Hg] 123/ 79mm Hg (06/03/22 10:06 AM) Mode of Delivery (Oxygen) Room air (06/03/22 10:06 AM) Blood pressure sites Arm, right (06/03/22 10:06 AM) Dry Weight 123.3 kg (06/03/22 10:06 AM) Weight Obtained Via Standing scale (06/03/22 10:06 AM) Dry Weight Obtained Via Standing scale (06/03/22 10:06 AM) Social History Social History Type Response Smoking Status Former smoker; Other : quit many years ago; entered on: 08/10/16 Sex
--- OUTSIDE RECORDS SUMMARY | 2023-05-31 19:39 | XMS_ITS | Continuity of Care Document ---
Author Name Unknown Organization [facility] Address [address] [place] [address]- Care Team Providers Care Land Leasing Examiner Name Role Phone Brendon LUJAN, Juan Fuentes Primary Care Physician Encounter [facility] Date(s): 12/15/21 - 01/14/22 [facility] [address] [place], [place] [address] Attending Physician: AdmPhoenix brumfield Admitting Physician: AdmtrPhoenix [...] 90 tablet, 1 Refills, Maintenance, 11/19/21 13:44:00 [facility], [id number], 172, cm, 08/05/21 15:13:00 EDT, Height, 95, kg, 03/03/21 23:10:00 EDT, D... Start Date: 11/19/21 Status: Ordered escitalopram 20 mg oral tablet 2 tablet = 40 mg, By Mouth, Daily, # 180 tablet, 1 Refills, Maintenance, 06/30/21 17:00:00 EDT, [facility]-, Partial fill upon patient request if the prescription is for a schedule II opioid drug., 172, cm, 06/30/21 15:09:00 ED... Start Date: 06/30/21 Status: Ordered estradiol 2 mg oral tablet 2 tablet, By Mouth, Daily, # 60 tablet, 0 Refills, Maintenance, 01/12/22 7:30:00 EDT, [facility], 172, cm, 12/15/21 14:14:00 EST, Height, 95, kg, 03/03/21 23:10:00 EDT, Dry Weight Start Date: 01/12/22 Status: Ordered gabapentin 300 mg oral capsule 300 mg, 1, capsule, By Mouth, 3 times a day, # 90 capsule, Refills 0, Tot. Refills 0, Maintenance, 01/12/22 7:30:00 EDT, Route to Pharmacy Electronically, [facility], Partial fill upon patient request if the prescription is for a schedule II... Start Date: 01/12/22 Status: Ordered hydrOXYzine hydrochloride 50 mg oral tablet 1 tablet, By Mouth, Daily at bedtime, # 30 tablet, 0 Refills, [facility] , 172, cm, 08/05/21 15:13:00 EDT, Height, 95, kg, 03/03/21 23:10:00 EDT, Dry Weight Start Date: 11/09/21 Status: Ordered lithium 450 mg oral tablet, extended release 1 tablet, By Mouth, Daily at bedtime, # 30 tablet, 0 Refills, [facility] , 172, cm, 08/05/21 15:13:00 EDT, [...] Maintenance,06/30/21 17:07:00 EDT, Route to Pharmacy Electronically, [facility], Partial fill upon patient request if the prescription is... Start Date: 06/30/21 Stop Date: 08/29/21 Status: Ordered Problem List Condition Effective Dates Status Health Status Inform ant Pdcf-qg-pvaqzv transgender person(Confirmed) Active Gender Dysphoria(Confirmed) Active H/O left inguinal hernia repair(Confirmed) Active Homelessness(Confirmed) Active Depression(Confirmed) Active Obese class II(Confirmed) Active Social History Social History Type Response Smoking Status Former smoker; Other : quit many years ago; entered on: 08/10/16 Sex
--- OUTSIDE RECORDS SUMMARY | 2023-05-31 19:39 | XMS_ITS | Continuity of Care Document ---
Author Name Unknown Organization [facility] Address [address] [place] [address]- Care Team Providers Care Tail Edger Name Role Phone Brendon LUJAN, Juan Fuentes [id number] [address] [place] [address]- [facility] Encounter Diagnosis Scrotal pain(Discharge Diagnosis) - 08/07/20 Xxth-gt-fsqghc transgender person(Discharge Diagnosis) - 08/07/20 Attending Physician: Juan Olivas NP Allergies, Adverse [...] tablet, 1 Refills, Maintenance, 01/15/20 17:11:00 EDT, [facility][id number], 178, cm, 12/11/19 14:34:00 EST, Height Start Date: 01/15/20 Status: Ordered clonazePAM 2 mg oral tablet 1 tablet = 2 mg, By Mouth, 3 times a day, PRN Anxiety, # 90 tablet, 2 Refills, Maintenance, 05/14/20 18:03:00 EDT, Tablet, [facility] #[id number], 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 business developer 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, 178, cm, 12/11/19 14:34:00 EST, Height Start Date: 05/14/20 Stop Date: 08/12/20 Status: Ordered estradiol 2 mg oral tablet See Instructions, 2 tablets By Mouth Daily, # 60 tablet, 2 Refills, Maintenance, 07/22/20 17:07:00 EDT, [facility] #[id number], Patient has office visit scheduled, 177, cm, 07/16/20 0:55:00 EDT,Height, 95, kg, 07/16/20 0:55:00 EDT, Dry Weight Start Date: 07/22/20 Status: Ordered hydrOXYzine hydrochloride 25 mg oral tablet See Instructions, take 1-2 tabs qd prn for severe anxiety or insomnia, # 180 tablet, 1 Refills, Maintenance, 05/14/20 18:08:00 EDT, [facility] #[id number], 178, cm, 12/11/19 14:34:00 EST, Height Start Date: 05/14/20 Status: Ordered naproxen 500 mg oral tablet 1 tablet = 500 mg, By Mouth, 2 times a day, for 14 days, with food, # 28 tablet, 0 Refills, Acute 08/26/20 15:24:00 EDT, 08/12/20 15:24:00 EDT, Tablet, [facility] #[id number], 177, cm, 08/05/20 10:50:00 EDT, Height, 95, kg, 07/16/20 0:55:00 EDT,... Start Date: 08/12/20 Stop Date: 08/26/20 Status: Ordered perphenazine 2 mg oral tablet 2 mg, 1, tablet, By Mouth, 2 times a day, # 90 tablet, Refills 5, Tot. Refills 5, Maintenance, 01/15/20 17:16:00 EDT, Route to Pharmacy Electronically, [facility] #[id number], dec'd to bid on 06/19, 178, cm, 12/11/19 14:34:00 EST, Height Start Date: 01/15/20 Status: Ordered spironolactone 50 mg oral tablet 1 tablet = 50 mg, By Mouth, 2 times a day, # 60 tablet, 4 Refills, Maintenance, 08/05/20 12:21:00 EDT, Tablet, [facility] #[id number], 177, cm, 08/05/20 10:50:00 EDT, Height, 95, kg, 07/16/20 0:55:00 EDT, Dry Weight Start Date: 08/05/20 Status: Ordered traZODone 50 mg oral tablet See Instructions, TAKE 1 TABLET BY MOUTH AT BEDTIME NEEDED FOR INSOMNIA, # 90 tablet, Refills 1,Tot. Refills 1, 05/14/20 18:08:00 EDT, Instructions Replace Required Details, Route to Pharmacy Electronically, [facility] #[id number], 178, cm, 0... Start Date: 05/14/20 Status: Ordered Problem List Condition Effective Dates Status Health Status Inform ant Pnhm-sm-ssoarg transgender person(Confirmed) Active Gender Dysphoria(Confirmed) Active H/O left inguinal hernia repair(Confirmed) Active Homelessness(Confirmed) Active Depression(Confirmed) Active Diagnosis Diagnosis Type Effective Dates Health Status Clinical Service Informant Scrotal pain Discharge Diagnosis 08/07/20 Kxay-pl-odntms transgender person Discharge Diagnosis 08/07/20 Vital Signs Most recent to oldest [Reference Range]: 1 Height 177 cm (08/05/20 10:50 AM) Weight 97.8 kg (08/05/20 10:50 AM) Pulse Rate [55-90 bpm] 74 bpm (08/05/20 10:50 AM) Body Mass Index [18.5-24.99] 31.22 *>HHI* (08/05/20 10:50 AM) Blood Pressure [90-138/55-84 mm Hg] 118/ 80mm Hg (08/05/20 10:50 AM) Blood pressure sites Arm, right (08/05/20 10:50 AM) Weight Obtained Via Standing scale (08/05/20 10:50 AM) Social History Social History Type Response Smoking Status Former smoker; Other : quit many years ago; entered on: 08/10/16 Sex
--- OUTSIDE RECORDS SUMMARY | 2023-05-31 19:39 | XMS_ITS | Continuity of Care Document ---
Author Name Unknown Organization [facility] Address [address] [place] [address]- Care Team Providers Care Batch Plant Supervisor Name Role Phone Charlotte MARIA, Blanka Angeles Primary Care Physician [facility]counter [facility] Date(s): 10/26/22 - 11/25/22 [facility] [address] [place], [place] [address] Allergies, Adverse Reactions, Alerts Substance Reaction [...] 0 Refills, Maintenance, 06/03/22 10:50:00 EDT, Cream, [facility], Partial fill upon patient request if the prescription is for a schedule II opioid drug., 1 application Topically 2 times a da... Start Date: 06/03/22 Stop Date: 06/17/22 Status: Ordered clonazePAM 2 mg oral tablet See Instructions, TAKE 1 TABLET BY MOUTH THREE TIMES DAILY NEEDED FOR ANXIETY, # 90 tablet, 1 Refills, Maintenance, 03/04/22 8:44:00 EDT, [facility], 172, cm, 12/15/21 14:14:00 EST, Height, 95, kg, 03/03/21 23:10:00 EDT, Dry Weight Start Date: 03/04/22 Status: Ordered escitalopram 20 mg oral tablet 2 tablet = 40 mg, By Mouth, Daily, # 180 tablet, 1 Refills, Maintenance, 03/04/22 8:44:00 EDT, [facility], Partial fill upon patient request if the prescription is for a schedule II opioid drug., 172, cm, 12/15/21 14:14:00 EST, Height, 95, k... Start Date: 03/04/22 Status: Ordered estradiol 2 mg oral tablet 2 tablet, By Mouth, Daily, # 60 tablet, 0 Refills, Maintenance, 10/29/22 11:16:00 EST, [facility], 172, cm, 09/13/22 10:14:00 EST, Height, 123.3, kg, 06/03/22 10:06:00 EDT, Dry Weight Start Date: 10/29/22 Status: Ordered estradiol 2 mg oral tablet 2 tablet, By Mouth, Daily, # 60 tablet, 3 Refills, 07/22/22 8:26:00 EDT, [facility], 172,cm, 06/03/22 10:06:00 EDT, Height, 123.3, kg, 06/03/22 10:06:00 EDT, Dry Weight Start Date: 07/22/22 Status: Ordered gabapentin 300 mg oral capsule 300 mg, 1, capsule, By Mouth, 3 times a day, # 90 capsule, Refills 1, Tot. Refills 1, Maintenance, 07/27/22 13:12:00 EDT, Route to Pharmacy Electronically, [facility], Partial fill upon patient request if the prescription is for a schedule I... Start Date: 07/27/22 Status: Ordered gabapentin 300 mg oral capsule 1, capsule, By Mouth, 3 times a day, # 90 capsule, Refills 0, Maintenance, 07/27/22 13:13:00 EDT, Route to Pharmacy Electronically, [facility], 172, cm, 06/03/22 10:06:00 EDT, Height, 123.3, kg, 06/03/22 10:06:00 EDT, Dry Weight Start Date: 07/27/22 Status: Ordered hydrOXYzine hydrochloride 50 mg oral tablet 1 tablet, By Mouth, Daily at bedtime, # 30 tablet, 2 Refills, Maintenance, 05/27/22 9:46:00 EDT, [facility], 172, cm, 03/09/22 9:54:00 EDT, Height, 95, kg, 03/03/21 23:10:00 EDT, Dry Weight Start Date: 05/27/22 Status: Ordered lithium 450 mg oral tablet, extended release 1 tablet, By Mouth, Daily at bedtime, # 30 tablet, 0 Refills, [facility] , 172, cm, 08/05/21 15:13:00 EDT, [...] FOR SLEEP, # 60 tablet, 0 Refills, [facility], 172, cm, 12/15/21 14:14:00 EST, Height, 95, kg, 03/03/21 23:10:00 EDT, Dry Weight Start Date: 01/28/22 Status: Ordered prazosin 5 mg oral capsule 5 mg, 1, capsule, By Mouth, Daily at bedtime, # 30 capsule, Refills 2, Tot. Refills 2, Maintenance,05/27/22 9:46:00 EDT, Route to Pharmacy Electronically, [facility], Partial fill upon patient request if the prescription is for a schedule I... Start Date: 05/27/22 Stop Date: 08/25/22 Status: Ordered Problem List Condition Confirmation Course Effective Dates Status Health St atus Informant Stage 3a chronic kidney disease (CKD) Confirmed Active Gender dysphoria Confirmed 08/17/22 Active Hhpb-tu-gmxown transgender person Confirmed Active Gender Dysphoria Confirmed Active H/O left inguinal hernia repair Confirmed Active Homelessness Confirmed Active Depression Confirmed Active Mood disorder Confirmed 08/17/22 Active Severe obesity Confirmed Active Social History Social History Type Response Smoking Status Former smoker; Other : quit many years ago; entered on: 08/10/16 Sex Patient Care team information Care Team Personnel Name: Charlotte MARIA, Blanka Angeles Position: [facility] Primary Care Physician Member Role: PCP Address: Address: [address] [place] [id number]- Care Team Related Persons Name: XAVIER BERKOWITZ Address: home [address] [place] [id number] Name: EDMOND SHIPMAN Address: [address] [place] [address]
--- OUTSIDE RECORDS SUMMARY | 2023-05-31 19:39 | XMS_ITS | Continuity of Care Document ---
Author Name Unknown Organization [facility] Address [address] [place] [address]- Care Team Providers Care Airplane Refueler Name Role Phone Brendon LUJAN, Juan Fuentes Primary Care Physician Encounter [facility] Date(s): 02/27/21 - 03/04/[address] [address]- Discharge Disposition: Transfer to [facility] Facility Attending Physician: Rocio Saba DO Admitting Physician: Rocio Saba DO Referring Physician: Not on Staff, Referring MD [...] tablet, 1 Refills, Maintenance, 02/12/21 15:10:00 EDT, [facility] #[id number], 177, cm, 10/15/20 13:53:00 EST, Height, 95, kg, 07/16/20 0:55:00 EDT, Dry Weight Start Date: 02/12/21 Status: Ordered clonazePAM 2 mg oral tablet See Instructions, TAKE 1 TABLET BY MOUTH THREE TIMES DAILY NEEDED FOR ANXIETY, # 90 tablet, 2 Refills, Maintenance, 02/12/21 15:10:00 EDT, [facility] #[id number], 177, cm, 10/15/20 13:53:00 EST, Height, 95, kg, 07/16/20 0:55:00 EDT, Dry Weight Start Date: 02/12/21 Status: Ordered clonazePAM 2 mg oral tablet 1 tablet = 2 mg, By Mouth, 3 times a day, PRN Anxiety, # 90 tablet, 0 Refills, Maintenance, 08/15/20 17:38:00 EDT, Tablet, [facility] #[id number], side laster tack reivewed, 177, cm, 08/05/20 10:50:00 EDT, Height, 95, kg, 07/16/20 0:55:00 EDT, Dry Weight Start Date: 08/15/20 Stop Date: 09/14/20 Status: Ordered estradiol 2 mg oral tablet 2 tablet, By Mouth, Daily, # 60 tablet, 0 Refills, Maintenance, 01/09/21 16:05:00 EST, [facility] #[id number], 177, cm, 10/15/20 13:53:00 EST, Height, 95, kg, 07/16/20 0:55:00 EDT, Dry Weight Start Date: 01/09/21 Status: Ordered Gabapentin By Mouth, 0 Refills, Maintenance, 09/02/20 11:12:00 EST Start Date: 09/02/20 Status: Ordered hydrOXYzine hydrochloride 25 mg oral tablet See Instructions, take 1-2 tabs qd prn for severe anxiety or insomnia, # 180 tablet, 1 Refills, Maintenance, 05/14/20 18:08:00 EDT, [facility] #[id number], 178, cm, 12/11/19 14:34:00 EST, Height Start Date: 05/14/20 Status: Ordered spironolactone 50 mg oral tablet 1 tablet, By Mouth, 2 times a day, # 60 tablet, 0 Refills, Maintenance, 01/09/21 16:06:00 EST, [facility] #[id number], 177, cm, 10/15/20 13:53:00 EST, Height, 95, kg, 07/16/20 0:55:00 EDT, Dry Weight Start Date: 01/09/21 Status: Ordered traZODone 50 mg oral tablet See Instructions, TAKE 1 TABLET BY MOUTH AT BEDTIME NEEDED FOR INSOMNIA, # 90 tablet, Refills 1,Tot. Refills 1, 05/14/20 18:08:00 EDT, Instructions Replace Required Details, Route to Pharmacy Electronically, [facility] #[id number], 178, cm, 0... Start Date: 05/14/20 Status: Ordered Problem List Condition Effective Dates Status Health Status Inform ant [id number]-[id number] transgender person(Confirmed) Active Gender Dysphoria(Confirmed) Active H/O left inguinal hernia repair(Confirmed) Active Homelessness(Confirmed) Active Depression(Confirmed) Active Vital Signs Most recent to oldest [Reference Range]: 1 2 3 Height 0 cm (03/03/21 11:10 PM) 0 cm (03/03/21 6:30 PM) 0 cm (03/03/21 9:25 AM) Weight 95 kg (03/03/21 11:10 PM) 95 kg (03/03/21 6:30 PM) 95 kg (03/03/21 9:25 AM) Oxygen Saturation [94-100 %] 98 % (03/04/21 1: PM) 99 % (03/04/21 8:30 AM) 96 % (03/03/21 11:10 PM) Pulse Rate [55-90 bpm] 64 bpm (03/04/21 1:21 PM) 62 bpm (03/04/21 8:30 AM) 57 bpm (03/03/21 11:10 PM) Blood Pressure [90-138/55-84 mm Hg] 110/72mm Hg (03/04/21 1: PM) 108/74mm Hg (03/04/21 8:30 AM) 102/64mm Hg (03/03/21 11:10 PM) Respiratory Rate [16-30 br/min] 16 br/min (03/04/21 1: PM) 16 br/min (03/04/21 8:30 AM) 16 br/min (03/03/21 11:10 PM) Temperature [96.8-100.4 DegF] 98.4 DegF (03/04/21 1: PM) 98.4 DegF (03/01/21 9:26 PM) 98.1 DegF (02/28/21 7:40 PM) Mode of Delivery (Oxygen) Room air (03/04/21 1:21 PM) Room air (03/04/21 8:30 AM) Room air (03/03/21 11:10 PM) Blood pressure sites Arm, right (03/04/21 1:21 PM) Arm, right (03/04/21 8:30 AM) Arm, right (03/03/21 11:10 PM) Temperature Route Oral (03/04/21 1:21 PM) Temporal (03/01/21 9:26 PM) Oral (02/28/21 7:40 PM) Dry Weight 95 kg (03/03/21 11:10 PM) 95 kg (03/03/21 6:30 PM) 95 kg (03/03/21 9:25 AM) Weight Obtained Via Patient/family state d (02/27/21 6:41 PM) Dry Weight Obtained Via Patient/family s tated (02/27/21 6:41 PM) Social History Social History Type Response Smoking Status Former smoker; Other : quit many years ago; entered on: 08/10/16 Sex
--- OUTSIDE RECORDS SUMMARY | 2023-05-31 19:39 | XMS_ITS | Continuity of Care Document ---
Author Name Unknown Organization [facility] Address [address] [place] [address]- Care Team Providers Care University Services Program Associate Name Role Phone Brendon LUJAN, Juan Fuentes Primary Care Physician [phone] Encounter [facility] Date(s): 06/17/21 - 07/24/21 [facility] [address] [place] [address]- Attending Physician: Juan Olivas NP Allergies, Adverse [...] tablet, 2 Refills, Maintenance, 04/30/21 16:13:00 EDT, [facility]/pharmacy #[id number], 177, cm, 10/15/20 13:53:00 EST, Height, 95, kg, 03/03/21 23:10:00 EDT, Dry Weight Start Date: 04/30/21 Status: Ordered escitalopram 20 mg oral tablet 2 tablet = 40 mg, By Mouth, Daily, # 180 tablet, 1 Refills, Maintenance, 06/30/21 17:00:00 EDT, [facility], Partial fill upon patient request if the prescription is for a schedule II opioid drug., 172, cm, 06/30/21 15:09:00 ED... Start Date: 06/30/21 Status: Ordered estradiol 2 mg oral tablet 2 tablet, By Mouth, Daily, # 60 tablet, 0 Refills, Maintenance, 06/30/21 17:02:00 EDT, [facility]-, 172, cm, 06/30/21 15:09:00 EDT, Height, 95, kg, 03/03/21 23:10:00 EDT, Dry Weight Start Date: 06/30/21 Status: Ordered gabapentin 300 mg oral capsule 300 mg, 1, capsule, By Mouth, 3 times a day, # 90 capsule, Refills 1, Tot. Refills 1, Maintenance, 06/30/21 17:03:00 EDT, Route to Pharmacy Electronically, [facility], Partial fill upon patient request if the prescription is f... Start Date: 06/30/21 Status: Ordered hydrOXYzine hydrochloride 50 mg oral tablet 1 tablet = 50 mg, By Mouth, Daily at bedtime, # 30 tablet, 2 Refills, Soft Stop, 06/30/21 17:06:00 EDT, [facility], Partial fill upon patient request if the prescription is for a schedule II opioid drug., 172, cm, 06/30/21 15:... Start Date: 06/30/21 Stop Date: 09/28/21 Status: Ordered lithium 150 mg oral capsule 3 capsule = 450 mg, By Mouth, 2 times a day, # 180 capsule, 1 Refills, Maintenance, 06/30/21 17:04:00 EDT, Capsule, [facility], Partial fill upon patient request if the prescription is for a schedule II opioid drug., 172, cm,... Start Date: 06/30/21 Status: Ordered melatonin 10 mg oral tablet 1 tablet = 10 mg, By Mouth, Daily at bedtime, PRN as needed for insomnia, for 30 days, # 30 tablet,0 Refills, Acute 07/30/21 17:05:00 EDT, 06/30/21 17:05:00 EDT, Tablet, [facility], Partial fill upon patient request if the pr... Start Date: 06/30/21 Stop Date: 07/30/21 Status: Ordered prazosin 5 mg oral capsule 5 mg, 1, capsule, By Mouth, Daily at bedtime, # 30 capsule, Refills 1, Tot. Refills 1, Maintenance,06/30/21 17:07:00 EDT, Route to Pharmacy Electronically, [id number], Partial fill upon patient request if the prescription is... Start Date: 06/30/21 Stop Date: 08/29/21 Status: Ordered Problem List Condition Effective Dates Status Health Status Inform ant Hxfj-wy-lkelbk transgender person(Confirmed) Active Gender Dysphoria(Confirmed) Active H/O left inguinal hernia repair(Confirmed) Active Homelessness(Confirmed) Active Depression(Confirmed) Active Social History Social History Type Response Smoking Status Former smoker; Other : quit many years ago; entered on: 08/10/16 Sex
--- OUTSIDE RECORDS SUMMARY | 2023-05-31 19:40 | XMS_ITS | Patient Health Record ---
Author Name Unknown Organization [facility] Address [address] [place] [address] Care Team Providers Care Swing Saw Operator Name Role Phone Juan Olivas Primary Care Provider Hanh Jimenez Unavailable [phone] ALLERGIES No Known Allergies REASON FOR REFERRAL No Information SOCIAL HISTORY Tobacco Use: Social History Observation Description Date Details (start date - stop date) Never Smoker NA - NA Sex Assigned At : Social History Observation Description Sex Assigned At Unknown Tobacco Use/Smoking Question Answer Notes Are you a: nonsmoker Additional Findings: Tobacco Non-User Current no n-smoker Alcohol Screen Question Answer Notes Did you have a drink containing alcohol in the p ast year? No Points 0 Interpretation Negative Tobacco use other than smoking: Question Answer Notes Are you an other tobacco user? 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
--- OUTSIDE RECORDS SUMMARY | 2023-05-31 19:40 | XMS_ITS | Continuity of Care Document ---
Author Name Unknown Organization [facility] Address [address] [place] [address]- Care Team Providers Care Third Shift Lieutenant Name Role Phone Brendon LUJAN, Juan Fuentes Primary Care Physician [place] [facility] Date[place] 05/27/[place] - 07/10/21 [facility] [address] [place] [address]- Attending Physician: Juan Olivas NP Allergies, Adverse [...] tablet, 2 Refills, Maintenance, 04/30/21 16:13:00 EDT, [facility]/pharmacy #[id number], 177, cm, 10/15/20 13:53:00 EST, Height, 95, kg, 03/03/21 23:10:00 EDT, Dry Weight Start Date: 04/30/21 Status: Ordered escitalopram 20 mg oral tablet 2 tablet = 40 mg, By Mouth, Daily, # 180 tablet, 1 Refills, Maintenance, 06/30/21 17:00:00 EDT, [facility], Partial fill upon patient request if the prescription is for a schedule II opioid drug., 172, cm, 06/30/21 15:09:00 ED... Start Date: 06/30/21 Status: Ordered estradiol 2 mg oral tablet 2 tablet, By Mouth, Daily, # 60 tablet, 0 Refills, Maintenance, 06/30/21 17:02:00 EDT, [facility]-, 172, cm, 06/30/21 15:09:00 EDT, Height, 95, kg, 03/03/21 23:10:00 EDT, Dry Weight Start Date: 06/30/21 Status: Ordered gabapentin 300 mg oral capsule 300 mg, 1, capsule, By Mouth, 3 times a day, # 90 capsule, Refills 1, Tot. Refills 1, Maintenance, 06/30/21 17:03:00 EDT, Route to Pharmacy Electronically, [facility], Partial fill upon patient request if the prescription is f... Start Date: 06/30/21 Status: Ordered hydrOXYzine hydrochloride 50 mg oral tablet 1 tablet = 50 mg, By Mouth, Daily at bedtime, # 30 tablet, 2 Refills, Soft Stop, 06/30/21 17:06:00 EDT, [facility], Partial fill upon patient request if the prescription is for a schedule II opioid drug., 172, cm, 06/30/21 15:... Start Date: 06/30/21 Stop Date: 09/28/21 Status: Ordered lithium 150 mg oral capsule 3 capsule = 450 mg, By Mouth, 2 times a day, # 180 capsule, 1 Refills, Maintenance, 06/30/21 17:04:00 EDT, Capsule, [facility], Partial fill upon patient request if the prescription is for a schedule II opioid drug., 172, cm,... Start Date: 06/30/21 Status: Ordered melatonin 10 mg oral tablet 1 tablet = 10 mg, By Mouth, Daily at bedtime, PRN as needed for insomnia, for 30 days, # 30 tablet,0 Refills, Acute 07/30/21 17:05:00 EDT, 06/30/21 17:05:00 EDT, Tablet, [facility], Partial fill upon patient request if the pr... Start Date: 06/30/21 Stop Date: 07/30/21 Status: Ordered prazosin 5 mg oral capsule 5 mg, 1, capsule, By Mouth, Daily at bedtime, # 30 capsule, Refills 1, Tot. Refills 1, Maintenance,06/30/21 17:07:00 EDT, Route to Pharmacy Electronically, [facility], Partial fill upon patient request if the prescription is... Start Date: 06/30/21 Stop Date: 08/29/21 Status: Ordered spironolactone 50 mg oral tablet 1 tablet, By Mouth, 2 times a day, # 60 tablet, 0 Refills, Maintenance, 01/09/21 16:06:00 EST, [email or web address] #[id number], 177, cm, 10/15/20 13:53:00 EST, Height, 95, kg, 07/16/20 0:55:00 EDT, Dry Weight Start Date: 01/09/21 Status: Ordered Problem List Condition Effective Dates Status Health Status Inform ant Ohma-an-iocfnk transgender person(Confirmed) Active Gender Dysphoria(Confirmed) Active H/O left inguinal hernia repair(Confirmed) Active Homelessness(Confirmed) Active Depression(Confirmed) Active Social History Social History Type Response Smoking Status Former smoker; Other : quit many years ago; entered on: 08/10/16 Sex
== END 2023-05-31 20:16 | disposition home or self-care (01) ==
PROVIDERS: Physician Assistant; Emergency Provider Internal Medicine; PCP Pediatrics
DX: R06.09 Other forms of dyspnea (principal); F12.90 Cannabis use, unspecified, uncomplicated; R06.02 Shortness of breath; R60.0 Localized edema; Z79.899 Other long term (current) drug therapy
CPT/HCPCS: 36415; 71046; 80048; 80076; 83735; 83880; 85025; 99282; 99283

== ENCOUNTER 2023-06-12 22:34 | Emergency (ER) | payer OTHER, SELFPAY ==
--- NOTE | ~2023-06-12 | XR_ITS ---
EXAMINATION: XR CHEST CLINICAL INFORMATION: Shortness of breath. COMPARISON: 05/31/2023 TECHNIQUE: Frontal view of the chest was obtained. FINDINGS: The lung volumes are low. The cardiomediastinal silhouette is grossly within normal limits for level of inspiration and AP portable technique. There is no definitive focal lung consolidation or evidence for significant pleural effusion. The bony structures and soft tissues are unremarkable. XR/XR chest 1V IMPRESSION: Low lung volumes limits evaluation. No evidence for active cardiopulmonary disease.
[2023-06-12 22:39] VITALS: BP 130/93; PULSE 71; O2SAT 97
[2023-06-12 22:46] VITALS: BP 121/72; PULSE 64; RESP 18; TEMP 36.6; O2SAT 96; BMI 36.5
--- NOTE | 2023-06-13 02:02 | ECG_ITS ---
Test Reason : DYSPNEA Blood Pressure : / mmHG Vent. Rate : 049 BPM Atrial Rate : 049 BPM P-R Int : 168 ms QRS Dur : 092 ms QT Int : 482 ms P-R-T Axes : 023 059 043 degrees QTc Int : 435 ms Sinus bradycardia Otherwise normal ECG When compared to the previous EKG of No significant changes seen Referred By: Destinee Reaves Electronically Signed By:BRENT TORRES MD
--- NOTE | 2023-06-13 02:04 | ED.SOB ---
HPI - SOB/Dyspnea General Chief Complaint: Dyspnea Stated Complaint: sob Time Seen by Provider: 06/13/23 01:45 Source: patient Mode of arrival: ambulatory Limitations: no limitations History of Present Illness HPI Narrative: Patient comes to the emergency room complaining of shortness of breath with exertion. Patient states it has been going on for several months. Patient states that now that she lives alone, the shortness of breath has gotten worse. Patient states that she needs to sleep with a fan in an air purifier on. Denies chest pain. Patient states that walking a few feet makes her feel short of breath. Patient came to the emergency room approximately 2 weeks ago, workup was negative Related Data Previous Rx's Medication Instructions Recorded cane #1 ea 04/28/21 clonazepam 2 mg tablet 2 mg PO TID PRN anxiety 15 days 04/28/21 #45 tabs escitalopram oxalate 10 mg tablet 40 mg PO DAILY 30 days #120 tabs 04/28/21 estradiol 2 mg tablet 4 mg PO DAILY 30 days #60 tabs 04/28/21 trazodone 100 mg tablet 200 mg PO BEDTIME PRN insomnia 30 04/28/21 days #60 tabs cephalexin 500 mg tablet 500 mg PO Q6H 10 days #40 tabs 12/24/22 nystatin 100,000 unit/gram topical 1 appl topical BID #15 grams 12/24/22 powder Allergies Allergy/AdvReac Type Severity Reaction Status Date / Time tramadol Allergy Intermediate hives Verified 12/24/22 15:19 bupropion [From WELLBUTRIN] Allergy Unknown PAINFUL Verified 12/24/22 15:19 ERECTION perphenazine Allergy Unknown Shakiness Verified 12/24/22 15:19 risperidone [Risperdal] AdvReac Unknown diarrhea, Verified 12/24/22 15:19 feels ramped up sertraline [From ZOLOFT] AdvReac Unknown NAUSEA/DIZZ Verified 12/24/22 15:19 INESS BANANAS Allergy Unknown ITCHING Uncoded 03/29/21 01:18 INSIDE MOUTH BLUEBERRIES Allergy Unknown ITCHING Uncoded 03/29/21 01:18 INSIDE MOUTH STRAWBERRIES Allergy Unknown ITCHING Uncoded 03/29/21 01:18 INSIDE MOUTH Review of Systems Review of Systems: Constitutional : No Weight loss, No Fever, No Chills, No Night Sweats, No Fatigue, No Malaise ENT/Mouth : No Hearing loss, No Ear Pain, No Nasal Congestion, No Sinus Pain, No Hoarseness, No sore throat, No Rhinorrhea, No Swallowing Difficulty Eyes: No Eye Pain, No Swelling, No Redness, No Foreign Body, No Discharge, No Vision Changes Cardiovascular : No Chest Pain, complaining of shortness of breath with exertion which is chronic, denies orthopnea Respiratory : No Cough, No Sputum, No Wheezing, No Smoke Exposure, No Dyspnea Gastrointestinal : No Nausea, No Vomiting, No Diarrhea, No Constipation, No abdominal Pain, No Hematochezia, No Melena Genitourinary : no irregular bleeding, No Dysuria, No Urinary Frequency, No Hematuria, No Urinary Incontinence, No Urgency, No Flank Pain, No Urinary Flow Changes, No Hesitancy Musculoskeletal : No joint pain, No Myalgias, No Joint Swelling Skin : No Skin Lesions, No rash Neuro : No Weakness, No Numbness, No Paresthesias, No Loss of Consciousness, No Dizziness, No Headache Psych : No Anxiety/Panic, No Depression, No SI/HI/AH/VH, No Social Issues, Heme/Lymph: No Bruising, No Bleeding,No Lymphadenopathy Endocrine : No Polyuria, No Polydipsia, No Temperature Intolerance [facility] Past Medical History Medical History Agoraphobia Anxiety Chronic post-traumatic stress disorder (PTSD) Depression Hip pain, chronic [id number] transgender person MDD (major depressive disorder), recurrent severe, without psychosis PTSD (post-traumatic stress disorder) Somatic complaints, multiple Suicidal ideation Social History Social History Household Members: None Housing: Homeless Do you presently have visiting nurse or other home services: No Patient Tobacco Use Status: Never used Tobacco Substance Use Type: Marijuana Advance Directives: No Advance Directives Information Provided: No service: No Sexual orientation: Did not discuss Physical Exam Vital Signs: Vital Signs: Last Vital Signs Temp 97.8 F 06/12/23 22:46 Pulse 64 06/12/23 22:46 Resp 18 06/12/23 22:46 BP 121/72 06/12/23 22:46 Pulse Ox 96 06/12/23 22:46 O2 Del Method Room Air 06/12/23 22:46 BMI result Body Mass Index 36.5 Const: Other: Appearance: Alert. Oriented X3. No acute distress. Eyes: Pupils equal, round and reactive to light. ENT: Pharynx normal. Neck: Normal inspection. Neck supple. No lymph nodes noted. No crepitus CVS: Normal heart rate and rhythm. Pulses normal. Normal S1 and S2 Respiratory: No respiratory distress. Breath sounds normal. No Wheezing. No rales Abdomen: Soft and nontender. No rigidity. No distention. Skin: Skin warm and dry. Normal skin color. Normal skin turgor. Extremities: No lower extremity edema. No Lacerations. No Rash Neuro: Oriented X 3. No motor deficit. No sensory deficit. Moving all extremities. No slurred speech. CN 2 through 12 grossly intact Psych: calm, cooperative, normal affect Course Course Course Narrative: -all of patient's labs and imaging pending Medical Decision Making Medical Decision Making MDM Narrative: -my interpretation of EKG: Sinus bradycardia, no ST segment depression elevation, no T-wave inversion, QTC 435 -interpretation of chest x-ray: No pulmonary infiltrate, no effusion -my interpretation of labs, hematology and chemistry unremarkable -D-dimer negative, was criteria score for pulmonary embolism 0 -patient was ambulated in the emergency room, oxygen saturation constantly 97% Differential Diagnosis Differential Diagnoses: The differential diagnosis associated with the presentation includes (CHF, PE, pneumonia, pleural effusion, physical decompensation, anxiety) Admission/Observation Consideration of admission/observation: Escalation of care including admission/observation considered (Patient came in complaining with shortness of breath with minimal exertion, admission was considered) Lab Data [facility] Lab Attestation statement: I reviewed the patient's lab results. 06/13/23 02:39 06/13/23 02:39 Labs: Lab Results 06/13/23 06/13/23 06/13/23 Range/Units 02:39 02:39 02:39 WBC 8.8 (4.8-10.8) X10*3/uL RBC 4.91 (4.20-5.50) X10*6/uL Hgb 14.8 (12.0-16.0) g/dl Hct 42.8 (37.0-47.0) % MCV 87.2 (80.0-98.0) fL MCH 30.1 (27.0-33.0) pg MCHC 34.6 (31.0-35.0) g/dl RDW 12.1 (11.0-16.0) % Plt Count 226 (160-400) X10*3/uL MPV 8.7 L (9.4-12.3) fL Immature Gran % (Auto) 0.3 (0.0-0.4) % Neut % (Auto) 59.3 (45-73) % Lymph % (Auto) 32.3 (20-40) % Bollinger % (Auto) 6.3 (2-11) % Eos % (Auto) 1.5 (0-4) % Baso % (Auto) 0.3 (0-2) % Lymph # (Auto) 2.8 (1.2-4.9) X10*3/uL Bollinger # (Auto) 0.6 (0.1-1.2) X10*3/uL Eos # (Auto) 0.1 (0.0-0.4) X10*3/uL Baso # (Auto) 0.0 (0.0-0.2) X10*3/uL Abs Immat Gran (auto) 0.03 (0.00-0.03) X10*3/uL Absolute Neuts (auto) 5.2 (2.0-8.3) x10*3/uL Absolute Nucleated RBC 0.000 (0.0-0.012) X10*3/uL Nucleated RBC % (auto) 0.0 (0.0-0.2) /100WBC D-Dimer High Sensitivty < 150 NG/ML VBG pH (7.32-7.43) VBG pCO2 mmHg VBG pO2 mmHg VBG HCO3 (22-26) mmol/L VBG O2 Saturation % VBG Base Excess mmol/L Sodium 144 (135-145) mmol/L Potassium 4.4 (3.3-5.1) mmol/L Chloride 107 (96-108) mmol/L BUN 17 H (9-16) mg/dL Creatinine 1.29 (0.5-1.4) mg/dL Estim Creat Clear Calc 76.5 Estimated GFR 46 Random Glucose 85 (60-115) mg/dL Calcium 9.3 (8.4-10.2) mg/dL B-Natriuretic Peptide (<100) pg/mL COVID-19 (DANNY) (Negative) COVID-19 Clin Com 06/13/23 06/13/23 06/13/23 Range/Units 02:39 02:39 02:44 WBC (4.8-10.8) X10*3/uL RBC (4.20-5.50) X10*6/uL Hgb (12.0-16.0) g/dl Hct (37.0-47.0) % MCV (80.0-98.0) fL MCH (27.0-33.0) pg MCHC (31.0-35.0) g/dl RDW (11.0-16.0) % Plt Count (160-400) X10*3/uL MPV (9.4-12.3) fL Immature Gran % (Auto) (0.0-0.4) % Neut % (Auto) (45-73) % Lymph % (Auto) (20-40) % Bollinger % (Auto) (2-11) % Eos % (Auto) (0-4) % Baso % (Auto) (0-2) % Lymph # (Auto) (1.2-4.9) X10*3/uL Bollinger # (Auto) (0.1-1.2) X10*3/uL Eos # (Auto) (0.0-0.4) X10*3/uL Baso # (Auto) (0.0-0.2) X10*3/uL Abs Immat Gran (auto) (0.00-0.03) X10*3/uL Absolute Neuts (auto) (2.0-8.3) x10*3/uL Absolute Nucleated RBC (0.0-0.012) X10*3/uL Nucleated RBC % (auto) (0.0-0.2) /100WBC D-Dimer High Sensitivty NG/ML VBG pH 7.37 (7.32-7.43) VBG pCO2 46 mmHg VBG pO2 28 mmHg VBG HCO3 26 (22-26) mmol/L VBG O2 Saturation 39.0 % VBG Base Excess 1.1 mmol/L Sodium (135-145) mmol/L Potassium (3.3-5.1) mmol/L Chloride (96-108) mmol/L BUN (9-16) mg/dL Creatinine (0.5-1.4) mg/dL Estim Creat Clear Calc Estimated GFR Random Glucose (60-115) mg/dL Calcium (8.4-10.2) mg/dL B-Natriuretic Peptide 16 (<100) pg/mL COVID-19 (DANNY) Negative (Negative) COVID-19 Clin Com See Note Independent Interpretation I performed an independent interpretation of an: Plain X-Ray Radiology Impression Discussion of test interpretation with radiology: I have reviewed the radiologist's reading. Radiologist Impression: FINDINGS: The lung volumes are low. The cardiomediastinal silhouette is grossly within normal limits for level of inspiration and AP portable technique. There is no definitive focal lung consolidation or evidence for significant pleural effusion. The bony structures and soft tissues are unremarkable. XR/XR chest 1V IMPRESSION: Low lung volumes limits evaluation. ? No evidence for active cardiopulmonary disease. Critical Care Time Critical Care Time Critical Care Time: Yes Total Critical Care Time: 45 Attestation: I have personally provided critical care time. Time includes review of lab data, radiology results, discussion with consultants, and monitoring for potential decompensation. Intervention performed as documented. Discharge Plan Discharge Clinical Impression: Chronic dyspnea Patient Disposition: Home, Self-Care Instructions: Dyspnea (ED) Prescriptions: No Action trazodone 100 mg Tablet 200 mg PO BEDTIME PRN (Reason: insomnia) 30 Days Qty: 60 0RF escitalopram oxalate 10 mg Tablet 40 mg PO DAILY 30 Days Qty: 120 0RF (DME) cane Device See Rx Instructions .ROUTE .MEDSUPPLY Qty: 1 0RF Rx Instructions: As directed clonazepam 2 mg tablet 2 mg PO TID PRN (Reason: anxiety) 15 Days Qty: 45 1RF estradiol 2 mg tablet 4 mg PO DAILY 30 Days Qty: 60 0RF cephalexin 500 mg tablet 500 mg PO Q6H 10 Days Qty: 40 0RF nystatin 100,000 unit/gram powder 1 appl topical BID Qty: 15 0RF
--- OUTSIDE RECORDS SUMMARY | 2023-06-13 02:04 | XMS_ITS | Patient Health Record ---
Author Name Unknown Organization [facility] Address [address] [place] [address] Care Team Providers Care Wire Temperer Name Role Phone Juan Olivas Primary Care Provider Hanh Jimenez Unavailable [phone] ALLERGIES No Known Allergies REASON FOR REFERRAL [...] No Encounters Encounter Location Date Provider Diagnosis [address] [address] 07/23/2022 Hanh Vaz Tinea unguium B35.1 and Xerosis cutis L85.[address] [address] 10/12/2022 Hanh Vaz [address] [address] 10/12/2022 Hanh Vaz ASSESSMENTS Encounter Date Diagnosis Assessment Notes Treatment Notes Treatment Clinical Notes 07/23/2022 Tinea unguium (ICD-10 - B35.1) 07/23/2022 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 SCO Claims [address] [place] [address] [phone] [id number] Jazlyn Torres Self - patient is the insured MEDICAL (GENERAL) HISTORY Medical History History ICD Code Anxiety Back,Hip,and Knee pain Depression Chicken pox Surgical History Surgery Date(Month/Year) hernia Hand Surgery
[2023-06-13 02:46] LABS: MANUAL DIFF FLAG NO
[2023-06-13 02:48] LABS: Basophils Percent Auto 0.3 % (0-2); Eosinophils Absolute Auto 0.1 X10*3/uL (0.0-0.4); Eosinophils Percent Auto 1.5 % (0-4); Hematocrit 42.8 % (37.0-47.0); Hemoglobin 14.8 g/dl (12.0-16.0); Imm Gran Abs Auto 0.03 X10*3/uL (0.00-0.03); Imm Gran Pct Auto 0.3 % (0.0-0.4); Lymphocytes Absolute Auto 2.8 X10*3/uL (1.2-4.9); Lymphocytes Percent Auto 32.3 % (20-40); Mean Corpuscular HGB Conc 34.6 g/dl (31.0-35.0); Mean Corpuscular Hemoglobin 30.1 pg (27.0-33.0); Mean Corpuscular Volume 87.2 fL (80.0-98.0); Mean Platelet Volume 8.7 fL (9.4-12.3); Monocytes Absolute Auto 0.6 X10*3/uL (0.1-1.2); Monocytes Percent Auto 6.3 % (2-11); Neutrophils Absolute Auto 5.2 x10*3/uL (2.0-8.3); Neutrophils Percent Auto 59.3 % (45-73); Platelet Count 226 X10*3/uL (160-400); Red Blood Count 4.91 X10*6/uL (4.20-5.50); Red Cell Distribution Width 12.1 % (11.0-16.0); White Blood Count 8.8 X10*3/uL (4.8-10.8)
[2023-06-13 02:59] LABS: D Dimer High Sensitivity < 150 NG/ML
[2023-06-13 03:00] LABS: Venous Blood Gas Refer to POC result
[2023-06-13 03:02] LABS: VBG Base Excess 1.1 mmol/L; VBG HCO3 26 mmol/L (22-26); VBG pCO2 46 mmHg; VBG pH 7.37 (7.32-7.43); VBG pO2 28 mmHg
[2023-06-13 03:08] LABS: COVID-19 Test Negative (Negative); IDNOW Serial# 6674DD1D
[2023-06-13 03:10] LABS: B Type Natriuretic Peptide 16 pg/mL (<100)
[2023-06-13 03:12] LABS: Blood Urea Nitrogen 17 mg/dL (9-16); Calcium 9.3 mg/dL (8.4-10.2); Chloride 107 mmol/L (96-108); Creatinine Clr Calc Pharmacy 76.5; Estimated Glomerular Filt Rate 46; Glucose Random 85 mg/dL (60-115); Potassium 4.4 mmol/L (3.3-5.1); Sodium 144 mmol/L (135-145)
[2023-06-13 09:26] LABS: Anion Gap 13 (12-20); Carbon Dioxide 26 mmol/L (22-29)
== END 2023-06-13 05:43 | disposition home or self-care (01) ==
PROVIDERS: Emergency Provider Emergency Medicine; PCP Pediatrics
DX: R06.00 Dyspnea, unspecified (principal); R06.02 Shortness of breath; F12.90 Cannabis use, unspecified, uncomplicated; Z20.822 Contact with and (suspected) exposure to COVID-19; Z79.899 Other long term (current) drug therapy
CPT/HCPCS: 36415; 71045; 80048; 82803; 83880; 85025; 85379; 87635; 93005; 99281; 99283

== ENCOUNTER → 2023-06-13 02:02 | Outpatient (BNV) | payer OTHER, SELFPAY | PROVIDERS: Emergency Provider Emergency Medicine; PCP Pediatrics; Visit Provider Internal Medicine Cardiovascular Disease | DX: R00.1 Bradycardia, unspecified (principal) | CPT/HCPCS: 93010 ==

== ENCOUNTER 2023-12-19 17:25 | Emergency (ER) | payer OTHER, SELFPAY ==
--- NOTE | ~2023-12-19 | XR_ITS ---
EXAMINATION: X-RAY LUMBAR SPINE X-RAY SACRUM/COCCYX CLINICAL INFORMATION: Back pain. COMPARISON: CT abdomen/pelvis 12/24/2022. TECHNIQUE: 3 views of the lumbar spine and 3 views of the cecum/coccyx. FINDINGS: Lumbar spine: Grade 1 retrolisthesis of L5 on S1, unchanged. No evidence of acute compression deformity or traumatic subluxation. Mild intervertebral disc height loss and facet arthropathy at L5-S1. No significant paraspinal soft tissue abnormality. Sacrum/coccyx: No fracture. Mild posterior subluxation of the coccygeal tip, stable compared to 12/24/2022. Symmetric SI joints. No significant soft tissue abnormality. XR/XR lumbar spine 2-3V IMPRESSION: 1. No acute fractures or malalignment. 2. Stable mild posterior subluxation at the coccygeal tip. 3. Mild lower lumbar spondylosis.
--- NOTE | ~2023-12-19 | XR_ITS ---
EXAMINATION: X-RAY LUMBAR SPINE X-RAY SACRUM/COCCYX CLINICAL INFORMATION: Back pain. COMPARISON: CT abdomen/pelvis 12/24/2022. TECHNIQUE: 3 views of the lumbar spine and 3 views of the cecum/coccyx. FINDINGS: Lumbar spine: Grade 1 retrolisthesis of L5 on S1, unchanged. No evidence of acute compression deformity or traumatic subluxation. Mild intervertebral disc height loss and facet arthropathy at L5-S1. No significant paraspinal soft tissue abnormality. Sacrum/coccyx: No fracture. Mild posterior subluxation of the coccygeal tip, stable compared to 12/24/2022. Symmetric SI joints. No significant soft tissue abnormality. XR/XR sacrum coccyx min 2V IMPRESSION: 1. No acute fractures or malalignment. 2. Stable mild posterior subluxation at the coccygeal tip. 3. Mild lower lumbar spondylosis.
[2023-12-19 18:34] VITALS: BP 172/86; PULSE 92; RESP 16; TEMP 36.2; O2SAT 96; BMI 39.4
--- NOTE | 2023-12-19 18:34 | ED_ITS ---
HPI - Back Pain/Injury General Chief Complaint: Back Pain/Injury Stated Complaint: back pain, unable to sit Time Seen by Provider: 12/19/23 19:48 Source: patient Mode of arrival: ambulatory Limitations: no limitations History of Present Illness HPI Narrative: Patient is a 43-year-old transgender male to female who presents emergency department for evaluation of right lower back pain radiating down the right leg to the heel with intermittent numbness. Denies any precipitating injury. Reports this is chronic in nature, but worse today. Reports in the past has been told that she has ?slipped discs? has only been evaluated by primary care provider for this and took Tylenol/ibuprofen today without relief. Denies recent precipitating injury, fevers, chills, burning with micturition, urinary frequency/urgency/hesitancy, bladder or bowel dysfunction, numbness or tingling of the perineum. Denies any recent surgical procedures, any known immune compromising conditions, personal history of cancer, or IV drug usage. MD elicited complaint: back pain Related Data Previous Rx's Medication Instructions Recorded cane #1 ea 04/28/21 clonazepam 2 mg tablet 2 mg PO TID PRN anxiety 15 days 04/28/21 #45 tabs escitalopram oxalate 10 mg tablet 40 mg (4 x 10 mg) PO DAILY 30 days 04/28/21 #120 tabs estradiol 2 mg tablet 4 mg (2 x 2 mg) PO DAILY 30 days 04/28/21 #60 tabs trazodone 100 mg tablet 200 mg (2 x 100 mg) PO BEDTIME PRN 04/28/21 insomnia 30 days #60 tabs cephalexin 500 mg tablet 500 mg PO Q6H 10 days #40 tabs 12/24/22 nystatin 100,000 unit/gram topical 1 appl topical BID #15 grams 12/24/22 powder cyclobenzaprine 10 mg tablet 10 mg PO TID PRN muscle spasm #20 12/19/23 tabs lidocaine 5 % topical patch 1 patch topical DAILY #30 ea 12/19/23 (Lidoderm) Allergies Allergy/AdvReac Type Severity Reaction Status Date / Time tramadol Allergy Intermediate hives Verified 12/19/23 18:34 bupropion [From WELLBUTRIN] Allergy Unknown PAINFUL Verified 12/19/23 18:34 ERECTION perphenazine Allergy Unknown Shakiness Verified 02/19/24 18:34 risperidone [Risperdal] AdvReac Unknown diarrhea, Verified 12/19/23 18:34 feels ramped up sertraline [From ZOLOFT] AdvReac Unknown NAUSEA/DIZZ Verified 12/19/23 18:34 INESS BANANAS Allergy Unknown ITCHING Uncoded 12/19/23 18:34 INSIDE MOUTH BLUEBERRIES Allergy Unknown ITCHING Uncoded 12/19/23 18:34 INSIDE MOUTH STRAWBERRIES Allergy Unknown ITCHING Uncoded 12/19/23 18:34 INSIDE MOUTH Review of Systems Review of Systems: Yes all other systems are reviewed and are negative PMFSH Past Medical History Attestation statement: The following information was validated with the patient. Source: old records reviewed Medical History Agoraphobia Anxiety Chronic post-traumatic stress disorder (PTSD) Depression Hip pain, chronic [id number] transgender person MDD (major depressive disorder), recurrent severe, without psychosis PTSD (post-traumatic stress disorder) Somatic complaints, multiple Suicidal ideation Social History Social History Household Members: None Housing: Homeless Do you presently have visiting nurse or other home services: No Patient Tobacco Use Status: Never used Tobacco Smoked in Last 30 Days: No Use of substances other than those prescribed or required for medical reasons: No Substance Use Type: Marijuana Advance Directives: No Advance Directives Information Provided: No Patient : No service: No Sexual orientation: Did not discuss Physical Exam Vital Signs: Vital Signs: Last Vital Signs Temp 97.6 F 12/19/23 22:19 Pulse 65 12/19/23 22:19 Resp 19 12/19/23 22:19 BP 142/75 H 12/19/23 22:19 Pulse Ox 97 12/19/23 22:19 O2 Del Method Room Air 12/19/23 22:19 BMI result Body Mass Index 39.4 Appearance: Alert.?Oriented to person, place and time. No acute distress.?Normal affect. Eyes: Pupils equal, round and reactive to light.? ENT: Pharynx normal.?? Neck: Normal inspection.? Neck supple.?? CVS: Heart sounds normal. Normal heart rate and rhythm.? Pulses normal; b ilateral radial pulses 2+, bilateral posterior tibial/dorsalis pedis pulses 2+.? Respiratory: No respiratory distress.? Lung sounds clear to auscultation bilaterally?? Abdomen: Soft and non-tender. Normoactive bowel sounds. No pulsatile mass.?? Skin: Skin warm and dry.? Normal skin color.? Normal skin turgor.?? Extremities: No lower extremity edema.? No calf ttp? Back: + mild paraspinal muscular tenderness from lumbar region to coccyx on the right. No CVA tenderness. No midline spinal tenderness, step-off's, or deformity. Full ROM intact in bilateral lower extremities. Straight leg test positive on right; Straight leg test negative on left. No rashes, lesions, ar eas of induration or fluctuance, or signs of infection noted., Neuro: Moves all extremities spontaneously. 5/5 strength in hip extension/flexion, abduction, adduction. Sensation to light touch intact bilaterally. Patellar and Achilles reflex 2+ bilaterally. No ataxia, gait normal and steady.. No focal neuro deficits. Course Course Course Narrative: RME: 43 year-old MTF transgender w/ PMHx anxiety, depression, PTSD MDD, presenting to the ED c/o acute on chronic back pain > low back w/radiation down RLE x today (pain has been going on x years). +numbness & tingling. denies incontinence/retention. took Tylenol/Motrin for pain w/o relief ambulating w/cane w/guarded gait XRs ordered, will need pain control Full HPI, ROS and PE to be performed by primary ED provider. Medications Administered Discontinued Medications Generic Name Dose Route Start Last Admin Trade Name Beulah PRN Reason Stop Dose Admin Cyclobenzaprine HCl 10 mg 12/19/23 20:40 12/19/23 21:15 Cyclobenzaprine Hcl 10 Mg Tablet PO 12/19/23 20:41 10 mg ONCE ONE Administration Lidocaine 1 patch 12/19/23 21:21 12/19/23 21:42 Lidocaine 4 % Patch Adh..Patch TRANSDERMA 12/19/23 21:22 1 patch ONCE ONE Administration Protocol Medical Decision Making Medical Decision Making MDM Narrative: Patient is a 43-year-old who presents emergency department for evaluation of acute on chronic low back pain radiating to the leg without any precipitating injury. Child pain management with Tylenol and ibuprofen without any relief. XR reveals no acute fracture malalignment, stable mild posterior subluxation at the coccygeal tip, L5-S1 retrolisthesis with facet arthropathy as seen similarly on CT scan in the past. Pain is most consistent with lumbar radiculopathy, although cannot completely exclude herniated disc. On neurological exam there are no deficits. Not consistent with spinal fracture, spinal infection, epidural abscess, AAA, epidural abscess, or dissection. No high risk past medical history including incontinence, fever, immunosuppression, recent surgery or lumbar puncture, coagulopathy, significant trauma, recent unintentional weight loss, pulsatile mass, history of cancer, history of TB, history of IV drug use that would warrant MRI or CT. Not consistent with pyelonephritis, urinary tract infection, renal calculi, appendicitis, diverticulitis. On exam no concern for cauda equina syndrome. No imaging is currently indicated at this time. Plan for discharge home with prescription for Flexeril and Lidoderm which did help to alleviate pain while in the emergency department, and follow-up with primary care provider, and patient agreed with plan. Differential Diagnosis Differential Diagnoses: The differential diagnosis associated with the presentation includes ( see narrative above) Admission/Observation Consideration of admission/observation: Escalation of care including admission/observation considered ( see narrative above) Independent Interpretation I performed an independent interpretation of an: Plain X-Ray (No acute fracture) Radiology Impression Discussion of test interpretation with radiology: I have reviewed the radiologist's reading. Radiologist Impression: XR/XR lumbar spine 2-3V IMPRESSION: 1. No acute fractures or malalignment. 2. Stable mild posterior subluxation at the coccygeal tip. 3. Mild lower lumbar spondylosis. External Record Review External record reviewed: Outpatient record Prescription Management I considered prescription management with: Pain Medication Discharge Plan Discharge Clinical Impression: Lumbar radiculopathy Patient Disposition: Home, Self-Care Instructions: Lumbar Radiculopathy (ED), Lower Back Exercises (ED) Additional Instructions: You can take ibuprofen 200 mg, 3 tablets (600mg) every 6-8 hours as needed for pain, in addition to Tylenol 500 mg, 2 tablets (1,000mg) every 4-6 hours as needed for pain, but not to exceed 3 doses daily (3,000mg).? A prescription for a muscle relaxer was sent to your pharmacy, this medication may make you drowsy. You should not drive, drink alcohol, or work while taking this medication. Apply Lidoderm patch to the area of pain on your back, leave on for 12 hours and then leave off for 12 hours. Follow-up with your primary care provider Prescriptions: New lidocaine [Lidoderm] 5 % adhesive patch,medicated 1 patch topical DAILY Qty: 30 0RF Rx Instructions: leave on most painful area for up to 12 hrs cyclobenzaprine 10 mg tablet 10 mg PO TID PRN (Reason: muscle spasm) Qty: 20 0RF No Action trazodone 100 mg Tablet 200 mg PO BEDTIME PRN (Reason: insomnia) 30 Days Qty: 60 0RF escitalopram oxalate 10 mg Tablet 40 mg PO DAILY 30 Days Qty: 120 0RF (DME) cane Device See Rx Instructions .ROUTE .MEDSUPPLY Qty: 1 0RF Rx Instructions: As directed clonazepam 2 mg tablet 2 mg PO TID PRN (Reason: anxiety) 15 Days Qty: 45 1RF estradiol 2 mg tablet 4 mg PO DAILY 30 Days Qty: 60 0RF cephalexin 500 mg tablet 500 mg PO Q6H 10 Days Qty: 40 0RF nystatin 100,000 unit/gram powder 1 appl topical BID Qty: 15 0RF Referrals: Physician,Unknown J [Primary Care Provider] - Interventions: ED Discharge Assessment Last Done: 12/19/23 22:32 Discharge Date/Time: 12/19/23 22:33
--- OUTSIDE RECORDS SUMMARY | 2023-12-19 19:42 | XMS_ITS | Continuity of Care Document ---
Author Name Unknown Organization [facility] Address [address] [place] [address]- Care Team Providers Care Projection Welding Machine Operator Name Role Phone Charlotte MARIA, Blanka Angeles Primary Care Physician Encounter [facility] Date(s): 06/01/23 - 07/01/23 [facility] [address] [place] [address]- Allergies, Adverse Reactions, Alerts Substance Reaction Severity [...] 0 Refills, Maintenance, 06/03/22 10:50:00 EDT, Cream, [facility], Partial fill upon patient request if the prescription is for a schedule II opioid drug., 1 application Topically 2 times a da... Start Date: 06/03/22 Stop Date: 06/17/22 Status: Ordered clonazePAM 2 mg oral tablet See Instructions, TAKE 1 TABLET BY MOUTH THREE TIMES DAILY NEEDED FOR ANXIETY, # 90 tablet, 1 Refills, Maintenance, 03/04/22 8:44:00 EDT, [facility], 172, cm, 12/15/21 14:14:00 EST, Height, 95, kg, 03/03/21 23:10:00 EDT, Dry Weight Start Date: 03/04/22 Status: Ordered escitalopram 20 mg oral tablet 2 tablet = 40 mg, By Mouth, Daily, # 180 tablet, 1 Refills, Maintenance, 12/31/22 20:03:00 EST, [facility], Partial fill upon patient request if the prescription is for a schedule II opioiddrug., 172, cm, 09/13/22 10:14:00 EST, Height, 123.... Start Date: 12/31/22 Status: Ordered estradiol 2 mg oral tablet 2 tablet, By Mouth, Daily, # 60 tablet, 1 Refills, Maintenance, 03/07/23 16:36:00 EDT, [facility], 172, cm, 09/13/22 10:14:00 EST, Height, 123.3, kg, 06/03/22 10:06:00 EDT, Dry Weight Start Date: 03/07/23 Status: Ordered estradiol 2 mg oral tablet 2 tablet, By Mouth, Daily, # 60 tablet, 3 Refills, 07/22/22 8:26:00 EDT, [facility], 172,cm, 06/03/22 10:06:00 EDT, Height, 123.3, kg, 06/03/22 10:06:00 EDT, Dry Weight Start Date: 07/22/22 Status: Ordered gabapentin 300 mg oral capsule 300 mg, 1, capsule, By Mouth, 3 times a day, # 90 capsule, Refills 1, Tot. Refills 1, Maintenance, 07/27/22 13:12:00 EDT, Route to Pharmacy Electronically, [facility], Partial fill upon patient request if the prescription is for a schedule I... Start Date: 07/27/22 Status: Ordered gabapentin 300 mg oral capsule 1, capsule, By Mouth, 3 times a day, # 90 capsule, Refills 0, Maintenance, 07/27/22 13:13:00 EDT, Route to Pharmacy Electronically, [facility], 172, cm, 06/03/22 10:06:00 EDT, Height, 123.3, kg, 06/03/22 10:06:00 EDT, Dry Weight Start Date: 07/27/22 Status: Ordered hydrOXYzine hydrochloride 50 mg oral tablet 1 tablet, By Mouth, Daily at bedtime, # 30 tablet, 2 Refills, Maintenance, 05/27/22 9:46:00 EDT, [facility], 172, cm, 03/09/22 9:54:00 EDT, Height, 95, kg, 03/03/21 23:10:00 EDT, Dry Weight Start Date: 05/27/22 Status: Ordered lithium 450 mg oral tablet, extended release 1 tablet, By Mouth, Daily at bedtime, # 30 tablet, 0 Refills, [facility] [id number], 172, cm, 08/05/21 15:13:00 EDT, Height, 95, [...] FOR SLEEP, # 60 tablet, 0 Refills, [facility], 172, cm, 12/15/21 14:14:00 EST, Height, 95, kg, 03/03/21 23:10:00 EDT, Dry Weight Start Date: 01/28/22 Status: Ordered prazosin 5 mg oral capsule 5 mg, 1, capsule, By Mouth, Daily at bedtime, # 30 capsule, Refills 2, Tot. Refills 2, Maintenance,05/27/22 9:46:00 EDT, Route to Pharmacy Electronically, [facility], Partial fill upon patient request if the prescription is for a schedule I... Start Date: 05/27/22 Stop Date: 08/25/22 Status: Ordered Problem List Condition Confirmation Course Effective Dates Status Health St atus Informant Stage 3a chronic kidney disease (CKD) Confirmed Active Gender dysphoria Confirmed 08/17/22 Active Emzo-nr-cwhhnp transgender person Confirmed Active Gender Dysphoria Confirmed Active H/O left inguinal hernia repair Confirmed Active Homelessness Confirmed Active Low back pain Confirmed Active Depression Confirmed Active Mood disorder Confirmed 08/17/22 Active Social History Social History Type Response Smoking Status Former smoker; Other : quit many years ago; entered on: 08/10/16 Sex Patient Care team information Care Team Personnel Name: Charlotte MARIA, Blanka Angeles Position: [facility] Physician - Primary Care Member Role: PCP Address: Address: [address] [place] [id number]- Care Team Related Persons Name: XAVIER BERKOWITZ Address: [address] [place] [address] Name: EDMOND SHIPMAN Address: home [address] [place] [address]
--- OUTSIDE RECORDS SUMMARY | 2023-12-19 19:43 | XMS_ITS | Continuity of Care Document ---
Author Name Unknown Organization [facility] Address [address] [place] [address]- Care Team Providers Care Wrapper Leaf Inspector Name Role Phone Charlotte MARIA, Blanka Angeles Primary Care Physician Encounter [facility] Date(s): 05/31/23 - 06/30/23 [facility] [address] [place] [address]- Allergies, Adverse Reactions, Alerts Substance Reaction Severity [...] 0 Refills, Maintenance, 06/03/22 10:50:00 EDT, Cream, [facility], Partial fill upon patient request if the prescription is for a schedule II opioid drug., 1 application Topically 2 times a da... Start Date: 06/03/22 Stop Date: 06/17/22 Status: Ordered clonazePAM 2 mg oral tablet See Instructions, TAKE 1 TABLET BY MOUTH THREE TIMES DAILY NEEDED FOR ANXIETY, # 90 tablet, 1 Refills, Maintenance, 03/04/22 8:44:00 EDT, [facility], 172, cm, 12/15/21 14:14:00 EST, Height, 95, kg, 03/03/21 23:10:00 EDT, Dry Weight Start Date: 03/04/22 Status: Ordered escitalopram 20 mg oral tablet 2 tablet = 40 mg, By Mouth, Daily, # 180 tablet, 1 Refills, Maintenance, 12/31/22 20:03:00 EST, [facility], Partial fill upon patient request if the prescription is for a schedule II opioiddrug., 172, cm, 09/13/22 10:14:00 EST, Height, 123.... Start Date: 12/31/22 Status: Ordered estradiol 2 mg oral tablet 2 tablet, By Mouth, Daily, # 60 tablet, 1 Refills, Maintenance, 03/07/23 16:36:00 EDT, [facility], 172, cm, 09/13/22 10:14:00 EST, Height, 123.3, kg, 06/03/22 10:06:00 EDT, Dry Weight Start Date: 03/07/23 Status: Ordered estradiol 2 mg oral tablet 2 tablet, By Mouth, Daily, # 60 tablet, 3 Refills, 07/22/22 8:26:00 EDT, [facility], 172,cm, 06/03/22 10:06:00 EDT, Height, 123.3, kg, 06/03/22 10:06:00 EDT, Dry Weight Start Date: 07/22/22 Status: Ordered gabapentin 300 mg oral capsule 300 mg, 1, capsule, By Mouth, 3 times a day, # 90 capsule, Refills 1, Tot. Refills 1, Maintenance, 07/27/22 13:12:00 EDT, Route to Pharmacy Electronically, [facility], Partial fill upon patient request if the prescription is for a schedule I... Start Date: 07/27/22 Status: Ordered gabapentin 300 mg oral capsule 1, capsule, By Mouth, 3 times a day, # 90 capsule, Refills 0, Maintenance, 07/27/22 13:13:00 EDT, Route to Pharmacy Electronically, [facility], 172, cm, 06/03/22 10:06:00 EDT, Height, 123.3, kg, 06/03/22 10:06:00 EDT, Dry Weight Start Date: 07/27/22 Status: Ordered hydrOXYzine hydrochloride 50 mg oral tablet 1 tablet, By Mouth, Daily at bedtime, # 30 tablet, 2 Refills, Maintenance, 05/27/22 9:46:00 EDT, [facility], 172, cm, 03/09/22 9:54:00 EDT, Height, 95, kg, 03/03/21 23:10:00 EDT, Dry Weight Start Date: 05/27/22 Status: Ordered lithium 450 mg oral tablet, extended release 1 tablet, By Mouth, Daily at bedtime, # 30 tablet, 0 Refills, [place] [id number], 172, cm, 08/05/21 15:13:00 EDT, Height, 95, [...] FOR SLEEP, # 60 tablet, 0 Refills, [facility], 172, cm, 12/15/21 14:14:00 EST, Height, 95, kg, 03/03/21 23:10:00 EDT, Dry Weight Start Date: 01/28/22 Status: Ordered prazosin 5 mg oral capsule 5 mg, 1, capsule, By Mouth, Daily at bedtime, # 30 capsule, Refills 2, Tot. Refills 2, Maintenance,05/27/22 9:46:00 EDT, Route to Pharmacy Electronically, [facility], Partial fill upon patient request if the prescription is for a schedule I... Start Date: 05/27/22 Stop Date: 08/25/22 Status: Ordered Problem List Condition Confirmation Course Effective Dates Status Health St atus Informant Stage 3a chronic kidney disease (CKD) Confirmed Active Gender dysphoria Confirmed 08/17/22 Active Qyam-wk-cwsxxr transgender person Confirmed Active Gender Dysphoria Confirmed [...] Personnel Name: Charlotte MARIA, Blanka Angeles Position: [facility] Physician - Primary Care Member Role: PCP Address: Address: [address] [place] [id number]- Care Team Related Persons Name: XAVIER BERKOWITZ Address: [address] [place] [address] Name: EDMOND SHIPMAN Address: [address] [place] [address]
--- OUTSIDE RECORDS SUMMARY | 2023-12-19 19:43 | XMS_ITS | Continuity of Care Document ---
Author Name Unknown Organization [facility] Address [address] [place] [address]- Care Team Providers Care Manufacturing Support Engineer Name Role Phone Charlotte MARIA, Blanka Angeles Primary Care Physician [place] [facility] [place]23 [place] 07/[place]/23 [facility] [address] [place] [address]- Allergies, Adverse Reactions, Alerts Substance Reaction Severity [...] 0 Refills, Maintenance, 06/03/22 10:50:00 EDT, Cream, [facility], Partial fill upon patient request if the prescription is for a schedule II opioid drug., 1 application Topically 2 times a da... Start Date: 06/03/22 Stop Date: 06/17/22 Status: Ordered clonazePAM 2 mg oral tablet See Instructions, TAKE 1 TABLET BY MOUTH THREE TIMES DAILY NEEDED FOR ANXIETY, # 90 tablet, 1 Refills, Maintenance, 03/04/22 8:44:00 EDT, [facility], 172, cm, 12/15/21 14:14:00 EST, Height, 95, kg, 03/03/21 23:10:00 EDT, Dry Weight Start Date: 03/04/22 Status: Ordered escitalopram 20 mg oral tablet 2 tablet = 40 mg, By Mouth, Daily, # 180 tablet, 1 Refills, Maintenance, 12/31/22 20:03:00 EST, [facility], Partial fill upon patient request if the prescription is for a schedule II opioiddrug., 172, cm, 09/13/22 10:14:00 EST, Height, 123.... Start Date: 12/31/22 Status: Ordered estradiol 2 mg oral tablet 2 tablet, By Mouth, Daily, # 60 tablet, 1 Refills, Maintenance, 03/07/23 16:36:00 EDT, [facility], 172, cm, 09/13/22 10:14:00 EST, Height, 123.3, kg, 06/03/22 10:06:00 EDT, Dry Weight Start Date: 03/07/23 Status: Ordered estradiol 2 mg oral tablet 2 tablet, By Mouth, Daily, # 60 tablet, 3 Refills, 07/22/22 8:26:00 EDT, [facility], 172,cm, 06/03/22 10:06:00 EDT, Height, 123.3, kg, 06/03/22 10:06:00 EDT, Dry Weight Start Date: 07/22/22 Status: Ordered gabapentin 300 mg oral capsule 300 mg, 1, capsule, By Mouth, 3 times a day, # 90 capsule, Refills 1, Tot. Refills 1, Maintenance, 07/27/22 13:12:00 EDT, Route to Pharmacy Electronically, [facility], Partial fill upon patient request if the prescription is for a schedule I... Start Date: 07/27/22 Status: Ordered gabapentin 300 mg oral capsule 1, capsule, By Mouth, 3 times a day, # 90 capsule, Refills 0, Maintenance, 07/27/22 13:13:00 EDT, Route to Pharmacy Electronically, [facility], 172, cm, 06/03/22 10:06:00 EDT, Height, 123.3, kg, 06/03/22 10:06:00 EDT, Dry Weight Start Date: 07/27/22 Status: Ordered hydrOXYzine hydrochloride 50 mg oral tablet 1 tablet, By Mouth, Daily at bedtime, # 30 tablet, 2 Refills, Maintenance, 05/27/22 9:46:00 EDT, [facility], 172, cm, 03/09/22 9:54:00 EDT, Height, 95, kg, 03/03/21 23:10:00 EDT, Dry Weight Start Date: 05/27/22 Status: Ordered lithium 450 mg oral tablet, extended release 1 tablet, By Mouth, Daily at bedtime, # 30 tablet, 0 Refills, [facility] [id number], 172, cm, 08/05/21 15:13:00 EDT, Height, 95, [...] FOR SLEEP, # 60 tablet, 0 Refills, [facility], 172, cm, 12/15/21 14:14:00 EST, Height, 95, kg, 03/03/21 23:10:00 EDT, Dry Weight Start Date: 01/28/22 Status: Ordered prazosin 5 mg oral capsule 5 mg, 1, capsule, By Mouth, Daily at bedtime, # 30 capsule, Refills 2, Tot. Refills 2, Maintenance,05/27/22 9:46:00 EDT, Route to Pharmacy Electronically, [facility], Partial fill upon patient request if the prescription is for a schedule I... Start Date: 05/27/22 Stop Date: 08/25/22 Status: Ordered Problem List Condition Confirmation Course Effective Dates Status Health St atus Informant Stage 3a chronic kidney disease (CKD) Confirmed Active Gender dysphoria Confirmed 08/17/22 Active Svol-jd-[id number] transgender person Confirmed Active Gender Dysphoria Confirmed [...] Personnel Name: Charlotte MARIA, Blanka Angeles Position: [facility] Physician - Primary Care Member Role: PCP Address: Address: [address] [place] [address]- Care Team Related Persons Name: XAVIER BERKOWITZ Address: [address] [place] [address] Name: EDMOND SHIPMAN Address: [address] [place] [address]
--- OUTSIDE RECORDS SUMMARY | 2023-12-19 19:44 | XMS_ITS | Patient Health Record ---
Author Name Unknown [facility] Address [address] [place] [address] Care Team Providers Care Field Operations Farm Manager Name Role Phone Juan Olivas Primary Care Provider Hanh Jimenez Unavailable [phone] ALLERGIES No Known Allergies REASON FOR REFERRAL [...] Are you an other tobacco user? No PLAN OF TREATMENT No Information Insurance Providers Payer Name Payer Address Payer Phone Subscriber Number Group Number Insured Name Patient Relationship to Insured Coverage Start Date Coverage End Date [facility] [employer] Claims [address] [place] [phone] [id number] Jazlyn Torres Self - patient is the insured MEDICAL (GENERAL) HISTORY Medical History History ICD Code Anxiety Back,Hip,and Knee pain Depression Chicken pox Surgical History Surgery Date(Month/Year) hernia Hand Surgery
[2023-12-19 20:33] VITALS: BP 168/88; PULSE 89; RESP 19; TEMP 36.6; O2SAT 98
[2023-12-19] MEDS: Cyclobenzaprine HCl 10 MG TABLET PO (21:15)
--- NOTE | 2023-12-19 21:18 | PC.NURSE ---
pt medicated according to mar for 08/09 pain. pt provided with cup of ice per request. pt states no new needs at this time
[2023-12-19] MEDS: Lidocaine 4 % Patch ADH..PATCH 1 PATCH TRANSDERMA (21:42)
[2023-12-19 22:19] VITALS: BP 142/75; PULSE 65; RESP 19; TEMP 36.4; O2SAT 97
== END 2023-12-19 22:33 | disposition home or self-care (01) ==
PROVIDERS: Emergency Provider Student in an Organized Health Care Education/Training Program
DX: M54.50 Low back pain, unspecified (principal); M53.3 Sacrococcygeal disorders, not elsewhere classified; Z79.899 Other long term (current) drug therapy
CPT/HCPCS: 72100; 72220; 99283; 99284

== ENCOUNTER 2025-05-09 14:11 | Emergency (ER) | payer OTHER, SELFPAY ==
--- NOTE | ~2025-05-09 | MR_ITS ---
CLINICAL HISTORY: back pain Motion noted from heavy breaths, reminders given, unable to repeat due to pain MR lumbar spine without gadolinium Comparison: CR/SR - XR LUMBAR SPINE 2-3V - 05/09/25 15:14 EDT Findings: No scoliosis or spondylolisthesis. No acute fracture or pathologic bone lesion. Cauda equina and conus medullaris within normal limits. Dorsal subcutaneous tissue nonspecific edema. No significant spinal canal or foraminal stenoses. Mild multilevel spondylosis at L2-L3 and L3-L4 levels with degenerative disc desiccation, and disc height loss without significant spinal canal narrowing. Mild bilateral neural foraminal narrowings are noted at these levels. Paraspinous musculature intact. IMPRESSION: No acute findings. Mild multilevel spondylosis at L2-L3 and L3-L4 levels with mild bilateral neural foraminal narrowings. No significant spinal canal narrowing. Dorsal subcutaneous tissue nonspecific edema which could be dependent. This document has been electronically signed by: Diane Felder MD on 05/09/2025 22:07:38
--- NOTE | ~2025-05-09 | XR_ITS ---
EXAMINATION: XR LUMBOSACRAL SPINE CLINICAL INFORMATION: back pain COMPARISON: December 19, 2023. TECHNIQUE: AP and lateral views. FINDINGS: S-shaped curvature of the thoracolumbar spine. No acute cortical disruption or malalignment. No lytic or blastic lesions. XR/XR lumbar spine 2-3V IMPRESSION: Scoliosis, thoracolumbar spine. Electronically signed by: Niall Michele MD 05/09/2025 03:34 PM EDT
--- NOTE | ~2025-05-09 | XR_ITS ---
EXAMINATION: XR SACRUM AND COCCYX CLINICAL INFORMATION: back pain COMPARISON: December 19, 2023. TECHNIQUE: AP and lateral views FINDINGS: No acute cortical disruption. No lytic or blastic lesions XR/XR sacrum coccyx min 2V IMPRESSION: No acute fracture. Negative exam. Electronically signed by: Niall Michele MD 05/09/2025 03:33 PM EDT
[2025-05-09 14:33] VITALS: BP 140/63; PULSE 84; RESP 16; TEMP 36.6; O2SAT 93; BMI 30.4
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
[2025-05-09 18:00] VITALS: BP 126/68; PULSE 65; RESP 18; O2SAT 98
[2025-05-09] MEDS: LORazepam 2 MG/ML VIAL 1 MG IVPUSH (19:37)
--- NOTE | 2025-05-09 19:38 | PC.NURSE ---
pt medicated per dec, Notified AKASH Carmichael.
[2025-05-09 20:21] LABS: MANUAL DIFF FLAG NO
[2025-05-09 20:36] LABS: Anion Gap 14 (12-20); Blood Urea Nitrogen 19 mg/dL (9-16); Calcium 8.4 mg/dL (8.4-10.2); Carbon Dioxide 20 mmol/L (22-29); Chloride 110 mmol/L (96-108); Creatinine Clr Calc Pharmacy 71.1; Estimated Glomerular Filt Rate 49; Potassium 4.3 mmol/L (3.3-5.1); Sodium 140 mmol/L (135-145)
[2025-05-09 20:40] VITALS: BP 142/71; PULSE 63; RESP 16; TEMP 36.6; O2SAT 96
--- NOTE | 2025-05-09 20:41 | PC.NURSE ---
patient to MRI at this time
[2025-05-09 21:01] LABS: Hematocrit 38.6 % (37.0-47.0); Hemoglobin 13.7 g/dl (12.0-16.0); Imm Gran Abs Auto 0.05 X10*3/uL (0.00-0.03); Imm Gran Pct Auto 0.6 % (0.0-0.4); Lymphocytes Absolute Auto 2.2 X10*3/uL (1.2-4.9); Mean Corpuscular HGB Conc 35.5 g/dl (31.0-35.0); Mean Corpuscular Hemoglobin 30.4 pg (27.0-33.0); Mean Corpuscular Volume 85.8 fL (80.0-98.0); NRBC Abs Auto 0.000 X10*3/uL (0.0-0.012); NRBC Pct Auto 0.0 /100WBC (0.0-0.2); Platelet Count 250 X10*3/uL (160-400); Red Blood Count 4.50 X10*6/uL (4.20-5.50); White Blood Count 8.1 X10*3/uL (4.8-10.8)
== END 2025-05-09 23:28 | disposition home or self-care (01) ==
PROVIDERS: Emergency Provider Emergency Medicine Emergency Medical Services
DX: S39.012A Strain of muscle, fascia and tendon of lower back, initial encounter (principal); M54.9 Dorsalgia, unspecified; Z63.9 Problem related to primary support group, unspecified; X58.XXXA Exposure to other specified factors, initial encounter; Y93.9 Activity, unspecified; Y92.9 Unspecified place or not applicable; Y99.9 Unspecified external cause status
CPT/HCPCS: 36415; 72100; 72148; 72220; 80048; 85025; 96374; 96375; 99284; 99285; J1171; J1885; J2060

== ENCOUNTER → 2025-05-09 14:38 | Outpatient (BNV) | payer OTHER, SELFPAY | PROVIDERS: Visit Provider Radiology Diagnostic Radiology | DX: M54.50 Low back pain, unspecified (principal); R06.82 Tachypnea, not elsewhere classified; M41.35 Thoracogenic scoliosis, thoracolumbar region; M54.9 Dorsalgia, unspecified | CPT/HCPCS: 72100; 72148; 72220 ==

== ENCOUNTER 2025-06-28 11:44 | Emergency (ER) | payer OTHER, SELFPAY ==
--- NOTE | 2025-06-28 12:05 | ED_ITS ---
HPI - General Adult General Stated complaint: NO CHIEF COMPLAINT PER EMS Time Seen by Provider: 06/28/25 11:57 Source: patient, RN notes reviewed and old records reviewed Mode of arrival: EMS Limitations: no limitations History of Present Illness ED Provider: Iker Seay PA-C HPI narrative: 44-year-old female with medical history of OCD, PTSD, lumbar radiculopathy presenting to ED due to lumbar back pain. Patient states they have been moving out of their apartment, and all their belongings have impact up. Patient has not had access to their Tylenol or ibuprofen for pain management today. Patient states this is her baseline pain has not changed in quality or intensity and is just looking for Tylenol for pain management. Denies saddle anesthesia, bowel/bladder incontinence, chest pain, shortness of breath, abdominal pain, urinary symptoms, black/tarry stool Related Data Previous Rx's ?Medication ?Instructions ?Recorded cane #1 ea 04/28/21 clonazepam 2 mg tablet 2 mg PO TID PRN anxiety 15 d ays 04/28/21 #45 tabs escitalopram oxalate 10 mg tablet 40 mg (4 x 10 mg) PO DAILY 30 days 04/28/21 #120 tabs estradiol 2 mg tablet 4 mg (2 x 2 mg) PO DAILY 30 days 04/28/21 #60 tabs trazodone 100 mg tablet 200 mg (2 x 100 mg) PO BEDTI ME PRN 04/28/21 insomnia 30 days #60 tabs cephalexin 500 mg tablet 500 mg PO Q6H 10 days #40 ta bs 12/24/22 nystatin 100,000 unit/gram topical 1 appl topical BID #15 grams 12/24/22 powder cyclobenzaprine 10 mg tablet 10 mg PO TID PRN muscle s pasm #20 12/19/23 tabs lidocaine 5 % topical patch 1 patch topical DAILY #30 ea 12/19/23 (Lidoderm) cyclobenzaprine 10 mg tablet 10 mg PO TID PRN pain #14 tabs 05/09/25 ibuprofen 400 mg tablet 400 mg PO Q6H PRN pain #20 t abs 05/09/25 Allergies Allergy/AdvReac Type Severity Reaction Status Date / Time tramadol Allergy Intermediate hives Verified 06/28/25 12:12 bupropion (From WELLBUTRIN) Allergy Unknown PAINFUL Verified 06/28/25 12:12 ERECTION perphenazine Allergy Unknown Shakiness Verified 06/28/25 12:12 risperidone (Risperdal) AdvReac Unknown diarrhea, Verified 06/28/25 12:12 feels ramped up sertraline (From ZOLOFT) AdvReac Unknown NAUSEA/DIZZ Verified 06/28/25 12:12 INESS Review of Systems Review of Systems: CONST: Negative for fever, body aches and chills. HENT: Negative for neck pain/stiffness, headache, congestion, sore throat, swelling. EYES: Negative for discharge/pain or vision changes. RESP: Negative for cough/hemoptysis and shortness of breath. CV: Negative chest pain, difficulty breathing, palpitations. ABD: Negative pain, nausea, vomiting. : Negative increase frequency, dysuria, blood in urine or stool. MUSC: Negative for muscle aches, edema. POS lumbar back pain SKIN: Negative rash, lesions/sores. NEURO: Negative headache, dizziness, weakness. Yes all other systems are reviewed and are negative PMFSH Past Medical History Medical History Agoraphobia Anxiety Chronic post-traumatic stress disorder (PTSD) Depression Hip pain, chronic [employer] transgender person MDD (major depressive disorder), recurrent severe, without psychosis PTSD (post-traumatic stress disorder) Somatic complaints, multiple Suicidal ideation Social History Social History Household Members: None Housing: Homeless Do you presently have visiting nurse or other home services: No Patient Tobacco Use Status: Never used Tobacco Substance Use Type: Marijuana service: No Sexual orientation: Did not discuss Physical Exam ED GENERAL APPEARANCE: ?AxOx4, generally well-appearing, no acute distress. HEENT: ?NC, AT. MMM. EOMI, clear conjunctiva, oropharynx clear. NECK: ?Supple without lymphadenopathy.? No stiffness or restricted ROM. HEART:? Normal rate and regular rhythm, normal S1/S1, no m/r/g LUNGS:? CTAB, moving air well. No crackles or wheezes are heard. ABDOMEN: ?Soft, nontender, nondistended with good bowel sounds heard. BACK: No CVAT, no obvious deformity. TTP of B/L lumbar paraspinal muscles, no midline spinal tenderness, no bony step-offs or anatomical abnormalities observed or palpated, positive B/L straight leg test EXTREMITIES: ?Without cyanosis, clubbing or edema. Strength 4/5 bilaterally, SILT NEUROLOGICAL: ?Grossly nonfocal. Alert and oriented, moving all 4 extremities. Observed to ambulate with normal gait. Skin: ?Warm and dry without any rash. Medical Decision Making Medical Decision Making MDM Narrative: 44-year-old female with medical history of OCD, PTSD, lumbar radiculopathy presenting to ED due to lumbar back pain. Patient states they have been moving out of their apartment, and all their belongings have impact up. Patient has not had access to their Tylenol or ibuprofen for pain management today. Patient states this is her baseline pain has not changed in quality or intensity and is just looking for Tylenol for pain management. Denies saddle anesthesia, bowel/bladder incontinence Patient states lumbar back pain is baseline, no change in quality or intensity, no saddle anesthesia, no bowel/bladder incontinence- less likely cauda equina Patient without access to her Tylenol or ibuprofen is looking for Tylenol for pain management. Patient has no other physical complaints. Differential Diagnosis Differential Diagnoses: The differential diagnosis associated with the presentation includes Cauda equina Lumbar radiculopathy Lumbar strain Admission/Observation Consideration of admission/observation: Escalation of care including admission/observation considered Independent Historian Clinical information obtained from an independent historian. History obtained from or confirmed by: EMS External Record Review External record reviewed: Inpatient record, Office record and Outpatient record Chronic Conditions Patient?s care impacted by: Other (PTSD, OCD) Social Determinants Patient?s care significantly limited by Social Determinants of Health including: Other Social Determinant of Health Discharge Plan Discharge Clinical Impression: Chronic lumbar pain Patient Disposition: Home, Self-Care Instructions: Pain Management (ED) Additional Instructions: You were evaluated in the ED today due to lumbar back pain. You stated the lumbar back pain is baseline for you, without change in quality or intensity and were looking for medication with Tylenol for pain relief due to not having access. You were medicated in the department with 975 mg of oral Tylenol with good relief of your symptoms. Please follow up with your primary care provider to ensure improvement Please return to the emergency department if you experience worsening back pain, loss of sensation in your legs, bowel/bladder incontinence, chest pain, shortness of breath, or any other new/worsening/concerning symptoms. Prescriptions: No Action trazodone 100 mg Tablet 200 mg PO BEDTIME PRN (Reason: insomnia) 30 Days Qty: 60 0RF escitalopram oxalate 10 mg Tablet 40 mg PO DAILY 30 Days Qty: 120 0RF (DME) cane Device See Rx Instructions .ROUTE .MEDSUPPLY Qty: 1 0RF Rx Instructions: As directed clonazepam 2 mg tablet 2 mg PO TID PRN (Reason: anxiety) 15 Days Qty: 45 1RF estradiol 2 mg tablet 4 mg PO DAILY 30 Days Qty: 60 0RF cephalexin 500 mg tablet 500 mg PO Q6H 10 Days Qty: 40 0RF nystatin 100,000 unit/gram powder 1 appl topical BID Qty: 15 0RF lidocaine [Lidoderm] 5 % adhesive patch,medicated 1 patch topical DAILY Qty: 30 0RF Rx Instructions: leave on most painful area for up to 12 hrs cyclobenzaprine 10 mg tablet 10 mg PO TID PRN (Reason: muscle spasm) Qty: 20 0RF cyclobenzaprine 10 mg tablet 10 mg PO TID PRN (Reason: pain) Qty: 14 0RF ibuprofen 400 mg tablet 400 mg PO Q6H PRN (Reason: pain) Qty: 20 0RF Print Language: Kinyarwanda
[2025-06-28 12:11] VITALS: BP 133/75; BP 138/88; PULSE 62; RESP 18; TEMP 36.7; O2SAT 97; O2SAT 98; BMI 41.5
[2025-06-28 12:45] VITALS: BP 130/69; PULSE 75; RESP 14; TEMP 36.7; O2SAT 100
[2025-06-28 13:52] VITALS: BP 128/80; PULSE 80; RESP 15; TEMP 36.6; O2SAT 99
[2025-06-28 16:00] VITALS: BP 131/77; PULSE 75; RESP 15; TEMP 36.8; O2SAT 98
[2025-06-28 17:57] VITALS: BP 131/77; PULSE 75; RESP 15; TEMP 36.8; O2SAT 98
== END 2025-06-28 17:58 | disposition home or self-care (01) ==
PROVIDERS: Emergency Provider Emergency Medicine
DX: M54.50 Low back pain, unspecified (principal); F41.9 Anxiety disorder, unspecified
CPT/HCPCS: 99283; 99284